=== PATIENT | female | born 1955 | race Caucasian/White ===

== ENCOUNTER 2024-08-16 08:43 | Outpatient (CLI) | payer MEDICARE, SELFPAY ==
--- NOTE | ~2024-08-16 | US_ITS ---
EXAMINATION: US abdomen limited DATE: 08/16/2024 09:20 INDICATION: Gaseous abdominal distention TECHNIQUE: Multiple grayscale and Doppler ultrasound images of the abdomen were obtained. COMPARISON: CT dated 11/18/2019 FINDINGS: The pancreatic head and body are normal in appearance. The pancreatic tail is not visualized. The vi sualized proximal abdominal aorta and inferior vena cava are normal. Liver has normal echogenicity an d contour, with a smooth surface. There are multiple well-defined anechoic hepatic cysts the largest with lobular margins in the right hepatic lobe measuring 4.0 cm in maximal diameter. No intrahepatic biliary duct dilation suspected. Portal venous flow was seen in the hepatopetal, normal direction and has normal Doppler waveform. The gallbladder is normal in appearance. There is no cholelithiasis. T he common bile duct measures 4 mm, which is normal. Sonographic You sign was reported as negative by the utility forester. Visualized portion of the right kidney demonstrates normal echogenicity and conto ur with no hydronephrosis. IMPRESSION: 1. A few anechoic hepatic cyst. Otherwise unremarkable right upper quadrant ultrasound. Reviewed, dictated and finalized at location B. IMPRESSION: 1. A few anechoic hepatic cyst. Otherwise unremarkable right upper quadrant ult rasound.
== END 2024-08-16 08:44 | disposition home or self-care (01) ==
LOC: ANHIMG 08:45
PROVIDERS: PCP Nurse Practitioner Family; Visit Provider Nurse Practitioner Family
DX: K76.89 Other specified diseases of liver (principal)
CPT/HCPCS: 76705

== ENCOUNTER 2024-09-19 08:48 | Outpatient (CLI) | payer MEDICARE, SELFPAY ==
--- NOTE | ~2024-09-19 | MM_ITS ---
EXAMINATION: MM screening yany BI w leora HISTORY: Screening TECHNIQUE: Craniocaudal and mediolateral oblique 3-D tomosynthesis images were obtained and synthetic 2-D images were generated. CAD analysis was submitted and interpreted. COMPARISON: No prior mammogram is available for comparison at this institution. BREAST PARENCHYMAL COMPOSITION: Not dense: There are scattered areas of fibroglandular density. FINDINGS: There is no evidence of suspicious mass, calcification, or architectural distortion to sugg est malignancy in either breast. There has been no suspicious interval change. IMPRESSION: 1. No mammographic evidence of malignancy. 2. Recommend routine screening mammography in one year. BI-RADS Category 1: Negative Reviewed, dictated and finalized at location B.
== END 2024-09-19 08:49 | disposition home or self-care (01) ==
LOC: ANHIMG 08:51
PROVIDERS: PCP Nurse Practitioner Family; Visit Provider Nurse Practitioner Family
DX: Z12.31 Encounter for screening mammogram for malignant neoplasm of breast (principal)
CPT/HCPCS: 77063; 77067

== ENCOUNTER 2024-11-01 02:01 | Day surgery (SDC) | payer MEDICARE, SELFPAY ==
[2024-10-15 15:06] VITALS: BMI 39.7
[2024-11-01 07:34] VITALS: BP 127/78; PULSE 93; RESP 20; TEMP 36; O2SAT 94; BMI 40.2
--- NOTE | 2024-11-01 07:49 | P.PNAN_ITS ---
Anes - Initial Pre Proc Eval Procedure: Operation Date: 11/01/24 08:30 Proposed Procedures p Screening Colonoscopy - Antonio Lo MD Date/Time: 11/01/24 07:49 Surgeon: Antonio Lo MD Pre Op Diagnosis: screening malignant neoplasm of colon Patient Data Age: 69 Gender: F Height: 1.8 m Weight: 131 kg Last Vital Signs Temp 96.8 F L 11/01/24 07:34 Pulse 93 11/01/24 07:34 Resp 20 11/01/24 07:34 BP 127/78 11/01/24 07:34 Pulse Ox 94 11/01/24 07:34 O2 Del Method Room Air 11/01/24 07:34 Allergies Allergy/AdvReac Type Severity Reaction Status Date / Time Penicillins Allergy Mild HIVES Verified 11/01/24 07:33 Home Medications Medication Instructions Recorded Confirmed Type semaglutide 0.25 mg or 0.5 mg (2 0.25 mg subcut DAILY 10/18/19 10/15/24 History mg/1.5 mL) subcutaneous pen injector ([facility]) duloxetine 60 mg capsule,delayed 60 mg PO DAILY #90 caps 05/23/24 10/15/24 Rx release losartan 50 mg tablet 50 mg PO DAILY #90 tabs 05/23/24 10/15/24 Rx meloxicam 7.5 mg tablet 7.5 mg PO DAILY 05/23/24 10/15/24 History rosuvastatin 20 mg tablet 20 mg PO .monday and monday #30 05/23/24 10/15/24 Rx tabs trazodone 100 mg tablet 100 mg PO QHS #90 tabs 05/23/24 10/15/24 Rx levothyroxine 100 mcg capsule 100 mcg PO DAILY #90 caps 08/27/24 10/15/24 Rx Patient hx anesthesia problems: none Family hx anesthesia problems: none Results Review: All pre-operative results and documents have been reviewed as part of the pre- operative evaluation. [facility] Past Medical History Medical History Anxiety Arthritis Diabetes Hearing loss Hypertension Hypothyroid Right-sided acoustic neuroma Surgical History Surgical History H/O brain surgery H/O tubal ligation History of tonsillectomy and adenoidectomy Hx of appendectomy Hx of cataract surgery Hx of colonoscopy 08/12/13 11/11/19 @ [facility] Family History Family History Father Anxiety and depression Heart disease Mother Breast cancer Heart disease Sibling Carcinoma of colon Diabetes mellitus Grandparent Carcinoma of colon Social History Social History Social History: 08/20/24 very confident with medical forms. 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 HTN, hyperlipidemia, hypothyroidism, DM, on ozempic (off 6 days). Pt had stress test 10/28/24 at [facility] which was nml per her report. Then had a Ca score which was elevated and found a AAA. Pts procurement professional aware of abnormality and has increased her statin dose and cleared her for this procedure. Informed Consent: The patient's anesthetic plan and its attendant risks and benefits were discussed with the patient/family/POA. Questions were solicited and answers provided to the satisfaction of the patient/family/POA.
[2024-11-01] MEDS: LACTATED RINGERS 1,000 ML 150 ML IV CONT (07:51)
[2024-11-01 07:56] LABS: Glucose Point of Care 153 mg/dl (65-105)
--- NOTE | 2024-11-01 08:28 | P.HP_ITS ---
H&P: HPI History of Present Illness Date/Time: 11/01/24 08:28 Chief Complaint: Family history of colorectal cancer. Narrative: This patient has family history of colorectal cancer. Her brother at age 53 From colon cancer. she has had colon polyps in the past. Review of Systems Review of Systems: All systems reviewed & are unremarkable except as noted in HPI and below PMFSH Past Medical History Medical History Anxiety Arthritis Diabetes Hearing loss Hypertension Hypothyroid Right-sided acoustic neuroma Surgical History Surgical History H/O brain surgery H/O tubal ligation History of tonsillectomy and adenoidectomy Hx of appendectomy Hx of cataract surgery Hx of colonoscopy 08/12/13 11/11/19 @ [facility] Family History Family History Father Anxiety and depression Heart disease Mother Breast cancer Heart disease Sibling Carcinoma of colon Diabetes mellitus Grandparent Carcinoma of colon Social History Social History Social History: 08/20/24 very confident with medical forms. 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 Spiritual care concerns: No Agree to blood products: Yes Meds Home Medications and Allergies Home Medications Medication Instructions Recorded Confirmed Type semaglutide 0.25 mg or 0.5 mg (2 0.25 mg subcut DAILY 10/18/19 10/15/24 History mg/1.5 mL) subcutaneous pen injector (Ozempic) duloxetine 60 mg capsule,delayed 60 mg PO DAILY #90 caps 05/23/24 10/15/24 Rx release losartan 50 mg tablet 50 mg PO DAILY #90 tabs 05/23/24 10/15/24 Rx meloxicam 7.5 mg tablet 7.5 mg PO DAILY 05/23/24 10/15/24 History rosuvastatin 20 mg tablet 20 mg PO .monday and monday #30 05/23/24 10/15/24 Rx tabs trazodone 100 mg tablet 100 mg PO QHS #90 tabs 05/23/24 10/15/24 Rx levothyroxine 100 mcg capsule 100 mcg PO DAILY #90 caps 08/27/24 10/15/24 Rx Allergies Allergy/AdvReac Type Severity Reaction Status Date / Time Penicillins Allergy Mild HIVES Verified 11/01/24 07:33 Vital Signs Vital Signs - 24 hr 11/01/24 07:34 Temperature 96.8 F L Pulse Rate 93 Respiratory Rate 20 Blood Pressure 127/78 Pulse Oximetry 94 Oxygen Delivery Room Air Exam Const: General: cooperative and healthy appearing Resp: Effort & Inspection: normal respiratory effort and able to speak in complete sentences Auscultation: clear to auscultation bilaterally Cardio: Rate: regular rate Rhythm: regular rhythm GI: Inspection: normal to inspection GI Palp: No No hepatosplenomegaly pr esent Auscultation: normal bowel sounds Rectal Exam: deferred Skin: General skin exam: normal color Psych: Appearance: grossly normal Mental Status: mental status grossly normal Assessment and Plan Assessment and plan (1) Family history of colon cancer: Code(s): Z80.0 - Family history of malignant neoplasm of digestive organs Status: Acute Assessment and Plan: The patient is deemed a good candidate for the procedure. Consent signed. Will proceed.
[2024-11-01 09:01] VITALS: BP 107/83; PULSE 77; RESP 19; O2SAT 96
[2024-11-01 09:11] VITALS: BP 110/86; PULSE 71; RESP 16; O2SAT 97
[2024-11-01 09:22] VITALS: BP 131/82; PULSE 70; RESP 17; O2SAT 100
--- NOTE | 2024-11-01 09:27 | SUR.PREOP ---
Bel Mayorga, RN, and Dr. Casey made aware of recent aneurysm finding.
== END 2024-11-01 09:35 | disposition home or self-care (01) ==
PROVIDERS: PCP Nurse Practitioner Family; Visit Provider Internal Medicine Gastroenterology
PROC: 0DJD8ZZ Inspection of Lower Intestinal Tract, Via Natural or Artificial Opening Endoscopic (ICD-10-PCS; CPT 45378; principal; 2024-11-01 08:30)
DX: Z12.11 Encounter for screening for malignant neoplasm of colon (principal); D12.0 Benign neoplasm of cecum; E11.9 Type 2 diabetes mellitus without complications; I10 Essential (primary) hypertension; E03.9 Hypothyroidism, unspecified; F41.9 Anxiety disorder, unspecified; D33.3 Benign neoplasm of cranial nerves; M19.90 Unspecified osteoarthritis, unspecified site; E66.01 Morbid (severe) obesity due to excess calories; Z68.41 Body mass index [BMI] 40.0-44.9, adult; Z79.85 Long-term (current) use of injectable non-insulin antidiabetic drugs; Z98.890 Other specified postprocedural states; Z98.51 Tubal ligation status; Z80.0 Family history of malignant neoplasm of digestive organs; Z80.3 Family history of malignant neoplasm of breast; Z82.49 Family history of ischemic heart disease and other diseases of the circulatory system
CPT/HCPCS: 45385; 82948; 88305; J2704; J7120

== ENCOUNTER 2024-11-11 08:45 | Outpatient (CLI) | payer MEDICARE, SELFPAY ==
--- NOTE | ~2024-11-11 | CT_ITS ---
EXAMINATION: CT abdomen wo/w con DATE: 11/11/2024 09:09 INDICATION: Hepatomegaly, not elsewhere classified. TECHNIQUE: Computed tomography (CT) of the abdomen was performed without and with 100 mL Omnipaque 35 0 intravenous contrast. Automated exposure control and iterative reconstruction technique were employ ed. The dose-length product was 2870.93 mGy-cm. COMPARISON: CT abdomen and pelvis 11/18/2019, abdomen ultrasound 08/16/2024 FINDINGS: The visualized portions of the lung bases demonstrate mild atelectasis. No pleural effusion . The heart size is normal. There are coronary artery calcifications. No pericardial effusion. There is a moderate-sized sliding hiatal hernia. There are cysts in the liver measuring up to 4.4 cm. The g allbladder is normal. There are 3 hypodense masses in the spleen measuring up to 16 mm without change , likely granulomatous disease. The pancreas, adrenal glands, and right kidney are normal. 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 There are no dilated loo ps of bowel. There are changes of appendectomy. There are no pathologically enlarged lymph nodes. The re is mild thoracic spondylosis and moderate lumbar spondylosis. IMPRESSION: 1. Benign cysts in the liver. 2. Moderate-sized sliding hiatal hernia. Reviewed, dictated and finalized at location A. 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
[2024-11-11 09:04] LABS: Estimated Glomerular Filt Rate > 60
--- OUTSIDE RECORDS SUMMARY | 2024-11-17 18:04 | XMS_ITS | Clinical Summary ---
Author Organization [facility] Address [address] [place] [address]. [place] [address] [place] [address] Care Team Providers Care Porter Used [employer] Name Role Phone Omar Cait Pham [facility] Primary Care Provider + Allergies Active Allergy Reactions Criticality Noted Date Comments Morphine Other (see comment) 02/19/2023 Profound hypotension and diaphoresis Penicillins Hives 03/29/2010 Medications Levothyroxine Sodium 100 MCG capsule Take 1 capsule by mouth daily. 08/30/2024 Active losartan (COZAAR) 50 MG tablet Take 1 tablet (50 mg total) by mouth daily. Active meloxicam (MOBIC) 7.5 MG tablet Take 1 tablet (7.5 mg total) by mouth daily. Active rosuvastatin (CRESTOR) 20 MG tablet Take 1 tablet (20 mg total) by mouth nightly at bedtime. Active traZODone (DESYREL) 100 MG tablet Take 1 tablet (100 mg total) by mouth nightly at bedtime. Active DULoxetine (CYMBALTA) 60 MG capsule Take 1 capsule (60 mg total) by mouth daily. Active OZEMPIC 1 mg/dose injection (PEN) Inject 1 mg into the skin once a week. Active Active Problems Problem Noted Date Diagnosed Date Essential hypertension 09/15/2021 Hyperlipidemia 04/08/2019 Encounters Date Type Department Care Team Description 11/04/2024 7:56 AM MANAGER VIDEO [employer]AMES - 11/04/2024 11:59 PM [facility] Hospital Encounter [facility] Ultrasound [address] [place], [place] [id number] Boston Du MD Discharge Disposition: Home or Self Care (Routine Discharge) 11/04/2024 Travel 11/01/2024 Telephone [facility] [address] [address] Boston Du MD Information (Patient request) 10/30/2024 Telephone [facility] [address] Colleen Pina, ANESTHESIOLOGY MEDICAL DOCTOR Results 10/29/2024 7:46 AM MANAGER [employer] - 10/29/2024 11:59 PM MANAGER [employer] Hospital Encounter [facility] [address] [place] [address] Boston Du MD Discharge Disposition: Home or Self Care (Routine Discharge) 10/28/2024 11:47 AM MANAGER [employer]IDEO [employer] - 10/28/2024 11:59 PM MANAGER [employer] Hospital Encounter [facility] Cardiopulmonary Services [address] [place] [address] Boston Du MD Discharge Disposition: Home or Self Care (Routine Discharge) 10/28/2024 Travel 10/22/2024 Abstract [facility] [address] Trevon Yeung, RMA 10/17/2024 10:30 AM MANAGER [employer]IDEO [employer] [facility] [address] [place] [address] Boston Du MD Consult (Fhx CAD); Chest Pain; Fatigue 10/17/2024 Travel 10/15/2024 Orders Only [facility] [address] [address] Devi Quinones MA from Last 3 Months Immunizations Name Administration Dates Next Due COVID-19 Vaccine (Generic) 01/30/2021,01/02/2021 Influenza (Generic) 11/27/2011 Influenza Adult (Generic) 09/09/2021,09/2019,08/06/2019, 018 MODERNA COVID-19 (12+) MRNA, LNP-S, PF, 100 MCG/ 0.5 ML DOSE 09/22/2021 Shingrix 09/25/2019 Tdap (Generic) 11/14/2018 Family History Medical History Relation Comments atrial flutter Brother Heart Attack Father Stent Cardiac Father CHF Mother Stroke Paternal Grandfather Heart Attack Sister Stent Cardiac Sister Relation Status Comments Brother Alive Father Maternal Grandfather Maternal Grandmother Mother Paternal Grandfather Paternal Grandmother Sister Alive Social History Tobacco Use Types Packs/Day Years Used Date Smoking Tobacco: Never Smokeless Tobacco: Never Tobacco Cessation:Counseling Given: Not Answered Alcohol Use Standard Drinks/Week Comments Yes 0 (1 standard drink = 0.6 oz pur e alcohol) rare Comments Unknown Sex and Gender Information Value Date Recorded Sex Assigned at Not on file Legal Sex Female 7:32 PM CDT Gender Identity Not on file Sexual Orientation Not on file Last Filed Vital Signs Vital Sign Reading Time Taken Comments Blood Pressure 138/88 10/17/2024 10:58 AM MANAGER [employer]IDEO [employer] Pulse 81 10/17/2024 10:58 AM MANAGER [employer] Temperature 36.7 ??C (98 ??F) 02/19/2023 1:46 PM CDT Respiratory Rate 20 02/19/2023 1:46 PM CDT Oxygen Saturation 95% 02/19/2023 3:40 PM CDT Inhaled Oxygen Concentration - - Weight 132 kg (291 lb) 10/17/2024 10:58 AM MANAGER [employer]IDEO [employer] Height 180.3 cm (5' 11 ) 10/17/2024 10:58 AM MANAGER [employer]IDEO [employer]AMES Body Mass Index 40.59 10/17/2024 10:58 AM MANAGER [employer]IDEO [employer]AMES Plan of Treatment Upcoming Encounters Date Type Department Care Team (Late st Contact Info) Description 11/18/2024 9:00 AM MANAGER VIDEO [employer] Telemedicine [facility] [address] [place] [id number] Colleen Pina FNP [address] [place] [address] [address] [place] [address] Health Maintenance Due Date Last Done Comments Colorectal Cancer Screening Colonoscopy (10 Years) 1955 Hepatitis C 1974 RSV Immunization or 60+ Years (1 - Risk 60-74 years 1-dose series) 2016 Zoster Vaccines (2 of 2) 11/20/2019 09/25/2019 Annual Medicare Wellness Visit 2021 Pneumococcal Vaccine: 65+ Years (1 of 1 - PCV) 2021 COVID-19 Vaccine (4 - season) 2024 09/22/2021, 01/30/2021, 01/02/2021 Influenza Adult (#1) 2024 09/09/2021, 08/07/2019, 08/06/2019, Additional history exists Mammogram Screening 10/04/2024 10/04/2022, 10/09/2019, 01/22/2015, Additional history exists DTaP, Tdap and Td Vaccines (2 - Td or Tdap) 11/14/2028 11/14/2018 Dexa Scan (General) Completed 05/02/2023, 0 Meningococcal Vaccine Aged Out No diaz jace eligible based on patient's age to complete this topic RSV Immunizations Under 20 Months Aged Out No longer eligible based on patient's age to complete this topic Procedures Procedure Name Priority Date/Time Associated Diagnosis Comments CREATININE WHOLE BLOOD Routine 9:25 AM MANAGER VIDEO GAMES Ascending aortic aneurysm (CMS/HCC) CTA CHEST Routine 11/04/2024 9:24 AM MANAGER [employer]IDEO [employer] Ascending aortic aneurysm (CMS/HCC) USE ECHOCARDIOGRAM W CON Routine 024 8:52 AM MANAGER [employer]IDEO [employer] Chest pain in adult CT HEART DIAG CALCIUM SCORE Routine 10/29/2024 8:21 AM MANAGER [employer]IDEO [employer] Chest pain in adult STRESS TEST ONLY, EXERCISE Routine 10/28/2024 12:00 PM MANAGER [employer] Chest pain in adult ELECTROCARDIOGRAM (NON MIDMARK ACQUIRED) Routine 10/17/2024 11:11 AM MANAGER [employer]IDEO [employer]AMES Chest pain in adult BONE DENSITY/DEXA Routine 05/02/2023 1:2 4 PM CDT Age-related osteoporosis without current pathological fracture MG SCREENING W DONNIE TIMA DIGI Routine 10/04/2022 1:23 PM MANAGER [employer]IDEO [employer]AMES Encounter for screening mammogram for malignant neoplasm of breast from Last 3 Months or Most Recently Relevant to Health Maintenance Results * CREATININE WHOLE BLOOD (Radiology only) (11/04/2024 9:25 AM MANAGER VIDEO GAMES) CREATININE WHOLE BLOOD 0.8 0.6 - 1.2 MG/DL 11/04/2024 6:18 PM MANAGER VIDEO GAMES [facility] 11/04/2024 9:25 AM MANAGER VIDEO GAMES us Boston Du MD LABORATORY Final Resul t [facility] [address] [place] [address], [place] [phone] * CTA CHEST (11/04/2024 9:24 AM MANAGER VIDEO [employer]AMES) Anatomical Region Laterality Modality Chest Computed Tomogra phy 11/05/2024 6:42 AM MANAGER VIDEO [employer]AMES Impressions 11/05/2024 6:59 AM MANAGER [employer]IDEO GAMES IMPRESSION: 1. ??Atherosclerotic aorta without dissection. ??Ascending aortic aneurysm as detailed above. ??No pericardial effusion.. 2. ??No pathologic pulmonary nodules or pathologic lymphadenopathy. ??No infiltrate or effusion. 3. ??Follow-up with CT of the abdomen for hemangioma protocol for low-density lesions within the liver and spleen. Referred By: BOSTON DU Interpreted By: Mannie Ospina MD, 11/05/2024 6:42 AM Narrative 11/05/2024 6:59 AM MANAGER VIDEO GAMES [facility] [address] [place] [address] EXAMINATION: CTA CHEST WITH CONTRAST EXAM DATE/TIME: 11/04/2024 8:50 AM REASON FOR EXAM: ??Ascending aortic aneurysm ?? COMPARISON: CT calcium scoring of 10/29/2024 TECHNIQUE: Computed tomography angiography was performed of the chest after administration of intravenous contrast, 80 cc of Isovue-370, according to routine protocol. Additional 3-D reconstructions and postprocessing were performed independently by the attending radiologist and a separate dedicated 3-D workstation. A dose lowering technique was used for this procedure, which may include, but is not limited to, dose reduction technique, automated exposure control, iterative reconstruction, ALARA (As Low As Reasonably Achievable), or Image Gently techniques. FINDINGS: This exam is a limited non gated study VASCULAR FINDINGS: Adequate opacification of the pulmonary arteries. No evidence of acute pulmonary embolism.. Atherosclerotic aorta without dissection. ??Ascending aortic aneurysm measuring 4.6 x 4.4 cm.. ??Sinus of Valsalva measures 4 cm but difficult to evaluate on this non gated study. ??Sinotubular junction also difficult to evaluate and measures 3.1 cm. ??Mid descending aorta measures 3.1 cm. NONVASCULAR FINDINGS: On lung windows, no suspicious pulmonary lesion, pneumothorax, or pleural effusion. ??Mild scar formation in both lower lobes adjacent to the hiatal hernia. ??Hiatal hernia measures 7.9 cm On soft tissue windows, no axillary or supraclavicular lymphadenopathy. On mediastinal windows, no evidence of hilar or mediastinal lymphadenopathy. Heart size normal. No pericardial effusion. ??Moderately severe coronary artery calcifications. Limited evaluation of the upper abdomen demonstrates no acute abnormality.. ??Slightly ill-defined low-density lesions within both lobes of the liver and within the spleen. ??Nonspecific. ??May be hemangiomas versus cysts. ??Follow-up with CT the abdomen for hemangioma protocol. On bone windows, no suspicious skeletal lesion or acute compression fracture deformity. Procedure Note Mannie Ospina MD - 11/05/2024 [facility] [address] [place] [address] EXAMINATION: CTA CHEST WITH CONTRAST EXAM DATE/TIME: 11/04/2024 8:50 AM REASON FOR EXAM: Ascending aortic aneurysm COMPARISON: CT calcium scoring of 10/29/2024 TECHNIQUE: Computed tomography angiography was performed of the chestafter administration of intravenous contrast, 80 cc of Isovue-370,according to routine protocol. Additional 3-D reconstructions andpostprocessing were performed independently by the attending radiologistand a separate dedicated 3-D workstation. A dose lowering technique was used for this procedure, which may include,but is not limited to, dose reduction technique, automated exposurecontrol, iterative reconstruction, ALARA (As Low As ReasonablyAchievable), or Image Gently techniques. FINDINGS: This exam is a limited non gated study VASCULAR FINDINGS: Adequate opacification of the pulmonary arteries. No evidence of acutepulmonary embolism.. Atherosclerotic aorta without dissection. Ascending aortic aneurysmmeasuring 4.6 x 4.4 cm.. Sinus of Valsalva measures 4 cm but difficult toevaluate on this non gated study. Sinotubular junction also difficult toevaluate and measures 3.1 cm. Mid descending aorta measures 3.1 cm. NONVASCULAR FINDINGS: On lung windows, no suspicious pulmonary lesion, pneumothorax, or pleuraleffusion. Mild scar formation in both lower lobes adjacent to the hiatalhernia. Hiatal hernia measures 7.9 cm On soft tissue windows, no axillary or supraclavicular lymphadenopathy. On mediastinal windows, no evidence of hilar or mediastinallymphadenopathy. Heart size normal. No pericardial effusion. Moderatelysevere coronary artery calcifications. Limited evaluation of the upper abdomen demonstrates no acuteabnormality.. Slightly ill-defined low-density lesions within both lobesof the liver and within the spleen. Nonspecific. May be hemangiomasversus cysts. Follow-up with CT the abdomen for hemangioma protocol. On bone windows, no suspicious skeletal lesion or acute compressionfracture deformity. IMPRESSION: 1. Atherosclerotic aorta without dissection. Ascending aortic aneurysmas detailed above. No pericardial effusion.. 2. No pathologic pulmonary nodules or pathologic lymphadenopathy. Noinfiltrate or effusion. 3. Follow-up with CT of the abdomen for hemangioma protocol forlow-density lesions within the liver and spleen. Referred By: BOSTON DU Interpreted By: Mannie Ospina MD, 11/05/2024 6:42 AM Colleen Pina ANESTHESIOLOGY MEDICAL DOCTOR CT Final Result * USE ECHOCARDIOGRAM W CON (11/04/2024 8:52 AM MANAGER VIDEO GAMES) Anatomical Region Laterality Modality NA Ultrasound 11/04/2024 8:08 AM MANAGER VIDEO GAMES Narrative 11/05/2024 5:08 PM MANAGER VIDEO GAMES ?BHARGAVI ? OUTREACH Pat.Name: ??Malcolm Hill ? Pat.ID: ?[id number] ? St.Date: ?? 11/04/2024 ? Refer.MD: ??Outreach, [facility] Radiology Exam Time: 8:08:00 AM ?Study Type:OUTREACH ? Height: ?71 in ? Weight: ?291 lb ? BSA: ? 2.47 m2 ?Age: ??1955,69Y ? Sex: ? F ? Sonogrphr: Lw ? Pat. Stat.:Outpatient ? Reason for Study:CP ? Procedures: Study performed at [place], [place] and interpreted by [facility]. 2D, M-mode, Doppler, Color Flow, Myocardial contrast was used to enhance endocardial definition. ++++++++++++++++++++++++++++++++++++ SUMMARY: ++++++++++++++++++++++++++++++++++++ Left ventricle is normal in size and systolic function Estimated EF of 55-60% Diastolic dysfunction. Right ventricle is normal in size and function No significant valve dysfunction. Unable to estimate pulmonary pressures. ++++++++++++++++++++++++++++++++++++ FINDINGS: ++++++++++++++++++++++++++++++++++++ LV: ? The left ventricular size is normal. The left ventricular ?systolic function is normal. Estimated left ventricular ?ejection fraction is 55-60%. Left ventricular diastolic ?function is abnormal (grade 1 - impaired relaxation). WM: ? Wall motion appears normal in all segments. RV: ? The right ventricle size is normal. The right ventricular ?function is normal. LA: ? Left atrial size is normal. RA: ? The right atrial size is normal. MITCHEL: ? No evidence of pericardial effusion. AO: ? Aorta is normal. SVn: ?Inferior vena cava is normal. AV: ? No evidence of aortic valve stenosis. No evidence of aortic ?valve regurgitation. The aortic valve not well visualized. MV: ? The mitral valve is structurally normal. There is trace ?mitral regurgitation. PV: ? Pulmonic valve not well visualized. TV: ? The tricuspid valve appears structurally normal. There is ?trace tricuspid regurgitation. <Electronic Signature> 11/05/2024 05:08 PM Boston Du M.D. Procedure Note Boston Du MD - 11/05/2024 BHARGAVI WISE Pat.Name: Malcolm Hill [facility].ID: [id number] .Date: 11/04/2024 Refer.MD: Beba, [facility] Radiology Exam Time: 8:08:00 AM Study Type:OUTREACH Height: 71 in Weight: 291 lb BSA: 2.47 m2 Age: 8 1955,69Y Sex: F Sonogrphr: Raymon Bolivar. Stat.:Outpatient Reason for Study:CP Procedures: Study performed at [place], [place] and interpreted by [facility]. 2D, M-mode, Doppler, Color Flow, Myocardial contrast was used to enhance endocardial definition. ++++++++++++++++++++++++++++++++++++ SUMMARY: ++++++++++++++++++++++++++++++++++++ Left ventricle is normal in size and systolic function Estimated EF of 55-60% Diastolic dysfunction. Right ventricle is normal in size and function No significant valve dysfunction. Unable to estimate pulmonary pressures. ++++++++++++++++++++++++++++++++++++ FINDINGS: ++++++++++++++++++++++++++++++++++++ LV: The left ventricular size is normal. The left ventricular systolic function is normal. Estimated left ventricular ejection fraction is 55-60%. Left ventricular diastolic function is abnormal (grade 1 - impaired relaxation). WM: Wall motion appears normal in all segments. RV: The right ventricle size is normal. The right ventricular function is normal. LA: Left atrial size is normal. RA: The right atrial size is normal. MITCHEL: No evidence of pericardial effusion. AO: Aorta is normal. SVn: Inferior vena cava is normal. AV: No evidence of aortic valve stenosis. No evidence of aortic valve regurgitation. The aortic valve not well visualized. MV: The mitral valve is structurally normal. There is trace mitral regurgitation. PV: Pulmonic valve not well visualized. TV: The tricuspid valve appears structurally normal. There is trace tricuspid regurgitation. <Electronic Signature> 11/05/2024 05:08 PM Boston Du M.D. us Boston Du MD ECHO Final Resul t * CT HEART DIAG CALCIUM SCORE (10/29/2024 8:21 AM MANAGER VIDEO GAMES) Anatomical Region Laterality Modality Computed Tomogra phy 10/29/2024 8:29 AM MANAGER [employer]IDEO GAMES Impressions 10/29/2024 8:37 AM MANAGER [employer]IDEO GAMES IMPRESSION: 1. ??Total Score: 622.37. This is considered extensive atherosclerotic plaque. High likelihood of significant coronary artery narrowing. 2. ??Ascending aortic aneurysm. This may be better quantified by CTA of the chest. 3. ??Hypodensities in the liver incompletely visualized. Additional evaluation by CT scan of the abdomen with and without contrast is recommended. 4. ??Pulmonary nodule versus atelectasis left lower lobe. This could also be evaluated on this CTA of the chest. 5. ??Hiatus hernia noted. 6. ??Dr. Du notified of these findings by me by [employer], electronic notification service. Ordered By: BOSTON DU Interpreted By: Mir Young MD, 10/29/2024 8:29 AM Narrative 10/29/2024 8:37 AM MANAGER VIDEO GAMES [facility] [address] [place] [address] EXAMINATION: Multislice Helical CT Coronary Calcium Scoring EXAM DATE/TIME: 10/29/2024 8:08 AM REASON FOR EXAM: ??early family history of CAd ? COMPARISON: None TECHNIQUE: ??Multislice helical CT images of the proximal coronary arteries with a computer generated calcification score. Automated exposure control was utilized for dose reduction. Results: Right coronary: 180.65 ?? Left main: 130.17 ? LAD: 264.22 Circumflex: 47.33 ? Total Score: 622.37 ? Comments: The aorta measures 4.7 cm in diameter in the ascending portion. Multiple hypodensities in the liver are incompletely visualized. Hiatus hernia is noted. 11 x 8 mm nodule in the left lower lobe on image 31 is noted. This could be due to atelectasis however, breathing artifact limits evaluation. Calcium score guidelines: Total Score* Calcium Plaque [place] ??*Risk ?*Probability of significant CAD 0 ?No Plaque ?Very Low ? Very unlikely 1-10 ?Minimal Plaque ? Low ?Unlikely 11-100 ?Mild Plaque ?Moderate ? Low likelihood of significant ? stenosis <50% ? 101-400 ? Moderate Plaque ?Moderately High ?Moderate likelihood of ? significant stenosis (>50%) Over 400 ?Extensive Plaque ? High ?High likelihood of ?significant stenosis (>50%) The amount of coronary artery calcification correlates with the severity of coronary atherosclerosis and the probability of future significant event. Calcification is not site specific for stenosis and does not identify non-calcified atherosclerotic plaque, but rather indicates the extent of atherosclerosis in the coronary arteries overall. The score may be used as an indicator for risk factor modification or additional cardiac testing. Significant change in calcium score over time may be indicative of subsequent disease development or useful as a benchmark to assess preventative programs. Procedure Note Mir Young MD - 10/29/2024 [facility] [place] [address] [place] [address] EXAMINATION: Multislice Helical CT Coronary Calcium Scoring EXAM DATE/TIME: 10/29/2024 8:08 AM REASON FOR EXAM: early family history of CAd COMPARISON: None TECHNIQUE: Multislice helical CT images of the proximal coronary arterieswith a computer generated calcification score. Automated exposure controlwas utilized for dose reduction. Results: Right coronary: 180.65 Left main: 130.17 LAD: 264.22 Circumflex: 47.33 Total Score: 622.37 Comments: The aorta measures 4.7 cm in diameter in the ascending portion.Multiple hypodensities in the liver are incompletely visualized. Hiatushernia is noted. 11 x 8 mm nodule in the left lower lobe on image 31 isnoted. This could be due to atelectasis however, breathing artifact limitsevaluation. Calcium score guidelines: Total Score* Calcium Plaque [place] *Risk *Probability ofsignificant CAD 0 No Plaque Very LowVery unlikely 1-10 Minimal Plaque LowUnlikely 11-100 Mild Plaque ModerateLow likelihood of significant stenosis <50% 101-400 Moderate Plaque Moderately HighModerate likelihood of significant stenosis (>50%) Over 400 Extensive Plaque HighHigh likelihood of significant stenosis (>50%) The amount of coronary artery calcification correlates with the severityof coronary atherosclerosis and the probability of future significantevent. Calcification is not site specific for stenosis and does not identify non- calcifiedatherosclerotic plaque, but rather indicates the extent of atherosclerosisin the coronary arteries overall. The score may be used as an indicator for risk factor modification oradditional cardiac testing. Significant change in calcium score over timemay be indicative of subsequent disease development or useful as a benchmark to assess preventativeprograms. IMPRESSION: 1. Total Score: 622.37. This is considered extensive atheroscleroticplaque. High likelihood of significant coronary artery narrowing. 2. Ascending aortic aneurysm. This may be better quantified by CTA of thechest. 3. Hypodensities in the liver incompletely visualized. Additionalevaluation by CT scan of the abdomen with and without contrast isrecommended. 4. Pulmonary nodule versus atelectasis left lower lobe. This could alsobe evaluated on this CTA of the chest. 5. Hiatus hernia noted. 6. Dr. Du notified of these findings by me by [employer], electronicnotification service. Ordered By: BOSTON DU Interpreted By: Mir Young MD, 10/29/2024 8:29 AM us Boston Du MD CT Final Resul t * STRESS TEST ONLY, EXERCISE (10/28/2024 12:00 PM MANAGER VIDEO GAMES) 10/28/2024 12:0 0 PM MANAGER VIDEO GAMES Narrative [facility] - 10/31/2024 3:35 PM MANAGER VIDEO GAMES [facility] ? Test Date: ?2024-10-28 Pat Name: ? MALCOLM HILL ? Department: ? Room: ? Gender: ? Female ? I O Psychologist: ?? JBarton CHIEF MERCHANDISING OFFICER : ?1955 ? Requested By: BOSTON DU Order Number: [id number] ? Little SCHAFER: ?? Boston Du ? Interpretive Statements ORDER #: [id number] PROCEDURE: EKG Luis Indication: CP The patient's baseline heart rate is 93 and blood pressure 138/84. Baseline electrocardiogram shows sinus with no acute ST changes. ??The patient exercised on the treadmill 03 Min 42 Sec per standard luis protocol and achieved a peak heart rate of 131 beats per minute which is 86 percent of predicted maximum for age. ??Maximum blood pressure was 160/98 and the workload achieved was 4.7 METS. During exercise, there was no chest pain/pressure CONCLUSIONS: 1) Negative clinically for ischemia 2) Negative electrocardiographically for ischemia 3) poor exercise tolerance GER VIDEO GAMES Procedure Note Boston Du MD - [facility]31/20[facility] Date: 2024-10-28 Pat Name: MALCOLM HILL Department: Room: Gender: Female I O Psychologist: Jeremiah STUBBS : 1955 Requested By: BOSTON DU Order Number: [id number] Little SCHAFER: Boston Du Interpretive Statements ORDER #: [id number] PROCEDURE: EKG Luis Indication: CP The patient's baseline heart rate is 93 and blood pressure 138/84.Baseline electrocardiogram shows sinus with no acute ST changes. The patient exercised on the treadmill 03 Min 42 Sec per standard luis protocol and achieved a peak heart rate of 131 beats per minute which is 86 percentof predicted maximum for age. Maximum blood pressure was 160/98 and the workload achieved was 4.7 METS. During exercise, there was no chest pain/pressure CONCLUSIONS: 1) Negative clinically for ischemia 2) Negative electrocardiographically for ischemia 3) poor exercise tolerance GER VIDEO GAMES us Boston Du MD CV CARDIAC SERVICES ORDERAB LES Final Result [facility] * ELECTROCARDIOGRAM (10/17/2024 11:11 AM MANAGER VIDEO GAMES) 10/17/2024 11:1 1 AM MANAGER VIDEO GAMES Narrative ELOISA CARDIOVASCULAR - 10/21/2024 4:02 PM MANAGER VIDEO GAMES ?[facility], [facility] ? Test Date: ?2024-10-17 Pat Name: ? MALCOLM HILL ? Department: ?? 107 ? Room: ? Gender: ? Female ? I O Psychologist: ?? kd : ?1955 ? Requested By: BOSTON DU Order Number: [id number] ?Reading : ?? Porter Gottlieb ? Measurements Intervals ?[place] ? Rate: ? 83 ? P: ?46 LA: ? 170 ?QRS: ?-9 QRSD: ? 94 ? T: ?27 QT: ? 357 ? QTc: ?421 ? Interpretive Statements SINUS RHYTHM No prior ECG for comparison GER VIDEO GAMES Procedure Note Porter Gottlieb MD - 10/21/2024 [facility] Test Date: 2024-10-17 Pat Name: MALCOLM HILL Department: 107 Room: Gender: Female I O Psychologist: shivani : 1955 Requested By: BOSTON DU Order Number: [id number] Little MD: Porter Gottlieb Measurements Intervals [place] Rate: 83 P: 46 LA: 170 QRS: -9 QRSD: 94 T: 27 QT: 357 QTc: 421 Interpretive Statements SINUS RHYTHM No prior ECG for comparison GER VIDEO GAMES us Boston Du MD PROCEDURES-ORDERABLE NO JASBIR RGE Final Result [facility] * BONE DENSITY/DEXA (05/02/2023 1:24 PM CDT) Anatomical Region Laterality Modality Bone Bone Density 05/03/2023 11:1 0 AM CDT Narrative 05/03/2023 11:12 AM CDT IMAGING STUDIES: BONE DENSITY/DEXA ??DATE: 04/04/2023 10:05 AM CLINICAL HISTORY: Postmenopausal. On calcium replacement therapy. 67-year-old female with menopause at age 55 FINDINGS: LUMBAR SPINE L2-L4: BMD: 0.902 g/sq cm T-SCORE: -1.6 WHO CLASSIFICATION: Moderate osteopenia FRACTURE RISK: Low LEFT FEMORAL NECK: BMD: 0.650 T-SCORE: -1.8 WHO CLASSIFICATION: Moderate osteopenia FRACTURE RISK: ??Very low COMPARISON STUDY: 08/12/2020. LUMBAR SPINE L2-L4: BMD: 0.937 T-SCORE: -1.3 WHO CLASSIFICATION: Mild osteopenia FRACTURE RISK: Low LEFT FEMORAL NECK: BMD: 0.664 T-SCORE: -1.7 WHO CLASSIFICATION: Moderate osteopenia FRACTURE RISK: Very low Recommendation. Continuation of calcium replacement therapy with repeat imaging in 2 years Ordered By: DICK SYKES Interpreted By: Israel Ospina, 05/03/2023 11:10 AM Procedure Note Mannie Ospina MD - 05/03/2023 IMAGING STUDIES: BONE DENSITY/DEXA DATE: 04/04/2023 10:05 AM CLINICAL HISTORY: Postmenopausal. On calcium replacement therapy.67-year-old female with menopause at age 55 FINDINGS: LUMBAR SPINE L2-L4: BMD: 0.902 g/sq cm T-SCORE: -1.6 WHO CLASSIFICATION: Moderate osteopenia FRACTURE RISK: Low LEFT FEMORAL NECK: BMD: 0.650 T-SCORE: -1.8 WHO CLASSIFICATION: Moderate osteopenia FRACTURE RISK: Very low COMPARISON STUDY: 08/12/2020. LUMBAR SPINE L2-L4: BMD: 0.937 T-SCORE: -1.3 WHO CLASSIFICATION: Mild osteopenia FRACTURE RISK: Low LEFT FEMORAL NECK: BMD: 0.664 T-SCORE: -1.7 WHO CLASSIFICATION: Moderate osteopenia FRACTURE RISK: Very low Recommendation. Continuation of calcium replacement therapy with repeatimaging in 2 years Ordered By: DICK SYKES Interpreted By: Israel Ospina, 05/03/2023 11:10 AM us Dick PADILLA Final Result * MG SCREENING W DONNIE TIMA DIGI (10/04/2022 1:23 PM MANAGER VIDEO GAMES) Anatomical Region Laterality Modality Breast Bilateral Mammography 10/04/2022 4:24 PM MANAGER VIDEO GAMES Impressions 10/04/2022 4:27 PM MANAGER VIDEO GAMES IMPRESSION: 1. No mammographic evidence of malignancy. 2. Assessment: ACR BI-RADS 2 - BENIGN FINDING(S) 3 .Routine Screening Bilateral MQSA BI-RADS Categories: Category 0 - needs additional imaging evaluation. Category 1 - negative. Category 2 - benign findings. Category 3 - probably benign findings, but short interval follow-up ?is recommended. Category 4 - suspicious abnormality and biopsy should be considered ?though the lesion may well be benign. Category 5 - highly suggestive of malignancy and appropriate action ?should be taken. ?? Category 6 - known biopsy-proven malignancy A) ??A negative report should not delay a biopsy if a dominant or ?clinically suspicious mass is present. B) ??Adenosis and dense breasts may obscure an underlying neoplasm. C) ??Study interpreted with computer aided detection. Ordered By: CAIT CABELLO Interpreted By: Israel Ospina, 10/04/2022 4:24 PM Narrative 10/04/2022 4:27 PM MANAGER VIDEO GAMES IMAGING STUDIES: Bilateral screening mammograms with computer-aided detection with 2-D and 3-D imaging. Tomosynthesis. DATE: 10/04/2022 1:10 PM HISTORY: Encounter for screening mammogram for malignant neoplasm of breast ?? . ??Mother diagnosed breast carcinoma age 65 COMPARISON: ??07/23/2016. 10/09/2019. TISSUE TYPE: The breast tissue is almost entirely fatty. FINDINGS: 1. ??Fatty replaced ??fibroglandular tissue pattern is present. Minimal scattered fibroglandular tissue. Benign calcifications 2. ??No malignant microcalfcifications, new dominant masses, or architectural distortion. 3. No skin thickening or nipple retraction. ??Axillary regions are within normal limits. Cait Cabello ANESTHESIOLOGY MEDICAL DOCTOR-BC MAMMO Final Re sult from Last 3 Months or Most Recently Relevant to [place] [address] [employer] Care Teams Porter Used Car Lot Relationship Specialty Start Date End Date Cait Cabello, ANESTHESIOLOGY MEDICAL DOCTOR-BC [address] [place] [address] PCP - General NURSE PRACTITIONER 10/09/19
--- OUTSIDE RECORDS SUMMARY | 2024-11-17 18:05 | XMS_ITS | Encounter Summary ---
Author Organization [facility] Address [address] [place] [address]. [place] [address] [place] [address] Care Team Providers Care Car Repairer Helper Name Role Phone Cait Nelson [facility] Primary Care Provider + Encounter Details Date Type Department Care Team (Latest Contact Info) Description 07/07/2020 Travel Social History Tobacco Use Types Packs/Day Years Used Date Smoking Tobacco: Never Assessed Comments Unknown Sex and Gender Information Value Date Recorded Sex Assigned at Not on file Legal Sex Female 7:32 PM CDT Gender Identity Not on file Sexual Orientation Not on file COVID-19 Exposure Response Date Recorded In the last month, have you been in contact with someone who was confirmed or suspected to have Coronavirus / COVID-19? No / Unsure 07/07/2020 12:37 PM CDT documented as of this encounter Plan of Treatment Upcoming Encounters Date Type Department Care Team (Late st Contact Info) Description 11/18/2024 9:00 AM [facility] [address] [place] [phone] Colleen Pina FNP [id number] [place] [address] documented as of this encounter Visit Diagnoses Not on filedocumented in this encounter Care Teams Car Repairer Helper Relationship Specialty Start Date End Date [facility] [address] [place] [address] PCP - General NURSE PRACTITIONER 10/09/19 documented as of this encounter
--- OUTSIDE RECORDS SUMMARY | 2024-11-17 18:05 | XMS_ITS | Encounter Summary ---
Author Organization [facility] Address [address] [place] [address]. [place], [place] [address] [place] [address] Care Team Providers Care Gate Agent Name Role Phone Cait Nelson [facility] Primary Care Provider + Reason for Referral * Imaging (Routine) - Closed Specialty Diagnoses / Procedures Referred By Contac t Referred To Contact RADIOLOGY Diagnoses Pain in right shoulder Procedures MRI SHOULDER RT WO CON Dick Sykes MD [address] [facility] [address] [place] [phone] Phone: tel: fax: Referral ID Status Reason Start Date Expiration Date Visits Re quested Visits Authorized [id number] Closed 05/02/2023 05/02/2024 1 1 Reason for Visit * Imaging (Routine) - Closed Specialty Diagnoses / Procedures Referred By Contac bandar Referred To Contact RADIOLOGY Diagnoses Pain in right shoulder Procedures MRI SHOULDER RT WO CON Dick Sykes MD [address] [facility] [address] [place] [phone] Phone: tel: fax: Referral ID Status Reason Start Date Expiration Date Visits Re quested Visits Authorized [id number] Closed 05/02/2023 05/02/2024 1 1 Encounter Details Date Type Department Care Team (Latest Contact Info) Description 05/08/2023 12:20 PM CDT - 05/08/2023 11:59 PM CDT Hospital Encounter [facility] [place] [address] [place] [address] Dick Sykes MD [address] [facility] [address] [place] [address] Discharge Disposition: Home or Self Care (Routine Discharge) Social History Tobacco Use Types Packs/Day Years Used Date Smoking Tobacco: Never Assessed Comments Unknown Sex and Gender Information Value Date Recorded Sex Assigned at Not on file Legal Sex Female 7:32 PM CDT Gender Identity Not on file Sexual Orientation Not on file COVID-19 Exposure Response Date Recorded In the last 10 days, have yo u been in contact with someone who was confirmed or suspected to have Coronavirus/COVID-19? No / Unsure 05/08/2023 12:20 PM CDT documented as of this encounter Medications at Time of Discharge azithromycin (ZITHROMAX) 250 MG tablet Take 2 tablets by mouth on day one then 1 daily for four days. 6 tablet 11/23/2019 10/15/2024 HYDROcodone-aceta minophen (NORCO) 5-325 MG tabletIndications :Acute Pain < 3 Day Supply Take 1 tablet by mouth every 6 (six) hours as needed for Pain. Indications: Acute Pain < 3 Day Supply 10 tablet 02/19/2023 10/15/2024 documented as of this encounter Plan of Treatment Upcoming Encounters Date Type Department Care Team (Late st Contact Info) Description 11/18/2024 9:00 AM SOLAR ENERGY SPECIALIST [facility] [address] [place] [address] Colleen Pina, JOSE [address] [place] [address] documented as of this encounter Procedures Procedure Name Priority Date/Time Associated Diagnosis Comments MRI SHOULDER RT WO CON Routine 05/08/2023 1:48 PM CDT Pain in right shoulder documented in this encounter Results * MRI SHOULDER RT WO CON (05/08/2023 1:48 PM CDT) Anatomical Region Laterality Modality Shoulder Magnetic Resonan ce 05/09/2023 3:55 PM CDT Impressions 05/09/2023 4:01 PM CDT IMPRESSION: 1. Noted edema of the proximal humerus with persistent linear T1 hypointensity, suggestive of ongoing but incomplete healing. A refracture is a possibility. CT could be obtained for further characterization of fracture margins and osseous healing. 2. No evidence of full-thickness rotator cuff tear. 3. Findings suggestive of significant tendinosis and favored intrasubstance incomplete tearing of the long head biceps tendon. Evaluation is suboptimal secondary to motion. 4. Increased signal and irregularity of the labrum, cysts suboptimally evaluated secondary to motion artifact. 5. Mild subacromial subdeltoid bursitis. Ordered By: DICK SYKES Interpreted By: Rohith García MD, 05/09/2023 3:55 PM Narrative 05/09/2023 4:01 PM CDT EXAMINATION: MRI of the right shoulder without contrast INDICATION: Right shoulder pain. COMPARISON: Right humerus radiograph on 02/19/2023. TECHNIQUE: Multiplanar, multisequence MR imaging was performed without intravenous contrast, according to routine protocol without complication. FINDINGS: Motion artifact decreasing the sensitivity of this examination. * ??Rotator Cuff: There is tendinosis of the rotator cuff without evidence of a full-thickness tear. The rotator cuff musculature appears normal in volume. * ??Biceps Brachii: Noted intra-articular tendinosis with probable sepsis tearing. The extra articular portion is seen in the most proximal aspect of the bicipital groove, however motion and signal loss more inferiorly limited evaluation. The probably intact tendon appears enlarged and intermediate in signal, suggestive of tendinosis or intrasubstance tearing. * ??Coracoacromial Arch: There is a curved acromion without evidence of anterolateral downsloping. There are mild osteoarthritic changes of the acromial clavicular joint. There is mild subacromial subdeltoid bursitis. * ??Glenohumeral Joint: There is a trace glenohumeral joint effusion with findings suggestive of mild synovitis. No discrete intra-articular body is seen. Evaluation of the humeral articular cartilage is somewhat limited secondary to motion, however there appears to be diffuse mild thinning without convincing evidence of full-thickness cartilage defect. * ??Labrum: The labrum is suboptimally evaluated secondary to motion. The labrum has increased signal and appears irregular. * ??Miscellaneous: Noted marrow edema within the proximal humerus at the site of the previously seen fracture. There is persistent T1 hypointensity across the fracture line suggestive of ongoing but incomplete healing. CT could be obtained for better evaluation of fracture margins. The axillary neurovascular structures are grossly unremarkable. No visualized axillary lymphadenopathy. Procedure Note Rohith García MD - 05/09/2023 EXAMINATION: MRI of the right shoulder without contrast INDICATION: Right shoulder pain. COMPARISON: Right humerus radiograph on 02/19/2023. TECHNIQUE: Multiplanar, multisequence MR imaging was performed withoutintravenous contrast, according to routine protocol withoutcomplication. FINDINGS: Motion artifact decreasing the sensitivity of this examination. * Rotator Cuff: There is tendinosis of the rotator cuff without evidenceof a full-thickness tear. The rotator cuff musculature appears normal involume. * Biceps Brachii: Noted intra-articular tendinosis with probable sepsistearing. The extra articular portion is seen in the most proximal aspectof the bicipital groove, however motion and signal loss more inferiorlylimited evaluation. The probably intact tendon appears enlarged andintermediate in signal, suggestive of tendinosis or intrasubstancetearing. * Coracoacromial Arch: There is a curved acromion without evidence ofanterolateral downsloping. There are mild osteoarthritic changes of theacromial clavicular joint. There is mild subacromial subdeltoidbursitis. * Glenohumeral Joint: There is a trace glenohumeral joint effusion withfindings suggestive of mild synovitis. No discrete intra-articular body isseen. Evaluation of the humeral articular cartilage is somewhat limitedsecondary to motion, however there appears to be diffuse mild thinningwithout convincing evidence of full-thickness cartilage defect. * Labrum: The labrum is suboptimally evaluated secondary to motion. Thelabrum has increased signal and appears irregular. * Miscellaneous: Noted marrow edema within the proximal humerus at thesite of the previously seen fracture. There is persistent T1 hypointensityacross the fracture line suggestive of ongoing but incomplete healing. CTcould be obtained for better evaluation of fracture margins. The axillaryneurovascular structures are grossly unremarkable. No visualized axillarylymphadenopathy. IMPRESSION: 1. Noted edema of the proximal humerus with persistent linear [id number], suggestive of ongoing but incomplete healing. A refractureis a possibility. CT could be obtained for further characterization offracture margins and osseous healing. 2. No evidence of full-thickness rotator cuff tear. 3. Findings suggestive of significant tendinosis and favoredintrasubstance incomplete tearing of the long head biceps tendon.Evaluation is suboptimal secondary to motion. 4. Increased signal and irregularity of the labrum, cysts suboptimallyevaluated secondary to motion artifact. 5. Mild subacromial subdeltoid bursitis. Ordered By: DICK SYKES Interpreted By: Rohith García MD, 05/09/2023 3:55 PM Dick Sykes MD MRI Final Result documented in this encounter Visit Diagnoses Diagnosis Pain in right shoulder Pain in joint, shoulder region documented in this encounter Care Teams Gate Agent Relationship Specialty Start Date End Date Cait Nelson, BEHAVIORAL HEALTH ASSISTANT- [address] [phone] PCP - General NURSE PRACTITIONER 10/09/19 documented as of this encounter
--- OUTSIDE RECORDS SUMMARY | 2024-11-17 18:05 | XMS_ITS | Encounter Summary ---
Author Organization [facility] Address [address] [place] [address]. [place] [address] [place] [address] Care Team Providers Care Bush And Vine Fruit Crop Farmer Name Role Phone Cait Nelson [facility] Primary Care Provider + Encounter Details Date Type Department Care Team (Late Contact Info) Description 05/02/2023 Orders Only [facility] [address] [place] [address] Cait Nelson, [facility] [address] [place] [address] Social History Tobacco Use Types Packs/Day Years [...] suspected to have Coronavirus/COVID-19? No / Unsure 05/02/2023 12:48 PM CDT documented as of this encounter Plan of Treatment Upcoming Encounters Date Type Department Care Team (Late st Contact Info) Description 11/18/2024 9:00 AM [facility] [address] [place] [phone] Colleen Pina, [facility] [address] [place] [address] [phone] (work) documented as of this encounter Results * MISCELLANEOUS LAB TEST (05/02/2023 1:15 PM CDT) [facility] TEST NAME: [id number] BRCA PANEL 05/02/2023 1:48 PM CDT [facility] SPECIMEN TYPE 5ML WHOLE BLOOD EDTA 05/02/2023 1:48 PM CDT [facility] TEST RESULT: Flexitest 1 05/26/2023 7:42 PM CDT Enswers MINDI HENRY Comment: Flexitest 1 TESTS RESULTS--------UNITS--REF. RANGE--- Result ? NEGATIVE ? NO CLINICALLY SIGNIFICANT VARIANTS IDENTIFIED Clinical Interpretation ?NEGATIVE ? Comprehensive sequence analysis of the coding regions and flanking sequence of the gene(s) tested (see Methods and Limitations section) was negative for clinically significant variants. Inherent to the assay methodology, not all gross gene rearrangements or variants affecting gene expression or RNA splicing will be detected. This negative result does not rule out clinically significant variants in other genes associated with hereditary susceptibility to cancer, nor does it address risk for other hereditary conditions. Residual risk after this negative test result is influenced by the indication for testing. Cancer screening and prevention efforts should be guided by personal and family history. In some circumstances, additional genetic testing may be appropriate in addition to new testing options relevant for this individual as they become available in the future. Genetic counseling is recommended for any individual undergoing genetic testing. If this individual has one or more relatives who tested positive for a pathogenic or likely pathogenic variant in any of the tested genes, it is strongly recommended that the genetic test report from at least one such relative be provided to [facility]. Reviewer ? REPORT ? Laboratory testing supervised and results monitored by Zoila Sanabria, Ph.D., DABMGG, [facility]. Resources ?REPORT ? Visit [employer]Jam for physician information, patient materials, FAQs, and testing resources. Call 4-756-MHCUCellufun ( ) for genetic counseling consultations, pre-authorization services, and help finding patient genetic counseling services. Methods and Limitations ?REPORT ? Methods: In this assay, enzymatically sheared DNA fragments representing the entire coding region and the splice junction sites of the interrogated genes are selectively enriched through exon capture using DNA baits, and then subjected to nucleotide sequence analysis on a massively parallel sequencing platform. Both genes, BRCA1 and BRCA2, are examined for single nucleotide variants (SNVs), insertions and deletions (InDels), and copy number variants (CNVs) involving deletions and/or duplications of one or more exons, including those that affect the entire genes. CNVs are assessed by bioinformatic analysis of sequencing reads and, when indicated, confirmed by an orthogonal method. The following NCBI reference transcript sequences were utilized for analysis: BRCA1 (NM 678312.3), BRCA2 (NM 499745.3). Reference genome: [id number] ([id number]). Limitations: This assay cannot detect variants affecting unexamined gene regions (e.g. deep intronic), nor variants in other unlisted genes. In addition, the effect of rare or novel variants on mRNA splicing, protein synthesis, and/or protein function may remain unclear. Variants due to mosaicism, somatic variants from pre-malignant or malignant cells, false positive, or false negative results may rarely occur. While this assay detects copy number variants (CNVs) spanning a region of interest (JUAN PABLO) 100bp or more in size with a high level of sensitivity, CNV detection in smaller ROIs, which are clinically rare, is reduced. Results should be interpreted in the context of clinical findings, relevant history, and other laboratory data. This assay does not analyze all genes associated with hereditary cancer. In some situations, additional genetic testing may be appropriate. Additional Information ? REPORT ? Benign and likely benign variants with no known clinical significance are reported only by request. If a variant is reclassified with clinical implications, [facility] will endeavor to contact the ordering provider. Providers may contact [employer] Client [employer] at [phone] ( ) for assistance with result interpretation, questions about variant classification, or to discuss additional testing. The classification and interpretation of the variant(s) identified reflect the current state of [facility]' understanding at the time of this report. Variant classification and interpretation are subject to professional judgment, and may change for a variety of reasons, including but not limited to, updates in classification guidelines and availability of additional scientific and clinical information. This test result should be used in conjunction with the health care provider's clinical evaluation. Inquiry regarding potential changes to the classification of the variant is strongly recommended prior to making any future clinical decision. For questions regarding variant classification updates, please call [facility] at [phone] to speak to a genetic counselor or blood bank laboratory technician, or visit [email or web address] [email or web address]/variantiq. For patients who are interested in sharing de-identified genetic and health information to improve understanding of genetics and health, please visit [email or web address]. GenomeTicketLeapnect is a third libertarian online registry designed by the [employer] ([employer]in[employer]) and is not affiliated with [employer] in any way. This test was developed and its analytical performance characteristics have been determined by [facility]. It has not been cleared or approved by FDA. This assay has been validated pursuant to the CLIA regulations and is used for clinical purposes. Test performed by [facility] ? [address] [facility], ? [place] [address] ? Ob Nurse: Sandy Choi MD,PHD,MILANA Test Reported by Inge Guzmán, [facility], [address] [place], [place] Jose Alberto Casillas M.D., Ph.D., Director of Laboratories , [place] [id number] 05/02/2023 1:15 PM CDT Cait Nelson [facility] Final Re sult Enswers [facility] [address], [place] , [place] [phone] [facility] [address] [place] [address], documented in this encounter Visit Diagnoses Diagnosis Family history of malignant neoplasm of breast- Primary documented in this encounter Care Teams Bush And Vine Fruit Crop Farmer Relationship Specialty Start Date End Date Cait Nelson, [facility]- [address] [place] [address] PCP - General NURSE PRACTITIONER 10/09/19 documented as of this encounter
--- OUTSIDE RECORDS SUMMARY | 2024-11-17 18:05 | XMS_ITS | Encounter Summary ---
Author Organization [facility] Address [address] [place] [address]. [place] [address] [place] [address] Care Team Providers Care Operations Developer Name Role Phone Cait Nelson [facility] Primary Care Provider + Encounter Details Date Type Department Care Team (Latest Contact Info) Description 08/12/2020 Travel Social History Tobacco Use Types Packs/Day [...] have Coronavirus / COVID-19? No / Unsure 08/12/2020 9:11 AM CDT documented as of this encounter Plan of Treatment Upcoming Encounters Date Type Department Care Team (Late st Contact Info) Description 11/18/2024 9:00 AM [facility] [address] [facility] [phone] Colleen Pina FNP [address] [place] [address] documented as of this encounter Visit Diagnoses Not on filedocumented in this encounter Care Teams Operations Developer Relationship Specialty Start Date End Date [facility] [address] [place] [address] PCP - General NURSE PRACTITIONER 10/09/19 documented as of this encounter
--- OUTSIDE RECORDS SUMMARY | 2024-11-17 18:05 | XMS_ITS | Encounter Summary ---
Author Organization [facility] Address [address] [place] [address]. [place] [address] [place] [address] Care Team Providers Care Sidewalk Repairer Name Role Phone Cait Nelson [facility] Primary Care Provider + Encounter Details Date Type Department Care Team (Latest Contact Info) Description 10/28/2024 Travel Social History Tobacco Use Types Packs/Day Years Used Date Smoking Tobacco: Never Smokeless Tobacco: Never Alcohol Use Standard Drinks/Week Comments Yes 0 (1 standard drink = 0.6 oz pur e alcohol) rare Comments Unknown Sex and Gender Information Value Date Recorded Sex Assigned at Not on file Legal Sex Female 7:32 PM CDT Gender Identity Not on file Sexual Orientation Not on file documented as of this encounter Plan of Treatment Upcoming Encounters Date Type Department Care Team (Late st Contact Info) Description 11/18/2024 9:00 AM [facility] Cardiovascular Outreach [facility] [address] [place] [phone] Colleen Pina FNP [address] [place] [address] documented as of this encounter Visit Diagnoses Not on filedocumented in this encounter Care Teams Sidewalk Repairer Relationship Specialty Start Date End Date Cait Nelson [facility]AYL[facility] [address] [place] [phone] PCP - General NURSE PRACTITIONER 10/09/19 documented as of this encounter
--- OUTSIDE RECORDS SUMMARY | 2024-11-17 18:05 | XMS_ITS | Encounter Summary ---
Author Organization [facility] Address [address] [place] [address]. [place], [place] [id number] [place] [address] Care Team Providers Care Care Advocate Name Role Phone Cait Nelson [facility] Primary Care Provider + Reason for Referral * Imaging (Routine) - Closed Specialty Diagnoses / Procedures Referred By Contac t Referred To Contact RADIOLOGY Diagnoses Postmenopausal Procedures BONE DENSITY/DEXA Dick Norton MD [address] [facility] [address] [address] Phone: tel: fax: Referral ID Status Reason Start Date Expiration Date Visits Re quested Visits Authorized [id number] Closed 08/10/2020 09/09/2021 1 1 Reason for Visit * Imaging (Routine) - Closed Specialty Diagnoses / Procedures Referred By Contac t Referred To Contact RADIOLOGY Diagnoses Postmenopausal Procedures BONE DENSITY/DEXA Dick Norton MD [address] [facility] [address] [place] [address] Phone: tel: fax: Referral ID Status Reason Start Date Expiration Date Visits Re quested Visits Authorized [id number] Closed 08/10/2020 09/09/2021 1 1 Encounter Details Date Type Department Care Team (Latest Contact Info) Description 08/12/2020 9:13 AM CDT - 08/12/2020 9:14 AM CDT Hospital Encounter [facility] Diagnostic Imaging [address] [place] [address] Dick Norton MD [address] [facility] [address] [place] [address] Discharge Disposition: Home or Self [...] AM CDT documented as of this encounter Medications at Time of Discharge azithromycin (ZITHROMAX) 250 MG tablet Take 2 tablets by mouth on day one then 1 daily for four days. 6 tablet 11/23/2019 10/15/2024 documented as of this encounter Plan of Treatment Upcoming Encounters Date Type Department Care Team (Late st Contact Info) Description 11/18/2024 9:00 AM [facility] [address] [place] [address] Colleen Pina FNP [address] [place] [address] documented as of this encounter Procedures Procedure Name Priority Date/Time Associated Diagnosis Comments BONE DENSITY/DEXA Routine 08/12/2020 9:4 8 AM CDT Postmenopausal documented in this encounter Results * BONE DENSITY/DEXA (08/12/2020 9:48 AM CDT) Anatomical Region Laterality Modality Bone Bone Density 08/12/2020 9:45 AM CDT Impressions 08/12/2020 9:46 AM CDT IMPRESSION: LUMBAR SPINE L2-L4: BMD: 0.937 ??g/sq cm. T-score: ??-1.3. Prior T score: -1.4. WHO classification: ??Mild osteopenia. Fracture risk: ??Very low fracture risk. FEMORAL NECK: BMD: ??0.664 ??g/sq cm. T-score: -1.7. Prior T score: -1.3. WHO classification: ??Moderate osteopenia. Fracture risk: Very low fracture risk. Interpreted By: Nathaniel Patel, 08/12/2020 9:45 AM Narrative 08/12/2020 9:46 AM CDT IMAGING STUDIES: BONE DENSITY/DEXA ? DATE: 08/12/2020 9:13 AM INDICATION: Osteoporosis. ??Asymptomatic menopausal state. COMPARISON: 07/23/2016 Procedure Note Nathaniel Patel MD - 08/12/2020 IMAGING STUDIES: BONE DENSITY/DEXA DATE: 08/12/2020 9:13 AM INDICATION: Osteoporosis. Asymptomatic menopausal state. COMPARISON: 07/23/2016 IMPRESSION: LUMBAR SPINE L2-L4: BMD: 0.937 g/sq cm. T-score: -1.3. Prior T score: -1.4. WHO classification: Mild osteopenia. Fracture risk: Very low fracture risk. FEMORAL NECK: BMD: 0.664 g/sq cm. T-score: -1.7. Prior T score: -1.3. WHO classification: Moderate osteopenia. Fracture risk: Very low fracture risk. Interpreted By: Nathaniel Patel, 08/12/2020 9:45 AM Result [facility] Dick Norton MD DEXA Final Result documented in this encounter Visit Diagnoses Diagnosis Postmenopausal Asymptomatic postmenopausal status (age-related) (natural) documented in this encounter Care Teams Care Advocate Relationship Specialty Start Date End Date Cait Nelson, COMPRESSOR STATIONS SUPERINTENDENT-BC [address] [place] [phone] PCP - General NURSE PRACTITIONER 10/09/19 documented as of this encounter
--- OUTSIDE RECORDS SUMMARY | 2024-11-17 18:05 | XMS_ITS | Encounter Summary ---
Author Organization [facility] Address [address] [place] [address]. [place] [address] [place] [address] Care Team Providers Care Turbogenerator Operator Name Role Phone Cait Nelson [facility] Primary Care Provider + Reason for Referral * Imaging (Routine) - Closed Specialty Diagnoses / Procedures Referred By Contac t Referred To Contact RADIOLOGY / Cardiology Diagnoses Chest pain in adult Procedures CT HEART DIAG CALCIUM SCORE CT HEART DIAG CALCIUM SCORE Boston Garcia MD [facility]. [address] [address] Phone: tel: fax: Referral ID Status Reason Start Date Expiration Date Visits Re quested Visits Authorized [id number] Closed 10/17/2024 10/18/2025 1 1 ARY CARE SALES REPRESENTATIVE Reason for Visit * Imaging (Routine) - Closed Specialty Diagnoses / Procedures Referred By Contac t Referred To Contact RADIOLOGY / Cardiology Diagnoses Chest pain in adult Procedures CT HEART DIAG CALCIUM SCORE CT HEART DIAG CALCIUM SCORE Boston Garcia MD [facility]. [address] [address] Phone: tel: fax: Referral ID Status Reason Start Date Expiration Date Visits Re quested Visits Authorized [id number] Closed 10/17/2024 10/18/2025 1 1 Encounter Details Date Type Department Care Team (Late st Contact Info) Description 10/29/2024 7:46 AM PRIMARY CARE SALES REPRESENTATIVE - 10/29/2024 11:59 PM PRIMARY CARE SALES REPRESENTATIVE Hospital Encounter [facility] [address] [place] [address] Boston Garcia MD [facility]. [address] [place], [place] [phone] Discharge Disposition: Home or Self Care (Routine [...] on file documented as of this encounter Medications at Time of Discharge DULoxetine (CYMBALTA) 60 MG capsule Take 1 capsule (60 mg total) by mouth daily. Levothyroxine Sodium 100 MCG capsule Take 1 capsule by mouth daily. 08/30/2024 losartan (COZAAR) 50 MG tablet Take 1 tablet (50 mg total) by mouth daily. meloxicam (MOBIC) 7.5 MG tablet Take 1 tablet (7.5 mg total) by mouth daily. OZEMPIC 1 mg/dose injection (PEN) Inject 1 mg into the skin once a week. rosuvastatin (CRESTOR) 20 MG tablet Take 1 tablet (20 mg total) by mouth nightly at bedtime. traZODone (DESYREL) 100 MG tablet Take 1 tablet (100 mg total) by mouth nightly at bedtime. documented as of this encounter Plan of Treatment Upcoming Encounters Date Type Department Care Team (Late st Contact Info) Description 11/18/2024 9:00 AM [facility] Telemedicine [place] [facility] [address] [place] [address] Colleen Pina FNP [address] [facility] [address] [place], [place] [phone] documented as of this encounter Procedures Procedure Name Priority Date/Time Associated Diagnosis Comments CT HEART DIAG CALCIUM SCORE Routine 10/29/2024 8:21 AM PRIMARY CARE SALES REPRESENTATIVE Chest pain in adult documented in this encounter Results * CT HEART DIAG CALCIUM SCORE (10/29/2024 8:21 AM PRIMARY CARE SALES REPRESENTATIVE) Anatomical Region Laterality Modality Computed Tomogra phy 10/29/2024 8:29 AM PRIMARY CARE SALES REPRESENTATIVE Impressions 10/29/2024 8:37 AM PRIMARY CARE SALES REPRESENTATIVE IMPRESSION: 1. ??Total Score: 622.37. This is [...] chest. 5. ??Hiatus hernia noted. 6. ??Dr. Garcia notified of these findings by me by [employer], [employer] notification service. Ordered By: BOSTON GARCIA Interpreted By: Mir Young MD, 10/29/2024 8:29 AM Narrative 10/29/2024 8:37 AM PRIMARY CARE SALES REPRESENTATIVE [facility] [address] [place] [address] EXAMINATION: Multislice Helical CT Coronary Calcium Scoring [...] Calcium score guidelines: Total Score* Calcium Plaque [place] ??*Risk ?*Probability of significant CAD 0 ?No [...] Procedure Note Mir Young MD - 10/29/2024 [facility] [address] [place] [address] EXAMINATION: Multislice Helical CT Coronary Calcium Scoring [...] Calcium score guidelines: Total Score* Calcium Plaque [place] *Risk *Probability ofsignificant CAD 0 No Plaque [...] chest. 5. Hiatus hernia noted. 6. Dr. Garcia notified of these findings by me by [employer], electronicnotification service. Ordered By: BOSTON GARCIA Interpreted By: Mir Young MD, 10/29/2024 8:29 AM Boston Garcia MD CT Final Resul t documented in this encounter Visit Diagnoses Diagnosis Chest pain in adult documented in this encounter Care Teams Turbogenerator Operator Relationship Specialty Start Date End Date Cait Nelson, COURT DEPUTY- [address] [place] [phone] PCP - General NURSE PRACTITIONER 10/09/19 documented as of this encounter
--- OUTSIDE RECORDS SUMMARY | 2024-11-17 18:05 | XMS_ITS | Encounter Summary ---
Author Organization [facility] Address [address] [place] [address]. [place] [address] [place] [address] Care Team Providers Care Machine Adjuster Leader Name Role Phone Cait Nelson [facility] Primary Care Provider + Reason for Referral * Imaging (Routine) - Closed Specialty Diagnoses / Procedures Referred By Contac t Referred To Contact RADIOLOGY / Cardiology Diagnoses Chest pain in adult Procedures CT HEART DIAG CALCIUM SCORE CT HEART DIAG CALCIUM SCORE Boston Garcia MD [address] [address] Phone: tel: fax: Referral ID Status Reason Start Date Expiration Date Visits Re quested Visits Authorized [id number] Closed 10/17/2024 10/18/2025 1 1 EM TRAINER * Procedure (Routine) - Closed Specialty Diagnoses / Procedures Referred By Contac t Referred To Contact Cardiology Diagnoses Chest pain in adult Procedures STRESS TEST ONLY, EXERCISE Boston Garcia MD [facility]. [address] [address] Phone: tel: fax: Referral ID Status Reason Start Date Expiration Date Visits Re quested Visits Authorized [id number] Closed 10/17/2024 10/17/2025 1 1 EM TRAINER Reason for Visit * Reason Comments Consult Fhx CAD Chest Pain Fatigue Encounter Details Date Type Department Care Team (Late st Contact Info) Description 10/17/2024 10:30 AM SYSTEM TRAINER Office [facility] [place] [facility] [address] [place] [address] Boston Garcia MD [facility]. [address] [place] [address] Consult (Fhx CAD); Chest Pain; Fatigue Social History Tobacco Use Types Packs/Day Years [...] on file documented as of this encounter Last Filed Vital Signs Vital Sign Reading Time Taken Comments Blood Pressure 138/88 10/17/2024 10:58 AM SYSTEM TRAINER Pulse 81 10/17/2024 10:58 AM SYSTEM TRAINER Temperature - - Respiratory Rate - - Oxygen Saturation - - Inhaled Oxygen Concentration - - Weight 132 kg (291 lb) 10/17/2024 10:58 AM SYSTEM TRAINER Height 180.3 cm (5' 11 ) 10/17/2024 10:58 AM SYSTEM TRAINER Body Mass Index 40.59 10/17/2024 10:58 AM SYSTEM TRAINER documented in this encounter Patient Instructions * Patient Instructions* ANAND Bell - 10/17/2024 10:30 AM SYSTEM TRAINER EM TRAINER EM TRAINER documented in this encounter Progress Notes * ANAND Bell - 10/17/2024 10:30 AM CSTAddended by: JESSIKA VALDES on: 10/21/2024 03:24 PM Modules accepted: Orders EM TRAINER * Boston Garcia MD - 10/17/2024 10:30 AM CST Reason for Visit: Consult (Fhx CAD), Chest Pain, and Fatigue History of Present Illness: Malcolm Aguilar is a 69-year-old female with a past medical history of diabetes and hypertension here today for initial evaluation of HOFF, CP. Patient has not felt good for the last 3 months. Cause somewhat unclear. Does note occasional CP, occurs randomly, tends to last no more than a couple minutes. Sharp. Does note some HOFF as well, but notes being less active while living in [place] compared to when she spends time in [place]. Diffuse other symptoms, including more unsettled gut. No new exertional chest pressure/discomfort, claudication, or tachypnea. Tolerating medications well. Has a strong family history of CAD, with sister having bypass in her 60s. Also has a brother with recent issues with atrial flutter. Labs: Lab Results Component Value Date/Time CR 1.07 (H) 02/19/2023 01:53 PM Data Reviewed: EKG (2023) - sinus, no acute St changes Recommendations and Plan: CP/HOFF - given risk factors, deserves ETT and echo. Would heavily encourage exercise plan if those look okay Atherosclerosis - would benefit from calcium score to guide decision making regarding ASA and to help give better risk assessment. Will likely help in discussion regarding diet/exercise HTN - well controlled Follow up after above studies. Medications: Current Outpatient Medications: DULoxetine (CYMBALTA) 60 MG capsule, Take 1 capsule (60 mg total) by mouth daily., Disp: , Rfl: Levothyroxine Sodium 100 MCG capsule, Take 1 capsule by mouth daily., Disp: , Rfl: losartan (COZAAR) 50 MG tablet, Take 1 tablet (50 mg total) by mouth daily., Disp: , Rfl: meloxicam (MOBIC) 7.5 MG tablet, Take 1 tablet (7.5 mg total) by mouth daily., Disp: , Rfl: OZEMPIC 1 mg/dose injection (PEN), Inject 1 mg into the skin once a week., Disp: , Rfl: rosuvastatin (CRESTOR) 20 MG tablet, Take 1 tablet (20 mg total) by mouth nightly at bedtime., Disp: , Rfl: traZODone (DESYREL) 100 MG tablet, Take 1 tablet (100 mg total) by mouth nightly at bedtime., Disp:, Rfl: Review of patient's allergies indicates: Allergen Reactions Morphine Other (see comment) Profound hypotension and diaphoresis Penicillins Hives Past Medical History: Diagnosis Date Brain tumor (CMS/HCC HHS/HCC) Diabetes mellitus (CMS/[facility] HHS/HCC) Hypertension Past Surgical History: Procedure Laterality Date CRANIECTOMY FOR EXCISION OF ACOUSTIC NEUROMA TONSILLECTOMY TUBAL LIGATION Social History Tobacco Use Smoking status: Never Smokeless tobacco: Never Substance Use Topics Alcohol use: Yes Comment: rare Drug use: Never Family History Problem Relation Name Age of Onset CHF Mother Heart Attack Father Stent Cardiac Father Heart Attack Sister Stent Cardiac Sister Other (atrial flutter) Brother Stroke Paternal Grandfather Family Status Relation Name Status Mother Father Sister Alive Brother Alive MGM MGF PGM PGF No partnership data on file Review of Systems Constitutional: Positive for weight gain, fatigue and weakness. Negative for recent unintentional weight loss. HENT: Positive for hearing loss. Eyes: Negative for blurred vision and double vision. Respiratory: Positive for cough and shortness of breath. Negative for snoring. Cardiovascular: See HPI. Positive for chest pain. Gastrointestinal: Positive for constipation. Negative for blood in stool and melena. Genitourinary: Negative for dysuria. Musculoskeletal: Negative for myalgias and new or worsening joint stiffness/pain. Skin: Negative for rash. Neurological: Negative for tingling/numbness and focal weakness. Endo/Heme/Allergies: Negative for new or significant bruising/bleeding and polydipsia. Psychiatric/Behavioral: Positive for nervous/anxious and memory loss. Negative for depression. Vitals: 10/17/24 1058 BP: 138/88 Pulse: 81 Weight: 132 kg (291 lb) Height: 1.803 m (5' 11 ) Body mass index is 40.59 kg/m??. Cardiac Exam Rate/Rhythm: Normal rate and regular rhythm. PMI: PMI is not displaced. Pulses: Normal pulses. Dorsalis pedis pulses are 2+ on the right side and 2+ on the left side. Heart Sounds: Normal heart sounds. Normal S1 sounds. Normal S2 sounds. No gallop present. No S3. NoS4. Murmurs: Edema left: 0. Edema Right: 0. Physical Exam Constitutional: No distress. Healthy Appearance. HENT: Oropharynx clear. Eyes: Pupils equal, round, and reactive to light. Conjunctivae normal. Neck: Neck supple. No JVD. Abdomen: Abdomen soft. Bowel sounds normal. No distension. No tenderness. Pulmonary: Effort normal. Breath sounds normal. Skin: No rash. No cyanosis. No clubbing. No xanthoma. Musculoskeletal: No kyphosis. Normal ROM. Neurological: Alert. Oriented x 3. Appropriate mood and affect. Normal motor skills. Normal gait. Comments: Diagnoses/Impression: 1. Chest pain in adult ELECTROCARDIOGRAM 2. Essential hypertension 3. Atherosclerosis Referring Provider: No ref. provider found PCP: JOSE ROMERO-BC EM TRAINER EM TRAINER documented in this encounter Plan of Treatment Upcoming Encounters Date Type Department Care Team (Late st Contact Info) Description 11/18/2024 9:00 AM SYSTEM TRAINER Telemedicine [place] [facility] [address] [place] [address] Colleen Pina FNP [address] [place] [address] documented as of this encounter Procedures Procedure Name Priority Date/Time Associated Diagnosis Comments ELECTROCARDIOGRAM (NON MIDMARK ACQUIRED) Routine 10/17/2024 11:11 AM SYSTEM TRAINER Chest pain in adult documented in this encounter Results * CT HEART DIAG CALCIUM SCORE (10/29/2024 8:21 AM SYSTEM TRAINER) Anatomical Region Laterality Modality Computed Tomogra phy 10/29/2024 8:29 AM SYSTEM TRAINER Impressions 10/29/2024 8:37 AM SYSTEM TRAINER IMPRESSION: 1. ??Total Score: 622.37. This is [...] notified of these findings by me by [employer], electronic notification service. Ordered By: BOSTON GARCIA Interpreted By: Mir Young MD, 10/29/2024 8:29 AM Narrative 10/29/2024 8:37 AM SYSTEM TRAINER [facility] [address] [place] [address] EXAMINATION: Multislice Helical CT Coronary Calcium Scoring [...] Calcium score guidelines: Total Score* Calcium Plaque [place] ??*Risk ?*Probability of significant CAD 0 ?No [...] Procedure Note Mir Young MD - 10/29/2024 [facility] [address] [place] [address] EXAMINATION: Multislice Helical CT Coronary Calcium Scoring [...] Calcium score guidelines: Total Score* Calcium Plaque Streeter *Risk *Probability ofsignificant CAD 0 No Plaque [...] notified of these findings by me by [employer], electronicnotification service. Ordered By: BOSTON GARCIA Interpreted By: Mir Young MD, 10/29/2024 8:29 AM us Boston Garcia MD CT Final Resul t * STRESS TEST ONLY, EXERCISE (10/28/2024 12:00 PM SYSTEM TRAINER) 10/28/2024 12:0 0 PM SYSTEM TRAINER Narrative [facility] RAD - 10/31/2024 3:35 PM SYSTEM TRAINER ?[facility] ? Test Date: ?2024-10-28 Pat Name: ? MALCOLM AGUILAR ? Department: ? Room: ? Gender: ? Female ? Supervisor Bonding: ?? JBarton POSTAGE MACHINE OPERATOR : ?1955 ? Requested By: BOSTON GARCIA Order Number: [id number] ? Reading : ?? Boston Garcia ? Interpretive Statements ORDER #: [id number] PROCEDURE: EKG Luis Indication: CP The patient's [...] electrocardiographically for ischemia 3) poor exercise tolerance EM TRAINER Procedure Note Boston Garcia MD - 10/31/2024 [facility] Test Date: 2024-10-28 Pat Name: MALCOLM AGUILAR Department: Room: Gender: Female Supervisor Bonding: Jeremiah POSTAGE MACHINE OPERATOR : 1955 Requested By: BOSTON GARCIA Order Number: [id number] Reading MD: Boston Garcia Interpretive Statements ORDER #: [id number] PROCEDURE: EKG Luis Indication: CP The patient's [...] electrocardiographically for ischemia 3) poor exercise tolerance EM TRAINER us Boston Garcia MD [facility] ORDERAB LES Final Result [facility] RAD * ELECTROCARDIOGRAM (10/17/2024 11:11 AM SYSTEM TRAINER) 10/17/2024 11:1 1 AM SYSTEM TRAINER Narrative [facility] - 10/21/2024 4:02 PM SYSTEM TRAINER ?[facility] ? Test Date: ?2024-10-17 Pat Name: ? MALCOLM AGUILAR ? Department: ?? 107 ? Room: ? Gender: ? Female ? Supervisor Bonding: ?? kd : ?1955 ? Requested By: BOSTON GARCIA Order Number: [id number] ?Reading MD: ?? Porter Gottlieb ? Measurements Intervals ?[place] ? Rate: ? 83 ? P: ?46 UT: ? 170 ?QRS: ?-9 QRSD: ? 94 ? T: ?27 QT: ? 357 ? QTc: ?421 ? Interpretive Statements SINUS RHYTHM No prior ECG for comparison EM TRAINER Procedure Note Porter Gottlieb MD - 10/21/2024 [facility] Test Date: 2024-10-17 Pat Name: MALCOLM AGUILAR Department: 107 Room: Gender: Female Supervisor Bonding: shivani : 1955 Requested By: BOSTON GARCIA Order Number: [id number] Reading MD: Porter Gottlieb Measurements Intervals [place] Rate: 83 P: 46 UT: 170 QRS: -9 QRSD: 94 T: 27 QT: 357 QTc: 421 Interpretive Statements SINUS RHYTHM No prior ECG for comparison EM TRAINER us Boston Garcia MD PROCEDURES-ORDERABLE NO JASBIR RGE Final Result [facility] documented in this encounter Visit Diagnoses Diagnosis Chest pain in adult- Primary Essential hypertension Unspecified essential hypertension Atherosclerosis Generalized and unspecified atherosclerosis Chest pain in adult Chest pain in adult documented in this encounter Care Teams Machine Adjuster Leader Relationship Specialty Start Date End Date Cait Nelson, BLENDING KETTLE TENDER-BC [address] [place] [address] PCP - General NURSE PRACTITIONER 10/09/19 documented as of this encounter
--- OUTSIDE RECORDS SUMMARY | 2024-11-17 18:05 | XMS_ITS | Encounter Summary ---
Author Organization [facility] Address [address] [place] [address]. [place] [address] [place] [address] Care Team Providers Care Auxiliary Plant Operator Name Role Phone Cait Nelson [facility] Primary Care Provider + Encounter Details Date Type Department Care Team (Latest Contact Info) Description 10/17/2024 Travel Social History Tobacco Use Types Packs/Day [...] st Contact Info) Description 11/18/2024 9:00 AM [facility] Cardiovascular Outreach [facility] [address] [place] [phone] Colleen Pina FNP [address] [place] [address] documented as of this encounter Visit Diagnoses Not on filedocumented in this encounter Care Teams Auxiliary Plant Operator Relationship Specialty Start Date End Date C[facility] [address] [place] [phone] PCP - General NURSE PRACTITIONER 10/09/19 documented as of this encounter
--- OUTSIDE RECORDS SUMMARY | 2024-11-17 18:05 | XMS_ITS | Encounter Summary ---
Author Organization [facility] Address [address] [place] [address]. [place], [place] [address] [place] [address] Care Team Providers Care Log Check Scaler Name Role Phone Cait Nelson [facility] Primary Care Provider + Encounter Details Date Type Department Care Team (Latest Contact Info) Description 04/04/2023 Travel Social History Tobacco Use Types Packs/Day [...] suspected to have Coronavirus/COVID-19? No / Unsure 04/04/2023 9:51 AM CDT documented as of this encounter Plan of Treatment Upcoming Encounters Date Type Department Care Team (Late st Contact Info) Description 11/18/2024 9:00 AM [facility] [address] [place] [phone] Colleen Pina FNP 3 [facility] [address] [place], [place] [phone] documented as of this encounter Visit Diagnoses Not on filedocumented in this encounter Care Teams Log Check Scaler Relationship Specialty Start Date End Date Cait Nelson [facility] [address] [place] [phone] PCP - General NURSE PRACTITIONER 10/09/19 documented as of this encounter
--- OUTSIDE RECORDS SUMMARY | 2024-11-17 18:05 | XMS_ITS | Encounter Summary ---
Author Organization [facility] Address [address] [place] [address]. [place] [address] [place] [address] Care Team Providers Care Testing Lead Name Role Phone [facility] Primary Care Provider + Reason for Referral * Imaging (Routine) - Closed Specialty Diagnoses / Procedures Referred By Trudy portillo Referred To Contact RADIOLOGY Diagnoses Ascending aortic aneurysm (CMS/HCC) Procedures CTA CHEST Colleen Pina FNP 3 [facility] [address] [place] [address] Phone: tel: fax: Referral ID Status Reason Start Date Expiration Date Visits Re quested Visits Authorized [id number] Closed 10/30/2024 04/28/2025 1 1 TIC YARN TWISTER HELPER Reason for Visit * Imaging (Routine) - Closed Specialty Diagnoses / Procedures Referred By Trudy portillo Referred To Contact RADIOLOGY Diagnoses Chest pain in adult Procedures USE ECHOCARDIOGRAM W CON USE ECHOCARDIOGRAM Boston Garcia MD Three [facility]. [facility] [address] [place] [address] Phone: tel: fax: Referral ID Status Reason Start Date Expiration Date Visits Re quested Visits Authorized [id number] Closed 10/17/2024 11/17/2025 1 1 Encounter Details Date Type Department Care Team (Late st Contact Info) Description 11/04/2024 7:56 AM ELASTIC YARN TWISTER HELPER - 11/04/2024 11:59 PM ELASTIC YARN TWISTER HELPER Hospital Encounter [facility] [address] [place] [address] Boston Garcia MD Three [facility]. [facility] [address] [place], [place] [phone] Discharge Disposition: Home or Self Care (Routine [...] st Contact Info) Description 11/18/2024 9:00 AM [facility]medicine [facility] [address] [place] [address] Colleen Pina FNP 3 [facility] [address] [place] [address] documented as of this encounter Procedures Procedure Name Priority Date/Time Associated Diagnosis Comments CREATININE WHOLE BLOOD Routine 9:25 AM ELASTIC YARN TWISTER HELPER Ascending aortic aneurysm (CMS/HCC) CTA CHEST Routine 11/04/2024 9:24 AM ELASTIC YARN TWISTER HELPER Ascending aortic aneurysm (CMS/HCC) USE ECHOCARDIOGRAM W CON Routine 11/04/2024 8:52 AM ELASTIC YARN TWISTER HELPER Chest pain in adult documented in this encounter Results * CREATININE WHOLE BLOOD (Radiology only) (11/04/2024 9:25 AM ELASTIC YARN TWISTER HELPER) CREATININE WHOLE BLOOD 0.8 0.6 - 1.2 MG/DL 11/04/2024 6:18 PM ELASTIC YARN TWISTER HELPER [facility] 11/04/2024 9:25 AM ELASTIC YARN TWISTER HELPER us Boston Garcia MD LABORATORY Final Resul t [facility] [address] [place] [address], [place] [phone] * CTA CHEST (11/04/2024 9:24 AM ELASTIC YARN TWISTER HELPER) Anatomical Region Laterality Modality Chest Computed Tomogra phy 11/05/2024 6:42 AM ELASTIC YARN TWISTER HELPER Impressions 11/05/2024 6:59 AM ELASTIC YARN TWISTER HELPER IMPRESSION: 1. ??Atherosclerotic aorta without dissection. ??Ascending aortic aneurysm as detailed above. ??No pericardial effusion.. 2. ??No pathologic pulmonary nodules or pathologic lymphadenopathy. ??No infiltrate or effusion. 3. ??Follow-up with CT of the abdomen for hemangioma protocol for low-density lesions within the liver and spleen. Referred By: BOSTON GARCIA Interpreted By: Mannie Ospina MD, 11/05/2024 6:42 AM Narrative 11/05/2024 6:59 AM ELASTIC YARN TWISTER HELPER [facility] [address] [place] [address] EXAMINATION: CTA CHEST WITH CONTRAST EXAM DATE/TIME: [...] Procedure Note Mannie Ospina MD - 11/05/2024 [facility] [address] [place] [address] EXAMINATION: CTA CHEST WITH CONTRAST EXAM DATE/TIME: [...] the liver and spleen. Referred By: BOSTON GARCIA Interpreted By: Mannie Ospina MD, 11/05/2024 6:42 AM us Colleen Pina RECORDING STUDIO INTERN CT Final Result * USE ECHOCARDIOGRAM W CON (11/04/2024 8:52 AM ELASTIC YARN TWISTER HELPER) Anatomical Region Laterality Modality NA Ultrasound 11/04/2024 8:08 AM ELASTIC YARN TWISTER HELPER Narrative 11/05/2024 5:08 PM ELASTIC YARN TWISTER HELPER ?BHARGAVI ? OUTREACH Pat.Name: ??[place] ? Pat.ID: ?[id number] ? St.Date: ?? 11/04/2024 ? Refer.MD: ??Outreach, [facility] [place] Radiology Exam Time: 8:08:00 AM ?Study Type:OUTREACH ? Height: ?71 in ? Weight: ?291 lb ? BSA: ? 2.47 m2 ?Age: ??1955,69Y ? Sex: ? F ? Sonogrphr: Lw ? Pat. Stat.:Outpatient ? Reason for Study:CP ? Procedures: Study performed at [place], [place] and interpreted by [facility]. 2D, M-mode, Doppler, Color Flow, [...] regurgitation. <Electronic Signature> 11/05/2024 05:08 PM Boston Garcia M.D. Procedure Note Boston Garcia MD - 11/05/2024 BHARGAVI WISE Pat.Name: [facility].ID: [id number] .Date: 11/04/2024 Refer.MD: Beba, [facility] Radiology Exam Time: 8:08:00 AM Study Type:[facility] Height: 71 in Weight: 291 lb BSA: 2.47 m2 Age: 8 1955,69Y Sex: F Sonogrphr: Raymon Bolivar. Stat.:Outpatient Reason for Study:CP Procedures: Study performed at [place], [place] and interpreted by [facility]. 2D, M-mode, Doppler, Color Flow, [...] regurgitation. <Electronic Signature> 11/05/2024 05:08 PM Boston Garcia M.D. us Boston Garcia MD ECHO Final Resul t documented in this encounter Visit Diagnoses Diagnosis Chest pain in adult Ascending aortic aneurysm (CMS/HCC) Thoracic aneurysm without mention of rupture documented in this encounter Administered Medications Inactive Administered Medications - up to 3 most recent administrations Medication Order MAR Action Action Date Dose Rate Site iopamidol (ISOVUE-370) 76 % injection 80 mL 80 mL, Intravenous, IMG once as needed, Contrast, 1 dose, Starting on Mon11/04/24 at 0924, Until Mon11/04/24 at 0909 Given 11/04/2024 9:09 AM ELASTIC YARN TWISTER HELPER 80 mLs Right Arm perflutren lipid microsphere (DEFINITY) injection 2 mL 2 mL, Intravenous, IMG once as needed, Contrast, 1 dose, Starting on Mon11/04/24 at 0840, Until Mon11/04/24 at 0840, Administer over 30-60 seconds. Follow with 10 mL saline flush. Given 11/04/2024 8:40 AM ELASTIC YARN TWISTER HELPER 2 mLs Righ t Arm documented in this encounter Care Teams Testing Lead Relationship Specialty Start Date End Date Cait Nelson, RECORDING STUDIO INTERN- [address] [place] [phone] PCP - General NURSE PRACTITIONER 10/09/19 documented as of this encounter
--- OUTSIDE RECORDS SUMMARY | 2024-11-17 18:05 | XMS_ITS | Encounter Summary ---
Author Organization [facility] Address [address] [place] [address]. [place] [address] [place] [address] Care Team Providers Care Painter Maintenance Name Role Phone Agra, Cait Pham [facility] Primary Care Provider + Reason for Referral * Imaging (Routine) - Closed Specialty Diagnoses / Procedures Referred By Contac t Referred To Contact RADIOLOGY Diagnoses Knee injury Procedures MRI KNEE LT WO CON Luis Mcdaniels MD [address] [place] [phone] Phone: tel: fax: Referral ID Status Reason Start Date Expiration Date Visits Re quested Visits Authorized [id number] Closed 07/07/2020 08/05/2020 1 1 Reason for Visit * Imaging (Routine) - Closed Specialty Diagnoses / Procedures Referred By Contac t Referred To Contact RADIOLOGY Diagnoses Knee injury Procedures MRI KNEE LT WO CON Luis Mcdaniels MD [address] [place] [phone] Phone: tel: fax: Referral ID Status Reason Start Date Expiration Date Visits Re quested Visits Authorized [id number] Closed 07/07/2020 08/05/2020 1 1 Encounter Details Date Type Department Care Team (Latest Contact Info) Description 07/07/2020 12:30 PM CDT - 07/07/2020 11:59 PM CDT Hospital Encounter [facility] [facility] [place] [address] Luis Mcdaniels MD [address] [phone] Discharge Disposition: Home or Self Care (Routine [...] st Contact Info) Description 11/18/2024 9:00 AM [facility] [address] [place] [phone] Colleen Pina FNP [address] [place] [address] documented as of this encounter Procedures Procedure Name Priority Date/Time Associated Diagnosis Comments MRI KNEE LT WO CON Routine 07/07/2020 1: 53 PM CDT Knee injury documented in this encounter Results * MRI KNEE LT WO CON (07/07/2020 1:53 PM CDT) Anatomical Region Laterality Modality Knee Magnetic Resonan ce 07/07/2020 2:07 PM CDT Impressions 07/07/2020 2:15 PM CDT Impression: 1. Acute appearing lateral tibial plateau fracture with approximately 3-4 mm of depression. 2. Moderate size joint effusion. 3. Tricompartmental articular cartilage disease as described. A Significant message has been communicated to LUIS MCDANIELS via the [email or web address] system on 07/07/2020 2:15 PM, Message ID [id number]. ??Results were acknowledged. Interpreted By: Medardo Schulz MD, 07/07/2020 2:07 PM Narrative 07/07/2020 2:15 PM CDT Examination: MR left knee Clinical Information: Knee pain after fall 2 days ago. Possible fracture on prior radiographs. Comparison: No comparison is available. Technique: Multiplanar, multisequence MR images of the knee were obtained. Findings: MENISCI: Medial meniscus: Intact. Lateral meniscus: Intact. LIGAMENTS: Cruciate ligaments: Intact. Medial collateral ligament: Superficial and deep components intact. No periligamentous edema. Lateral collateral ligament: Intact. Posterolateral corner structures: Intact. Posteromedial corner structures: Intact. EXTENSOR MECHANISM: The distal quadriceps and patellar tendons are intact. The patella is normally positioned within the femoral groove. There is no retinacular disruption. FLUID: Joint effusion: Moderate sized joint effusion.. Mott cyst/ganglion cyst: No Mott or ganglion cysts. OSSEOUS/ARTICULAR STRUCTURES: Bones: There is depression of the lateral tibial plateau with multifocal areas of cortical disruption and significant marrow edema consistent with tibial plateau fracture. This appears depressed approximately 3-4 mm. No other definite fractures are identified. Patellofemoral compartment: Diffuse full-thickness chondral disease is seen involving both the medial and lateral patellar facets as well as the median ridge. Partial-thickness chondral disease is seen involving the femoral trochlea. Medial compartment: Mild partial thickness chondral disease involving the weightbearing surfaces of the medial compartment. Lateral compartment: There appears to be cortical disruption involving the lateral tibial plateau secondary to the fracture. The femoral condyle demonstrates mild partial thickness chondral disease. Intra-articular fragments: None. Procedure Note Medardo Schulz MD - 07/07/2020 Examination: MR left knee Clinical Information: Knee pain after fall 2 days ago. Possible fractureon prior radiographs. Comparison: No comparison is available. Technique: Multiplanar, multisequence MR images of the knee wereobtained. Findings: MENISCI: Medial meniscus: Intact. Lateral meniscus: Intact. LIGAMENTS: Cruciate ligaments: Intact. Medial collateral ligament: Superficial and deep components intact. No periligamentous edema. Lateral collateral ligament: Intact. Posterolateral corner structures: Intact. Posteromedial corner structures: Intact. EXTENSOR MECHANISM: The distal quadriceps and patellar tendons are intact. The patella is normally positioned within the femoral groove. There is no retinacular disruption. FLUID: Joint effusion: Moderate sized joint effusion.. Mott cyst/ganglion cyst: No Mott or ganglion cysts. OSSEOUS/ARTICULAR STRUCTURES: Bones: There is depression of the lateral tibial plateau with multifocal areas of cortical disruption and significant marrow edema consistentwith tibial plateau fracture. This appears depressed approximately 3-4 mm. No other definite fractures are identified. Patellofemoral compartment: Diffuse full-thickness chondral disease isseen involving both the medial and lateral patellar facets as well as themedian ridge. Partial-thickness chondral disease is seen involving the femoral trochlea. Medial compartment: Mild partial thickness chondral disease involvingthe weightbearing surfaces of the medial compartment. Lateral compartment: There appears to be cortical disruption involvingthe lateral tibial plateau secondary to the fracture. The femoral condyle demonstrates mild partial thickness chondral disease. Intra-articular fragments: None. Impression: 1. Acute appearing lateral tibial plateau fracture with approximately3-4 mm of depression. 2. Moderate size joint effusion. 3. Tricompartmental articular cartilage disease as described. A Significant message has been communicated to LUIS MCDANIELS via the [email or web address] system on 07/07/2020 2:15 PM, Message ID [id number]. Results were acknowledged. Interpreted By: Medardo Schulz MD, 07/07/2020 2:07 PM Lius Mcdaniels MD MRI Final Result documented in this encounter Visit Diagnoses Diagnosis Knee injury Injury, other and unspecified, knee, leg, ankle, and foot documented in this encounter Care Teams Painter Maintenance Relationship Specialty Start Date End Date Cait Nelson, WIND FARM ELECTRICAL SYSTEMS DESIGNER-LAMBERTO [address] [place] [phone] PCP - General NURSE PRACTITIONER 10/09/19 documented as of this encounter
--- OUTSIDE RECORDS SUMMARY | 2024-11-17 18:05 | XMS_ITS | Encounter Summary ---
Author Organization [facility] Address [address] [place] [address]. [place], [place] [address] [place] [address] Care Team Providers Care Nailer Hand Name Role Phone Cait Nelson [facility] Primary Care Provider + Encounter Details Date Type Department Care Team (Latest Contact Info) Description 02/19/2023 Travel Social History Tobacco Use Types Packs/Day [...] suspected to have Coronavirus/COVID-19? No / Unsure 02/19/2023 1:43 PM CDT documented as of this encounter Plan of Treatment Upcoming Encounters Date Type Department Care Team (Late st Contact Info) Description 11/18/2024 9:00 AM [facility] [address] [place] [phone] Colleen Pina FNP 3 [facility] [address] [place], [place] [phone] documented as of this encounter Visit Diagnoses Not on filedocumented in this encounter Care Teams Nailer Hand Relationship Specialty Start Date End Date Cait Nelson [facility] [address] [place] [phone] PCP - General NURSE PRACTITIONER 10/09/19 documented as of this encounter
--- OUTSIDE RECORDS SUMMARY | 2024-11-17 18:05 | XMS_ITS | Encounter Summary ---
Author Organization [facility] Address [address] [place] [address]. [place] [address] [place] [address] Care Team Providers Care Car Parker Name Role Phone Cait Nelson [facility] Primary Care Provider + Reason for Visit * Imaging (Routine) - Closed Specialty Diagnoses / Procedures Referred By Contac t Referred To Contact RADIOLOGY Diagnoses Age-related osteoporosis without current pathological fracture Procedures BONE DENSITY/DEXA Dick Sykes MD [address] [facility] [address] [place] [address] Phone: tel: fax: Referral ID Status Reason Start Date Expiration Date Visits Re quested Visits Authorized [id number] Closed 02/28/2023 02/29/2024 1 1 Encounter Details Date Type Department Care Team (Latest Contact Info) Description 05/02/2023 12:51 PM CDT - 05/02/2023 12:52 PM CDT Hospital Encounter [facility] [address] [place] [address] Dick Sykes MD [address] [facility] [address] [place] [address] Discharge Disposition: Home or Self [...] 9:00 AM [facility] Cardiovascular Outreach [facility] [address] [place] [phone] Colleen Pina, JOSE [address] [place] [address] documented as of this encounter Procedures Procedure Name Priority Date/Time Associated Diagnosis Comments BONE DENSITY/DEXA Routine 05/02/2023 1:2 4 PM CDT Age-related osteoporosis without current pathological fracture documented in this encounter Results * BONE DENSITY/DEXA (05/02/2023 1:24 PM CDT) [...] Interpreted By: Israel Ospina, 05/03/2023 11:10 AM Result [facility] Dick Sykes MD DEXA Final Result documented in this encounter Visit Diagnoses Not on filedocumented in this encounter Care Teams Car Parker Relationship Specialty Start Date End Date Cait Nelson, HEALTH AND WELLNESS DIRECTOR-BC [address] [place] [phone] PCP - General NURSE PRACTITIONER 10/09/19 documented as of this encounter
--- OUTSIDE RECORDS SUMMARY | 2024-11-17 18:05 | XMS_ITS | Encounter Summary ---
Author Organization [facility] Address [address] [place] [address]. [address] [place] [address] Care Team Providers Care Pet Care Worker Name Role Phone Omar Cait Pham [facility] Primary Care Provider + Reason for Visit * Reason Onset Date Comments Appointment Request 07/17/2024 Encounter Details Date Type Department Care Team (Late st Contact Info) Description 07/17/2024 Telephone [facility] [place], [address] [address] Ike Garcia MD [facility]. [address] [address] Appointment Request Social History Tobacco Use Types Packs/Day Years Used Date Smoking Tobacco: Never Assessed Comments Unknown Sex and Gender Information Value Date Recorded Sex Assigned at Not on file Legal Sex Female 7:32 PM CDT Gender Identity Not on file Sexual Orientation Not on file documented as of this encounter Progress Notes * Roopa Chaves - 07/17/2024 10:32 AM CDT Pt called in wanting to setup apt for cardiology as a self ref due to family history of heart issues Scheduled for 10/17/[address] Garcia in [place] documented in this encounter Plan of Treatment Upcoming Encounters Date Type Department Care Team (Late st Contact Info) Description 11/18/2024 9:00 AM MUCKER OPERATOR Telemedicine [place] Cardiovascular Outreach [facility] [address] [place] [phone] Colleen Pian, JOSE 3 [facility] [address] [place] [address] documented as of this encounter Visit Diagnoses Not on filedocumented in this encounter Care Teams Pet Care Worker Relationship Specialty Start Date End Date Cait Nelson, CONSULTING TECHNICAL DIRECTOR- [address] [place] [address] PCP - General NURSE PRACTITIONER 10/09/19 documented as of this encounter
--- OUTSIDE RECORDS SUMMARY | 2024-11-17 18:05 | XMS_ITS | Encounter Summary ---
Author Organization [facility] Address [address] [place] [address]. [place] [address] [place] [address] Care Team Providers Care Staff Internist Office Based Only Name Role Phone Cait Nelson Ankit [facility] Primary Care Provider + Encounter Details Date Type Department Care Team (Late st Contact Info) Description 08/12/2020 Orders Only [facility] [address] [place] [address] Dick Norton MD [address] [facility] [address] [place] [address] Social History Tobacco Use Types Packs/Day Years [...] st Contact Info) Description 11/18/2024 9:[address] [facility] [address] [place] [phone] Colleen Pina FNP [address] [place] [address] documented as of this encounter Results * VITAMIN D, 25 [place] (08/12/2020 9:42 AM CDT) VITAMIN D 25 HYDROXY S/P/B 66 30 - 100 NG/ML 08/12/2020 5:59 PM CDT [facility] Comment: ? INTERPRETATION ? DEFICIENT ??<20 ? INSUFFICIENT 20-29 ?SUFFICIENT 30-100 08/12/2020 9:42 AM CDT Dick Norton MD LABORATORY Final Result [facility] [address] [place] [address], documented in this encounter Visit Diagnoses Diagnosis Vitamin D deficiency- Primary Unspecified vitamin D deficiency documented in this encounter Care Teams Staff Internist Office Based Only Relationship Specialty Start Date End Date Cait Nelson, COMPUTER TERMINAL OPERATOR- [address] [place] [phone] PCP - General NURSE PRACTITIONER 10/09/19 documented as of this encounter
--- OUTSIDE RECORDS SUMMARY | 2024-11-17 18:05 | XMS_ITS | Encounter Summary ---
Author Organization [facility] Address [address] [place] [address]. [place] [address] [place] [address] Care Team Providers Care Javascript Programmer Name Role Phone Cait Nelson [facility] Primary Care Provider + Reason for Referral * Procedure (Routine) - Closed Specialty Diagnoses / Procedures Referred By Contac t Referred To Contact Cardiology Diagnoses Chest pain in adult Procedures STRESS TEST ONLY, EXERCISE Boston Garcia MD [address] [address] Phone: tel: fax: Referral ID Status Reason Start Date Expiration Date Visits Re quested Visits Authorized [id number] Closed 10/17/2024 10/17/2025 1 1 ITURE POLISHER Reason for Visit * Procedure (Routine) - Closed Specialty Diagnoses / Procedures Referred By Contnirmal portillo Referred To Contact Cardiology Diagnoses Chest pain in adult Procedures STRESS TEST ONLY, EXERCISE Boston Garcia MD [address] [address] Phone: tel: fax: Referral ID Status Reason Start Date Expiration Date Visits Re quested Visits Authorized [id number] Closed 10/17/2024 10/17/2025 1 1 Encounter Details Date Type Department Care Team (Latest Contact Info) Description 10/28/2024 11:47 AM FURNITURE POLISHER - 10/28/2024 11:59 PM FURNITURE POLISHER Hospital Encounter [facility] Cardiopulmonary Services [address] [place] [address] Boston Garcia MD Three [facility] [address] [place], [place] [phone] Discharge Disposition: Home or Self Care (Routine [...] st Contact Info) Description 11/18/2024 9:00 AM [facility] [address] [facility] [address] Colleen Pina FNP 3 [facility] [address] [place], [place] [phone] documented as of this encounter Procedures Procedure Name Priority Date/Time Associated Diagnosis Comments STRESS TEST ONLY, EXERCISE Routine 10/28/2024 12:00 PM FURNITURE POLISHER Chest pain in adult documented in this encounter Results * STRESS TEST ONLY, EXERCISE (10/28/2024 12:00 PM FURNITURE POLISHER) 10/28/2024 12:0 0 PM FURNITURE POLISHER Narrative [facility] ([facility]) RAD - 10/31/2024 3:35 PM FURNITURE POLISHER ?[facility] ? Test Date: ?2024-10-28 Pat Name: ? ROOPA AGUILAR ? Department: ? Room: ? Gender: ? Female ? Fruit Thinner Machine Operator: ?? JBarton STRAP FOLDING MACHINE OPERATOR : ?1955 ? Requested By: BOSTON GARCIA Order Number: [id number] ? Reading MD: ?? Boston Garcia ? Interpretive Statements ORDER #: [id number] PROCEDURE: EKG Isac Indication: CP The patient's baseline heart rate is 93 and blood pressure 138/84. Baseline electrocardiogram shows sinus with no acute ST changes. ??The patient exercised on the treadmill 03 Min 42 Sec per standard isac protocol and achieved a peak heart rate of 131 beats per minute which is 86 percent of predicted maximum for age. ??Maximum blood pressure was 160/98 and the workload achieved was 4.7 METS. During exercise, there was no chest pain/pressure CONCLUSIONS: 1) Negative clinically for ischemia 2) Negative electrocardiographically for ischemia 3) poor exercise tolerance ITURE POLISHER Procedure Note Boston Garcia MD - 10/31/2024 [facility] Test Date: 2024-10-28 Pat Name: ROOPA AGUILAR Department: Room: Gender: Female Fruit Thinner Machine Operator: Jeremiah STUBBS : 1955 Requested By: BOSTON GARCIA Order Number: [id number] Reading MD: Boston Garcia Interpretive Statements ORDER #: [id number] PROCEDURE: EKG Isac Indication: CP The patient's baseline heart rate is 93 and blood pressure 138/84.Baseline electrocardiogram shows sinus with no acute ST changes. The patient exercised on the treadmill 03 Min 42 Sec per standard isac protocol and achieved a peak heart rate of 131 beats per minute which is 86 percentof predicted maximum for age. Maximum blood pressure was 160/98 and the workload achieved was 4.7 METS. During exercise, there was no chest pain/pressure CONCLUSIONS: 1) Negative clinically for ischemia 2) Negative electrocardiographically for ischemia 3) poor exercise tolerance ITURE POLISHER us Boston Garcia MD CV CARDIAC SERVICES ORDERAB LES Final Result [facility] ([facility]) RAD documented in this encounter Visit Diagnoses Diagnosis Chest pain in adult documented in this encounter Care Teams Javascript Programmer Relationship Specialty Start Date End Date Cait Nelson FNP- [address] [place] [phone] PCP - General NURSE PRACTITIONER 10/09/19 documented as of this encounter
--- OUTSIDE RECORDS SUMMARY | 2024-11-17 18:05 | XMS_ITS | Encounter Summary ---
Author Organization [facility] Address [address] [place] [address]. [place], [place] [address] [place] [address] Care Team Providers Care Neck Band Maker Name Role Phone Cait Nelson [facility] Primary Care Provider + Encounter Details Date Type Department Care Team (Latest Contact Info) Description 05/02/2023 Travel Social History Tobacco Use Types Packs/Day [...] st Contact Info) Description 11/18/2024 9:00 AM [facility] [address] [place] [phone] Colleen Pina FNP 3 [facility] [address] [place], [place] [phone] documented as of this encounter Visit Diagnoses Not on filedocumented in this encounter Care Teams Neck Band Maker Relationship Specialty Start Date End Date Cait Nelson [facility] [address] [place] [phone] PCP - General NURSE PRACTITIONER 10/09/19 documented as of this encounter
--- OUTSIDE RECORDS SUMMARY | 2024-11-17 18:05 | XMS_ITS | Encounter Summary ---
Author Organization [facility] Address [address] [place] [address]. [place] [address] [place] [address] Care Team Providers Care Director Economic Name Role Phone Cait Nelson [facility] Primary Care Provider + Encounter Details Date Type Department Care Team (Latest Contact Info) Description 09/10/2020 Travel Social History Tobacco Use Types Packs/Day [...] have Coronavirus / COVID-19? No / Unsure 09/10/2020 8:40 AM CDT documented as of this encounter Plan of Treatment Upcoming Encounters Date Type Department Care Team (Late st Contact Info) Description 11/18/2024 9:00 AM [facility] [address] [place] [place] [phone] Colleen Pina FNP [address] [place] [address] documented as of this encounter Visit Diagnoses Not on filedocumented in this encounter Care Teams Director Economic Relationship Specialty Start Date End Date [facility]ait Nelson [facility] [address] [place] [address] PCP - General NURSE PRACTITIONER 10/09/19 documented as of this encounter
--- OUTSIDE RECORDS SUMMARY | 2024-11-17 18:05 | XMS_ITS | Encounter Summary ---
Author Organization [facility] Address [address] [place] [address]. [place], [place] [address] [place] [address] Care Team Providers Care Fixed Route Operator Name Role Phone Cait Nelson [facility] Primary Care Provider + Encounter Details Date Type Department Care Team (Latest Contact Info) Description 05/08/2023 Travel Social History Tobacco Use Types Packs/Day [...] st Contact Info) Description 11/18/2024 9:00 AM [facility] [address] [place] [phone] Colleen Pina FNP 3 [facility] [address] [place], [place] [phone] documented as of this encounter Visit Diagnoses Not on filedocumented in this encounter Care Teams Fixed Route Operator Relationship Specialty Start Date End Date Cait Nelson [facility] [address] [place] [phone] PCP - General NURSE PRACTITIONER 10/09/19 documented as of this encounter
--- OUTSIDE RECORDS SUMMARY | 2024-11-17 18:05 | XMS_ITS | Encounter Summary ---
Author Organization [facility] Address [address] [place] [address]. [place], [place] [address] [place] [address] Care Team Providers Care Medical Payment Poster Name Role Phone Cait Nelson [facility] Primary Care Provider + Encounter Details Date Type Department Care Team (Latest Contact Info) Description 10/04/2022 Travel Social History Tobacco Use Types Packs/Day [...] suspected to have Coronavirus/COVID-19? No / Unsure 10/04/2022 12:58 PM [employer] documented as of this encounter Plan of Treatment Upcoming Encounters Date Type Department Care Team (Late st Contact Info) Description 11/18/2024 9:00 AM [employer] [facility] [address] [place] [phone] Colleen Pina FNP [address] [place], [place] [phone] documented as of this encounter Visit Diagnoses Not on filedocumented in this encounter Care Teams Medical Payment Poster Relationship Specialty Start Date End Date Cait Nelson [facility] [address] [place] [phone] PCP - General NURSE PRACTITIONER 10/09/19 documented as of this encounter
--- OUTSIDE RECORDS SUMMARY | 2024-11-17 18:05 | XMS_ITS | Encounter Summary ---
Author Organization [facility] Address [address] [place] [address]. [place] [address] [place] [address] Care Team Providers Care Uranium Processing Supervisor Name Role Phone Cait Nelson [facility] Primary Care Provider + Encounter Details Date Type Department Care Team (Late st Contact Info) Description 09/10/2020 Orders Only [facility] [address] [place] [address] Chitra Chen MD [address] [place] [address] Social History Tobacco Use Types Packs/Day Years [...] Contact Info) Description 11/18/2024 9:[address] [facility] [address] [place] [address] Colleen Pina FNP [address] [place] [address] documented as of this encounter Results * FREE T3 (09/10/2020 8:49 AM CDT) FREE T3 2.8 2.18 - 3.98 PG/ML 09/10/2020 4:30 PM CDT [facility] 09/10/2020 8:49 AM CDT us Chitra Chen MD LABORATORY Final Result [facility] [address] [place] [address], [place] [phone] * THYROXINE, FREE (FT4) (09/10/2020 8:49 AM CDT) FREE T4 1.28 0.76 - 1.46 NG/DL 09/10/2020 10:53 AM CDT [facility] 09/10/2020 8:49 AM CDT us Chitra Chen MD LABORATORY Final Result Performing Organization Address [facility] Co de Phone Number [facility] [address] [place] [address], [place] [phone] * (ABNORMAL) THYROID STIM HORMONE, TSH (09/10/2020 8:49 AM CDT) TSH 0.207(L) 0.358 - 3.74 uIU/ML 09/10/2020 10:53 AM CDT [facility] Comment: HIGH DOSES OF BIOTIN MAY INTERFERE WITH THIS TEST RESULT. CORRELATION TO CLINICAL HISTORY AND PRESENTATION RECOMMENDED. 09/10/2020 8:49 AM CDT us Chitra Chen MD LABORATORY Final Result Performing Organization Address City/[facility]/ZIP Co de Phone Number [facility] [address] [place] [address], [place] [phone] * VITAMIN B12 / FOLATE (09/10/2020 8:49 AM CDT) VITAMIN B12 S/P/B 524 193 - 986 PG/ML 09/10/2020 10:53 AM CDT [facility] FOLATE 9.0 8.6 - 58.9 NG/ML 09/10/2020 10:53 AM CDT [facility] 09/10/2020 8:49 AM CDT us Chitra Chen MD LABORATORY Final Result [facility] [address] [place] [address], [place] [phone] * MICROALBUMIN CREATININE RATIO (MICROALBUMIN/ALBUMIN) (09/10/2020 8:49 AM CDT) CREATININE (U) 96.2 28 - 217 MG/DL 09/10/2020 11:06 AM CDT [facility] MICROALBUMIN (U) 1.6 <2.0 mg/dL 09/10/20 20 11:06 AM CDT [facility] ALBUMIN/CREAT RATIO 16.6 <30.0 MG/G 09/10/2020 11:06 AM CDT [facility] URINE SPECIMEN / Unknown 09/10/2020 8:49 AM CDT us Chitra Chen MD URINE ORDERABLES Final Result [facility] [address] [place] [address], [place] [phone] * (ABNORMAL) COMPREHENSIVE METABOLIC PANEL (09/10/2020 8:49 AM CDT) GLUCOSE 104(H) 70 - 99 MG/DL 09/10/2020 10:53 AM T [facility] BUN 14 7 - 18 MG/DL 09/10/2020 10:53 AM T [facility] CREATININE S/P/B 0.70 0.55 - 1.02 MG/DL 09/10/2020 10:53 AM CDT [facility] SODIUM S/P/B 140 136 - 145 MMOL/L 09/10/2020 10:53 AM T [facility] POTASSIUM S/P/B 3.8 3.5 - 5.1 MMOL/L 09/10/2020 10:53 AM T [facility] CHLORIDE S/P/B 106 100 - 108 MMOL/L 09/10/2020 10:53 AM [facility] CO2 25.7 21 - 32 MMOL/L 09/10/2020 10:53 AM [facility] CALCIUM S/P/B 8.8 8.5 - 10.1 MG/DL 09/10/2020 10:53 AM [facility] BILIRUBIN TOTAL S/P/B 0.5 0.2 - 1.2 MG/DL 09/10/2020 10:53 AM [facility] TOTAL PROTEIN S/P/B 7.4 6.4 - 8.2 G/DL 09/10/2020 10:53 AM [facility] ALBUMIN S/P/B 3.6 3.4 - 5.0 G/DL 09/10/2020 10:53 AM [facility] AST 14(L) 15 - 37 U/L 09/10/2020 10:53 AM [facility] ALT 19 14 - 55 U/L 09/10/2020 10:53 AM [facility] ALKALINE PHOSPHATASE S/P/B 87 50 - 136 U/L 09/10/2020 10:53 AM CDT [facility] ANION GAP 8.3 5 - 15 MMOL/L 09/10/2020 10:53 AM CDT [facility] BUN CREATININE RATIO 20.0 6 - 26 09/10/2020 10:53 AM CDT [facility] A/G RATIO 0.9(L) 1.0 - 2.0 RATIO 09/10/2020 10:53 AM CDT [facility] EGFR NON-AFR. AMER. >90 >90 ML/MIN/1.7 3 M2 09/10/2020 10:53 AM CDT [facility] EGFR AFR. AMER. >90 >90 ML/MIN/1.7 3 M2 09/10/2020 10:53 AM CDT [facility] Comment: NOTE: eGFR is not calculated for patients <18 years of age. This is an estimated GFR (CKD EPI) and should not be used for calculating drug doses. 09/10/2020 8:49 AM CDT us Chitra Chen MD LABORATORY Final Result [facility] [address] [place] [address], [place] [phone] * (ABNORMAL) HEMOGLOBIN, GLYCOSYLATED (09/10/2020 8:49 AM CDT) HGB A1C 5.8(H) <5.7 % 09/10/2020 11:26 AM CDT [facility] Comment: INCREASED RISK OF DIABETES <5.7% ?NON-DIABETES 5.7-6.4% INCREASED RISK FOR FUTURE DIABETES > OR = 6.5 CONSISTENT WITH DIABETES STANDARDS OF MEDICAL CARE IN DIABETES-2010 DIABETES CARE, 33(SUPP 1): S1-S61,2010 09/10/2020 8:49 AM CDT us Chitra Chen MD LABORATORY Final Result [facility] [address] [place] [address], documented in this encounter Visit Diagnoses Diagnosis Diabetes mellitus (CMS/HCC HHS/HCC)- Primary Type II or unspecified type diabetes mellitus without mention of complication, not stated as uncontrolled Vitamin B 12 deficiency Other B-complex deficiencies Hypothyroidism Unspecified hypothyroidism documented in this encounter Care Teams Uranium Processing Supervisor Relationship Specialty Start Date End Date Cait Nelson, FRUIT LOADER MACHINE OPERATOR- [address] [phone] PCP - General NURSE PRACTITIONER 10/09/19 documented as of this encounter
--- OUTSIDE RECORDS SUMMARY | 2024-11-17 18:05 | XMS_ITS | Encounter Summary ---
Author Organization [facility] Address [address] [place] [address]. [place] [address] [place] [address] Care Team Providers Care Carpenter General Name Role Phone Cait Nelson- Primary Care Provider + Reason for Referral * Imaging (Routine) - Closed Specialty Diagnoses / Procedures Referred By Contac t Referred To Contact RADIOLOGY Diagnoses Ascending aortic aneurysm (CMS/HCC) Procedures CTA CHEST Colleen Pina FNP [address] [place] [address] Phone: tel: fax: Referral ID Status Reason Start Date Expiration Date Visits Re quested Visits Authorized [id number] Closed 10/30/2024 04/28/2025 1 1 OPERATIONS SPECIALIST Reason for Visit * Reason Onset Date Comments Results 10/30/2024 Encounter Details Date Type Department Care Team (Late st Contact Info) Description 10/30/2024 Telephone [facility] THREE [facility] [address] [place], [place] [phone] Colleen Pina FNP [address] [facility] [address] [place], [place] [phone] Results Social History Tobacco Use Types Packs/Day Years [...] as of this encounter Progress Notes * ANAND Bell - 10/30/2024 10:03 AM CSTAddended by: JESSIKA VALDES on: 10/30/2024 10:03 AM Modules accepted: Orders OPERATIONS SPECIALIST * ANAND Bell - 10/30/2024 10:02 AM CST CALL TO PT, ORDER ENTERED AND TRANSFERRED TO SCHEDULING DEPT TO SCHEDULE OPERATIONS SPECIALIST * Sofía Hollins RN - 10/30/2024 9:29 AM CST Patient voiced understanding of results and is agreeable to recs. Patient takes statin 2 days a week, she will increase to 3 days. No further questions at this time. Results routed to PCP Sofía ROSS OPERATIONS SPECIALIST * Sofía Hollins RN - 10/30/2024 9:18 AM CST ----- Message from Colleen Pina sent at 10/30/2024 9:16 AM IT OPERATIONS SPECIALIST ----- 20 to 40 mg, that's the highest dose OPERATIONS SPECIALIST * Sofía Hollins RN - 10/30/2024 9:17 AM CST ----- Message from Colleen Pina sent at 10/29/2024 6:51 PM IT OPERATIONS SPECIALIST ----- Patients total calcium score was 622.37 which is considered extensive atherosclerotic plaque. High likelihood of significant coronary artery narrowing. Echo/stress pending. Would increase her statin dose and start a low dose ASA. Noted to have an ascending aortic aneurysm. Recommend CTA of the chest. Echo pending. Hypodensities in the liver incompletely visualized. Additional evaluation by CT scan of the abdomenwith and without contrast is recommended. Would defer to PCP regarding this. Would send them this report. Pulmonary nodule versus atelectasis left lower lobe. This could also be evaluated on this CTA of the chest. Defer to PCP as well. Hiatus hernia noted. OPERATIONS SPECIALIST documented in this encounter Plan of Treatment Upcoming Encounters Date Type Department Care Team (Late st Contact Info) Description 11/18/2024 9:00 AM IT OPERATIONS SPECIALIST [facility] Cardiovascular Outreach [facility] [address] [place] [phone] Colleen Pina FNP [address] [place] [address] documented as of this encounter Results * CTA CHEST (11/04/2024 9:24 AM IT OPERATIONS SPECIALIST) Anatomical Region Laterality Modality Chest Computed Tomogra phy 11/05/2024 6:42 AM IT OPERATIONS SPECIALIST Impressions 11/05/2024 6:59 AM IT OPERATIONS SPECIALIST IMPRESSION: 1. ??Atherosclerotic aorta without dissection. ??Ascending aortic aneurysm as detailed above. ??No pericardial effusion.. 2. ??No pathologic pulmonary nodules or pathologic lymphadenopathy. ??No infiltrate or effusion. 3. ??Follow-up with CT of the abdomen for hemangioma protocol for low-density lesions within the liver and spleen. Referred By: BOSTON DU Interpreted By: Mannie Ospina MD, 11/05/2024 6:42 AM Narrative 11/05/2024 6:59 AM IT OPERATIONS SPECIALIST [facility] [address] [place] [address] EXAMINATION: CTA CHEST WITH CONTRAST EXAM DATE/TIME: [...] Procedure Note Mannie Ospina MD - 11/05/2024 [facility] [address] [place] [address] EXAMINATION: CTA CHEST WITH CONTRAST EXAM DATE/TIME: [...] Ospina MD, 11/05/2024 6:42 AM Colleen Pina [facility] CT Final Result documented in this encounter Visit Diagnoses Diagnosis Ascending aortic aneurysm (CMS/HCC)- Primary Thoracic aneurysm without mention of rupture documented in this encounter Care Teams Carpenter General Relationship Specialty Start Date End Date Cait Nelson, [facility]- [address] [phone] PCP - General NURSE PRACTITIONER 10/09/19 documented as of this encounter
--- OUTSIDE RECORDS SUMMARY | 2024-11-17 18:05 | XMS_ITS | Encounter Summary ---
Author Organization [facility] Address [address] [place] [address]. [place] [address] [place] [address] Care Team Providers Care Clinical Manager Name Role Phone Cait Nelson [facility] Primary Care Provider + Reason for Visit * Reason Onset Date Comments Information 11/01/2024 Patient request Encounter Details Date Type Department Care Team (Late st Contact Info) Description 11/01/2024 Telephone [facility] [facility], [address] [address] Ike Garcia MD [facility]. [address] [address] Information (Patient request) Social History Tobacco Use Types Packs/Day Years [...] as of this encounter Progress Notes * Olvie Jack - 11/01/2024 10:53 AM CSTSummary: Patient request 11/01/2024 Patient called requesting 10/28/24 Stress test and 10/29/24 calcium scoring test be sent to pcp on file P) [phone], F) [phone] [facility] [place] Sent VIA RT FAX SUPPORT MAKER documented in this encounter Plan of Treatment Upcoming Encounters Date Type Department Care Team (Late st Contact Info) Description 11/18/2024 9:00 AM ARCH SUPPORT MAKER Telemedicine [facility] [address] [place] [address] Colleen Pina FNP 3 [facility] [address] [place] [address] documented as of this encounter Visit Diagnoses Not on filedocumented in this encounter Care Teams Clinical Manager Relationship Specialty Start Date End Date Cait Nelson, MANAGER SPANISH-BC [address] [place] [phone] PCP - General NURSE PRACTITIONER 10/09/19 documented as of this encounter
--- OUTSIDE RECORDS SUMMARY | 2024-11-17 18:05 | XMS_ITS | Encounter Summary ---
Author Organization [facility] Address [address] [place] [address]. [place] [address] [place] [address] Care Team Providers Care Assembler Name Role Phone Omar Cait Ankit [facility] Primary Care Provider + Encounter Details Date Type Department Care Team (Late Contact Info) Description 10/22/2024 [facility] [address] [place], [place] [id number] Trevon Yeung RMA Social History Tobacco Use Types Packs/Day Years [...] Encounters Date Type Department Care Team (Late Contact Info) Description 11/18/2024 9:00 AM REVIEW ENGINEER Telemedicine [facility] [address] [place] [address] Colleen Pina FNP [address] [place] [address] [address] [place], [place] [id number] documented as of this encounter Procedures Procedure Name Priority Date/Time Associated Diagnosis Comments TSH (OUTSIDE LAB) Routine 08/16/2024 BASIC METABOLIC PANEL (OUTSIDE LAB) Routine 08/16/2024 HEMOGLOBIN, GLYCOSYLATED Routine 08/16/2024 AMYLASE Routine 08/16/2024 LIPASE Routine 08/16/2024 LIPID PANEL (OUTSIDE LAB) Routine 05/23/2024 TSH (OUTSIDE LAB) Routine 05/23/2024 HEMOGLOBIN, GLYCOSYLATED Routine 05/23/2024 VITAMIN B-12 Routine 05/23/2024 COMPREHENSIVE METABOLIC PANEL Routine 05/23/2024 VITAMIN D 1,25 DIHYDROXY Routine 05/23/2024 documented in this encounter Results * (ABNORMAL) BASIC METABOLIC PANEL (OUTSIDE LAB) (08/16/2024) SODIUM S/P/B 140 135 - 146 POTASSIUM S/P/B 4.5 3.5 - 5.3 CHLORIDE S/P/B 106 98 - 110 CO2 29 20 - 32 BUN 14 7 - 25 CREATININE S/P/B 0.78 0.5 - 1.0 EGFR NON-AFR. AMER. 83 <=90 CALCIUM S/P/B 8.7 8.6 - 10.4 GLUCOSE 106(A) 65 - 99 mg/dL 08/16/2024 us Default History Genericprovider LAB-OUTSIDE/ABST RACTED Final Result * (ABNORMAL) HEMOGLOBIN, GLYCOSYLATED (08/16/2024) HGB A1C 6.5(A) 4.8 - 5.7 08/16/2024 us Default History Genericprovider LABORATORY Final Result * TSH (OUTSIDE LAB) (08/16/2024) [facility] TSH 0.64 0.40 - 4.50 08/16/2024 Default History Genericprovider LAB-OUTSIDE/ABST RACTED Final Result * AMYLASE (08/16/2024) [facility] AMYLASE S/P/B 42 21 - 101 08/16/2024 Default History Genericprovider LABORATORY Final Result * LIPASE (08/16/2024) [facility] LIPASE 39 7 - 60 08/16/2024 [facility] History Genericprovider LABORATORY Final Result * (ABNORMAL) LIPID PANEL (OUTSIDE LAB) (05/23/2024) [facility] CHOLESTEROL 143 0 - 200 TRIGLYCERIDES 80 0 - 150 HDL 78 >=50 LDL (CALCULATED) 49 0 - 100 NON HDL CHOLESTEROL 65 CHOL/HDL RATIO 1.8 05/23/2024 [facility] History Genericprovider LAB-OUTSIDE/ABST RACTED Final Result * (ABNORMAL) COMPREHENSIVE METABOLIC PANEL (05/23/2024) [facility] SODIUM S/P/B 140 135 - 146 POTASSIUM S/P/B 4.5 3.5 - 5.3 CO2 26 20 - 32 CHLORIDE S/P/B 107 98 - 110 GLUCOSE 118(A) 65 - 99 mg/dL CALCIUM S/P/B 9.0 8.6 - 10.4 BUN 16 7 - 25 CREATININE S/P/B 0.70 0.50 - 1.05 GFR ESTIMATE 95 ALKALINE PHOSPHATASE S/P/B 89 37 - 153 ALT 13 6 - 29 AST 16 10 - 35 BILIRUBIN TOTAL S/P/B 0.5 0.2 - 1.2 ALBUMIN S/P/B 4.0 3.5 - 5.0 TOTAL PROTEIN S/P/B 6.6 6.1 - 8.1 05/23/2024 us Default History Genericprovider LABORATORY Final Result * (ABNORMAL) HEMOGLOBIN, GLYCOSYLATED (05/23/2024) HGB A1C 6.5(A) 4.8 - 5.7 % 05/23/2024 us Default History Genericprovider LABORATORY Final Result * (ABNORMAL) TSH (OUTSIDE LAB) (05/23/2024) TSH 0.33(A) 0.40 - 4.50 05/23/2024 us Default History Genericprovider LAB-OUTSIDE/ABST RACTED Final Result * (ABNORMAL) VITAMIN B-12 (05/23/2024) VITAMIN B12 S/P/B 0.33(A) 200 - 1,100 05/23/2024 us Default History Genericprovider LABORATORY Final Result * VITAMIN D 1,25 DIHYDROXY (05/23/2024) VITAMIN D 1 25 DIHYDROXY S/P/B 54 30 - 100 05/23/2024 us Default History Genericprovider LABORATORY Final Result documented in this encounter Visit Diagnoses Not on filedocumented in this encounter Care Teams Assembler Relationship Specialty Start Date End Date Cait Nelson FNP-LAMBERTO [address] [place] [address] PCP - General NURSE PRACTITIONER 10/09/19 documented as of this encounter
--- OUTSIDE RECORDS SUMMARY | 2024-11-17 18:05 | XMS_ITS | Encounter Summary ---
Author Organization [facility] Address [address] [place] [address]. [place] [address] [place] [address] Care Team Providers Care Powersaw Supervisor Name Role Phone Cait Nelson [facility] Primary Care Provider + Encounter Details Date Type Department Care Team (Latest Contact Info) Description 08/12/2020 9:15 AM CDT - 08/12/2020 11:59 PM CDT Hospital Encounter [facility] [address] [facility] [place] [address] Dick Norton MD [address] [facility] [address] [place] [address] Discharge Disposition: Home or Self [...] st Contact Info) Description 11/18/2024 9:00 AM TIRE BALANCER Telemedicine [facility] [address] [place] [address] Colleen Pina, JOSE [address] [facility] [address] [place] [address] documented as of this encounter Procedures Procedure Name Priority Date/Time Associated Diagnosis Comments VITAMIN D, 25 OH Routine 08/12/2020 9:42 AM CDT Vitamin D deficiency documented in this encounter Results * VITAMIN D, 25 OH (08/12/2020 9:42 AM CDT) VITAMIN D 25 HYDROXY S/P/B 66 30 - 100 NG/ML 08/12/2020 5:59 PM CDT [facility] Comment: ? INTERPRETATION ? DEFICIENT ??<20 ? INSUFFICIENT 20-29 ?SUFFICIENT 30-100 08/12/2020 9:42 AM CDT Dick Norton MD LABORATORY Final Result [facility] [address] [place] [address], documented in this encounter Visit Diagnoses Diagnosis Vitamin D deficiency Unspecified vitamin D deficiency documented in this encounter Care Teams Powersaw Supervisor Relationship Specialty Start Date End Date Cait Nelson, BRIQUETTER OPERATOR-BC [facility] [address] [place] [address] PCP - General NURSE PRACTITIONER 10/09/19 documented as of this encounter
--- OUTSIDE RECORDS SUMMARY | 2024-11-17 18:05 | XMS_ITS | Encounter Summary ---
Author Organization [facility] Address [address] [place] [address]. [place] [address] [place] [address] Care Team Providers Care Glass Driller Name Role Phone Cait Nelson [facility] Primary Care Provider + Encounter Details Date Type Department Care Team (Latest Contact Info) Description 05/02/2023 12:53 PM CDT - 05/02/2023 11:59 PM CDT Hospital Encounter [facility] [address] [place] [address] Cait Nelson [facility] [address] [facility] [place] [address] Discharge Disposition: Home or Self Care (Routine [...] Contact Info) Description 11/18/2024 9:00 AM [facility] Cardiovascular [facility] [address] [place] [address] Colleen Pina, SOFT BOARDER [address] [place] [address] documented as of this encounter Procedures Procedure Name Priority Date/Time Associated Diagnosis Comments MISCELLANEOUS LAB TEST Routine 1:15 PM CDT Family history of malignant neoplasm of breast documented in this encounter Results * MISCELLANEOUS LAB TEST (05/02/2023 1:15 PM CDT) TEST NAME: [id number] BRCA PANEL 05/02/2023 1:48 PM CDT [facility] SPECIMEN TYPE 5ML WHOLE BLOOD EDTA 05/02/2023 1:48 PM CDT [facility] TEST RESULT: Flexitest 1 05/26/2023 7:42 PM CDT [email or web address] MINDI HENRY Comment: Flexitest 1 TESTS RESULTS--------UNITS--REF. [...] least one such relative be provided to [employer]. Reviewer ? REPORT ? Laboratory testing supervised and results monitored by Zoila Sanabria, Ph.D., [facility]. Resources ?REPORT ? Visit [employer] for physician information, patient materials, FAQs, and testing resources. Call [phone]-[employer]itas [employer] ( ) for genetic counseling consultations, pre-authorization [...] sequences were utilized for analysis: BRCA1 (NM 899997.3), BRCA2 (NM 479589.3). Reference genome: hg19 (build37). Limitations: This assay [...] a variant is reclassified with clinical implications, [employer] will endeavor to contact the ordering provider. Providers may contact [employer] Client Services at [phone] ( ) for assistance with result interpretation, questions about variant classification, or to discuss additional testing. The classification and interpretation of the variant(s) identified reflect the current state of [employer]' understanding at the time of this report. [...] questions regarding variant classification updates, please call [employer] at [phone] ([phone]) to speak to a genetic counselor or clinical laboratory science professor, or visit [email or web address]. For patients who are interested in sharing de-identified genetic and health information to improve understanding of genetics and health, please visit [email or web address]. Dizzionnect is a third constitution party online registry designed by the [employer] ([employer]in[employer]unk[employer]) and is not affiliated with [employer] in any way. This test was developed and its analytical performance characteristics have been determined by [employer] [facility]. It has not been cleared or approved by FDA. This assay has been validated pursuant to the CLIA regulations and is used for clinical purposes. Test performed by [employer] [facility] ? [id number], ? [place] [address] ? Silk Washing Machine Operator: Sandy Choi MD,PHD,MILANA Test Reported by [facility], [employer] [facility], [address] [place], [place] Jose Alberto Casillas M.D., Ph.D., Director of Laboratories , [place] [id number] 05/02/2023 1:15 PM CDT Cait Nelson [facility] LABORATORY Final Re sult [email or web address] [facility] [address] [place], [place] , [place] [phone] [facility] [address] [place] [address], [place] [phone] documented in this encounter Visit Diagnoses Diagnosis Family history of malignant neoplasm of breast documented in this encounter Care Teams Glass Driller Relationship Specialty Start Date End Date Cait Nelson [facility] [address] [place] [address] PCP - General NURSE PRACTITIONER 10/09/19 documented as of this encounter
--- OUTSIDE RECORDS SUMMARY | 2024-11-17 18:05 | XMS_ITS | Encounter Summary ---
Author Organization [facility] Address [address] [place] [address]. [place] [address] [place] [address] Care Team Providers Care Pin Sticker Name Role Phone Cait Nelson [facility] Primary Care Provider + Encounter Details Date Type Department Care Team (Late st Contact Info) Description 10/15/2024 Orders Only [facility] [address] [place], [place] [address] Devi Quinones, NATI Social History Tobacco Use Types Packs/Day Years [...] st Contact Info) Description 11/18/2024 9:00 AM PLANT SECURITY GUARD Telemedicine [facility] [address] [place] [phone] Colleen Pina FNP [address] [place] [address] [address] [place], [place] [phone] documented as of this encounter Visit Diagnoses Not on filedocumented in this encounter Care Teams Pin Sticker Relationship Specialty Start Date End Date Cait Nelson [facility] [address] [place] [address] PCP - General NURSE PRACTITIONER 10/09/19 documented as of this encounter
--- OUTSIDE RECORDS SUMMARY | 2024-11-17 18:05 | XMS_ITS | Encounter Summary ---
Author Organization [facility] Address [address] [place] [address]. [place], [place] [address] [place] [address] Care Team Providers Care Real Estate Transaction Manager Name Role Phone Florian Cabello [facility] Primary Care Provider + Reason for Visit * Imaging (Routine) - Closed Specialty Diagnoses / Procedures Referred By Contac t Referred To Contact RADIOLOGY Diagnoses Encounter for screening mammogram for malignant neoplasm of breast Procedures MG SCREENING W DONNIE TIMA DIGFlorian Campoverde, [address] [address] Phone: tel: fax: Referral ID Status Reason Start Date Expiration Date Visits Re quested Visits Authorized [id number] Closed 09/29/2022 09/29/2023 1 1 Encounter Details Date Type Department Care Team (Latest Contact Info) Description 10/04/2022 1:00 PM HEAT TREATER - 10/04/2022 11:59 PM [facility] Hospital Encounter [facility] Mammography [address] [place] [address] Florian Cabello, [facility] [address] [place] [address] Discharge Disposition: Home or Self Care (Routine [...] Coronavirus/COVID-19? No / Unsure 10/04/2022 12:58 PM HEAT TREATER documented as of this encounter Medications at Time of Discharge azithromycin (ZITHROMAX) 250 MG tablet Take 2 tablets by mouth on day one then 1 daily for four days. 6 tablet 11/23/2019 10/15/2024 documented as of this encounter Plan of Treatment Upcoming Encounters Date Type Department Care Team (Late st Contact Info) Description 11/18/2024 9:00 AM HEAT TREATER [facility] Cardiovascular Outreach [address] [phone] Colleen Pina FNP [address] [place] [address] documented as of this encounter Procedures Procedure Name Priority Date/Time Associated Diagnosis Comments XR HEEL RT MIN 2V Routine 10/04/2022 1:3 7 PM HEAT TREATER Plantar fascial fibromatosis MG SCREENING W DONNIE TIMA DIGI Routine 10/04/2022 1:23 PM HEAT TREATER Encounter for screening mammogram for malignant neoplasm of breast documented in this encounter Results * XR HEEL RT MIN 2V (10/04/2022 1:37 PM HEAT TREATER) Anatomical Region Laterality Modality Foot Radiographic Elina ging 10/04/2022 1:37 PM HEAT TREATER Impressions 10/04/2022 1:39 PM HEAT TREATER IMPRESSION: 1. ??There is no evidence of acute fracture, dislocation, or osseous erosion. Osteopenia limits exam 2. ??No radiopaque foreign bodies or abnormal soft tissue calcifications noted. 3. ?? Small plantar calcaneal spur and small Achilles tendon insertion spur. No distinct calcifications of the plantar fascia Ordered By: FLORIAN CABELLO Interpreted By: Israel Ospina 10/04/2022 1:37 PM Narrative 10/04/2022 1:39 PM HEAT TREATER IMAGING STUDIES: ??XR HEEL RT MIN 2V ? DATE: ??10/04/2022 1:20 PM COMPARISON: ??No comparisons. CLINICAL HISTORY: ??plantar fascial fibromatosis ?? . ??Heel pain. No history of trauma. Procedure Note Mannie Ospina MD - 10/04/2022 IMAGING STUDIES: XR HEEL RT MIN 2V DATE: 10/04/2022 1:20 PM COMPARISON: No comparisons. CLINICAL HISTORY: plantar fascial fibromatosis . Heel pain. No historyof trauma. IMPRESSION: 1. There is no evidence of acute fracture, dislocation, or osseouserosion. Osteopenia limits exam 2. No radiopaque foreign bodies or abnormal soft tissue calcificationsnoted. 3. Small plantar calcaneal spur and small Achilles tendon insertionspur. No distinct calcifications of the plantar fascia Ordered By: FLORIAN CABELLO Interpreted By: Israel Ospina, 10/04/2022 1:37 PM Florian Cabello INTERMEDIATE FRAME TENDER-BC GENERAL IMAGING Final Re sult documented in this encounter Visit Diagnoses Diagnosis Plantar fascial fibromatosis documented in this encounter Care Teams Real Estate Transaction Manager Relationship Specialty Start Date End Date Florian Cabello, INTERMEDIATE FRAME TENDER-BC [address] [place] [address] PCP - General NURSE PRACTITIONER 10/09/19 documented as of this encounter
--- OUTSIDE RECORDS SUMMARY | 2024-11-17 18:05 | XMS_ITS | Encounter Summary ---
Author Organization [facility] Address [address] [place] [address]. [place], [place] [id number] [place] [address] Care Team Providers Care Job Press Operator Name Role Phone Cait Nelson [facility] Primary Care Provider + Reason for Visit * Reason Comments Shoulder Pain Encounter Details Date Type Department Care Team (Late st Contact Info) Description 02/19/2023 1:50 PM CDT - 02/19/2023 4:36 PM CDT Emergency [facility] Emergency Room [id number] [place] [address] Armando Squires MD [address] [place] [address] Shoulder Pain Discharge Disposition: Home or Self Care (Routine [...] PM CDT documented as of this encounter Last Filed Vital Signs Vital Sign Reading Time Taken Comments Blood Pressure 127/71 02/19/2023 3:40 PM CDT Pulse 55 02/19/2023 3:40 PM CDT Temperature 36.7 ??C (98 ??F) 02/19/2023 1:46 PM CDT Respiratory Rate 20 02/19/2023 1:46 PM CDT Oxygen Saturation 95% 02/19/2023 3:40 PM CDT Inhaled Oxygen Concentration - - Weight 115.7 kg (255 lb) 02/19/2023 1:46 PM CDT Height 180.3 cm (5' 11 ) 02/19/2023 1:46 PM CDT Body Mass Index 35.57 02/19/2023 1:46 PM CDT documented in this encounter Discharge Instructions * Discharge Instructions* Armando Squires MD - 02/19/2023 3:44 PM CDT Thank you for entrusting your health with me. I have obtained information about your health and reviewed your work-up. Please access [employer] to see my note and work-up. Medical care is complex and your health is important to me. I encourage you to ask questions for further understanding of today's visit and return if something changes. Sincerely, Dr. Squires * Attachments The following attachments cannot be sent through Care Everywhere. * Upper Arm Fracture ([place]) documented in this encounter Medications at Time of Discharge [...] 3 Day Supply 10 tablet 02/19/2023 10/15/2024 ibuprofen (MOTRIN) 600 MG tablet Take 1 tablet (600 mg total) by mouth every 6 (six) hours as needed for Pain. 30 tablet 02/19/2023 03/01/2023 documented as of this encounter ED Notes * Irina Evangelista RN - 02/19/2023 4:35 PM CDT Pt and spouse given dc instructions and placed in sling. Verbalized understanding. Stable and ambulatory on departure. * Armando Squires MD - 02/19/2023 4:04 PM CDT Emergency Department Note Chief Complaint Chief Complaint Patient presents with ??? Shoulder Pain History of Present Illness The patient is a 67-year-old female who presents with right shoulder pain. She reports that she waspulling weeds when she fell onto her right elbow. She reports hearing a pop in her right shoulder. She reports pain is worse with any movement. Patient was given morphine in route. On arrival patient diaphoretic and hypotensive; does not feel dizzy or lightheaded. Possibly vasovagal reaction to the pain. Blood pressure quickly improved. Hx obtained by patient Medical History MEDICATIONS: Prior to Admission medications Medication Sig Start Date End Date Taking? Authorizing Provider HYDROcodone-acetaminophen (NORCO) 5-325 MG tablet Take 1 tablet by mouth every 6 (six) hours as needed for Pain. Indications: Acute Pain < 3 Day Supply 02/19/23 Yes Armando Squires MD ibuprofen (MOTRIN) 600 MG tablet Take 1 tablet (600 mg total) by mouth every 6 (six) hours as needed for Pain. 02/19/23 03/01/23 Yes Armando Squires MD azithromycin (ZITHROMAX) 250 MG tablet Take 2 tablets by mouth on day one then 1 daily for four days. 11/23/19 JOSE Jarvis PAST MEDICAL HISTORY: Past Medical History: Diagnosis Date ??? Diabetes mellitus (CMS/HCC) ??? Hypertension PAST SURGICAL HISTORY: Past Surgical History: Procedure Laterality Date ??? CRANIECTOMY FOR EXCISION OF ACOUSTIC NEUROMA ??? TONSILLECTOMY ??? TUBAL LIGATION SOCIAL HISTORY: Review of Systems- See HPI for further details. All systems negative except as marked. Physical Exam Vital 24 Hour Range Most Recent Value Temperature Temp Min: 98 ??F (36.7 ??C) Max: 98 ??F (36.7 ??C) 98 ??F (36.7 ??C) Pulse Pulse Min: 49 Max: 62 (!) 55 Respiratory Resp Min: 20 Max: 20 20 Blood Pressure BP Min: 74/44 Max: 127/71 127/71 Pulse Oximetry SpO2 Min: 92 % Max: 95 % 95 % O2 No data recorded Vital Most Recent Value First Value Weight 115.7 kg (255 lb) Weight: 115.7 kg (255 lb) Height 5' 11 (180.3 cm) Height: 5' 11 (180.3 cm) BMI (!) 35.58 N/A Constitutional: Well developed, Well nourished, No acute distress, Non-toxic appearance. HEENT: Normocephalic, Atraumatic, Bilateral external ears normal, EOMI, Conjunctiva normal, No discharge.Oropharynx moist, Nose normal. Respiratory: Normal breath sounds, No respiratory distress. Cardiovascular: Normal heart rate, Normal rhythm GI: Soft, No tenderness, No masses, No pulsatile masses. Neck: Normal range of motion, No tenderness, Supple, No stridor. Back: No tenderness Extremities: Right upper extremity- intact distal pulses, tenderness to the proximal humerus, radial, medial, ulnar nerves intact. Axillary nerve intact. Skin: Warm, Dry, No erythema, No rash. Neurologic: Alert & oriented x 3, Normal motor function, Normal sensory function, No focal deficits noted. Psychiatric: Affect normal, Judgment normal, Mood normal. Medical Decision Making/ ED course: Problem list: Right shoulder pain Differentials: Fracture, contusion, dislocation, other Considered chronic illnesses (see PMH), comorbidities, social determinants of health, access to follow-up, and medical literacy when determining work up and disposition. Labs: Results for orders placed or performed during the hospital encounter of 02/19/23 CBC W/DIFF AUTOMATED Result Value Ref Range WBC 8.30 4.4 - 11.0 x10'3/uL RBC 4.92 4.50 - 5.10 x10'6/uL HGB 14.3 12.3 - 15.3 G/DL HCT 44.1 35.9 - 44.6 % MCV 89.6 80.0 - 96.0 FL MCH 29.1 25.3 - 30.9 PG MCHC 32.4 31.0 - 34.1 G/DL RDW 13.3 12.4 - 15.1 % PLT 256 151 - 353 x10'3/uL MPV 10.4 9.6 - 12.0 FL RBC MORPHOLOGY NORMAL PLT MORPH. NORMAL WBC MORPHOLOGY NORMAL LYMPHOCYTES 34.2 15.8 - 45.0 % NEUTROPHILS 56.1 42.1 - 71.9 % MONOCYTES 6.4 5.7 - 12.5 % EOSINOPHILS 2.2 0.0 - 5.6 % BASOPHILS 0.7 0.0 - 1.3 % ABS. NEUTROPHILS 4.66 1.40 - 6.00 x10'3/uL IMMATURE GRANS 0.4 0.0 - 0.5 % ABS. LYMPHOCYTES 2.84 0.80 - 4.70 x10'3/uL COMPREHENSIVE METABOLIC PANEL Result Value Ref Range GLUCOSE 168 (H) 70 - 99 MG/DL BUN 17 7 - 18 MG/DL CREATININE S/P/B 1.07 (H) 0.55 - 1.02 MG/DL SODIUM 142 136 - 145 MMOL/L POTASSIUM 3.8 3.5 - 5.1 MMOL/L CHLORIDE S/P/B 107 100 - 108 MMOL/L CO2 25.9 21 - 32 MMOL/L CALCIUM 8.8 8.5 - 10.1 MG/DL BILIRUBIN TOTAL S/P/B 0.4 0.2 - 1.2 MG/DL TOTAL PROTEIN S/P/B 7.7 6.4 - 8.2 G/DL ALBUMIN S/P/B 3.5 3.4 - 5.0 G/DL AST 20 15 - 37 U/L ALT 23 14 - 55 U/L ALKALINE PHOSPHATASE S/P/B 103 50 - 136 U/L ANION GAP 9.1 5 - 15 MMOL/L BUN CREATININE RATIO 15.9 6 - 26 A/G RATIO 0.8 (L) 1.0 - 2.0 RATIO GFR ESTIMATE 57 (L) >90 ML/MIN/1.73 M2 Imaging: XR HUMERUS RT MIN 2V Result Date: 02/19/2023 Impression: Impacted and angulated right humeral neck fracture. Ordered By: ARMANDO CORREA NORMANSELL Interpreted By: Armando Marinelli Jr, MD, 02/19/2023 3:31 PM My independent interpretation of labs/imaging: Labs benign. Imaging shows impacted and angulated right humeral neck fracture. My independent interpretation of pulse ox: Normal Consults: Discussed the patient presentation as well as the imaging findings with Dr. Orta. He recommended sling and outpatient follow-up. Communication: I discussed the workup as well as plan of care when possible. I discussed medications as well as other therapies as needed. Patient agrees with the plan of care. Return precautions given. Medications sodium chloride 0.9% bolus infusion 1,000 mL (0 mLs Intravenous Infusion Stop Time 02/19/23 1428) ondansetron (ZOFRAN) injection 4 mg (4 mg Intravenous Given 02/19/23 1359) fentaNYL (SUBLIMAZE) injection 50 mcg (50 mcg Intravenous Given 02/19/23 1507) fentaNYL (SUBLIMAZE) injection 50 mcg (50 mcg Intravenous Given 02/19/23 1558) Clinical Impression Proximal humerus fracture (Primary) Current Discharge Medication List START taking these medications Details HYDROcodone-acetaminophen (NORCO) 5-325 MG tablet Take 1 tablet by mouth every 6 (six) hours as needed for Pain. Indications: Acute Pain < 3 Day Supply Qty: 10 tablet, Refills: 0 Class: Eprescribe Pharmacy: [facility] [address] [place] [address] (Ph #: [phone]) Comments: 10 tablets Associated Diagnoses: Proximal humerus fracture ibuprofen (MOTRIN) 600 MG tablet Take 1 tablet (600 mg total) by mouth every 6 (six) hours as needed for Pain. Qty: 30 tablet, Refills: 0 Class: Eprescribe Pharmacy: [facility] [address] [place] [address] (Ph #: [phone]) Disposition: Discharge Follow-Up: Cash Orta DO [address] [facility] [phone] Call in 1 day for ortho follow-up ARMANDO SQUIRES MD 02/19/2023 Please excuse any grammatical or spelling errors as this chart was likely documented using a dictation software. Armando Squires MD 02/19/23 0191 * Irina Evangelista RN - 02/19/2023 1:48 PM CDT Pt diaphoretic and hypotensive on arrival. States she is unsure if she has had morphine before. Denies cp or dizziness prior to event. * Irina Evangelista RN - 02/19/2023 1:44 PM CDT Pt to ED via EMS after fall off retaining wall today while pulling weeds. Pt had pain and swelling to right shoulder. Arrives in sling, unable to move arm. Good distal PMS. IM morphine given by EMS HYDRAULIC JACK MECHANIC documented in this encounter Plan of Treatment Upcoming Encounters Date Type Department Care Team (Late st Contact Info) Description 11/18/2024 9:00 AM DATA CENTER TECHNICIAN [facility] [address] [phone] Colleen Pina, JOSE [address] [place] [phone] documented as of this encounter Procedures Procedure Name Priority Date/Time Associated Diagnosis Comments XR HUMERUS RT MIN 2V STAT 02/19/2023 3:21 PM CDT COMPREHENSIVE METABOLIC PANEL STAT 02/19/2023 1:53 PM CDT CBC W/DIFF AUTOMATED STAT 02/19/2023 1:53 PM CDT documented in this encounter Results * XR HUMERUS RT MIN 2V (02/19/2023 3:21 PM CDT) Anatomical Region Laterality Modality Humerus Radiographic Elina ging 02/19/2023 3:31 PM CDT Impressions 02/19/2023 3:32 PM CDT Impression: Impacted and angulated right humeral neck fracture. Ordered By: ARMANDO SQUIRES Interpreted By: Armando Marinelli Jr, MD, 02/19/2023 3:31 PM Narrative 02/19/2023 3:32 PM CDT Date: 02/19/2023 2:52 PM Exam: XR HUMERUS RT MIN 2V Comparison: No comparisons. Technique: Frontal and lateral views of the right humerus. History: Fall. Deformity. Pain. Findings: There is an impacted and angulated right humeral neck fracture. The mid and distal humerus appears intact. The right clavicle and AC joint appear intact. There is soft tissue swelling of the right shoulder. Procedure Note Armando Marinelli MD - 02/19/2023 Date: 02/19/2023 2:52 PM Exam: XR HUMERUS RT MIN 2V Comparison: No comparisons. Technique: Frontal and lateral views of the right humerus. History: Fall. Deformity. Pain. Findings: There is an impacted and angulated right humeral neck fracture.The mid and distal humerus appears intact. The right clavicle and AC jointappear intact. There is soft tissue swelling of the right shoulder. Impression: Impacted and angulated right humeral neck fracture. Ordered By: ARMANDO SQUIRES Interpreted By: Armando Marinelli Jr, MD, 02/19/2023 3:31 PM Armando Squires MD GENERAL IMAGING Final Result * (ABNORMAL) COMPREHENSIVE METABOLIC PANEL (02/19/2023 1:53 PM CDT) GLUCOSE 168(H) 70 - 99 MG/DL 02/19/2023 2:15 PM CDT [facility] BUN 17 7 - 18 MG/DL 02/19/2023 2:15 PM CDT [facility] CREATININE S/P/B 1.07(H) 0.55 - 1.02 MG/DL 02/19/2023 2:15 PM CDT [facility] SODIUM S/P/B 142 136 - 145 MMOL/L 02/19/2023 2:15 PM CDT [facility] POTASSIUM S/P/B 3.8 3.5 - 5.1 MMOL/L 02/19/2023 2:15 PM [facility] CHLORIDE S/P/B 107 100 - 108 MMOL/L 02/19/2023 2:15 PM [facility] CO2 25.9 21 - 32 MMOL/L 02/19/2023 2:15 PM T [facility] CALCIUM S/P/B 8.8 8.5 - 10.1 MG/DL 02/19/2023 2:15 PM [facility] BILIRUBIN TOTAL S/P/B 0.4 0.2 - 1.2 MG/DL 02/19/2023 2:15 PM [facility] TOTAL PROTEIN S/P/B 7.7 6.4 - 8.2 G/DL 02/19/2023 2:15 PM [facility] ALBUMIN S/P/B 3.5 3.4 - 5.0 G/DL 02/19/2023 2:15 PM [facility] AST 20 15 - 37 U/L 02/19/2023 2:15 PM [facility] ALT 23 14 - 55 U/L 02/19/2023 2:15 PM [facility] ALKALINE PHOSPHATASE S/P/B 103 50 - 136 U/L 02/19/2023 2:15 PM [facility] ANION GAP 9.1 5 - 15 MMOL/L 02/19/2023 2:15 PM [facility] BUN CREATININE RATIO 15.9 6 - 26 02/19/2023 2:15 PM [facility] A/G RATIO 0.8(L) 1.0 - 2.0 RATIO 02/19/2023 2:15 PM [facility] GFR ESTIMATE 57(L) >90 ML/MIN/1.7 3 M2 02/19/2023 2:15 PM CDT [facility] Comment: NOTE: eGFR is not calculated for patients <18 years of age. This is an estimated GFR calculation using the new CKD EPI creatinine equation without race and so does not require a correction factor for race. This estimated GFR should not be used for calculating drug doses. 02/19/2023 1:53 PM CDT us Armando Squires MD LABORATORY Final Result [facility] [address] [place] [address], * CBC W/DIFF AUTOMATED (02/19/2023 1:53 PM CDT) WBC 8.30 4.4 - 11.0 x10'3/uL 02/19/2023 1:59 PM CDT [facility] RBC 4.92 4.50 - 5.10 x10'6/uL 02/19/2023 1:59 PM CDT [facility] HGB 14.3 12.3 - 15.3 G/DL 02/19/2023 1:59 PM CDT [facility] HCT 44.1 35.9 - 44.6 % 02/19/2023 1:59 PM CDT [facility] MCV 89.6 80.0 - 96.0 FL 02/19/2023 1:59 PM CDT [facility] MCH 29.1 25.3 - 30.9 PG 02/19/2023 1:59 PM CDT [facility] MCHC 32.4 31.0 - 34.1 G/DL 02/19/2023 1:59 PM CDT [facility] RDW 13.3 12.4 - 15.1 % 02/19/2023 1:59 PM CDT [facility] PLT 256 151 - 353 x10'3/uL 02/19/2023 1:59 PM CDT [facility] MPV 10.4 9.6 - 12.0 FL 02/19/2023 1:59 PM CDT [facility] RBC MORPHOLOGY NORMAL 02/19/2023 1:59 PM CDT [facility] PLT MORPH. NORMAL 02/19/2023 1:59 PM CDT [facility] WBC MORPHOLOGY NORMAL 02/19/2023 1:59 PM CDT [facility] LYMPHOCYTES % 34.2 15.8 - 45.0 % 02/19/2023 1:59 PM CDT [facility] NEUTROPHILS % 56.1 42.1 - 71.9 % 02/19/2023 1:59 PM CDT [facility] MONOCYTES % 6.4 5.7 - 12.5 % 02/19/2023 1:59 PM CDT [facility] EOSINOPHILS 2.2 0.0 - 5.6 % 02/19/2023 1:59 PM CDT [facility] BASOPHILS 0.7 0.0 - 1.3 % 02/19/2023 1:59 PM CDT [facility] ABS. NEUTROPHILS 4.66 1.40 - 6.00 x10'3/uL 02/19/2023 1:59 PM CDT [facility] IMMATURE GRANS % 0.4 0.0 - 0.5 % 02/19/2023 1:59 PM CDT [facility] ABS. LYMPHOCYTES 2.84 0.80 - 4.70 x10'3/uL 02/19/2023 1:59 PM CDT [facility] 02/19/2023 1:53 PM CDT Armando Squires MD LABORATORY Final Result [facility] [address] [place] [address], [place] [phone] documented in this encounter Visit Diagnoses Diagnosis Proximal humerus fracture- Primary Closed fracture of unspecified part of upper end of humerus documented in this encounter Administered Medications Inactive Administered Medications - up to 3 most recent administrations Medication Order MAR Action Action Date Dose Rate Site fentaNYL (SUBLIMAZE) injection 50 mcg 50 mcg, Intravenous, Once, 1 dose, On 02/19/23 at 1515, If intravenous (IV) route has been ordered, give over 1-2 minutes. Given 02/19/2023 3:07 PM CDT 50 mcg fentaNYL (SUBLIMAZE) injection 50 mcg 50 mcg, Intravenous, Once, 1 dose, On 02/19/23 at 1600, If intravenous (IV) route has been ordered, give over 1-2 minutes. Given 02/19/2023 3:58 PM CDT 50 mcg ondansetron (ZOFRAN) injection 4 mg 4 mg, Intravenous, Once, 1 dose, On 02/19/23 at 1400, IV push over 2-5 minutes. Given 02/19/2023 1:59 PM CDT 4 mg sodium chloride 0.9 % infusion 1 dose, Starting on 02/19/23 at 1352, Until 02/19/23 at 1428, Created by cabinet override sodium chloride 0.9% bolus infusion 1,000 mL 1,000 mL, Intravenous, Administer over 60 Minutes, Once, 1 dose, On 02/19/23 at 1400 New Bag 02/19/2023 1:56 PM CDT 1,000 mLs documented in this encounter Active and Recently Administered Medications Times are shown in CDT. Scheduled Medication Order 02/17/2023 02/18/2023 02/19/2023 fentaNYL (SUBLIMAZE) injection 50 mcg (COMPLETED) 50 mcg, Intravenous, Once, 1 dose, On 02/19/23 at 1515, If intravenous (IV) route has been ordered, give over 1-2 minutes. 1507 (Given - Provid er: Irina Evangelista RN) fentaNYL (SUBLIMAZE) injection 50 mcg (COMPLETED) 50 mcg, Intravenous, Once, 1 dose, On 02/19/23 at 1600, If intravenous (IV) route has been ordered, give over 1-2 minutes. 1558 (Given - Provid er: Irina Evangelista RN) ondansetron (ZOFRAN) injection 4 mg (COMPLETED) 4 mg, Intravenous, Once, 1 dose, On 02/19/23 at 1400, IV push over 2-5 minutes. 1359 (Given - Provid er: Irina Evangelista RN) sodium chloride 0.9% bolus infusion 1,000 mL (COMPLETED) 1,000 mL, Intravenous, Administer over 60 Minutes, Once, 1 dose, On 02/19/23 at 1400 1356 (New Bag - Prov ider: Irina Evangelista RN)1428 (Infusion Stop Time - Provider: Irina Evangelista RN) documented in this encounter Care Teams Job Press Operator Relationship Specialty Start Date End Date Cait Nelson, CANAL LOCK TENDER CHIEF OPERATOR- [address] [phone] PCP - General NURSE PRACTITIONER 10/09/19 documented as of this encounter
--- OUTSIDE RECORDS SUMMARY | 2024-11-17 18:05 | XMS_ITS | Encounter Summary ---
Author Organization [facility] Address [address] [place] [address]. [place] [address] [place] [address] Care Team Providers Care Printing Agent Name Role Phone Cait Nelson [facility] Primary Care Provider + Encounter Details Date Type Department Care Team (Latest Contact Info) Description 09/10/2020 8:41 AM CDT - 09/10/2020 11:59 PM CDT Hospital Encounter [facility] [address] [place] [address] Chitra Chen MD [address] [place] [address] Discharge Disposition: Home or Self Care (Routine [...] AM [facility] Cardiovascular Outreach [facility] [address] [place] [address] Colleen Pina, JOSE 3 [facility] [address] [place] [address] documented as of this encounter Procedures Procedure Name Priority Date/Time Associated Diagnosis Comments VITAMIN B12 / FOLATE Routine 09/10/2020 8:49 AM CDT Diabetes mellitus ([facility] HHS/HCC) Vitamin B 12 deficiency Hypothyroidism HEMOGLOBIN, GLYCOSYLATED Routine 09/10/2020 8:49 AM CDT Diabetes mellitus ([facility] HHS/HCC) Vitamin B 12 deficiency Hypothyroidism FREE T3 Routine 09/10/2020 8:49 AM CDT Diabetes mellitus ([facility] HHS/HCC) Vitamin B 12 deficiency Hypothyroidism ALBUMIN URINE RANDOM W/CREATININE Routine 09/10/2020 8:49 AM CDT Diabetes mellitus ([facility] HHS/HCC) Vitamin B 12 deficiency Hypothyroidism COMPREHENSIVE METABOLIC PANEL Routine 09/10/2020 8:49 AM CDT Diabetes mellitus ([facility] HHS/HCC) Vitamin B 12 deficiency Hypothyroidism THYROXINE, FREE (FT4) Routine 09/10/2020 8:49 AM CDT Diabetes mellitus ([facility] HHS/HCC) Vitamin B 12 deficiency Hypothyroidism THYROID STIM HORMONE TSH Routine 09/10/2020 8:49 AM CDT Diabetes mellitus ([facility] HHS/HCC) Vitamin B 12 deficiency Hypothyroidism documented in this encounter Results * FREE T3 (09/10/2020 8:49 AM CDT) FREE T3 2.8 2.18 - 3.98 PG/ML 09/10/2020 4:30 PM CDT [facility] 09/10/2020 8:49 AM CDT us Chitra Chen MD LABORATORY Final Result [facility] [address] [id number], [place] [phone] * THYROXINE, FREE (FT4) (09/10/2020 8:49 AM CDT) FREE T4 1.28 0.76 - 1.46 NG/DL 09/10/2020 10:53 AM CDT [facility] 09/10/2020 8:49 AM CDT us Chitra Chen MD LABORATORY Final Result Performing Organization Address [facility] Co de Phone Number [facility] [address] [place] [address], [place] [phone] * (ABNORMAL) THYROID STIM HORMONE, TSH (09/10/2020 8:49 AM CDT) TSH 0.207(L) 0.358 - 3.74 uIU/ML 09/10/2020 10:53 AM CDT [facility] Comment: HIGH DOSES OF BIOTIN MAY INTERFERE WITH THIS TEST RESULT. CORRELATION TO CLINICAL HISTORY AND PRESENTATION RECOMMENDED. 09/10/2020 8:49 AM CDT us Chitra Chen MD LABORATORY Final Result Performing Organization Address City/[facility]/ZIP Co de Phone Number [facility] [address] [place] [address], [place] [phone] * VITAMIN B12 / FOLATE (09/10/2020 8:49 AM CDT) VITAMIN B12 S/P/B 524 193 - 986 PG/ML 09/10/2020 10:53 AM CDT [facility] FOLATE 9.0 8.6 - 58.9 NG/ML 09/10/2020 10:53 AM CDT [facility] 09/10/2020 8:49 AM CDT us Chitra Chen MD LABORATORY Final Result Performing Organization Address [facility]/ZIP Co de Phone Number [facility] [address] [place] [address], [place] [phone] * MICROALBUMIN CREATININE RATIO (MICROALBUMIN/ALBUMIN) (09/10/2020 8:49 AM CDT) CREATININE (U) 96.2 28 - 217 MG/DL 09/10/2020 11:06 AM CDT [facility] MICROALBUMIN (U) 1.6 <2.0 mg/dL 09/10/20 20 11:06 AM CDT [facility] ALBUMIN/CREAT RATIO 16.6 <30.0 MG/G 09/10/2020 11:06 AM CDT [facility] URINE SPECIMEN / Unknown 09/10/2020 8:49 AM CDT us Chitra Chen MD URINE ORDERABLES Final Result Performing Organization Address [facility]/ZIP Co de Phone Number [facility] [address] [place] [address], [place] [phone] * (ABNORMAL) COMPREHENSIVE METABOLIC PANEL (09/10/2020 8:49 AM CDT) GLUCOSE 104(H) 70 - 99 MG/DL 09/10/2020 10:53 AM CDT [facility] BUN 14 7 - 18 MG/DL 09/10/2020 10:53 AM CDT [facility] CREATININE S/P/B 0.70 0.55 - 1.02 MG/DL 09/10/2020 10:53 AM CDT [facility] SODIUM S/P/B 140 136 - 145 MMOL/L 09/10/2020 10:53 AM CDT [facility] POTASSIUM S/P/B 3.8 3.5 - 5.1 MMOL/L 09/10/2020 10:53 AM [facility] CHLORIDE S/P/B 106 100 - 108 MMOL/L 09/10/2020 10:53 AM T [facility] CO2 25.7 21 - 32 MMOL/L 09/10/2020 10:53 AM [facility] CALCIUM S/P/B 8.8 8.5 - 10.1 MG/DL 09/10/2020 10:53 AM [facility] BILIRUBIN TOTAL S/P/B 0.5 0.2 - 1.2 MG/DL 09/10/2020 10:53 AM [facility] TOTAL PROTEIN S/P/B 7.4 6.4 - 8.2 G/DL 09/10/2020 10:53 AM [facility] ALBUMIN S/P/B 3.6 3.4 - 5.0 G/DL 09/10/2020 10:53 AM [facility] AST 14(L) 15 - 37 U/L 09/10/2020 10:53 AM [facility] ALT 19 14 - 55 U/L 09/10/2020 10:53 AM [facility] ALKALINE PHOSPHATASE S/P/B 87 50 - 136 U/L 09/10/2020 10:53 AM [facility] ANION GAP 8.3 5 - 15 MMOL/L 09/10/2020 10:53 AM [facility] BUN CREATININE RATIO 20.0 6 - 26 09/10/2020 10:53 AM [facility] A/G RATIO 0.9(L) 1.0 - 2.0 RATIO 09/10/2020 10:53 AM CDT [facility] EGFR NON-AFR. AMER. >90 >90 ML/MIN/1.7 3 M2 09/10/2020 10:53 AM CDT [facility] EGFR AFR. AMER. >90 >90 ML/MIN/1.7 3 M2 09/10/2020 10:53 AM CDT [facility] Comment: NOTE: eGFR is not calculated for patients <18 years of age. This is an estimated GFR (CKD EPI) and should not be used for calculating drug doses. 09/10/2020 8:49 AM CDT us Chitra Chen MD LABORATORY Final Result Performing Organization Address [facility] Co de Phone Number [facility] [address] [place] [address], [place] [phone] * (ABNORMAL) HEMOGLOBIN, GLYCOSYLATED (09/10/2020 8:49 AM CDT) HGB A1C 5.8(H) <5.7 % 09/10/2020 11:26 AM CDT [facility] Comment: INCREASED RISK OF DIABETES <5.7% ?NON-DIABETES 5.7-6.4% INCREASED RISK FOR FUTURE DIABETES > OR = 6.5 CONSISTENT WITH DIABETES STANDARDS OF MEDICAL CARE IN DIABETES-2010 DIABETES CARE, 33(SUPP 1): S1-S61,2010 09/10/2020 8:49 AM CDT us Chitra Chen MD LABORATORY Final Result Performing Organization Address City/[facility]/ZIP Co de Phone Number [facility] [address] [place] [address], [place] [phone] documented in this encounter Visit Diagnoses Diagnosis Diabetes mellitus ([facility]) Type II or unspecified type diabetes mellitus without mention of complication, not stated as uncontrolled Vitamin B 12 deficiency Other B-complex deficiencies Hypothyroidism Unspecified hypothyroidism documented in this encounter Care Teams Printing Agent Relationship Specialty Start Date End Date Cait Nelson, SEWER PIPE PRESS OPERATOR- [address] [phone] PCP - General NURSE PRACTITIONER 10/09/19 documented as of this encounter
--- OUTSIDE RECORDS SUMMARY | 2024-11-17 18:05 | XMS_ITS | Encounter Summary ---
Author Organization [facility] Address [address] [place] [address]. [place] [address] [place] [address] Care Team Providers Care Terra Cotta Mason Name Role Phone Cait Nelson [facility] Primary Care Provider + Encounter Details Date Type Department Care Team (Latest Contact Info) Description 11/04/2024 Travel Social History Tobacco Use Types Packs/Day [...] st Contact Info) Description 11/18/2024 9:00 AM [facility] Cardiovascular Outreach [facility] [address] [place] [phone] Colleen Pina FNP [address] [place] [address] documented as of this encounter Visit Diagnoses Not on filedocumented in this encounter Care Teams Terra Cotta Mason Relationship Specialty Start Date End Date [facility] [address] [place] [phone] PCP - General NURSE PRACTITIONER 10/09/19 documented as of this encounter
--- OUTSIDE RECORDS SUMMARY | 2024-11-17 18:06 | XMS_ITS | Encounter Summary ---
Author Organization [facility] Address [address] [place] [address]. [place] [address] [place] [address] Care Team Providers Care Solo Musician Name Role Phone Unavailable Primary Care Provider Unavailabl e Encounter Details Date Type Department Care Team (Late st Contact Info) Description 02/22/2001 Abstract [facility] [address] [place] [address] , Generic Conversion, Social History Tobacco Use Types Packs/Day Years [...] st Contact Info) Description 11/18/2024 9:00 AM CHILDREN'S AIDE [facility] Cardiovascular Outreach [facility] [address] [place] [phone] Colleen Pina FNP [address] [place] [address] documented as of this encounter Visit Diagnoses Not on filedocumented in this encounter
--- OUTSIDE RECORDS SUMMARY | 2024-11-17 18:06 | XMS_ITS | Encounter Summary ---
Author Organization [facility] Address [address] [place] [address]. [place] [address] [place] [address] Care Team Providers Care Pattern Data Operator Name Role Phone Unavailable Primary Care Provider Unavailabl e Encounter Details Date Type Department Care Team (Late Contact Info) Description 01/28/2019 Abstract [facility] [address] [place] [address] Citlalli Lowery FNP 1 [place] [address] Social History Tobacco Use Types Packs/Day Years [...] st Contact Info) Description 11/18/2024 9:00 AM SOURCING ENGINEER Telemedicine [facility] [address] [place] [phone] Colleen Pina FNP 3 [facility] [address] [place], [place] [address] documented as of this encounter Procedures Procedure Name Priority Date/Time Associated Diagnosis Comments INFLUENZA A & B STAT 01/28/2019 3:11 PM SOURCING ENGINEER documented in this encounter Results * (ABNORMAL) INFLUENZA A & B (01/28/2019 3:11 PM SOURCING ENGINEER) SPECIMEN TYPE NASOPHARYNGEAL SWAB 01/28/2019 4:17 PM SOURCING ENGINEER [facility] INFLUENZA A POSITIVE(A) NEGATIVE 01/28/2019 4:35 PM SOURCING ENGINEER [facility] INFLUENZA B NEGATIVE NEGATIVE 01/28/2019 4:35 PM SOURCING ENGINEER [facility] 01/28/2019 3:11 PM SOURCING ENGINEER 01/28/2019 4:17 PM SOURCING ENGINEER us Generic Conversion Md [facility] MICROBIOLOGY - GENERAL ORDERABLES Final Result Performing Organization Address City/State/[facility] Co de Phone Number [facility] [address] [place] [address], [place] [phone] documented in this encounter Visit Diagnoses Diagnosis Influenza due to unidentified influenza virus with other respiratory manifestations documented in this encounter
--- OUTSIDE RECORDS SUMMARY | 2024-11-17 18:06 | XMS_ITS | Encounter Summary ---
Author Organization [facility] Address [address] [place] [address]. [place] [address] [place] [address] Care Team Providers Care Cafeteria Server Name Role Phone Unavailable Primary Care Provider Unavailabl e Encounter Details Date Type Department Care Team (Late st Contact Info) Description 05/28/1997 Abstract [facility] [address] [place] [address] , Generic Conversion, Social History Tobacco Use [...] st Contact Info) Description 11/18/2024 9:00 AM INSTRUMENT SPECIALIST [facility] Cardiovascular Outreach [facility] [address] [place] [phone] Colleen Pina FNP [address] [place] [address] documented as of this encounter Visit Diagnoses Not on filedocumented in this encounter
--- OUTSIDE RECORDS SUMMARY | 2024-11-17 18:06 | XMS_ITS | Encounter Summary ---
Author Organization [facility] Address [address] [place] [address]. [place] [address] [place] [address] Care Team Providers Care Printmaker Name Role Phone Unavailable Primary Care Provider Unavailabl e Encounter Details Date Type Department Care Team (Late Contact Info) Description 04/07/2004 Abstract [facility] [address] [place] [address] Yvonne Morris MD [address], [place] [address] Social History Tobacco Use Types Packs/Day Years [...] (Late Contact Info) Description 11/18/2024 9:00 AM [facility] [address] [place] [address] Colleen Pina, MINERALOGY PROFESSOR [address] [address] documented as of this encounter Visit Diagnoses Not on filedocumented in this encounter
--- OUTSIDE RECORDS SUMMARY | 2024-11-17 18:06 | XMS_ITS | Encounter Summary ---
Author Organization [facility] Address [address] [place] [address]. [place] [address] [place] [address] Care Team Providers Care Senior Materials Scientist Name Role Phone Unavailable Primary Care Provider Unavailabl e Encounter Details Date Type Department Care Team (Late Contact Info) Description 11/26/2008 Abstract [facility] [address] [place] [address] Yvonne Morris MD [address], [place] [address] Social History Tobacco Use Types Packs/Day Years [...] (Late Contact Info) Description 11/18/2024 9:00 AM [facility] [address] [place] [address] Colleen Pina, PERIODICALS CLERK [address] [address] documented as of this encounter Visit Diagnoses Not on filedocumented in this encounter
--- OUTSIDE RECORDS SUMMARY | 2024-11-17 18:06 | XMS_ITS | Encounter Summary ---
Author Organization [facility] Address [address] [place] [address]. [place] [address] [place] [address] Care Team Providers Care Gun Synchronizer Name Role Phone Unavailable Primary Care Provider Unavailabl e Encounter Details Date Type Department Care Team (Late Contact Info) Description 01/12/2008 Abstract [facility] [address] [place] [address] Yvonne Morris MD [address], [place] [address] Social History Tobacco Use Types Packs/Day Years [...] (Late Contact Info) Description 11/18/2024 9:00 AM [facility] [address] [place] [address] Colleen Pina, INTERLOCKING TOWER OPERATOR [address] [address] documented as of this encounter Visit Diagnoses Not on filedocumented in this encounter
--- OUTSIDE RECORDS SUMMARY | 2024-11-17 18:06 | XMS_ITS | Encounter Summary ---
Author Organization [facility] Address [address] [place] [address]. [place] [address] [place] [address] Care Team Providers Care Casting Wheel Operator Name Role Phone Unavailable Primary Care Provider Unavailabl e Encounter Details Date Type Department Care Team (Late st Contact Info) Description 10/16/2007 Abstract [facility] [address] [place] [address] Raul Parmar, DPM [facility] [address] [address] Social History Tobacco Use Types Packs/Day Years [...] st Contact Info) Description 11/18/2024 9:00 AM [facility] [address] [place] [phone] Colleen Pina FNP [address] [place] [address] documented as of this encounter Visit Diagnoses Not on filedocumented in this encounter
--- OUTSIDE RECORDS SUMMARY | 2024-11-17 18:06 | XMS_ITS | Encounter Summary ---
Author Organization [facility] Address [address] [place] [address]. [place] [address] [place] [address] Care Team Providers Care Replenishment Buyer Name Role Phone Unavailable Primary Care Provider Unavailabl e Encounter Details Date Type Department Care Team (Late st Contact Info) Description 07/15/1999 Abstract [facility] [address] [place] [address] , Generic Conversion, Social History Tobacco Use [...] st Contact Info) Description 11/18/2024 9:00 AM SUPPORT WORKER [facility] Cardiovascular Outreach [facility] [address] [place] [phone] Colleen Pina FNP [address] [place] [address] documented as of this encounter Visit Diagnoses Not on filedocumented in this encounter
--- OUTSIDE RECORDS SUMMARY | 2024-11-17 18:06 | XMS_ITS | Encounter Summary ---
Author Organization [facility] Address [address] [place] [address]. [place] [address] [place] [address] Care Team Providers Care Community Health Coordinator Name Role Phone Unavailable Primary Care Provider Unavailabl e Encounter Details Date Type Department Care Team (Late Contact Info) Description 02/14/2008 Abstract [facility] [address] [place] [address] Yvonne Morris MD [address], [place] [address] Social History Tobacco Use Types Packs/Day Years [...] (Late Contact Info) Description 11/18/2024 9:00 AM [facility] [address] [place] [address] Colleen Pina, TENNIS DIRECTOR [address] [address] documented as of this encounter Visit Diagnoses Not on filedocumented in this encounter
--- OUTSIDE RECORDS SUMMARY | 2024-11-17 18:06 | XMS_ITS | Encounter Summary ---
Author Organization [facility] Address [address] [place] [address]. [place] [address] [place] [address] Care Team Providers Care Breakfast Cook Name Role Phone Unavailable Primary Care Provider Unavailabl e Encounter Details Date Type Department Care Team (Late st Contact Info) Description 03/28/2001 Abstract [facility] [address] [place] [address] , Generic Conversion, Social History Tobacco Use [...] st Contact Info) Description 11/18/2024 9:00 AM OPERATING ROOM ASSISTANT [facility] Cardiovascular Outreach [facility] [address] [place] [phone] Colleen Pina FNP [address] [place] [address] documented as of this encounter Visit Diagnoses Not on filedocumented in this encounter
--- OUTSIDE RECORDS SUMMARY | 2024-11-17 18:06 | XMS_ITS | Encounter Summary ---
Author Organization [facility] Address [address] [place] [address]. [place] [address] [place] [address] Care Team Providers Care Media Analytics Manager Name Role Phone Unavailable Primary Care Provider Unavailabl e Encounter Details Date Type Department Care Team (Late st Contact Info) Description 11/14/2017 Abstract [facility] [address] [place] [address] Raul Parmar, [facility] [place] [address] Social History Tobacco Use Types Packs/Day Years [...] st Contact Info) Description 11/18/2024 9:00 AM BURR SANDER Telemedicine [facility] [facility] [address] [place] [address] Colleen Pina FNP [address] [address] documented as of this encounter Visit Diagnoses Diagnosis Pain of left foot Pain in limb documented in this encounter
--- OUTSIDE RECORDS SUMMARY | 2024-11-17 18:06 | XMS_ITS | Encounter Summary ---
Author Organization [facility] Address [address] [place] [address]. [place] [address] [place] [address] Care Team Providers Care Citrus Peeler Name Role Phone Unavailable Primary Care Provider Unavailabl e Encounter Details Date Type Department Care Team (Late st Contact Info) Description 09/28/2000 Abstract [facility] [address] [place] [address] , Generic Conversion, Social History Tobacco Use [...] st Contact Info) Description 11/18/2024 9:00 AM MAGNETIC TAPE COMPOSER OPERATOR [facility] Cardiovascular Outreach [facility] [address] [place] [phone] Colleen Pina FNP [address] [place] [address] documented as of this encounter Visit Diagnoses Not on filedocumented in this encounter
--- OUTSIDE RECORDS SUMMARY | 2024-11-17 18:06 | XMS_ITS | Encounter Summary ---
Author Organization [facility] Address [address] [place] [address]. [place] [address] [place] [address] Care Team Providers Care Physician Assistant Certified Name Role Phone Unavailable Primary Care Provider Unavailabl e Encounter Details Date Type Department Care Team (Late Contact Info) Description 08/29/2008 Abstract [facility] [address] [place] [address] Yvonne Morris MD [address], [place] [address] Social History Tobacco Use Types Packs/Day Years [...] (Late Contact Info) Description 11/18/2024 9:00 AM [facility] [address] [place] [address] Colleen Pina, FEEDER TENDER [address] [address] documented as of this encounter Visit Diagnoses Not on filedocumented in this encounter
--- OUTSIDE RECORDS SUMMARY | 2024-11-17 18:06 | XMS_ITS | Encounter Summary ---
Author Organization [facility] Address [address] [place] [address]. [place] [address] [place] [address] Care Team Providers Care Formation Testing Operator Name Role Phone Unavailable Primary Care Provider Unavailabl e Encounter Details Date Type Department Care Team (Late st Contact Info) Description 03/03/2004 Abstract [facility] CON[facility] [address] [place] [address] , Generic Conversion, Social History Tobacco Use [...] st Contact Info) Description 11/18/2024 9:00 AM POSTAL MAIL CARRIER [facility] Cardiovascular Outreach [facility] [address] [place] [phone] Colleen Pina FNP [address] [place] [address] documented as of this encounter Visit Diagnoses Not on filedocumented in this encounter
--- OUTSIDE RECORDS SUMMARY | 2024-11-17 18:06 | XMS_ITS | Encounter Summary ---
Author Organization [facility] Address [address] [place] [address]. [place] [address] [place] [address] Care Team Providers Care Supervisor Small Appliance Assembly Name Role Phone Unavailable Primary Care Provider Unavailabl e Encounter Details Date Type Department Care Team (Late Contact Info) Description 09/08/2007 Abstract [facility] CON[facility] [address] [place] [address] Yvonne Morris MD [address], [place] [address] Social History Tobacco Use Types Packs/Day Years [...] (Late Contact Info) Description 11/18/2024 9:00 AM [facility] [address] [place] [address] Colleen Pina, PRODUCT SAFETY SPECIALIST [address] [address] documented as of this encounter Visit Diagnoses Not on filedocumented in this encounter
--- OUTSIDE RECORDS SUMMARY | 2024-11-17 18:06 | XMS_ITS | Encounter Summary ---
Author Organization [facility] Address [address] [place] [address]. [place] [address] [place] [address] Care Team Providers Care Wind Field Manager Name Role Phone Unavailable Primary Care Provider Unavailabl e Encounter Details Date Type Department Care Team (Late st Contact Info) Description 07/25/2001 Abstract SJB CONVERSION [address] [place] [address] , Generic Conversion, Social History Tobacco Use [...] st Contact Info) Description 11/18/2024 9:00 AM MARINE CARGO SURVEYOR [facility] Cardiovascular Outreach [facility] [id number] [place] [phone] Colleen Pina FNP [address] [place] [address] documented as of this encounter Visit Diagnoses Not on filedocumented in this encounter
--- OUTSIDE RECORDS SUMMARY | 2024-11-17 18:06 | XMS_ITS | Encounter Summary ---
Author Organization [facility] Address [address] [place] [address]. [place] [address] [place] [address] Care Team Providers Care Dry Transfer Man Name Role Phone Unavailable Primary Care Provider Unavailabl e Encounter Details Date Type Department Care Team (Late st Contact Info) Description 08/26/2003 Abstract SJB CONVERSION [address]15 [place] [address] , Generic Conversion, Social History Tobacco Use [...] st Contact Info) Description 11/18/2024 9:00 AM NUTRITION PROGRAM INSTRUCTOR [facility] Cardiovascular Outreach [facility] [id number] [place] [phone] Colleen Pina FNP [address] [place] [address] documented as of this encounter Visit Diagnoses Not on filedocumented in this encounter
--- OUTSIDE RECORDS SUMMARY | 2024-11-17 18:06 | XMS_ITS | Encounter Summary ---
Author Organization [facility] Address [address] [place] [address]. [place] [address] [place] [address] Care Team Providers Care Inclusion Paraeducator Name Role Phone Unavailable Primary Care Provider Unavailabl e Encounter Details Date Type Department Care Team (Late Contact Info) Description 08/27/2007 Abstract SJB CONVERSION [address] [place] [address] Yvonne Morris MD [address], [place] [address] Social History Tobacco Use Types Packs/Day Years [...] (Late Contact Info) Description 11/18/2024 9:00 AM [facility] [address] [place] [address] Colleen Pina, TRAVEL NURSE [address] [address] documented as of this encounter Visit Diagnoses Not on filedocumented in this encounter
--- OUTSIDE RECORDS SUMMARY | 2024-11-17 18:06 | XMS_ITS | Encounter Summary ---
Author Organization [facility] Address [address] [place] [address]. [place] [address] [place] [address] Care Team Providers Care Geological Survey Field Assistant Name Role Phone Unavailable Primary Care Provider Unavailabl e Encounter Details Date Type Department Care Team (Late Contact Info) Description 02/02/2008 Abstract SJB CONVERSION [address] [place] [address] Yvonne Morris MD [address], [place] [address] Social History Tobacco Use Types Packs/Day Years [...] (Late Contact Info) Description 11/18/2024 9:00 AM [facility] [address] [place] [address] Colleen Pina, BLOCK STACKER [address] [address] documented as of this encounter Visit Diagnoses Not on filedocumented in this encounter
--- OUTSIDE RECORDS SUMMARY | 2024-11-17 18:06 | XMS_ITS | Encounter Summary ---
Author Organization [facility] Address [address] [place] [address]. [place] [address] [place] [address] Care Team Providers Care Leather Patcher Name Role Phone Unavailable Primary Care Provider Unavailabl e Encounter Details Date Type Department Care Team (Late st Contact Info) Description 08/04/2001 Abstract SJB CONVERSION [address] [place] [address] , Generic Conversion, Social History Tobacco Use [...] st Contact Info) Description 11/18/2024 9:00 AM TERRAZZO WORKER HELPER [facility] Cardiovascular Outreach [facility] [address] [place] [phone] Colleen Pina FNP [address] [place] [address] documented as of this encounter Visit Diagnoses Not on filedocumented in this encounter
--- OUTSIDE RECORDS SUMMARY | 2024-11-17 18:06 | XMS_ITS | Encounter Summary ---
Author Organization [facility] Address [address] [place] [address]. [place] [address] [place] [address] Care Team Providers Care Manager Electronic Name Role Phone Unavailable Primary Care Provider Unavailabl e Encounter Details Date Type Department Care Team (Late st Contact Info) Description 07/09/1999 Abstract SJB CONVERSION [address]15 [place] [address] , Generic Conversion, Social History Tobacco Use [...] st Contact Info) Description 11/18/2024 9:00 AM FINANCIAL SERVICE REP [facility] Cardiovascular Outreach [facility] [id number] [place] [phone] Colleen Pina FNP [address] [place] [address] documented as of this encounter Visit Diagnoses Not on filedocumented in this encounter
--- OUTSIDE RECORDS SUMMARY | 2024-11-17 18:06 | XMS_ITS | Encounter Summary ---
Author Organization [facility] Address [address] [place] [address]. [place] [address] [place] [address] Care Team Providers Care Oil And Gas Recruiter Name Role Phone Unavailable Primary Care Provider Unavailabl e Encounter Details Date Type Department Care Team (Late st Contact Info) Description 05/03/1996 Abstract SJB CONVERSION [address]15 [place] [address] , Generic Conversion, Social History Tobacco Use [...] st Contact Info) Description 11/18/2024 9:00 AM SMALL ANIMAL VETERINARIAN [facility] Cardiovascular Outreach [facility] [id number] [place] [phone] Colleen Pina FNP [address] [place] [address] documented as of this encounter Visit Diagnoses Not on filedocumented in this encounter
--- OUTSIDE RECORDS SUMMARY | 2024-11-17 18:06 | XMS_ITS | Encounter Summary ---
Author Organization [facility] Address [address] [place] [address]. [place] [address] [place] [address] Care Team Providers Care Spin Instructor Name Role Phone Unavailable Primary Care Provider Unavailabl e Encounter Details Date Type Department Care Team (Late Contact Info) Description 06/09/2008 Abstract SJB CONVERSION [address]15 [place] [address] Yvonne Morris MD [address], [place] [address] Social History Tobacco Use Types Packs/Day Years [...] (Late Contact Info) Description 11/18/2024 9:00 AM [facility] [address] [place] [address] Colleen Pina, GAS METER READER [address] [address] documented as of this encounter Visit Diagnoses Not on filedocumented in this encounter
--- OUTSIDE RECORDS SUMMARY | 2024-11-17 18:06 | XMS_ITS | Encounter Summary ---
Author Organization [facility] Address [address] [place] [address]. [place] [address] [place] [address] Care Team Providers Care Model Maker Plaster Name Role Phone Unavailable Primary Care Provider Unavailabl e Encounter Details Date Type Department Care Team (Late st Contact Info) Description 10/24/2003 Abstract SJB CONVERSION [address]15 [place] [address] , Generic Conversion, Social History Tobacco Use [...] st Contact Info) Description 11/18/2024 9:00 AM WHITE HAT HACKER [facility] Cardiovascular Outreach [facility] [id number] [place] [phone] Colleen Pina FNP [address] [place] [address] documented as of this encounter Visit Diagnoses Not on filedocumented in this encounter
--- OUTSIDE RECORDS SUMMARY | 2024-11-17 18:06 | XMS_ITS | Encounter Summary ---
Author Organization [facility] Address [address] [place] [address]. [place] [address] [place] [address] Care Team Providers Care Lock And Dam Equipment Repairer Name Role Phone Unavailable Primary Care Provider Unavailabl e Encounter Details Date Type Department Care Team (Late st Contact Info) Description 07/06/1999 Abstract SJB CONVERSION [address]15 [place] [address] , Generic Conversion, Social History Tobacco Use [...] st Contact Info) Description 11/18/2024 9:00 AM JOB TRACER [facility] Cardiovascular Outreach [facility] [address] [place] [phone] Colleen Pina FNP [address] [place] [address] documented as of this encounter Visit Diagnoses Not on filedocumented in this encounter
--- OUTSIDE RECORDS SUMMARY | 2024-11-17 18:06 | XMS_ITS | Encounter Summary ---
Author Organization [facility] Address [address] [place] [address]. [place] [address] [place] [address] Care Team Providers Care Community Development Manager Name Role Phone Unavailable Primary Care Provider Unavailabl e Encounter Details Date Type Department Care Team (Late Contact Info) Description 10/11/2017 Abstract [facility] [address] [place] [address] Mir Gonzales MD [address] [place] [phone] Social History Tobacco Use Types Packs/Day Years [...] (Late Contact Info) Description 11/18/2024 9:00 AM APPOINTMENT SPECIALIST Telemedicine [place] [facility] [address] [place] [phone] Colleen Pina FNP [address] [address] documented as of this encounter Procedures Procedure Name Priority Date/Time Associated Diagnosis Comments POCT CREATININE Routine 10/11/2017 10:33 AM APPOINTMENT SPECIALIST documented in this encounter Results * POCT CREATININE (10/11/2017 10:33 AM APPOINTMENT SPECIALIST) CREATININE WHOLE BLOOD 0.8 0.6 - 1.2 MG/DL 10/11/2017 5:07 PM APPOINTMENT SPECIALIST [facility] WHOLE BLOOD SPECIMEN / Unknown 10/11/2017 10:33 AM APPOINTMENT SPECIALIST 10/11/2017 5:04 PM APPOINTMENT SPECIALIST us Generic Conversion Md SCHAFER POINT OF CARE TEST KRISTI SPAULDING Final Result [facility] [address] [place] [id number], [place] [phone] documented in this encounter Visit Diagnoses Diagnosis Hearing loss Unspecified hearing loss documented in this encounter
--- OUTSIDE RECORDS SUMMARY | 2024-11-17 18:06 | XMS_ITS | Encounter Summary ---
Author Organization [facility] Address [address] [place] [address]. [place] [address] [place] [address] Care Team Providers Care Spring Upholsterer Name Role Phone Unavailable Primary Care Provider Unavailabl e Encounter Details Date Type Department Care Team (Late st Contact Info) Description 07/17/1997 Abstract SJB CONVERSION [address]15 [place] [address] , Generic Conversion, Social History Tobacco Use [...] st Contact Info) Description 11/18/2024 9:00 AM PASTEURIZER [facility] Cardiovascular Outreach [facility] [address] [place] [phone] Colleen Pina FNP [address] [place] [address] documented as of this encounter Visit Diagnoses Not on filedocumented in this encounter
--- OUTSIDE RECORDS SUMMARY | 2024-11-17 18:06 | XMS_ITS | Encounter Summary ---
Author Organization [facility] Address [address] [place] [address]. [place] [address] [place] [address] Care Team Providers Care Color Drum Worker Name Role Phone Unavailable Primary Care Provider Unavailabl e Encounter Details Date Type Department Care Team (Late st Contact Info) Description 07/18/2000 Abstract SJB CONVERSION [address]15 [place] [address] , Generic Conversion, Social History Tobacco Use [...] st Contact Info) Description 11/18/2024 9:00 AM L TACKER [facility] Cardiovascular Outreach [facility] [id number] [place] [phone] Colleen Pina FNP [address] [place] [address] documented as of this encounter Visit Diagnoses Not on filedocumented in this encounter
--- OUTSIDE RECORDS SUMMARY | 2024-11-17 18:06 | XMS_ITS | Encounter Summary ---
Author Organization [facility] Address [address] [place] [address]. [place] [address] [place] [address] Care Team Providers Care Leasing Specialist Name Role Phone Unavailable Primary Care Provider Unavailabl e Encounter Details Date Type Department Care Team (Late Contact Info) Description 01/18/2005 Abstract SJB CONVERSION [address] [place] [address] Yvonne Morris MD [address], [place] [address] Social History Tobacco Use Types Packs/Day Years [...] (Late Contact Info) Description 11/18/2024 9:00 AM [facility] [address] [place] [address] Colleen Pina, CITRUS FRUIT COLORER [address] [address] documented as of this encounter Visit Diagnoses Not on filedocumented in this encounter
--- OUTSIDE RECORDS SUMMARY | 2024-11-17 18:06 | XMS_ITS | Encounter Summary ---
Author Organization [facility] Address [address] [place] [address]. [place] [address] [place] [address] Care Team Providers Care Manager Of School Name Role Phone Unavailable Primary Care Provider Unavailabl e Encounter Details Date Type Department Care Team (Late st Contact Info) Description 04/28/2010 Abstract SJB CONVERSION [address]15 [place] [address] , Generic Conversion, Social History Tobacco Use [...] st Contact Info) Description 11/18/2024 9:00 AM OYSTER TONGER [facility] Cardiovascular Outreach [facility] [address] [place] [phone] Colleen Pina FNP [address] [place] [address] documented as of this encounter Visit Diagnoses Not on filedocumented in this encounter
--- OUTSIDE RECORDS SUMMARY | 2024-11-17 18:06 | XMS_ITS | Encounter Summary ---
Author Organization [facility] Address [address] [place] [address]. [place], [place] [address] [place] [address] Care Team Providers Care Division Superintendent Name Role Phone Cait Nelson [facility] Primary Care Provider + Reason for Visit * Imaging (Routine) - Closed Specialty Diagnoses / Procedures Referred By Contac t Referred To Contact RADIOLOGY Diagnoses Breast cancer screening by mammogram Procedures MG SCREENING W DONNIE TIMA Cait Vo, [address] [address] Phone: tel: fax: Referral ID Status Reason Start Date Expiration Date Visits Re quested Visits Authorized [id number] Closed 10/09/2019 11/08/2020 1 1 Encounter Details Date Type Department Care Team (Latest Contact Info) Description 10/09/2019 2:00 PM THERMAL CUTTER HAND - 10/09/2019 11:59 PM [facility] Hospital Encounter [facility] Mammography [address] [place] [address] Cait Nelson, [facility] [address] [place] [address] Discharge Disposition: Home or Self Care (Routine [...] st Contact Info) Description 11/18/2024 9:00 AM THERMAL CUTTER HAND Telemedicine [place] [facility] [address] [place] [phone] Colleen Pina, JOSE 3 [facility] [address] [place] [address] documented as of this encounter Procedures Procedure Name Priority Date/Time Associated Diagnosis Comments MG SCREENING W DONNIE TIMA DIGI Routine 10/09/2019 2:30 PM THERMAL CUTTER HAND Breast cancer screening by mammogram documented in this encounter Results * MG SCREENING W DONNIE TIMA DIGI (10/09/2019 2:30 PM THERMAL CUTTER HAND) Anatomical Region Laterality Modality Breast Bilateral Mammography 10/09/2019 5:40 PM THERMAL CUTTER HAND Impressions 10/09/2019 5:43 PM THERMAL CUTTER HAND IMPRESSION: 1. No mammographic evidence of malignancy. ? 2. BI-RADS Category 2 - benign findings. Annual screening mammography recommended MQSA BI-RADS Categories: Category 0 - needs additional imaging evaluation. Category 1 - negative. Category 2 - benign findings. Category 3 - probably benign findings, but short interval follow-up ?is recommended. Category 4 - suspicious abnormality and biopsy should be considered ?though the lesion may well be benign. Category 5 - highly suggestive of malignancy and appropriate action ?should be taken. ?? A) ??A negative report should not delay a biopsy if a dominant or ?clinically suspicious mass is present. B) ??Adenosis and dense breasts may obscure an underlying neoplasm. C) ??Study interpreted with computer aided detection. Interpreted By: Israel Ospina, 10/09/2019 5:40 PM Narrative 10/09/2019 5:43 PM THERMAL CUTTER HAND IMAGING STUDIES: Bilateral screening mammograms with computer-aided detection with 2-D and 3-D imaging. Tomosynthesis. DATE: 10/09/2019 2:13 PM HISTORY: screening ?? . ??Mother diagnosed breast carcinoma age 65. No current complaints. COMPARISON: ??01/22/2015. A 15/06/2016. TISSUE TYPE: Category A - The breasts are almost entirely fatty. FINDINGS: 1. ??Bilateral screening mammograms with computer detection with ??2-D and 3-D imaging. Tomosynthesis. ??Fatty-replaced ??fibroglandular tissue pattern is present. Benign calcifications. 2. ??No malignant microcalfcifications, new dominant masses, or architectural distortion. ? 3. No skin thickening or nipple retraction. ??Axillary regions are within normal limits. ? Cait Nelson HAIR BOILER OPERATOR-BC MAMMO Final Re sult documented in this encounter Visit Diagnoses Not on filedocumented in this encounter Care Teams Division Superintendent Relationship Specialty Start Date End Date Cait Nelson, HAIR BOILER OPERATOR-BC [address] [phone] PCP - General NURSE PRACTITIONER 10/09/19 documented as of this encounter
--- OUTSIDE RECORDS SUMMARY | 2024-11-17 18:06 | XMS_ITS | Encounter Summary ---
Author Organization [facility] Address [address] [place] [address]. [place] [address] [place] [address] Care Team Providers Care It Solutions Sales Consultant Name Role Phone Unavailable Primary Care Provider Unavailabl e Encounter Details Date Type Department Care Team (Late Contact Info) Description 04/03/2004 Abstract SJB CONVERSION [address] [place] [address] Yvonne Morris MD [address], [place] [address] Social History Tobacco Use Types Packs/Day Years [...] (Late Contact Info) Description 11/18/2024 9:00 AM [facility] [address] [place] [address] Colleen Pina, MUSTANGER [address] [address] documented as of this encounter Visit Diagnoses Not on filedocumented in this encounter
--- OUTSIDE RECORDS SUMMARY | 2024-11-17 18:06 | XMS_ITS | Encounter Summary ---
Author Organization [facility] Address [address] [place] [address]. [place] [address] [place] [address] Care Team Providers Care Surgical Territory Manager Name Role Phone Cait Nelson [facility] Primary Care Provider + Reason for Visit * Reason Comments Congestion Encounter Details Date Type Department Care Team (Late st Contact Info) Description 11/23/2019 1:32 PM FITNESS AND WELLNESS INSTRUCTOR - 11/23/2019 1:53 PM FITNESS AND WELLNESS INSTRUCTOR Emergency [facility] Emergency Room [address] [place] [address] Marta Payton, [address] [address] Congestion Discharge Disposition: Home or Self Care (Routine [...] Sign Reading Time Taken Comments Blood Pressure 132/90 11/23/2019 1:49 PM FITNESS AND WELLNESS INSTRUCTOR Pulse 74 11/23/2019 1:49 PM FITNESS AND WELLNESS INSTRUCTOR Temperature 37 ??C (98.6 ??F) 11/23/2019 1:49 PM FITNESS AND WELLNESS INSTRUCTOR Respiratory Rate 18 11/23/2019 1:49 PM FITNESS AND WELLNESS INSTRUCTOR Oxygen Saturation 97% 11/23/2019 1:49 PM FITNESS AND WELLNESS INSTRUCTOR Inhaled Oxygen Concentration - - Weight 120.2 kg (265 lb) 11/23/2019 1:49 PM FITNESS AND WELLNESS INSTRUCTOR Height 180.3 cm (5' 11 ) 11/23/2019 1:49 PM FITNESS AND WELLNESS INSTRUCTOR Body Mass Index 36.96 11/23/2019 1:49 PM FITNESS AND WELLNESS INSTRUCTOR documented in this encounter Discharge Instructions * Discharge Instructions* JOSE Jarvis - 11/23/2019 1:43 PM FITNESS AND WELLNESS INSTRUCTOR Take medications as directed and follow discharge instructions carefully. Follow up with your primary care physician as needed. You may take an over the counter decongestant as needed. Warm salt water gargles, throat lozenges, honey, ibuprofen all may help relieve throat pain. ?Our practice is committed to providing you the very best in healthcare. We want to hear from you! Please fill out the survey you get from us. Your feedback is anonymous & helps us improve the patient experience for you and others in the community we serve.? ESS AND WELLNESS INSTRUCTOR ESS AND WELLNESS INSTRUCTOR * Attachments The following attachments cannot be sent through Care Everywhere. * Sore Throat Discharge Instructions, Adult ([place]) * Cough Discharge Instructions, Adult ([place]) documented in this encounter Medications at Time of Discharge azithromycin (ZITHROMAX) 250 MG tablet Take 2 tablets by mouth on day one then 1 daily for four days. 6 tablet 11/23/2019 10/15/2024 predniSONE 20 MG tablet Take 1 tablet (20 mg total) by mouth 2 (two) times daily for 5 days. 10 tablet 11/23/2019 11/28/2019 documented as of this encounter ED Notes * Zoila Castellanos RN - 11/23/2019 1:48 PM CST Patient here with complaints of congestion, sinus pressure, and sore throat. ESS AND WELLNESS INSTRUCTOR * JOSE Jarvis - 11/23/2019 1:44 PM CST Images from the original note were not included. Chief Complaint Chief Complaint Patient presents with ??? Congestion History of Present Illness 64 y f hx of Type II DM, presents with nasal congestion, post nasal drainage, copious amount of drainage, last noc had so much drainage, and coughing so hard that she began to vomit, now throat pain is severe, feels as if something stuck in throat, however drinking, eating managing secretions with difficulty. Pt is afebrile at this time. Medical History ALLERGIES: Allergies Allergen Reactions ??? Penicillins Hives MEDICATIONS: Prior to Admission medications Medication Sig Start Date End Date Taking? Authorizing Provider azithromycin (ZITHROMAX) 250 MG tablet Take 2 tablets by mouth on day one then 1 daily for four days. 11/23/19 Yes JOSE Jarvis predniSONE 20 MG tablet Take 1 tablet (20 mg total) by mouth 2 (two) times daily for 5 days. 11/23/19 11/28/19 Yes JOSE Jarvis PAST MEDICAL HISTORY: Past Medical History: Diagnosis Date ??? Diabetes mellitus (CMS/[facility]) ??? Hypertension PAST SURGICAL HISTORY: Past Surgical History: Procedure Laterality Date ??? CRANIECTOMY FOR EXCISION OF ACOUSTIC NEUROMA ??? TONSILLECTOMY ??? TUBAL LIGATION FAMILY HISTORY: No family history on file. SOCIAL HISTORY: Social History Tobacco Use ??? Smoking status: Not on file Substance Use Topics ??? Alcohol use: Not on file ??? Drug use: Not on file Review of Systems Review of Systems Constitutional: Negative for chills, fatigue and fever. HENT: Positive for congestion, postnasal drip and sinus pressure. Negative for ear pain, rhinorrhea, sinus pain and sore throat. Eyes: Negative for pain. Respiratory: Positive for cough. Negative for chest tightness, shortness of breath and wheezing. Cardiovascular: Negative for chest pain and palpitations. Gastrointestinal: Positive for nausea and vomiting. Negative for abdominal pain and diarrhea. Genitourinary: Negative for dysuria, flank pain, frequency and urgency. Musculoskeletal: Negative for back pain and neck pain. Skin: Negative for rash. All other systems reviewed and are negative. Physical Exam Filed Vitals: 11/23/19 1349 BP: 132/90 Pulse: 74 Resp: 18 Temp: 98.6 ??F (37 ??C) TempSrc: Oral SpO2: 97% Weight: 120.2 kg (265 lb) Height: 5' 11 (1.803 m) Physical Exam Constitutional: She is oriented to person, place, and time. She appears well- developed and well-nourished. HENT: Head: Normocephalic. Right Ear: External ear normal. Left Ear: External ear normal. Nose: Nose normal. Mouth/Throat: Uvula is midline and mucous membranes are normal. Posterior oropharyngeal erythema present. Eyes: Conjunctivae and EOM are normal. Pupils are equal, round, and reactive to light. Neck: Normal range of motion. Neck supple. Cardiovascular: Normal rate, regular rhythm, normal heart sounds and intact distal pulses. Pulmonary/Chest: Effort normal and breath sounds normal. Abdominal: Soft. Bowel sounds are normal. Musculoskeletal: Normal range of motion. Neurological: She is alert and oriented to person, place, and time. Skin: Skin is warm and dry. Capillary refill takes less than 2 seconds. Psychiatric: She has a normal mood and affect. Her behavior is normal. Judgment and thought contentnormal. Nursing note and vitals reviewed. Diagnostic Studies / Procedures ELECTROCARDIOGRAMS: No results found for this visit on 11/23/19. LABORATORY STUDIES: No results found for this visit on 11/23/19. IMAGING STUDIES No orders to display ED Course / Medical Decision Making MDM Diagnosis management comments: nasal congestion, drainage, sore throat, cough, rx azithromycin, prednisone, to f/u with pcp. Pulse oximetry interpreted by me: 97% on room air. Impression normal. Rhythm strip interpreted by me: Plan: - Labs - Meds I have discussed today's findings with the patient and provided information regarding the likely diagnosis. The patient has been given information regarding their treatment, a close follow-up is recommended as well as concerning symptoms for which they should seek urgent or emergent attention. I have expressed the the importance of seeking medical advice should there be any new, or worsening symptoms or persistence of their condition. The patient is stable at discharge and has verbalized understanding of these instructions. ED Course as of Nov 24 723 Sat Nov 23, 2019 1344 [facility] pt [MS] ED Course User Index [MS] JOSE Jarvis Clinical Impression Acute bacterial pharyngitis (Primary) Cough Disposition: Discharge JOSE Jarvis 11/24/197[address] Cosigned by Albaro Garcia MD at 11/24/2019 7:18 PM FITNESS AND WELLNESS INSTRUCTOR ESS AND WELLNESS INSTRUCTOR ESS AND WELLNESS INSTRUCTOR documented in this encounter Plan of Treatment Upcoming Encounters Date Type Department Care Team (Late st Contact Info) Description 11/18/2024 9:00 AM FITNESS AND WELLNESS INSTRUCTOR Telemedicine [place] [facility] [address] [place] [address] Colleen Pina FNP [address] [facility] [address] [place] [address] documented as of this encounter Visit Diagnoses Diagnosis Acute bacterial pharyngitis- Primary Acute pharyngitis Cough documented in this encounter Care Teams Surgical Territory Manager Relationship Specialty Start Date End Date Cait Nelson FNP- [address] [place] [phone] PCP - General NURSE PRACTITIONER 10/09/19 documented as of this encounter
--- OUTSIDE RECORDS SUMMARY | 2024-11-17 18:06 | XMS_ITS | Encounter Summary ---
Author Organization [facility] Address [address] [place] [address]. [place] [address] [place] [address] Care Team Providers Care Recreation Engineer Name Role Phone Unavailable Primary Care Provider Unavailabl e Encounter Details Date Type Department Care Team (Late st Contact Info) Description 07/16/1999 Abstract [facility] [address] [place] [address] , Generic Conversion, Social History Tobacco Use [...] st Contact Info) Description 11/18/2024 9:00 AM DIRECTOR OF SECURITY [facility] Cardiovascular Outreach [facility] [id number] [place] [phone] Colleen Pina FNP [address] [place] [address] documented as of this encounter Visit Diagnoses Not on filedocumented in this encounter
--- OUTSIDE RECORDS SUMMARY | 2024-11-17 18:06 | XMS_ITS | Encounter Summary ---
Author Organization [facility] Address [address] [place] [address]. [place] [address] [place] [address] Care Team Providers Care Forestry Crew Chief Name Role Phone Unavailable Primary Care Provider Unavailabl e Encounter Details Date Type Department Care Team (Late st Contact Info) Description 10/11/1997 Abstract [facility] [address] [place] [address] , Generic Conversion, Social History Tobacco Use [...] st Contact Info) Description 11/18/2024 9:00 AM PLATE WORKER HELPER [facility] Cardiovascular Outreach [facility] [id number] [place] [phone] Colleen Pina FNP [address] [place] [address] documented as of this encounter Visit Diagnoses Not on filedocumented in this encounter
--- OUTSIDE RECORDS SUMMARY | 2024-11-17 18:06 | XMS_ITS | Encounter Summary ---
Author Organization [facility] Address [address] [place] [address]. [place] [address] [place] [address] Care Team Providers Care Exchange Clerk Name Role Phone Unavailable Primary Care Provider Unavailabl e Encounter Details Date Type Department Care Team (Late st Contact Info) Description 07/23/2016 Abstract [facility] Diagnostic Imaging [address] [place] [address] Rossy Caruso, ANA LAURA [address] [place] [address] Social History Tobacco Use Types Packs/Day Years [...] Contact Info) Description 11/18/2024 9:00 AM [facility] [address] [place] [address] Colleen iPna FNP [address] [address] documented as of this encounter Visit Diagnoses Diagnosis Encounter for screening mammogram for malignant neoplasm of breast Other screening mammogram documented in this encounter
--- OUTSIDE RECORDS SUMMARY | 2024-11-17 18:06 | XMS_ITS | Encounter Summary ---
Author Organization [facility] Address [address] [place] [address]. [place] [address] [place] [address] Care Team Providers Care Drafter Electronic Name Role Phone Unavailable Primary Care Provider Unavailabl e Encounter Details Date Type Department Care Team (Late st Contact Info) Description 06/21/1999 Abstract [facility] [address] [place] [address] , Generic Conversion, Social History Tobacco Use [...] st Contact Info) Description 11/18/2024 9:[address] [facility] Cardiovascular Outreach [facility] [address] [place] [phone] Colleen Pina FNP [address] [place] [address] documented as of this encounter Visit Diagnoses Not on filedocumented in this encounter
--- OUTSIDE RECORDS SUMMARY | 2024-11-17 18:11 | XMS_ITS | Clinical Summary ---
Author Organization 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 Gender Identity Not on file Sexual Orientation Not on file Plan of Treatment Health Maintenance Due Date Last Done Comments DEXA Bone Density 1955 Hepatitis C Virus (HCV) Screening 1955 Colonoscopy 2001 Colorectal Cancer Screening 2001 Cologuard 2006 Immunochemical Fecal Occult Blood 2006 Mammogram 2006 Pneumococcal Immunization (5 0+ years) (1 of 1 - PCV) 2021 SARS-COV-2 Immunization ( - 2022-24 season) 2023 Influenza Immunization (Seas on Ended) 2024 08/07/2019, 09/11/2018 DTaP/Tdap/Td Immunization Discontinued 11/14/2018 TdaP Immunization Completed 11/14/2018 Zoster Immunization Completed 09/22/2020, 09/25/2019 Hepatitis B Immunization Aged Out No longer eligible based on patient's age to complete this topic Meningococcal Immunization (ACWY) Aged Out No longer eligible based on patient's age to complete this topic Rotavirus Immunization Aged Out No lo nger eligible based on patient's age to complete this topic
--- OUTSIDE RECORDS SUMMARY | 2024-11-17 18:11 | XMS_ITS | Encounter Summary ---
Author Organization [facility] Address [address] [place] [address] Care Team Providers Care Machine Spreader Name Role Phone Unavailable Primary Care Provider Unavailabl e Encounter Details Date Type Department Care Team (Late st Contact Info) Description 11/11/2020 4:00 PM SENIOR SQL SERVER DEVELOPER Rapid Evaluation [facility] [address] [place] [phone] Social History Tobacco Use Types Packs/Day Years Used Date Smoking Tobacco: Never Assessed Comments Unknown Sex and Gender Information Value Date Recorded Sex Assigned at Not on file Legal Sex Female 3:14 PM SENIOR 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
--- OUTSIDE RECORDS SUMMARY | 2024-11-17 18:11 | XMS_ITS | Encounter Summary ---
Author Organization [facility] Address [address] [place] [address] Care Team Providers Care Literacy Education Professor Name Role Phone Unavailable Primary Care Provider Unavailabl e Encounter Details Date Type Department Care Team (Late st Contact Info) Description 11/11/2020 Lab Requisition [facility] Mobile Testing [address] [place] [address] [place], [place] [address] [place] [address] Social History Tobacco Use Types Packs/Day Years Used Date Smoking Tobacco: Never Assessed Comments Unknown Sex and Gender Information Value Date Recorded Sex Assigned at Not on file 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
--- OUTSIDE RECORDS SUMMARY | 2024-11-17 18:12 | XMS_ITS | Encounter Summary ---
Author Organization [facility] [place] [facility] Address [address] [place] [address] Phone Care Team Providers Care Pie Topper Name Role Phone Chitra Chen MD Primary Care Provider [phone] Chitra Chen MD Unavailable [phone] Mir Gonzales MD Unavailable [phone] Reason for Visit * Consultation (Routine) - Closed Specialty Diagnoses / Procedures Referred By Contac t Referred To Contact Audiology Diagnoses Sensorineural hearing loss, bilateral Chitra Chen MD Phone: tel: fax: [facility] (All Locations) Referral ID Status Reason Start Date Expiration Date V isits Requested Visits Authorized [id number] Closed Specialty Services Required 06/17/2021 11/26/2022 99 99 Encounter Details Date Type Department Care Team (Latest Contact Info) Description 07/11/2022 1:00 PM CDT Procedure visit [facility] Otolaryngology [address] [facility] [place] [address] Itzel Jameson Au.D. 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 - 07/11/2022 1:00 PM CDT Procedures Purpose of Visit: Programming and Speech Perception Testing (1:50 PM -2:24 PM) - 12 Month Cochlear Implant (Active) L/R/Bilateral right 07/09/21 1600 Nurse Chemical Dependency [employer] 07/09/21 1600 Internal [id number] 07/09/21 1600 External [id number] 07/09/21 1600 Provider Shaka Conte MD 07/09/21 1600 Date of CI surgery 06/16/21 07/09/21 1600 Date of IS 07/01/21 07/09/21 1600 Residual hearing: DNT, no residual hearing Patient Reports: Patient attended today's appointment alone. Patient reported she is doing better with her CI; she has been wearing her ARAMBULA less to focus on her CI and finds that her hearing has thus improved. She struggles to hear in background noise and feels the CI is too sensitive picking up more noise than speech. Patient reported her sound processor retention has improved significantly sinceher Kenalog injection and she no longer needs to shave her head beneath the coil. She further reported her battery life is now lasting all day. Data Loggin.0 hours of average daily use - patient reported the data logging was incorrect and she wears her processor all day everyday. Magnet Strength: 5(I) Visual Check of Implantation Site: WNL Equipment Status: WNL; replaced microphone filters from patient stock. Programming Notes: ??? Programming completed to verify maximal performance and verify appropriate impedances. ? ? Ran implant tests for CG, MP1, MP2 and MP 1&2: all electrodes WNL and stable ??? Electrodes 1-4 remain disabled ??? Obtained T and C levels on active channels 22-1 utilizing streamlined method for patient's preferred map 500 Hz, 8 ely, BRIGID map ??? Swept and balanced all channels at C level ??? Second processor programmed identically ??? Battery life estimated at 11 hours ??? Current maps and current impedance measurements can be found in the Custom Sound or Soundwave software. Reliability: Good Programs/Maps: P1 map 14, 500 Hz, 8 max., BRIGID with SCAN P2 map 14, Fixed with ASC + ADRO (VC @ 5, SC @ 8) P3 empty P4 empty Counseling: Dispensed AR activity sheet and encouraged patient to begin performing listening activities on a routine basis in CI only condition. Provided patient with ear plugs and recommended she download the white noise leidy to mask her left ear when performing AR. Counseled patient on program options. Evaluation of Auditory Function for Postoperative Status of a Cochlear Implant: Aided speech testing was completed to assess speech understanding and to compare to previous results. Contra ear occluded with foam plug + masking during CI only testing condition. Patient has not been tested since her 3 month evaluation on 09/24/21. [place] Bio Sentences List 1 @ 60 dB SPL: CI + ARAMBULA = 99% (DNT at 3 month) [place] Bio Sentences List 2 @ 60 dB SPL + 10 dB SNR: CI + ARAMBULA = 99% (DNT at 3 month) [place] Bio Sentences List 3 @ 60 dB SPL: CI only = 1% (5% at 3 month) CNC Word List 3 @ 60 dB SPL: CI only = 0% (14% phonemes correct) (4% words and 21% phonemes at 3 month) HINT Sentences List 1 and 2 @ 60 dB SPL: CI only = 0% (baseline) Cochlear Implant Thresholds: Aided SF thresholds were obtained to assess audibility for speech. 250 Hz 500 Hz 1000 Hz 2000 Hz 3000 Hz 4000 Hz 6000 Hz CI Thresholds 25 25 15 20 25 15 20 I have personally spent 34 minutes evaluating the auditory rehabilitation status of this patient. This time does not include time spent on cochlear implant programming or reprogramming. Plan Note: Patient prefers to return in 6 months for additional follow up to assess if speech perception scores have improved. Recommendations: Programming and Troubleshooting PRN 18 month evaluation December 2022 documented in this encounter Plan of Treatment Not on file documented as of this encounter Visit Diagnoses Diagnosis Sensorineural hearing loss, asymmetrical- Primary Encounter for adjustment and management of cochlear device documented in this encounter Care Teams Pie Topper Relationship Specialty Start Date End Date Chitra Chen MD PCP - General Internal Medicine 09/04/20 Chitra Chen MD Internal Medicine 09/04/20 Mir Gonzales MD Referring Physician Otolaryngology 04/08/19 documented as of this encounter
--- OUTSIDE RECORDS SUMMARY | 2024-11-17 18:12 | XMS_ITS | Encounter Summary ---
Author Organization [facility] Address [address] [place] [address] Phone Care Team Providers Care Hazardous Materials Waste Technician Name Role Phone Chitra Chen MD Primary Care Provider [phone] Chitra Chen MD Unavailable [phone] Mir Gonzales MD Unavailable [phone] Reason for Visit * Consultation (Routine) - Authorized Specialty Diagnoses / Procedures Referred By Contac t Referred To Contact Audiology Diagnoses Sensorineural hearing loss (SNHL) of both ears Chitra Chen MD Phone: tel: fax: [facility] (All Locations) Referral ID Status Reason Start Date Expiration Date Visits Requested Visits Authorized [id number] Authorized Specialty Services Required 10/27/2023 11/25/2024 12 12 Encounter Details Date Type Department Care Team (Latest Contact Info) Description 05/21/2024 1:00 PM CDT Procedure visit [facility] Otolaryngology [address], [address] [place] [address] Lilliam Faith Au.D. 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 - 05/21/2024 1:00 PM CDT Procedures Purpose of Visit: Programming and Speech Perception Testing (1 PM - 2:30 PM) Cochlear Implant (Active) L/R/Bilateral right 07/09/21 1600 Flat Folder [employer] 07/09/21 1600 Internal [id number] 07/09/21 1600 External [id number] 07/09/21 1600 Provider Shaka Conte MD 07/09/21 1600 Date of CI surgery 06/16/21 07/09/21 1600 Date of IS 07/01/21 07/09/21 1600 Patient Reports: Patient attended today's appointment alone. She reported she has been trying to wear the CI at least 8-10 hours per day. She feels she has adjusted to the sound of the CI and she would like to turn the volume up. She does notice improved clarity in quiet environments with the CI+ARAMBULA, however she does not feel speech is clear with the CI only. She continues to have difficulty hearing in noise and she feels music is distorted when she wears the CI. She started shaving her hair around the magnet site to help with retention. She denied concerns with battery life. She has noticed significant benefit since the ARAMBULA was cleaned and the case reviewer was replaced. Data [place] hours of average daily use Magnet Strength: 5(I), patient shaves hair around magnet site to help with retention Visual Check of Implantation Site: WNL Equipment Status: WNL; patient did not bring back-up or accessories Acoustic component: NA Programming Notes: Programming completed to verify maximal performance verify appropriate impedances. Ran implant tests for CG, MP1, MP2 and MP 1&2: all electrodes WNL and stable, reduced from previous impedence check Electrodes 1-4 remain disabled Obtained T and C levels on active channels 22-1 utilizing streamlined method for patient's preferred map 900 Hz, 8 ely, BRIGID map Swept and balanced all channels at C level - increased C levels 6-8 steps across electrodes today Current maps and current impedance measurements can be found in the Custom Sound or Soundwave software. Reliability: Good Programs/Maps: P1 map 16, 900 Hz, 8 max., BRIGID with SCAN P2 empty P3 empty P4 empty Counseling: Reviewed good communication strategies and she was counseled on realistic expectations on the CI with music and background noise. Discussed different retention options, she is not interested in a snugfit or hugfit at this time. Evaluation of Auditory Function for Postoperative Status of a Cochlear Implant: Aided speech testing was completed to assess speech understanding and to compare to previous results. Contra ear occluded with foam plug and 70 dB masking noise during CI only testing condition. Previous test interval was 07/11/2022. [place] Bio Sentences List 1 @ 60 dB SPL: CI + ARAMBULA = 96% (99% at previous testing interval) [place] Bio Sentences List 2 @ 60 dB SPL + 10 dB SNR: CI + ARAMBULA = 96% (99% at previous testing interval) [place] Bio Sentences List 3 @ 60 dB SPL: CI only = 9% (1% at previous testing interval) CNC Word List 2 @ 60 dB SPL: CI only = 12% (25% phonemes correct) (0% at previous testing interval) HINT Sentences List 3+4 @ 60 dB SPL: CI only = 12% (0% at previous testing interval) I have personally spent 32 minutes evaluating the auditory rehabilitation status of this patient. This time does not include time spent on cochlear implant programming or reprogramming. Cochlear Implant Thresholds: Aided SF thresholds were obtained to assess audibility for speech. 250 Hz 500 Hz 1000 Hz 2000 Hz 3000 Hz 4000 Hz 6000 Hz CI Thresholds 30 25 30 25 30 25 30 Plan Note: hearing aid check, review CI bird filter change, enquire about CI retention Recommendations: Programming and Troubleshooting PRN CI Check 6 months Hearing aid check PRN [place] CCC-A The note as documented above reflects by personal service. documented in this encounter Plan of Treatment Not on file documented as of this encounter Visit Diagnoses Diagnosis Asymmetrical sensorineural hearing loss- Primary Sensorineural hearing loss, asymmetrical Encounter for adjustment and management of cochlear device documented in this encounter Care Teams Hazardous Materials Waste Technician Relationship Specialty Start Date End Date Chitra Chen MD PCP - General Internal Medicine 09/04/20 Chitra Chen MD Internal Medicine 09/04/20 Mir Gonzales MD Referring Physician Otolaryngology 04/08/19 documented as of this encounter
--- OUTSIDE RECORDS SUMMARY | 2024-11-17 18:12 | XMS_ITS | Referral Summary ---
Author Organization [facility] Address [address] [place] [address] Care Team Providers Care Geographic Information Systems Analyst Name Role Phone Chitra Chen MD Primary Care Provider [phone] Chitra Chen MD Unavailable [phone] Mir Gonzales MD Unavailable [phone] Allergies Active Allergy Reactions Criticality Noted Date Comments Morphine Other (See comments) Low 02/19/2023 Profound hypotension and diaphoresis Penicillins Medications DULoxetine DR (CYMBALTA) 60 mg capsule 9 Active multivitamin tablet Active rosuvastatin (CRESTOR) 20 mg tablet 9 Active OZEMPIC 0.25 mg or 0.5 mg(2 mg/1.5 mL) pen injector 9 Active losartan (COZAAR) 50 mg tablet 0 Active aspirin 81 mg enteric coated tablet Take 81 mg by mouth 2 (two) times a day Active calcium [id number] ium brittanie 133 mg calcium -133 unit-67 mg capsule Take by mouth Activ e HYDROcodone-ac etaminophen (Leola) 5-325 mg per tabletIndicati ons:Pain Take 1 tablet by mouth every 6 (six) hours as needed for pain 15 tablet 1 Active ofloxacin (FLOXIN) 0.3 % otic solution Administer 5 drops into the right ear 2 (two) times a day 1 Bottle 1 Active traZODone (DESYREL) 50 mg tablet Take 50 mg by mouth daily 1 Active traMADoL (ULTRAM) 50 mg tablet tramadol 50 mg tablet TK 1 T PO Q 4 H PRN Active phentermine 15 mg capsule phentermine 15 mg capsule TK 1 C PO BID Active Synthroid 125 mcg tablet Take 125 mcg by mouth every morning 1 Active meloxicam (MOBIC) 7.5 mg tablet Take 7.5 mg by mouth daily 2 Active ibuprofen (ADVIL,MOTRIN) 600 mg tablet ibuprofen 600 mg tablet TAKE 1 TABLET BY MOUTH EVERY 6 HOURS FOR 5 DAYS THEN EVERY 6 HOURS NEEDED Active clindamycin (CLEOCIN) 300 mg capsule clindamycin HCl 300 mg capsule TAKE ONE CAPSULE FOUR TIMES DAILY UNTIL ALL TAKEN DIRECTED Active chlorhexidine (PERIDEX) 0.12 % solution chlorhexidine gluconate 0.12 % mouthwash SWISH AND SPIT 10 TO 15 ML BY MOUTH TWICE DAILY FOR 1 WEEK BEFORE SURGERY AND 1 WEEK AFTER SURGERY Active acetaminophen- codeine (TYLENOL with CODEINE #3) 300-30 mg per tablet acetaminophen 300 mg-codeine 30 mg tablet TAKE 1 TO 2 TABLETS BY MOUTH EVERY 6 HOURS NEEDED FOR PAIN Active Active Problems Problem Noted Date Diagnosed Date 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 Sensorineural hearing loss (SNHL) of both ears 0 03/23/2020 Hyperlipidemia 04/08/2019 Hypothyroidism 04/08/2019 Pernicious anemia 04/08/2019 Seasonal allergies 04/08/2019 Vitamin D deficiency 04/08/2019 Type 2 diabetes mellitus without complication (C MS/HCC) 06/22/2018 Hearing loss of right ear 06/01/2017 Hip pain 06/01/2017 Diabetes mellitus 05/01/2017 Bilateral tinnitus 03/31/2017 Melanocytic nevus 03/31/2017 Obesity 02/28/2017 Knee pain 05/27/2016 Social History Tobacco Use Types Packs/Day Years Used Date Smoking Tobacco: Never Alcohol Use Standard Drinks/Week Comments Not Currently 0 (1 standard drink = 0.6 oz pur e alcohol) Comments Unknown Sex and Gender Information Value Date Recorded Sex Assigned at Not on file Legal Sex 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 Gender Identity Female 03/19/2020 9:59 AM CDT Sexual Orientation Straight 03/19/2020 9: 59 AM CDT Last Filed Vital Signs Vital Sign Reading Time Taken Comments Blood Pressure 122/80 10/14/2020 3:00 PM DRAW MACHINE OPERATOR Pulse 96 10/14/2020 3:00 PM DRAW MACHINE OPERATOR Temperature - - Respiratory Rate - - Oxygen Saturation 96% 10/14/2020 3:00 PM DRAW MACHINE OPERATOR Inhaled Oxygen Concentration - - Weight 127.4 kg (280 lb 14.4 oz) 10/14/2020 3:00 PM DRAW MACHINE OPERATOR Height 180.3 cm (5' 11 ) 10/14/2020 3:00 PM DRAW MACHINE OPERATOR Body Mass Index 39.18 10/14/2020 3:00 PM DRAW MACHINE OPERATOR Plan of Treatment Not on file Procedures Procedure Name Priority Date/Time Associated Diagnosis Comments POCT LIPID PANEL Routine 10/14/2020 5:34 PM DRAW MACHINE OPERATOR Dyslipidemia from Last 3 Months or Most Recently Relevant to Health Maintenance Results * POCT lipid panel (10/14/2020 5:34 PM DRAW MACHINE OPERATOR) Cholesterol, POC 169 mg/dL Comment:GLU = 124 HDL, POC 77 mg/dL Triglycerides, POC 185 mg/dL LDL Cholesterol POC 56 mg/dL Chol/HDL Ratio, POC 2.2 Non-HDL Cholesterol, POC 93 mg/dL Cholesterol Total, POC 169 mg/dL Capillary blood 10/14/2020 5 :34 PM DRAW MACHINE OPERATOR Seamus Landaverde MD POINT OF CARE TEST ORDERABLES Fi nal Result from Last 3 Months or Most Recently Relevant to Health [place] [address] [employer] [facility] [employer] [facility] [employer] MEDICARE Care Teams Geographic Information Systems Analyst Relationship Specialty Start Date End Date Chitra Chen MD PCP - General Internal Medicine 09/04/20 Chitra Chen MD Internal Medicine 09/04/20 Mir Gonzales MD Referring Physician Otolaryngology 04/08/19
--- OUTSIDE RECORDS SUMMARY | 2024-11-17 18:12 | XMS_ITS | Encounter Summary ---
Author Organization [facility] Address [address] [place] [address] Phone Care Team Providers Care Gun Perforator Name Role Phone Chitra Chen MD Primary Care Provider [phone] Chitra Chen MD Unavailable [phone] Mir Gonzales MD Unavailable [phone] Reason for Visit * Consultation (Routine) - Closed Specialty Diagnoses / Procedures Referred By Contac t Referred To Contact Audiology Diagnoses Sensorineural hearing loss, bilateral Chitra Chen MD Phone: tel: fax: [facility] (All Locations) Referral ID Status Reason Start Date Expiration Date V isits Requested Visits Authorized [id number] Closed Specialty Services Required 06/17/2021 11/26/2022 99 99 Encounter Details Date Type Department Care Team (Latest Contact Info) Description 05/16/2022 3:30 PM CDT Procedure visit [facility] Otolaryngology [address] [place] [address] Jelena Neumann Au.D. [address] [place] [address] Bilateral sensorineural hearing loss (Primary Dx); Encounter for adjustment and management of cochlear device Social History Tobacco Use Types Packs/Day Years Used Date Smoking Tobacco: Never Alcohol Use Standard Drinks/Week Comments Not Currently 0 (1 standard drink = 0.6 oz pur e alcohol) Comments Unknown Sex and Gender Information Value Date Recorded Sex Assigned at Not on file Legal Sex Female 2:17 AM REGISTER OF WILLS Gender Identity Female 03/19/2020 9:59 AM CDT Sexual Orientation Straight 03/19/2020 9: 59 AM CDT documented as of this encounter Procedure Notes * Jelena Mccord Au.D. - 05/16/2022 3:30 PM CDT Procedures Purpose of Visit: Programming and Speech Perception Testing- 9 Month Cochlear Implant (Active) L/R/Bilateral right 07/09/21 1600 Medical Record Librarians Teacher [employer] 07/09/21 1600 Internal [id number] 07/09/21 1600 External [id number] 07/09/21 1600 Provider Shaka Conte MD 07/09/21 1600 Date of CI surgery 06/16/21 07/09/21 1600 Date of IS 07/01/21 07/09/21 1600 Residual Hearin Hz 250 Hz 500 Hz 1000 Hz 2000 Hz 3000 Hz 4000 Hz 6000 Hz 8000 Hz Residual Hearing NR NR NR NR NR NR NR NR NR Patient Reports: Patient attended today's appointment independently, she was seen by Dr. Conte prior to today's audiology visit. Patient reports her retention with her CI has been better since she received the kenalog injection last year. Patient estimates she has been able to increase her wear time since about November 2020. Patient reports she receives about 11 hours of battery life, she statedshe wears her device from about 7:00AM- 5:00PM when her battery goes out. Patient doesn't feel as though she is improving in terms of her word understanding, although she acknowledges she has not performed AR at home in CI only condition. Patient stated she is off work this summer and anticipates more time to dedicate to AR at home. Patient reports she is not able to localize sound, she additionally finds great difficulty hearing while in places with competing background noise. Patient stated she has not worn her processor in about 3 days due to her house carpenter not working, she stated she trooubleshooted with several wall plugs with no success. Data Loggin.5 hours of average daily use, 1.4 avg hours in quiet Magnet Strength: 5(I) Visual Check of Implantation Site: WNL Equipment Status: WNL; Plugged Pt's house carpenter with Pt's charging cord into clinic wall plug, house carpenter worked appropriately. Patient arrived with her house carpenter plugged into [employer] App, recommended Pt look at home for Cochlear provided power options and trial again. Pt instructed to inform clinic if she is unable to locate wall plug. Acoustic component: Not applicable Programming Notes: ??? Programming completed to verify maximal performance verify appropriate impedances. ? ? Ran implant tests for CG, MP1, MP2 and MP 1&2: all electrodes out of compliance and elevated, possibly due to Pt not wearing for the past few days ??? Electrodes 4-1 remain disabled ??? Obtained T and C levels on active channels 22-1 utilizing streamlined method for patient's preferred map 500 Hz, 8 ely, BRIGID map ??? Swept and balanced all channels at C level, Pt scaled channels 8-4 as soft despite being out of compliance ??? Changed PW for channels 8-4 from 50 to 62 ??? Scaled C levels for channels 8-4 to medium and comfortable ??? Second processor programmed identically ??? Current maps and current impedance measurements can be found in the Custom Sound or Soundwave software. Reliability: Good Programs/Maps: P1 map 13, 500 Hz, 8 max., BRIGID with SCAN (battery life estimate 11 hours) P2 empty P3 empty P4 empty Counseling: Provided Pt with AR sheet (clinic and Cochlear) and recommended Pt begin practice in CIonly condition daily. Stressed the importance of daily wear time and practice to further along Pt'sprogress with cochlear implant. Evaluation of Auditory Function for Postoperative Status of a Cochlear Implant: Not tested today due to time, Pt late from physician appointment, she will be returning in two months. Will complete all testing at that time. Cochlear Implant Thresholds: Aided SF thresholds were obtained to assess audibility for speech. 250 Hz 500 Hz 1000 Hz 2000 Hz 3000 Hz 4000 Hz 6000 Hz CI Thresholds 20 25 20 20 30 25 35 Plan Note: Inquire about AR at home in CI only condition, administer speech perception testing. Consider increasing T levels for HF channels as Pt reported she was unable to perceive /s/. Recommendations: Programming and Troubleshooting PRN 12 month evaluation 06/2022 The note as documented above reflects my personal service. documented in this encounter Plan of Treatment Not on file documented as of this encounter Procedures Procedure Name Priority Date/Time Associated Diagnosis Comments AUDBASE RESULTS 05/16/2022 2:58 PM CDT documented in this encounter Results * AUDBASE RESULTS (05/16/2022 2:58 PM CDT) Provider Scanning AUDIOLOGY SERVICES ORDERABLES Final Result documented in this encounter Visit Diagnoses Diagnosis Bilateral sensorineural hearing loss- Primary Sensorineural hearing loss, bilateral Encounter for adjustment and management of cochlear device documented in this encounter Care Teams Gun Perforator Relationship Specialty Start Date End Date Chitra Chen MD PCP - General Internal Medicine 09/04/20 Chitra Chen MD Internal Medicine 09/04/20 Mir Gonzales MD Referring Physician Otolaryngology 04/08/19 documented as of this encounter
--- OUTSIDE RECORDS SUMMARY | 2024-11-17 18:12 | XMS_ITS | Encounter Summary ---
Author Organization [facility] Address [address] [place] [address] Phone Care Team Providers Care Head Of Strategy Name Role Phone Chitra Chen MD Primary Care Provider [phone] Chitra Chen MD Unavailable Mir Gonzales MD Unavailable [phone] Reason for Visit * Reason Comments Hearing Loss Pt is here today for site check/Kenalog injection * Consultation (Routine) - Closed Specialty Diagnoses / Procedures Referred By Contac t Referred To Contact Otolaryngology Diagnoses Sensory hearing loss, bilateral Chitra Chen MD Phone: tel: fax: [facility] (All Locations) Referral ID Status Reason Start Date Expiration Date V isits Requested Visits Authorized [id number] Closed Specialty Services Required 11/08/2021 12/08/2022 12 12 Encounter Details Date Type Department Care Team (Late st Contact Info) Description 11/09/2021 10:30 AM MANAGER ACTIVITIES Office Visit [facility] Otolaryngology [address] [place] [address] Shaka Conte MD [address] DEPT OTOLARYNGOLOGY, [facility] [address] [place] [address] Sensory hearing loss, bilateral Social History Tobacco Use Types Packs/Day Years Used Date Smoking Tobacco: Never Alcohol Use Standard Drinks/Week Comments Not Currently 0 (1 standard drink = 0.6 oz pur e alcohol) Comments Unknown Sex and Gender Information Value Date Recorded Sex Assigned at Not on file Legal Sex Female 2:17 AM MANAGER ACTIVITIES Gender Identity Female 03/19/2020 9:59 AM CDT Sexual Orientation Straight 03/19/2020 9: 59 AM CDT documented as of this encounter Progress Notes * Shaka Conte MD - 11/09/2021 10:30 AM CST Patient Name: Roopa Hill Date of : 1955 Chief Complaint: Chief Complaint Patient presents with ??? Hearing Loss Pt is here today for site check/Kenalog injection HPI: This is a 66 y.o. female who presents today for evaluation of her cochlear implant. Patient isseen 5 months following placement of a right cochlear implant. There have been ongoing concerns regarding retention issues regarding the use of her speech processor around the magnet site. Past Medical/Surgical History Past Medical History: Diagnosis Date ??? Anxiety disorder Anxiety - (Added by TW Conv) ??? DM (diabetes mellitus) (HCC) ??? Obesity ??? Personal history of other endocrine, nutritional and metabolic disease History of thyroid disorder - (Added by TW Conv) ??? Thyroid disease Past Surgical History: Procedure Laterality Date ??? LASIK Corneal LASIK Bilateral - (Added by TW Conv) ? ? [place] REMOVAL OF TONSILS,<12 Y/O Tonsillectomy - (Added by TW Conv) Past Family/Social History Family History Problem Relation Age of Onset ??? Heart disease Mother Family history of cardiac disorder - (Added by TW Conv) ??? Cancer Mother Family history of malignant neoplasm - (Added by TW Conv) ??? Lung disease Mother Lung trouble - (Added by TW Conv) ??? Heart disease Father Family history of cardiac disorder - (Added by TW Conv) ??? Hypertension Father Family history of hypertension - (Added by TW Conv) ??? Cancer Brother Family history of malignant neoplasm - (Added by TW Conv) Social History Socioeconomic History ??? Marital status: Spouse name: None ??? Number of children: None ??? Years of education: None ??? Highest education level: None Occupational History ??? None Tobacco Use ??? Smoking status: Never Smoker ??? Smokeless tobacco: None Substance and Sexual Activity ??? Alcohol use: Not Currently ??? Drug use: Not Currently ??? Sexual activity: None Other Topics Concern ??? None Social History Narrative ??? None Social Determinants of Health Financial Resource Strain: Not on file Food Insecurity: Not on file Transportation Needs: Not on file Physical Activity: Not on file Stress: Not on file Social Connections: Not on file Intimate Partner Violence: Not on file Housing Stability: Not on file Medications/Allergies/Immunizations Current Outpatient Medications Medication Sig Dispense Refill ??? aspirin 81 mg enteric coated tablet Take 81 mg by mouth 2 (two) times a day ??? calcium [id number] brittanie 133 mg calcium -133 unit-67 mg capsule Take by mouth ??? DULoxetine DR (CYMBALTA) 60 mg capsule ??? HYDROcodone-acetaminophen ([place]) 5-325 mg per tablet Take 1 tablet by mouth every 6 (six) hours as needed for pain 15 tablet 0 ??? losartan (COZAAR) 50 mg tablet ??? multivitamin tablet ??? ofloxacin (FLOXIN) 0.3 % otic solution Administer 5 drops into the right ear 2 (two) times a day 1 Bottle 0 ??? OZEMPIC 0.25 mg or 0.5 mg(2 mg/1.5 mL) pen injector ??? phentermine 15 mg capsule phentermine 15 mg capsule TK 1 C PO BID ??? rosuvastatin (CRESTOR) 20 mg tablet ??? Synthroid 125 mcg tablet Take 125 mcg by mouth every morning ??? traMADoL (ULTRAM) 50 mg tablet tramadol 50 mg tablet TK 1 T PO Q 4 H PRN ??? traZODone (DESYREL) 50 mg tablet Take 50 mg by mouth daily No current facility-administered medications for this visit. Allergies: Penicillins, Immunizations: There is no immunization history on file for this patient. Review of Systems A complete review of systems was completed by the patient on the Patient History Form and reviewed with the patient during the visit. The Patient History Form can be found in the electronic medical record as a scanned document. Physical Exam Vital Signs: There were no vitals taken for this visit. General:female, sitting up in NAD, normal appearance and voice. EARS:Examination of the external ears was normal using visual inspection. Otoscopic and/or microscope reveals: Right External auditory canal: normal Tympanic Membrane: normal Middle ear: normal Left: External auditory canal: normal Tympanic Membrane: normal Middle ear: normal Nose- No external deformity. Nasal passages clear. OC/OP- No lesions noted. Eyes- No nystagmus. EOMI. Cranial Nerves- 2-12 grossly intact. Neck- No lymphadenopathy or masses palpated. Gait- normal. ASSESSMENT/PLAN Patient is having retention issues of her speech processor over the prep cook stimulator portion of the cochlear implant. This could be due to continued residual swelling over the device itself. Options were discussed including repositioning the device, as well as injection of Kenalog 40. The patient's admission in trying injection Kenalog in the region prior to proceeding with any surgical procedure. 1 cc of Kenalog was injected topically around the lateral surface overlying the prep cook stimulator portion of her cochlear implant. The patient tolerated the procedure well and will return in 6 weeks or sooner as needed. Shaka Conte M.D. Software Security Architect, Otology and Neurotology Department of Otolaryngology [facility] in [place] [phone] GER ACTIVITIES documented in this encounter Plan of Treatment Not on file documented as of this encounter Visit Diagnoses Diagnosis Sensory hearing loss, bilateral documented in this encounter Historical Medications * This list may reflect changes made after this encounter. Synthroid 125 mcg tablet Take 125 mcg by mouth every morning 09/02/2021 phentermine 15 mg capsule phentermine 15 mg capsule TK 1 C PO BID traMADoL (ULTRAM) 50 mg tablet tramadol 50 mg tablet TK 1 T PO Q 4 H PRN traZODone (DESYREL) 50 mg tablet Take 50 mg by mouth daily 08/15/2021 added in this encounter Orders Outpatient Referral Count Last Ordered Date Fir st Ordered Date AMB REFERRAL TO ENT 1 11/09/2021 documented in this encounter Care Teams Head Of Strategy Relationship Specialty Start Date End Date Chitra Chen MD PCP - General Internal Medicine 09/04/20 Chitra Chen MD Internal Medicine 09/04/20 Mir Gonzales MD Referring Physician Otolaryngology 04/08/19 documented as of this encounter
--- OUTSIDE RECORDS SUMMARY | 2024-11-17 18:12 | XMS_ITS | Encounter Summary ---
Author Organization [facility] Address [address] [place] [address] Phone Care Team Providers Care Gas Examiner Name Role Phone Chitra Chen MD Primary Care Provider [phone] Chitra Cehn MD Unavailable [phone] Mir Gonzales MD Unavailable [phone] Reason for Visit * Consultation (Routine) - Closed Specialty Diagnoses / Procedures Referred By Contac t Referred To Contact Audiology Diagnoses Sensorineural hearing loss, bilateral Chitra Chen MD Phone: tel: fax: [facility] (All Locations) Referral ID Status Reason Start Date Expiration Date V isits Requested Visits Authorized [id number] Closed Specialty Services Required 06/17/2021 11/26/2022 99 99 Encounter Details Date Type Department Care Team (Latest Contact Info) Description 11/05/2021 4:00 PM GREENHOUSE TRANSPLANTER Procedure visit [facility] Otolaryngology [address] [place] [address] Itzel Jameson Au.D. [address] DEPT OTOLARYNGOLOGY, [facility] [address] [place] [address] Sensorineural hearing loss, asymmetrical (Primary Dx) Social History Tobacco Use Types Packs/Day Years Used Date Smoking Tobacco: Never Alcohol Use Standard Drinks/Week Comments Not Currently 0 (1 standard drink = 0.6 oz pur e alcohol) Comments Unknown Sex and Gender Information Value Date Recorded Sex Assigned at Not on file Legal Sex Female 2:17 AM GREENHOUSE TRANSPLANTER Gender Identity Female 03/19/2020 9:59 AM CDT Sexual Orientation Straight 03/19/2020 9: 59 AM CDT documented as of this encounter Procedure Notes * Itzel Harris Au.D. - 11/05/2021 4:00 PM CST Procedures Purpose of Visit: Programming - Cochlear Implant Check Cochlear Implant (Active) L/R/Bilateral right 07/09/21 1600 Improvement Engineer [employer] 07/09/21 1600 Internal [id number] 07/09/21 1600 External [id number] 07/09/21 1600 Provider Shaka Conte MD 07/09/21 1600 Date of CI surgery 06/16/21 07/09/21 1600 Date of IS 07/01/21 07/09/21 1600 Patient Reports: Patient attended today's appointment with her granddaughter Judith. Kayla reported she perceives no improvement in her hearing or SP retention since her last visit. She is frustrated by the device constantly falling off and stated if she had not been seen until her 6 month appointment, she likely would have discontinued use of her CI. She has her daughter in law shave the area beneath the coil every few days to improve retention but continues to have a difficult time keeping it on her head. Today In CI only condition, patient described clinician's voice as soft and robotic. Patient was able to understand clinician well in CI only condition when speech was enunciated and spoken slowly. Patient reported a constant buzzing from her SP associated with sound. A listening assessment was performed in the office today to identify patient's preferred program. Patient reported a preference for program 2 stating sound quality was more natural. Following today's programming patient reported a significant improvement in clarity and sound quality. Data Loggin.9 hours of average daily use with 9 (1.4 hours) coil offs Magnet Strength: 5(I) Visual Check of Implantation Site: WNL Equipment Status: WNL Programming Notes: ? ? Ran implant tests for CG, MP1, MP2 and MP 1&2: all electrodes WNL and stable ??? Electrodes 4-1 remain disabled ??? Swept at 25% of T level for detection for patient's preferred map 900 Hz, 8 ely, BRIGID map ??? Globally increased C level by +10 CL during live listen mode to obtain medium volume in CI onlycondition ??? Swept and balanced all channels at C level ??? Created 500 Hz, 8 max. Map - obtained counted T and scaled C level to MCL on electrode 14. Predicted levels based off of 900 Hz map measured parameters ??? Swept at 25% of T level for detection for patient's preferred map 900 Hz, 8 ely, BRIGID map ??? Globally increased C level by +10 CL during live listen mode to obtain medium volume in CI onlycondition ??? Swept and balanced all channels at C level ??? Second processor not programmed identically as it was not brought to today's appointment Reliability: Good Programs/Maps: P1 map 11, 900 Hz, 8 max., 50 PW BRIGID with SCAN (battery estimate: 7 hours) P2 map 12, 500 Hz., 8 max., 50 PW BRIGID with SCAN (battery estimate: 11 hours) P3 empty P4 empty Counseling: Discussed program options. Patient to utilize program that provides the best percepts. Counseled patient on the importance of daily aural rehabilitation. Patient to begin performing on a routine basis in CI only condition. Dispensed AR list. Patient plans on streaming apps and books on tape from her iphone to her SP. Discussed different options to address poor retention; revision surgery, steroid shot, or to wait and see if it naturally improves on its own. Patient is interested in the steroid shot before considering surgery. She would like to discuss further with Dr. Conte before proceeding. Plan Note: Patient to follow up with Dr. Conte regarding retention issues with SP. Patient to return in 4-6 weeks to assess today's performance. Patient to increase use of SP, begin performing dailyAR and select a preferred program. Recommendations: Programming and Troubleshooting PRN 6 month evaluation December 2021 NHOUSE TRANSPLANTER documented in this encounter Plan of Treatment Not on file documented as of this encounter Visit Diagnoses Diagnosis Sensorineural hearing loss, asymmetrical- Primary documented in this encounter Care Teams Gas Examiner Relationship Specialty Start Date End Date Chitra Chen MD PCP - General Internal Medicine 09/04/20 Chitra Chen MD Internal Medicine 09/04/20 Mir Gonzales MD Referring Physician Otolaryngology 04/08/19 documented as of this encounter
--- OUTSIDE RECORDS SUMMARY | 2024-11-17 18:12 | XMS_ITS | Encounter Summary ---
Author Organization [facility] Address [address] [place] [address] Phone Care Team Providers Care Customer Experience Retail Clerk Name Role Phone Chitra Chen MD Primary Care Provider [phone] Chitra Chen MD Unavailable [phone] Mir Gonzales MD Unavailable [phone] Reason for Visit * Reason Comments Hearing Loss Pt is here for follo w up for dizziness/vertigo * Consultation (Routine) - Closed Specialty Diagnoses / Procedures Referred By Contac t Referred To Contact Otolaryngology Diagnoses Sensory hearing loss, bilateral Chitra Chen MD Phone: tel: fax: [facility] (All Locations) Referral ID Status Reason Start Date Expiration Date V isits Requested Visits Authorized [id number] Closed Specialty Services Required 11/08/2021 12/08/2022 12 12 Encounter Details Date Type Department Care Team (Late st Contact Info) Description 05/16/2022 2:45 PM CDT Office Visit [facility] Otolaryngology [address] [place] [address] Shaka Conte MD [address] DEPT OTOLARYNGOLOGY, [facility] [address] [place] [address] Sensory hearing loss, bilateral (Primary Dx); Sensorineural hearing loss (SNHL) of both ears Social History Tobacco Use Types Packs/Day Years Used Date Smoking Tobacco: Never Alcohol Use Standard Drinks/Week Comments Not Currently 0 (1 standard drink = 0.6 oz pur e alcohol) Comments Unknown Sex and Gender Information Value Date Recorded Sex Assigned at Not on file 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 Hearing Loss Pt is here for follow up for dizziness/vertigo HPI: This is a 66 y.o. female who presents today for evaluation of her right ear. Patient is seen nearly 1 year following placement of a right cochlear implant. 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 Her course to date has been unremarkable. She continues to gain benefit from her device. She denies any vertigo. Past Medical/Surgical History Past Medical History: Diagnosis [...] - (Added by TW Conv) ? ? [place] REMOVAL OF TONSILS,<12 Y/O Tonsillectomy - (Added [...] Social History Socioeconomic History ??? Marital status: Tobacco Use ??? Smoking status: Never Smoker Substance and Sexual Activity ??? Alcohol use: Not Currently ??? Drug use: Not Currently Medications/Allergies/Immunizations Current Outpatient Medications Medication Sig Dispense Refill ??? acetaminophen-codeine (TYLENOL with CODEINE #3) 300-30 mg per tablet acetaminophen 300 mg-codeine 30 mg tablet TAKE 1 TO 2 TABLETS BY MOUTH EVERY 6 HOURS NEEDED FOR PAIN ??? aspirin 81 mg enteric coated tablet Take 81 mg by mouth 2 (two) times a day ??? calcium [id number] brittanie 133 mg calcium -133 unit-67 mg capsule Take by mouth ??? chlorhexidine (PERIDEX) 0.12 % solution chlorhexidine gluconate 0.12 % mouthwash SWISH AND SPIT 10 TO 15 ML BY MOUTH TWICE DAILY FOR 1 WEEK BEFORE SURGERY AND 1 WEEK AFTER SURGERY ??? clindamycin (CLEOCIN) 300 mg capsule clindamycin HCl 300 mg capsule TAKE ONE CAPSULE FOUR TIMES DAILY UNTIL ALL TAKEN DIRECTED ??? DULoxetine DR (CYMBALTA) 60 mg capsule ??? HYDROcodone-acetaminophen ([place]) 5-325 mg per tablet Take 1 tablet by mouth every 6 (six) hours as needed for pain 15 tablet 0 ??? ibuprofen (ADVIL,MOTRIN) 600 mg tablet ibuprofen 600 mg tablet TAKE 1 TABLET BY MOUTH EVERY 6 HOURS FOR 5 DAYS THEN EVERY 6 HOURS NEEDED ??? losartan (COZAAR) 50 mg tablet ??? meloxicam (MOBIC) 7.5 mg tablet Take 7.5 mg by mouth daily ??? multivitamin tablet ??? ofloxacin (FLOXIN) 0.3 [...] external ears was normal using visual inspection. If the otoscope was inadequate, the otology microscope was used for improved visualization for diagnostic purposes. Otoscopicor microscopic visualization was used for clear magnified visualization and three-dimensional imaging of the ear for detection of any observable pathology or pathologic anatomic configuration and charaterization of same. Right External auditory canal: normal Tympanic Membrane: normal Middle ear: normal Left: External auditory canal: normal Tympanic Membrane: normal Middle ear: normal Nose- No external deformity. Nasal passages clear. OC/OP- No lesions noted. Eyes- No nystagmus. EOMI. Cranial Nerves- 2-12 grossly intact. Neck- No lymphadenopathy or masses palpated. Gait- normal. ASSESSMENT/PLAN Patient is seen 1 year following placement of right cochlear implant, 4 years following retrosigmoid removal of the right acoustic neuroma. Overall she is doing well. She return 1 year with MRI to further assess status of the minimally enhancing lesion noted on her last scan. Will otherwise continue under the care of the cochlear implant audiology team. Shaka Conte M.D. Application Support Analyst, Otology and Neurotology Department of Otolaryngology [facility] [phone] documented in this encounter Plan of Treatment Not on file documented as of this encounter Visit Diagnoses Diagnosis Sensory hearing loss, bilateral- Primary Sensorineural hearing loss (SNHL) of both ears documented in this encounter Historical Medications * This list may reflect changes made after this encounter. acetaminophen-co deine (TYLENOL with CODEINE #3) 300-30 mg per tablet acetaminophen 300 mg-codeine 30 mg tablet TAKE 1 TO 2 TABLETS BY MOUTH EVERY 6 HOURS NEEDED FOR PAIN chlorhexidine (PERIDEX) 0.12 % solution chlorhexidine gluconate 0.12 % mouthwash SWISH AND SPIT 10 TO 15 ML BY MOUTH TWICE DAILY FOR 1 WEEK BEFORE SURGERY AND 1 WEEK AFTER SURGERY clindamycin (CLEOCIN) 300 mg capsule clindamycin HCl 300 mg capsule TAKE ONE CAPSULE FOUR TIMES DAILY UNTIL ALL TAKEN DIRECTED ibuprofen (ADVIL,MOTRIN) 600 mg tablet ibuprofen 600 mg tablet TAKE 1 TABLET BY MOUTH EVERY 6 HOURS FOR 5 DAYS THEN EVERY 6 HOURS NEEDED meloxicam (MOBIC) 7.5 mg tablet Take 7.5 mg by mouth daily 05/10/2022 added in this encounter Care Teams Customer Experience Retail Clerk Relationship Specialty Start Date End Date Chitra Chen MD PCP - General Internal Medicine 09/04/20 Chitra Chen MD Internal Medicine 09/04/20 Mir Gonzales MD Referring Physician Otolaryngology 04/08/19 documented as of this encounter
--- OUTSIDE RECORDS SUMMARY | 2024-11-17 18:12 | XMS_ITS | Clinical Summary ---
Author Organization [facility] Address [address] [place] [address] Care Team Providers Care Talent Acquisition Lead Name Role Phone Chitra Chen MD Primary Care Provider [phone] Chitra Chen MD Unavailable [phone] Mir Gonzales MD Unavailable [phone] Allergies Active Allergy Reactions Criticality Noted Date [...] 2 (two) times a day Active calcium bawr-E0-alheqh ium brittanie 133 mg calcium -133 unit-67 mg capsule Take by mouth Activ e HYDROcodone-ac etaminophen ([place]) 5-325 mg per tabletIndicati ons:Pain Take 1 [...] nevus 03/31/2017 Obesity 02/28/2017 Knee pain 05/27/2016 Surgical History Surgery Date Site/Laterality Comments HI TONSILLECTOMY PRIMARY/SEC ONDARY <AGE 13 Tonsillectomy - (Added by TW Conv) LASIK Corneal LASIK Bilateral - (Added by TW Conv) Medical History Medical History Date Comments Anxiety disorder Anxiety - (Adde d by TW Conv) Personal history of other en docrine, nutritional and metabolic disease History of thyroid d isorder - (Added by TW Conv) Obesity DM (diabetes mellitus) (HCC) Thyroid disease Family History Medical History Relation Name Comments Cancer Brother Family history of malignant neoplasm - (Added by TW Conv) Heart disease Father Family history of cardiac disorder - (Added by TW Conv) Hypertension Father Family history of hypertension - (Added by TW Conv) Cancer Mother Family history of malignant neoplasm - (Added by TW Conv) Heart disease Mother Family history of cardiac disorder - (Added by TW Conv) Lung disease Mother Lung trouble - (Added by TW Conv) Relation Name Status Comments Brother Father Mother Social History Tobacco Use Types Packs/Day Years Used Date Smoking Tobacco: Never Alcohol Use Standard Drinks/Week Comments Not Currently 0 (1 standard drink = 0.6 oz pur e alcohol) Comments Unknown Sex and Gender Information Value Date Recorded Sex Assigned at Not on file 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 Gender Identity Female 03/19/2020 9:59 AM CDT Sexual Orientation Straight 03/19/2020 9: 59 AM CDT Obstetrics History Last Filed Vital Signs Vital Sign Reading Time Taken Comments Blood Pressure 122/80 10/14/2020 3:00 PM CHECK[employer] Pulse 96 10/14/2020 3:00 PM CHECK[employer] Temperature - - Respiratory Rate - - Oxygen Saturation 96% 10/14/2020 3:00 PM CHECK[employer]DS Inhaled Oxygen Concentration - - Weight 127.4 kg (280 lb 14.4 oz) 10/14/2020 3:00 PM [employer] Height 180.3 cm (5' 11 ) 10/14/2020 3:00 PM CHECK[employer] Body Mass Index 39.18 10/14/2020 3:00 PM CHECKER [employer] Plan of Treatment Health Maintenance Due Date Last Done Comments Albumin Creatinine Ratio, Urine 1955 Colon Cancer Screening-Colonoscopy 1955 Depression Screening 1956 Fall Risk Assessment 1956 Hemoglobin A1C 1956 Hepatitis C Screening 1956 eGFR 1956 Dilated Eye Exam 1956 Foot Exam 1956 Pneumococcal vaccine 65+ (1 of 2 - PCV) 1962 Hepatitis B Screening 1974 Breast Cancer Screening-Mammogram 01/22/2016 01/22/2015, 01/22/2015, 08/05/2013, Additional history exists Zoster Vaccine (2 of 2) 11/20/2019 09/25/2019 Well Visit 65+ 2021 Lipid Panel 10/14/2021 10/14/2020 Influenza Vaccine (#1) 2024 1, 08/07/2019, 08/06/2019, Additional history exists Osteoporosis Screening-Bone Density Scan 05/02/2025 05/02/2023, 08/12/2020 DTaP/Tdap/Td Vaccine (2 - Td or Tdap) 11/14/2028 11/14/2018 Procedures Procedure Name Priority Date/Time Associated Diagnosis Comments POCT LIPID PANEL Routine 10/14/2020 5:34 PM CHECKER [employer] Dyslipidemia from Last 3 Months or Most Recently Relevant to Health Maintenance Results * POCT lipid panel (10/14/2020 5:34 PM CHECKER DU[employer]) Cholesterol, POC 169 mg/dL Comment:GLU = 124 HDL, POC 77 mg/dL Triglycerides, POC 185 mg/dL LDL Cholesterol POC 56 mg/dL Chol/HDL Ratio, POC 2.2 Non-HDL Cholesterol, POC 93 mg/dL Cholesterol Total, POC 169 mg/dL Capillary blood 10/14/2020 5 :34 PM CHECKER [employer] us Seamus Landaverde MD POINT OF CARE TEST ORDERABLES Fi nal Result from Last 3 Months or Most Recently Relevant to Health Maintenance [facility] [id number] [employer] [facility] AETNA MEDICARE Care Teams Talent Acquisition Lead Relationship Specialty Start Date End Date Chitra Chen MD PCP - General Internal Medicine 09/04/20 Chitra Chen MD Internal Medicine 09/04/20 Mir Gonzales MD Referring Physician Otolaryngology 04/08/19
--- OUTSIDE RECORDS SUMMARY | 2024-11-17 18:12 | XMS_ITS | Encounter Summary ---
Author Organization [facility] Address [address] [place] [address] Phone Care Team Providers Care Business Development Recruiter Name Role Phone Chitra Chen MD Primary Care Provider [phone] Chitra Chen MD Unavailable Mir Gonzales MD Unavailable [phone] Encounter Details Date Type Department Care Team (Late st Contact Info) Description 09/05/2023 Telephone [facility] Otolaryngology 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 PT is aware of both appts and dates documented in this encounter Plan of Treatment Not on file documented as of this encounter Visit Diagnoses Not on filedocumented in this encounter Care Teams Business Development Recruiter Relationship Specialty Start Date End Date Chitra Chen MD PCP - General Internal Medicine 09/04/20 Chitra Chen MD Internal Medicine 09/04/20 Mir Gonzales MD Referring Physician Otolaryngology 04/08/19 documented as of this encounter
--- OUTSIDE RECORDS SUMMARY | 2024-11-17 18:12 | XMS_ITS | Data Portability ---
Author Organization [facility], Main Office Address [address] [place] [id number] Care Team Providers Care Spout Liner Name Role Phone CAIT CABELLO Primary Care Provider CAIT CABELLO Referring Provider [phone] Assessment Encounter Date Assessment Date Assessment LastModified by Organization Details LastModified Time 07/10/2023 07/10/2023 patient returns. She is now 4 and half months after right proximal humerus fracture on February 22. She still has some soreness over the anterior biceps and posterior shoulder with certain movements but she is not having pain all day now and she feels that over the last month her symptoms have improved greatly. She feels the physical therapy has been very helpful. On exam today she has active elevation 135 passive 140 external rotation 50 internal rotation L1. Her strength is much better today. She has normal external rotation strength only trace weakness with thumbs down abduction strength testing and normal belly press. minimal tenderness over the anterior shoulder today. Patient would like to continue with physical therapy as she feels it is helping her greatly. We will work on core strengthening exercises continue with stretching I will see her back in a month to assess her progress. 20 minutes were spent in total care this patient with more than half the time spent in [id number] care. Not available 07/31/2023 14:10:57 08/16/2023 08/16/2023 Impression: Patient has symptoms of intermittent tingling in the left C6 nerve root distribution. She has some spasm in her left trapezius associated with this and some neck pain. She has a long history of crunching in her neck in the morning when she starts to move it. The she does not have a motor deficit or constant numbness. I have given her the care the neck instruction booklet and I would like her to read that and follow the advice contained. Posture can be very important. I have prescribed a Medrol Dosepak for her. She would like to continue going with physical therapy and I have left orders for her them to work on neck range of motion as well. I will see her back in 1 month to assess her progress. She has worsening symptoms or worsening clinical findings and MRI scan of her cervical spine may be necessary. Many patients will have resolution symptoms with simple observation time. If she is still having problems with her neck at return visit we will obtain x-rays of her cervical spine at that time. 30 minutes were spent in total care this patient more than half the time spent in [id number]-vu-dtde care. Not available 08/16/2023 10:25:27 09/13/2023 09/13/2023 Impression: 1. Patient is now 6 and half months after right proximal humerus fracture with a very good result. She feels that she is making continued progress and she attributes this the physical therapy would like to continue with physical therapy for another month. Her improvement in strength has been surprisingly good. Her range of motion is very good as well. 2. Patient has improving neck pain and tingling in the left arm which is thought to be radicular. She would like to continue with physical therapy for that problem as well and I have discussed her that if she would like we can order an MRI scan and refer her to neurosurgery for further evaluation and recommendations. 3. Patient has posttraumatic arthritis in the left knee would like another cortisone shot today. Risk of side effects including risk of infection discussed. After ChloraPrep prep, 20 mg of Kenalog and 4 cc of 0.5% ropivacaine were injected into the left knee without difficulty. I will see her back on an as-needed basis. 30 minutes were spent total care this patient more than half the time spent in jujy-wq-gyot care. Not available 10/01/2023 16:37:52 Plan of Treatment Reminders Order Date Submit Date Provider Last Modified By Organization Details Last Modified Time Details Appointments None recorded. Lab CBC w/ auto diff 2022 023 [facility], [address] [place] [address], [address], 08/24/202 3 14:09:54 HbA1c (hemoglobin A1c), blood [address], [address] [place] [address], [address], 3 08:20:12 CMP, serum or plasma 2022 023 [facility], [address] [place] [address], [address], 3 14:17:08 lipid panel, serum 2022 023 [facility], [address] [place] [address], [address], 3 14:17:01 T4, free, serum 2022 023 [facility], [address] [place] [address], [address], 3 14:33:58 TSH, serum or plasma 2022 023 [facility], [address] [place] [address], [address], 3 14:49:13 BMP, serum or plasma 2022 023 [facility], [address] [place] [address], [address], 3 19:56:33 HbA1c (hemoglobin A1c), blood [address], [address] [place] [address], [address], 3 08:39:33 TSH, serum, reflex free T4 [address], [address] [place] [address], [address], 3 08:39:33 lipid panel, serum 2022 023 [facility], [address] [facility], [place], [address], 3 19:56:[address] referral - lesion left face. eval and treat 2022 023 [place] [address] Kayli Boyle MD (Dermatology) , [address], [address], [place], [address], 3 09:18:36 endocrinolo gy referral - was seeing samuel orr, but she is leaving [email or web address] - Endocrinology , [address], [address], [place], [address], 3 09:18:32 Procedures injection/a spiration joint/bursa (PROC) - in office procedure, administere d by provider 2022 023 [email or web address] In-Office Order, Internal Use Only DO Not Attach Compendium DO Not Attach Compendium, Do Not Delete/merge, [id number] 3 09:57:13 Surgeries None recorded. Imaging None recorded. Medication Orders Medrol (José) 4 mg tablets in a dose pack [facility]22 [facility]23 [id number], [address] [place] [address], [id number], 3 10:09:35 Kenalog 10 mg/mL suspension for injection 2022 023 [facility], [address] [place] [address], [id number], 3 10:09:24 ropivacaine (PF) 5 mg/mL (0.5 %) injection solution 2022 023 [place] [address] [facility] #46227, [address], [place], [id number], 3 10:09:44 Ozempic 1 mg/dose (4 mg/3 mL) subcutaneou s pen injector 2022 023 [id number], [address], [place], [id number], 3 10:51:19 duloxetine 30 mg capsule,del ayed release 2022 023 [facility] #73139, [address], [place], [id number], 10:58:43 Patient TargetsNo targets recorded. Patient Instructions Encounter Date Encounter Id Patient Instructions Last Modified By Organization Details Last Modified Time 07/20/2023 [id number] FU in 4-6 mo. [email or web address] Not available 0 07/20/2023 09:59:34 11/14/2023 [id number] FU in 4 mo 11/14/23 pt aware of Omar departure. Monitor bp. 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 eval and treat Referring Physician: Cait Cabello, Family Medicine, Encounter Date: 07/20/2023 Results Created Date Observation Date Name Description Value Unit Range Abnormal Flag Note LastModifiedBy Organization Detail LastModifiedTime 07/20/2007/20/2023 CBC/C OMPLE TE BLD COUNT W/DIF F white blood cells 6.8 x10'3 /uL 4.2-10 .8 Not Available [facility] (Lab) [address] [place], [address], 07/20/2023 14:09:54 07/20/20 23 07/20/2023 CBC/C OMPLE TE BLD COUNT W/DIF F red blood cells 4.91 x10'6 /uL 3.80-5 .20 Not Available [facility] (Lab) [address] [place], [address], 07/20/2023 14:09:54 07/20/20 23 07/20/2023 CBC/C OMPLE TE BLD COUNT W/DIF F hemoglobin 13.9 g/dL 12.0-1 5.6 Not Available [facility] (Lab) [address] [place], [address], 07/20/2023 14:09:54 07/20/2007/20/2023 CBC/C OMPLE TE BLD COUNT W/DIF F hematocrit 43.4 % 35.7-4 5.7 Not Available [facility] (Lab) [address] [place], [address], 07/20/2023 14:09:54 07/20/20 23 07/20/2023 CBC/C OMPLE TE BLD COUNT W/DIF F mean red cell volume 88.4 fL 82.0-9 9.0 Not Available [facility] (Lab) [address] [place], [address], 07/20/2023 14:09:54 07/20/2007/20/2023 CBC/C OMPLE TE BLD COUNT W/DIF F mean red cell hemoglobin 28.3 pg 27.0-3 3.0 Not Available [facility] (Lab) [address] [place], [address], 07/20/2023 14:09:54 07/20/2007/20/2023 CBC/C OMPLE TE BLD COUNT W/DIF F mean RBC HGB concentratio n 32.0 g/dL 31.0-3 6.0 Not Available [facility] (Lab) [address] [place], [address], 07/20/2023 14:09:54 07/20/20 23 07/20/2023 CBC/C OMPLE TE BLD COUNT W/DIF F red cell distribution width 13.5 % 11.8-1 5.5 Not Available [facility] (Lab) [address] [place], [address], 07/20/2023 14:09:54 07/20/20 23 07/20/2023 CBC/C OMPLE TE BLD COUNT W/DIF F platelets 237 x10'3 /uL 150-40 0 Not Available [facility] (Lab) [address] [place], [address], 07/20/2023 14:09:54 07/20/20 23 07/20/2023 CBC/C OMPLE TE BLD COUNT W/DIF F mean platelet volume 11.5 fL 9.0-12 .4 Not Available [facility] (Lab) [address] [place], [address], 07/20/2023 14:09:54 07/20/20 23 07/20/2023 CBC/C OMPLE TE BLD COUNT W/DIF F neutrophils 68.7 % 39.0-7 2.0 Not Available [facility] (Lab) [address] [place], [address], 07/20/2023 14:09:54 07/20/2007/20/2023 CBC/C OMPLE TE BLD COUNT W/DIF F lymphocytes 21.1 % 16.0-4 7.0 Not Available [facility] (Lab) [address] [place], [address], 07/20/2023 14:09:54 07/20/2007/20/2023 CBC/C OMPLE TE BLD COUNT W/DIF F monocytes 6.0 % 5.0-12 .0 Not Available [facility] (Lab) [address] [place], [address], 07/20/2023 14:09:54 07/20/20 23 07/20/2023 CBC/C OMPLE TE BLD COUNT W/DIF F eosinophils 3.2 % 1.0-7. 0 Not Available [facility] (Lab) [address] [place], [address], 07/20/2023 14:09:54 07/20/20 23 07/20/2023 CBC/C OMPLE TE BLD COUNT W/DIF F basophils 0.7 % 0.0-2. 0 Not Available [facility] (Lab) [address] [place], [address], 07/20/2023 14:09:54 07/20/20 23 07/20/2023 CBC/C OMPLE TE BLD COUNT W/DIF F immature granulocytes 0.3 % 0.00-0 .50 Not Available [facility] (Lab) [address] [place], [address], 07/20/2023 14:09:54 07/20/20 23 07/20/2023 CBC/C OMPLE TE BLD COUNT W/DIF F neutrophils, absolute count 4.67 x10'3 /uL 1.5-8. 0 Not Available [facility] (Lab) [address] [place], [address], 07/20/2023 14:09:54 07/20/2007/20/2023 CBC/C OMPLE TE BLD COUNT W/DIF F lymphocytes, absolute count 1.44 x10'3 /uL 1.07-3 .43 Not Available [facility] (Lab) [address] [place], [address], 07/20/2023 14:09:54 07/20/2007/20/2023 CBC/C OMPLE TE BLD COUNT W/DIF F monocytes, absolute count 0.41 x10'3 /uL 0.29-0 .99 Not Available [facility] (Lab) [address] [place], [address], 07/20/2023 14:09:54 07/20/20 23 07/20/2023 CBC/C OMPLE TE BLD COUNT W/DIF F eosinophils, absolute count 0.22 x10'3 /uL 0.02-0 .53 Not Available [facility] (Lab) [address] [place], [address], 07/20/2023 14:09:54 07/20/20 23 07/20/2023 CBC/C OMPLE TE BLD COUNT W/DIF F basophils, absolute count 0.05 x10'3 /uL 0.01-0 .08 Not Available [facility] (Lab) [address] [place], [address], 07/20/2023 14:09:54 07/20/20 23 07/20/2023 CBC/C OMPLE TE BLD COUNT W/DIF F immature granulocytes ,absolute 0.02 x10'3 /uL 0.00-0 .05 Not Available [facility] (Lab) [address] [place], [address], 07/20/2023 14:09:54 07/20/20 23 07/20/2023 CBC/C OMPLE TE BLD COUNT W/DIF F nucleated red blood cells 0.0 % -0 Not Available [facility] (Lab) [address] [place], [address], 07/20/2023 14:09:54 07/20/20 23 07/20/2023 CBC/C OMPLE TE BLD COUNT W/DIF F NRBC# 0.00 x10'3 /uL Not Available [facility] (Lab) [address] [place], [address], 07/20/2023 14:09:54 07/20/20 23 07/20/2023 LIPID PANEL cholesterol 171 mg/dL 140-19 9 [facility] L[facility] NSUS RECOM MENDA TION FOR JAE STERO L: ADULT CHILD LOW RISK: <200 <170 BORDE RLINE : <200- 239 ----- HIGH RISK: >240 >200 Not Available [facility] (Lab) [address] [place], [address], 07/20/2023 14:17:01 07/20/20 23 07/20/2023 LIPID PANEL triglyceride s 84 mg/dL 0-150 NIH L[facility]A NSUS REPOR T RECOM MENDA TION FOR TRIGL YCERI THERESE: ADULT CHILD LOW RISK: <150 ----- BODER LINE: 150-1 99 ----- HIGH RISK: >200 ----- Not Available [facility] (Lab) [address] [place], [address], 07/20/2023 14:17:01 07/20/20 23 07/20/2023 LIPID PANEL HDL cholesterol 70 mg/dL 40- Not Available [facility] (Lab) [address] [place], [address], 07/20/2023 14:17:01 07/20/2007/20/2023 LIPID PANEL LDL cholesterol, calculated 84 mg/dL 0-130 NIH L[facility]A NSUS REPOR T RECOM MENDA TIONS FOR LDL: ADULT CHILD LOW RISK <130 <110 (OPTI MAL LDL) <100 ----- BORDE RLINE : 130-1 59 ----- HIGH RISK: >160 >130 A TRIGL YCERI DE RESUL T >400 INVAL IDATE S THE CALCU LATIO N FOR LDL FRACT IONAT ION - THE LDL RESUL T WILL NOT BE REPOR SOUMYA. Not Available [facility] (Lab) [address] [place], [address], 07/20/2023 14:17:01 07/20/2007/20/2023 COMPR EHENS FRANSISCA METAB OLIC PANEL sodium 140 mmol/ L 137-14 5 Not Available [facility] (Lab) [address] [place], [address], 07/20/2023 14:17:07 07/20/20 23 07/20/2023 COMPR EHENS FRANSISCA METAB OLIC PANEL potassium 4.1 mmol/ L 3.5-5. 1 Not Available [facility] (Lab) [address] [place], [address], 07/20/2023 14:17:07 07/20/20 23 07/20/2023 COMPR EHENS FRANSISCA METAB OLIC PANEL chloride 107 mmol/ L 98-107 Not Available [facility] (Lab) [address] [place], [address], 07/20/2023 14:17:07 07/20/20 23 07/20/2023 COMPR EHENS FRANSISCA METAB OLIC PANEL carbon dioxide 26 mmol/ L 22-30 Not Available [facility] (Lab) [address] [place], [address], 07/20/2023 14:17:07 07/20/20 23 07/20/2023 COMPR EHENS FRANSISCA METAB OLIC PANEL anion gap 11.1 mmol/ L 14-22 low Not Available [facility] (Lab) [address] [place], [address], 07/20/2023 14:17:07 07/20/20 23 07/20/2023 COMPR EHENS FRANSISCA METAB OLIC PANEL glucose 125 mg/dL 70-99 high Not Available [facility] (Lab) [address] [place], [address], 07/20/2023 14:17:07 07/20/20 23 07/20/2023 COMPR EHENS FRANSISCA METAB OLIC PANEL BUN 14 mg/dL 8-19 Not Available [facility] (Lab) [address] [place], [address], 07/20/2023 14:17:07 07/20/20 23 07/20/2023 COMPR EHENS FRANSISCA METAB OLIC PANEL creatinine 0.57 mg/dL 0.66-1 .25 low Not Available [facility] (Lab) [address] [place], [address], 07/20/2023 14:17:07 07/20/2007/20/2023 COMPR EHENS FRANSISCA METAB OLIC PANEL GFR >60 Refer ence Range : Wyano ge GFR Healt hy Adult : >60 mL/mi n/1.7 3 m2 Chron ic Kidne y Disea se: 15-60 mL/mi n/1.7 3 m2 Kidne y Failu re: <15/m L/min /1.73 m2 www.n iddk. nih.g ov The MDRD study equat ion has not been valid ated in child elsi <18 years of age; pregn ant women ; the elder ly >85 years of age; or in some racia l or ethni c subgr oups, such as Hissaad nics. Outsi de the valid ated rohit eters , estim ated GFR is less accur ate, requi ring clini elda judgm ent on a case- by-ca se basis . Clini elda inter preta tion for other races and ages must be made by the clini nancy. The MDRD study equat ion has not been valid ated for the evalu ation of serum creat inine relat ed to nutri sacha l statu s or medic ation usage . For perso ns <18 years of age, a pedia tric GFR calcu lator is avail able on the [facility] websi te: https ://evelio magana.luiz rg/pr ofess ional s/kdo qi/gf r_cal culat or Not Available [facility] (Lab) [address] [place], [address], 07/20/2023 14:17:07 07/20/2007/20/2023 COMPR EHENS FRANSISCA METAB OLIC PANEL alkaline phosphatase 87 U/L 38-126 Not Available [facility] (Lab) [address] [place], [address], 07/20/2023 14:17:07 07/20/2007/20/2023 COMPR EHENS FRANSISCA METAB OLIC PANEL alanine aminotransfe rase 19 U/L 0-35 Not Available [facility] (Lab) [address] [place], [address], 07/20/2023 14:17:07 07/20/20 23 07/20/2023 COMPR EHENS FRANSISCA METAB OLIC PANEL aspartate aminotransfe rase 21 U/L 15-37 Not Available [facility] (Lab) [address] [place], [address], 07/20/2023 14:17:07 07/20/20 23 07/20/2023 COMPR EHENS FRANSISCA METAB OLIC PANEL bilirubin, total 0.40 mg/dL 0.20-1 .30 Not Available [facility] (Lab) [address] [place], [address], 07/20/2023 14:17:07 07/20/20 23 07/20/2023 COMPR EHENS FRANSISCA METAB OLIC PANEL calcium 8.7 mg/dL 8.4-10 .2 Not Available [facility] (Lab) [address] [place], [address], 07/20/2023 14:17:07 07/20/20 23 07/20/2023 COMPR EHENS FRANSISCA METAB OLIC PANEL total protein 6.7 g/dL 6.3-8. 2 Not Available [facility] (Lab) [address] [place], [address], 07/20/2023 14:17:07 07/20/20 23 07/20/2023 COMPR EHENS FRANSISCA METAB OLIC PANEL albumin 4.0 g/dL 3.0-4. 4 Not Available [facility] (Lab) [address] [place], [address], 07/20/2023 14:17:07 07/20/20 23 07/20/2023 COMPR EHENS FRANSISCA METAB OLIC PANEL globulin 2.7 g/dL 2.6-4. 2 Not Available [facility] (Lab) [address] [place], [address], 07/20/2023 14:17:07 07/20/20 23 07/20/2023 COMPR EHENS FRANSISCA METAB OLIC PANEL A/G ratio 1.5 ratio 1.0-2. 0 Not Available [facility] (Lab) [address] [place], [address], 07/20/2023 14:17:07 07/20/20 23 07/20/2023 T4 FREE free T4 1.25 NG/dL 0.78-2 .19 Not Available [facility] (Lab) [address] [place], [address], 07/20/2023 14:33:57 07/20/20 23 07/20/2023 TSH thyroid-stim ulating hormone 0.237 uIU/m L 0.465- 4.680 low Not Available [facility] (Lab) [address] [place], [address], 07/20/2023 14:49:13 07/20/2007/20/2023 HEMOG LOBIN A1C HA1C 6.2 % 4.0-6. 0 high Diabe lisandro Scree pedro Crite rob: <5.7% Consi stent with absen ce of diabe lisandro 5.7-6 .4% Consi stent with incre ased risk for diabe lisandro (pred iabet es) >OR=6 .5% Consi stent with diabe lisandro REFER ENCE: Diabe lisandro Care 2016, 39(Branham ppl.1 ):s13 -s22 Not Available [facility] (Lab) [address] [place], [address], 07/20/2023 20:25:02 11/14/20 23 11/14/2023 BASIC METAB OLIC PANEL sodium 140 mmol/ L 137-14 5 Not Available [facility] (Lab) [address] [place], [address], 11/14/2023 19:56:32 11/14/20 23 11/14/2023 BASIC METAB OLIC PANEL potassium 4.5 mmol/ L 3.5-5. 1 Not Available [facility] (Lab) [address] [place], [address], 11/14/2023 19:56:32 11/14/20 23 11/14/2023 BASIC METAB OLIC PANEL chloride 106 mmol/ L 98-107 Not Available [facility] (Lab) [address] [place], [address], 11/14/2023 19:56:32 11/14/20 23 11/14/2023 BASIC METAB OLIC PANEL carbon dioxide 28 mmol/ L 22-30 Not Available [facility] (Lab) [address] [place], [address], 11/14/2023 19:56:32 11/14/20 23 11/14/2023 BASIC METAB OLIC PANEL anion gap 10.5 mmol/ L 14-22 low Not Available [facility] (Lab) [address] [place], [address], 11/14/2023 19:56:32 11/14/20 23 11/14/2023 BASIC METAB OLIC PANEL glucose 139 mg/dL 70-99 high Not Available [facility] (Lab) [address] [place], [address], 11/14/2023 19:56:32 11/14/20 23 11/14/2023 BASIC METAB OLIC PANEL BUN 14 mg/dL 8-19 Not Available [facility] (Lab) [address] [place], [address], 11/14/2023 19:56:32 11/14/20 23 11/14/2023 BASIC METAB OLIC PANEL creatinine 0.67 mg/dL 0.66-1 .25 Not Available [facility] (Lab) [address] [place], [address], 11/14/2023 19:56:32 11/14/20 23 11/14/2023 BASIC METAB OLIC PANEL GFR >60 Refer ence Range : Wyano ge GFR Healt hy Adult : >60 mL/mi n/1.7 3 m2 Chron ic Kidne y Disea se: 15-60 mL/mi n/1.7 3 m2 Kidne y Failu re: <15/m L/min /1.73 m2 www.n iddk. nih.g ov The MDRD study equat ion has not been valid ated in child elsi <18 years of age; pregn ant women ; the elder ly >85 years of age; or in some racia l or ethni c subgr oups, such as Hissaad nics. Outsi de the valid ated rohit eters , estim ated GFR is less accur ate, requi ring clini elda judgm ent on a case- by-ca se basis . Clini elda inter preta tion for other races and ages must be made by the clini nancy. The MDRD study equat ion has not been valid ated for the evalu ation of serum creat inine relat ed to nutri sacha l statu s or medic ation usage . For perso ns <18 years of age, a pedia tric GFR calcu lator is avail able on the [facility] websi te: https ://evelio cabrales.sami magana.o rg/pr ofess ional s/kdo qi/gf r_cal culat or Not Available [facility] (Lab) [address] [place], [address], 11/14/2023 19:56:32 11/14/20 23 11/14/2023 BASIC METAB OLIC PANEL calcium 9.0 mg/dL 8.4-10 .2 Not Available [facility] (Lab) [address] [place], [address], 11/14/2023 19:56:32 11/14/20 23 11/14/2023 LIPID PANEL cholesterol 167 mg/dL 140-19 9 NIH L[facility] NSUS RECOM MENDA TION FOR JAE STERO L: ADULT CHILD LOW RISK: <200 <170 BORDE RLINE : <200- 239 ----- HIGH RISK: >240 >200 Not Available [facility] (Lab) [address] [place], [address], 11/14/2023 19:56:35 11/14/20 23 11/14/2023 LIPID PANEL triglyceride s 90 mg/dL 0-150 NIH L[facility]A NSUS REPOR T RECOM MENDA TION FOR TRIGL YCERI THERESE: ADULT CHILD LOW RISK: <150 ----- BODER LINE: 150-1 99 ----- HIGH RISK: >200 ----- Not Available [facility] (Lab) [address] [place], [address], 11/14/2023 19:56:35 11/14/20 23 11/14/2023 LIPID PANEL HDL cholesterol 74 mg/dL 40- Not Available [facility] (Lab) [address] [place], [address], 11/14/2023 19:56:35 11/14/20 23 11/14/2023 LIPID PANEL LDL cholesterol, calculated 75 mg/dL 0-130 NIH L[facility]A NSUS REPOR T RECOM MENDA TIONS FOR LDL: ADULT CHILD LOW RISK <130 <110 (OPTI MAL LDL) <100 ----- BORDE RLINE : 130-1 59 ----- HIGH RISK: >160 >130 A TRIGL YCERI DE RESUL T >400 INVAL IDATE S THE CALCU LATIO N FOR LDL FRACT IONAT ION - THE LDL RESUL T WILL NOT BE REPOR SOUMYA. Not Available [facility] (Lab) [address] [place], [address], 11/14/2023 19:56:35 11/14/20 23 11/14/2023 TSH W/REF OCTAVIANO FT4 TSH with reflex free T4 0.929 uIU/m L 0.465- 4.680 Not Available [facility] (Lab) [address] [place], [address], 11/14/2023 20:29:55 11/14/20 23 11/14/2023 HEMOG LOBIN A1C HA1C 6.1 % 4.0-6. 0 high Diabe lisandro Scree pedro Crite rob: <5.7% Consi stent with absen ce of diabe lisandro 5.7-6 .4% Consi stent with incre ased risk for diabe lisandro (pred iabet es) >OR=6 .5% Consi stent with diabe lisandro REFER ENCE: Diabe lisandro Care 2016, 39(Branham ppl.1 ):s13 -s22 Not Available [facility] ([facility]) [address] [place], [address], 11/14/2023 21:34:36 06/12/20 23 XR, shoul angella No observ ation record ed. [email or web address] [facility] [address], [place], [address], 06/12/2023 16:21:54 Result Notes None recorded. Problems Name Problem SNOMED Code Status Onset Date Resolution Date Notes Provider Name and Address Organization Details Recorded Time Pain in throat [id number] Completed Not Available [facility] 3 04:54:40 Edema 303506349 Completed Not Available [facility] 3 04:54:40 Anemia 221359711 Completed Not Available [facility] 3 04:54:40 Weight loss advised 747263561 Active 2017 Not Available [facility] 3 04:54:40 Pain in pelvis 76801799 Completed Not Available [facility] 3 04:54:41 Type 2 diabetes mellitus without complicat ion 100356544 Active 2017 Not Available [facility] 3 04:54:41 Vitamin D deficienc y 89135983 Active Not Available [facility] 3 04:54:41 Depressiv e disorder 72167367 Completed Not Available [facility] 3 04:54:41 Polyarthr opathy 92015398 Active 2021 Not Available [facility] 3 04:54:41 Sinusitis 68775649 Completed Not Available [facility] 3 04:54:41 Melanocyt ic nevus 053631210 Active 2016 Not Available [facility] 3 04:54:41 Hypothyro idism 22681401 Active Not Available [facility] 3 04:54:41 Obese 414926766 Active 2016 Not Available [facility] 3 04:54:41 Obesity 794886225 Active Not Available [facility] 3 04:54:41 Type 2 diabetes mellitus 80477492 Active Not Available [facility] 3 04:54:41 Seasonal allergy 614005170 Active Not Available [facility] 3 04:54:42 Pain of left knee joint 54764271331 4107 Active 2021 Not Available [facility] 3 04:54:42 Hearing loss of right ear 051807417 Active 2016 Not Available [facility] 3 04:54:42 Foot pain 60909900 Completed Not Available [facility] 3 04:54:42 Bilateral tinnitus 93004614655 02 Active 2016 Not Available [facility] 3 04:54:42 Hip pain 77506471 Active 2016 Not Available [facility] 3 04:54:42 Cough 02004374 Completed Not Available [facility] 3 04:54:42 Hyperlipi demia 16071248 Active Not Available [facility] 3 04:54:42 Essential hypertens ion 55922918 Active 2020 Not Available [facility] 3 04:54:43 Diabetes mellitus 28752049 Active 2016 Not Available [facility] 3 04:54:43 Posterior rhinorrhe a 63875814 Completed Not Available [facility] 3 04:54:43 Hyperglyc emia 47023727 Completed Not Available [facility] 3 04:54:43 Injury of head 60799475 Completed Not Available [facility] 3 04:54:43 Perniciou s anemia 91203648 Active Not Available [facility] 3 04:54:43 Fatigue 65603333 Completed Not Available [facility] 3 04:54:43 Fracture of humerus 57532314 Active 2022 Cait Cabello NP [address], [address], [place], [address] , [facility] 3 21:39:20 Pain of left shoulder joint 39381165245 208694 Active 2022 Roxanna Abraham RMA null, [facility] 3 10:43:17 Pain of right shoulder joint 39646872280 390181 Active 2022 Roxanna Abraham RMA null, [facility] 3 10:43:42 Osteoporo sis 71858953 Active 2022 Nadia Sunshine ELECTRICAL ENGINEERING TECHNOLOGIST null, [facility] 3 15:44:52 Fracture of shoulder 98051721000 234308 Active 2022 Roxanna Abraham RMA null, [facility] 3 16:48:10 Closed fracture of upper end of humerus 63714055 Active 2022 Roxanna Abraham RMA null, [facility] 3 10:04:23 Insomnia 059472299 Active 2022 Cait Cabello NP [address], [address], [place], [address] , [facility] 3 11:44:09 Anxiety 04877620 Active 2022 Cait Cabello NP [address], [address], [place], [address] , [facility] 3 13:55:32 Hyperpara thyroidis m 90220514 Active 2022 Sheryl Kingston ELECTRICAL ENGINEERING TECHNOLOGIST null, [facility] 3 11:28:47 Pain of right wrist 64003786803 9100 Active 2022 Nadia Sunshine CMA null, [facility] 3 10:46:10 Abnormal weight 91659835 Active 2022 Liz Izaguirre MA null, [facility] 3 09:04:17 Lesion of skin of face 50731947068 6 Active 2022 Cait Cabello NP [address], [address], [place], [address] , [facility] [facility] 3 09:31:45 Neck pain 72376981 Active 2022 Nadia Sunshine CMA null, [facility] 3 10:20:10 Osteoarth ritis of left knee joint 11880624833 9109 Active 2022 Nadia Sunshine CMA null, [facility] 3 09:41:38 Problem Notes None recorded. Procedures Surgical History Date Name Laterality Status Provider Name and Address Organization Details Recorded Time 3 Most Recent Bone Density completed Cait Cabello NP [address], [address], [place], [address], [facility] 05/03/2023 14:12:58 2 Most Recent Mammogram completed Cait Dodson RN [facility] 04/12/2023 11:04:32 tonsilectomy/a denoids completed Not Available [facility] 01/25/2023 04:44:18 acoustic neurotomy completed Not Available [facility] 01/25/2023 04:44:18 Tubal Ligation completed Not Available [facility] 01/25/2023 04:44:18 Imaging Results Imaging Date Name Status LastModified by Organiz ation Details LastModified Time 06/12/2023 XR, shoulder completed [email or web address] [id number] [place] [address], [place], [address], 06/12/2023 16:21:54 Procedure Notes None recorded. Medical Equipment None Reported. Allergies Allergen ID Allergen Name Allergen Category Reaction Reaction Severity Criticality Documentation Date Start Date Code Code System Note Provider Name and Address Organization Details Recorded Time 9099 Medicinal product containin g penicilli n and acting as antibacte rial agent (product) medicatio n rash Not available Not available 01/25/2023 31454 05 SNOMED Not Available [facility] 3 05:07:49 Medications Name Sig Start Date Stop Date Status Note LastModified by Organization Details LastModified Time losartan 50 mg tablet active Not Available Not Available Not Available furosemid e 40 mg tablet TAKE 1 TABLET BY MOUTH DAILY QAM active Not Available Not Available No t Available prednison e 10 mg tablet 05/25 completed Not Available Not Available Not Available clindamyc in HCl 300 mg capsule TAKE ONE CAPSULE FOUR TIMES DAILY UNTIL ALL TAKEN DIRECTED 07/19 completed Not Available Not Available Not Available trazodone 50 mg tablet TAKE 1 TABLET BY MOUTH EVERY DAY 04/12 completed Not Available Not Available Not Available azithromy silvia 250 mg tablet ZPK 03/18 completed Not Available Not Available Not Available hydrocodo ne 5 mg-acetam inophen 325 mg tablet TAKE 1 TABLET BY MOUTH EVERY 4 HOURS NEEDED 04/26 completed Not Available Not Available Not Available lisinopri l 20 mg tablet TAKE 1 TABLET BY MOUTH EVERY DAY IN THE MORNING 01/24 completed Not Available Not Available Not Available Synthroid 125 mcg tablet TAKE 1 TABLET BY MOUTH EVERY DAY IN THE MORNING 02/06 completed Not Available Not Available Not Available prednison e 20 mg tablet 03/18 completed Not Available Not Available Not Available phentermi ne 15 mg capsule TK 1 C PO BID active Not Available Not Available No t Available clindamyc in HCl 150 mg capsule TAKE ALL 4 CAPSULES 1 HOUR PRIOR TO SURGERY 11/07 completed Not Available Not Available Not Available Wellbutri n SR 150 mg tablet, 12 hr sustained -release 1 TABLET BID 12/17 completed Not Available Not Available Not Available phentermi ne 37.5 mg tablet TK 1 T PO QAM 30 MIN BEFORE BREAKFAS T 10/08 completed Not Available Not Available Not Available acetamino phen 300 mg-codein e 30 mg tablet TAKE 1 TO 2 TABLETS BY MOUTH EVERY 6 HOURS NEEDED FOR PAIN 11/07 completed Not Available Not Available Not Available sulfameth oxazole 800 mg-trimet hoprim 160 mg tablet TK 1 T PO Q 12 H FOR 7 DAYS 11/01 completed Not Available Not Available Not Available tramadol 50 mg tablet TK 1 T PO Q 4 H PRN active Not Available Not Available No t Available triamcino lone acetonide 0.1 % topical cream APPLY TO RASH TWICE DAILY FOR UP TO 4 WEEKS. TAKE A 2 WEEK BREAK ONCE RESOLVED . THEN USE TWICE A WEEK FOR 6 MONTHS. DO NOT APPLY TO FACE. active Not Available Not Available No t Available phentermi ne 30 mg capsule TK 1 C PO D active Not Available Not Available No t Available Kenalog 40 mg/mL suspensio n for injection 12/17 completed [facility]# [id number] [id number] Not Available Not Available Not Available Unithroid 112 mcg tablet TAKE 1 TABLET BY MOUTH EVERY DAY IN THE MORNING active Not Available Not Available No t Available meloxicam 7.5 mg tablet TAKE 1 TABLET BY MOUTH EVERY DAY DIRECTED active Not Available Not Available No t Available levothyro xine 100 mcg tablet TAKE 1 TABLET BY MOUTH EVERY DAY DIRECTED 11/14 completed Not Available Not Available Not Available oxycodone -acetamin ophen 5 mg-325 mg tablet 03/18 completed Not Available Not Available Not Available ofloxacin 0.3 % ear drops INSTILL 5 DROPS IN RIGHT EAR TWICE DAILY 02/06 completed Not Available Not Available Not Available alprazola m 0.25 mg tablet 12/17 completed Not Available Not Available Not Available prednisol one acetate 1 % eye drops,je pension INT 1 GTT MARYA TID 10/08 completed Not Available Not Available Not Available trazodone 100 mg tablet TAKE 1 TABLET BY MOUTH TWICE DAILY active Not Available Not Available No t Available Kenalog 10 mg/mL suspensio n for injection in office procedur e, administ ered by provider 11/14 completed ND: [id number] 4-20 Not Available Not Available Not Available dexametha sone 1 mg tablet Take 1 tablet as needed by oral route as directed for 1 day. active take at 11 pm the night before getting 8 am lab cortisol drawn Not Available Not Available Not Available benzonata te 100 mg capsule Take 1 capsule 3 times a day by oral route. active Not Available Not Available No t Available cyanocoba jt (vit B-12) 1,000 mcg/mL injection solution ADMINIST ER 1 ML UNDER THE SKIN EVERY WEEK IN THE MORNING 11/14 completed Not Available Not Available Not Available oseltamiv ir 75 mg capsule 03/20 completed Not Available Not Available Not Available insulin syringe U-100 with needle 1 mL 31 gauge x 5/16 INJECT B12 UNDER THE SKIN ONCE A WEEK 02/06 completed Not Available Not Available Not Available ibuprofen 600 mg tablet TAKE 1 TABLET BY MOUTH EVERY 6 HOURS FOR 5 DAYS THEN EVERY 6 HOURS NEEDED 04/12 completed Not Available Not Available Not Available methylpre dnisolone 4 mg tablets in a dose pack FOLLOW PACKAGE DIRECTIO NS 11/14 completed Not Available Not Available Not Available clobetaso l 0.05 % scalp solution APPLY TO SCALP TWICE DAILY NEEDED FOR ITCHING OR FLAKING. DO NOT APPLY TO FACE active Not Available Not Available No t Available fluticaso ne propionat e 50 mcg/actua tion nasal spray,je pension INHALE 2 SPRAYS IN EACH NOSTRIL EVERY MORNING active Not Available Not Available No t Available metformin ER 500 mg tablet,ex tended release 24 hr TK 1 T PO BID 08/15 completed diarrhea Not Available Not Available Not Available Lotemax 0.5 % eye drops,je pension INSTILL 1 DROP INTO THE LEFT EYE TID STARTING AFTER SURGERY UTD 10/08 completed Not Available Not Available Not Available rosuvasta tin 20 mg tablet TAKE 1 TABLET BY MOUTH EVERY NIGHT active Pt states she is taking 2 days weekly. Not Available Not Available Not Available bupropion HCl XL 150 mg 24 hr tablet, extended release TK 1 T PO D 03/31 completed Not Available Not Available Not Available duloxetin e 30 mg capsule,d elayed release TAKE 1 CAPSULE BY MOUTH EVERY DAY TAKE WITH 60MG TO MAKE 90 MG DAILY active Not Available Not Available No t Available duloxetin e 60 mg capsule,d elayed release active Not Available Not Available Not Available eszopiclo ne 3 mg tablet TK 1 T PO QHS 12/17 completed Not Available Not Available Not Available eszopiclo ne 1 mg tablet TK 1 T PO QD HS FOR 10 DAYS 02/28 completed Not Available Not Available Not Available chlorhexi dine gluconate 0.12 % mouthwash SWISH AND SPIT 10 TO 15 ML BY MOUTH TWICE DAILY FOR 1 WEEK BEFORE SURGERY AND 1 WEEK AFTER SURGERY 11/07 completed Not Available Not Available Not Available multivita min 1 cap daily 07/23 completed Not Available Not Available Not Available OneTouch Ultra2 Meter kit U TO TEST FASTING GLUCOSE QAM 07/23 completed Not Available Not Available Not Available BD Insulin Syringe Micro-Fin e 1/2 mL 28 gauge x 1/2 U UTD. INJECT SHOTS ONCE WEEKLY 08/31 completed Not Available Not Available Not Available BD Ultra-Fin e Short Pen Needle 31 gauge x 5/16 U D WITH VICTOZA UTD. 07/23 completed Not Available Not Available Not Available Besivance 0.6 % eye drops,je pension INSTILL 1 DROP INTO THE LEFT EYE TID STARTING 2 DAYS BEFORE SURGERY UTD 10/08 completed Not Available Not Available Not Available BD Ultra-Fin e Michelle Pen Needle 32 gauge x 5/32 03/31 completed Not Available Not Available Not Available Suprep Bowel Prep Kit 17.5 gram-3.13 gram-1.6 gram oral solution MIX AND DRINK UTD 05/01 completed Not Available Not Available Not Available Caltrate 600 plus D 2 cap. daily 12/10 completed Not Available Not Available Not Available ropivacai ne (PF) 5 mg/mL (0.5 %) injection solution in office procedur e, administ ered by provider 11/14 completed [facility] [id number] 4- Not Available Not Available Not Available OneTouch Verio test strips U TO TEST FASTING GLUCOSE QAM active Not Available Not Available No t Available Qsymia 11.25 mg-69 mg capsule, extended release TK ONE C PO QD IN THE MORNING FOR 30 DAYS 11/01 completed Not Available Not Available Not Available Qsymia 3.75 mg-23 mg capsule, extended release TK ONE C PO QAM 07/19 completed Not Available Not Available Not Available Qsymia 7.5 mg-46 mg capsule, extended release TK 1 C PO QAM 07/19 completed Not Available Not Available Not Available Victoza 2-José 0.6 mg/0.1 mL (18 mg/3 mL) subcutane ous pen injector INJ 0.6 MG SC QD 10/08 completed Not Available Not Available Not Available Prolensa 0.07 % eye drops 08/06 completed Not Available Not Available Not Available Virtussin AC 10 mg-100 mg/5 mL oral liquid Take 5 mL every 4-6 hours by oral route as needed for 10 days. 03/20 completed Not Available Not Available Not Available Contrave 8 mg-90 mg tablet,ex tended release TAKE TWO TS PO BID active Not Available Not Available No t Available Saxenda 3 mg/0.5 mL (18 mg/3 mL) subcutane ous pen injector 0.6 mg SQ daily. May increase 0.6 mg weekly to max of 3 mg daily. 03/31 completed was not approved through insuranc e Not Available Not Available Not Available Shingrix (PF) 50 mcg/0.5 mL intramusc ular suspensio n, kit ADM 0.5ML IM UTD 03/17 completed Not Available Not Available Not Available Ozempic 1 mg/dose (2 mg/1.5 mL) subcutane ous pen injector INJECT 1MG EVERY WEEK BY SUBCUTAN EOUS ROUTE WITH MEALS. 04/20 completed Not Available Not Available Not Available Ozempic 0.25 mg or 0.5 mg (2 mg/1.5 mL) subcutane ous pen injector INJECT 0.5MG UNDER THE SKIN EVERY WEEK WITH MEALS. 03/16 completed Not Available Not Available Not Available OneTouch Ultra Blue Test Strip U TO TEST FASTING GLUCOSE QAM 11/07 completed Not Available Not Available Not Available OneTouch Delica Plus Lancet 30 gauge TEST FASTING GLUCOSE EVERY MORNING active Not Available Not Available No t Available ID NOW COVID-19 Test Kit TEST DIRECTED TODAY 11/07 completed Not Available Not Available Not Available Ozempic 1 mg/dose (4 mg/3 mL) subcutane ous pen injector INJECT 1MG SUBCUTAN EOUSLY ONCE A WEEK active Not Available Not Available No t Available Paxlovid 300 mg (150 mg x 2)-100 mg tablets in a dose pack TAKE DIRECTED ON PACKAGE. active Not Available Not Available No t Available Ozempic 2 mg/dose (8 mg/3 mL) subcutane ous pen injector INJECT 2MG UNDER THE SKIN ONCE A WEEK 11/14 completed Not Available Not Available Not Available Vitals Date Recorded Body height Provider Name an d Address Organization Details Last Updated DateTime 07/10/2023 175.26 cm Roxanna Abraham Arnaldo [facility] [employer] [facility] 07/10/2023 16:37:00 Date Recorded Body height Body mass index (BMI) Body weight Body temperature Heart rate Oxygen saturation Oxygen saturation in Arterial blood by Pulse oximetry Systolic blood pressure Diastolic blood pressure Provider Name and Address Organization Details Last Updated DateTime 3 175.26 cm 40.2 kg/m2 984164. 22 g 97 [degF] 83 /min 95 % 95 % 145 mm[Hg] 94 mm[Hg] Liz Izaguirre MA [facility] [employer] [facility] 3 09:09:23 Date Recorded Body height Provider Name an d Address Organization Details Last Updated DateTime 08/16/2023 175.26 cm Roxanna Abraham [facility] [facility] 08/16/2023 09:10:02 Date Recorded Body height Provider Name an d Address Organization Details Last Updated DateTime 09/13/2023 175.26 cm Roxanna Abraham [facility] [facility] 09/13/2023 09:29:51 Date Recorded Body height Body mass index (BMI) Body weight Body temperature Heart rate Respiratory rate Oxygen saturation Oxygen saturation in Arterial blood by Pulse oximetry Systolic blood pressure Diastolic blood pressure Provider Name and Address Organization Details Last Updated DateTime 3 175.26 cm 42.7 kg/m2 632697. 54 g 96.5 [degF] 76 /min 20 /min 95 % 95 % 150 mm[Hg] 96 mm[Hg] Cait Dodson RN [facility] [facility] 3 10:13:49 Social History Question Answer Notes LastModified by Organization Details LastModified Time Tobacco Smoking Status Never Smoker Not Available [facility] 01/25/2023 04:41:37 Do You Have An Advance Directive? No Information not available 04/12/2023 What Is Your Level Of Alcohol Consumption? None [id number] Information not available 01/25/2023 Are You Blind Or Do You Have Difficulty Seeing? No MIGRATION.0301 [id number] Information not available 01/25/2023 Is Blood Transfusion Acceptable In An Emergency? Yes Information not available 04/12/2023 What Is Your Level Of Caffeine Consumption? Moderate [id number] [id number] Information not available 01/25/2023 How Much Tobacco Do You Chew? None [id number].[id number] [id number] Information not available 01/25/2023 What Is Your Code Status? Full Code Information not available 04/12/2023 In The 14 Days Before Symptom Onset, Have You Had Close Contact With A Laboratory-confi rmed COVID-19 While That Case Was Ill? No MIGRATION.0301 [id number] Information not available 01/25/2023 In The 14 Days Before Symptom Onset, Have You Had Close Contact With A Person Who Is Under Investigation For COVID-19 While That Person Was Ill? No [id number].[id number] [id number] Information not available 01/25/2023 Are You Currently Employed? No Information not available 04/12/2023 Are You Deaf Or Do You Have Serious Difficulty Hearing? 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 REGULAR [id number].[id number] [id number] Information not available 01/25/2023 Do You Or Have You Ever Used E-cigarettes Or Vape? Never Used Electronic Cigarettes [id number].[id number] [id number] Information not available 01/25/2023 What Is The Highest Grade Or Level Of School You Have Completed Or The Highest Degree You Have Received? 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 Yes Information not available 04/12/2023 Do You Use Insect Repellent Routinely? Yes Information not available 04/12/2023 Where Do You Live? SingleLevelHouse Information not available 04/12/2023 Do You Have A Medical Power Of Saxophone Player? No Information not available 04/12/2023 How Many Children Do You Have? 4 Information not available 04/12/2023 Do You Have Any Pets? Yes Information not available 04/12/2023 What Is Your Relationship Status? Information not available 04/12/2023 Do You Use Your Seat Belt Or Car Seat Routinely? Yes Information not available 04/12/2023 Do You Have Smoke And Carbon Monoxide Detectors In Your Home? Yes Information not available 04/12/2023 Do You Or Have You Ever Used Smokeless Tobacco? Never Used Smokeless Tobacco [id number].[id number] [id number] Information not available 01/25/2023 Are There Any Smokers In Your House? No Information not available 04/12/2023 Do You Participate In Social Media? Yes Information not available 04/12/2023 Do You Feel Stressed (tense, Restless, Nervous, Or Anxious, Or Unable To Sleep At Night)? [id number] Information not available 11/14/2023 Do You Use Sunscreen Routinely? Yes Information not available 04/12/2023 Have You Recently Traveled Abroad? No Information not available 04/12/2023 Sex: Unknown Functional Status Question Answer Note LastModified by Assembl[employer] ion Details LastModified Time Do you have difficulty walking or climbing stairs? No [id number] Information not available 01/25/2023 Do you have transportation difficulties? No [id number] Information not available 01/25/2023 Are you able to walk? YESWOREST [id number].[id number] [id number] Information not available 01/25/2023 Do you have difficulty doing errands alone? No [id number] Information not available 01/25/2023 Are you able to care for yourself? Yes [id number] Information not available 01/25/2023 Do you have difficulty dressing or bathing? No [id number].[id number] Information not available 01/25/2023 What is your exercise level? Occasional [id number] Information not available 01/25/2023 Mental Status Question Answer Note LastModified by TaoT[employer] ion Details LastModified Time Do you have difficulty concentrating, remembering or making decisions? No [id number] Information not available 01/25/2023 Family History Relationship Description Onset Age of this Age Resolved Age Notes LastModified by Organization Details LastModified Time Mother Family history of malignant neoplasm [id number] Not available 01/25/2023 04:44:24 Sister Diabetes mellitus [id number] Not available 01/25/2023 04:44:24 Notes:03/05/18 retinal eye exa m Medical History Condition Response INSOMNIA Y HIGH CHOLESTEROL / HYPERLIPIDEMIA Y HYPERTHYROIDISM Y DEPRESSION (INCLUDING POST ) Y ARTHRITIS Y DIABETES, TYPE Y HYPERTENSION Y CANCER: SPECIFY Y ANXIETY DISORDER Y Gynecological History Statement/Question Response If Post Menopausal, Age at Menopause 54 Date of Last Mammogram 10/04/2022 Date of Last Pap Smear Date of Last Colonoscopy Most Recent Mammogram 10/04/2022 Most Recent Bone Density 05/02/2023 Obstetrics History GPAL:G 0 P 0 0 0 0 Immunizations Vaccine Type Date Status Note Provider Nam e and Address Organization Details Recorded Time COVID-19, mRNA, LNP-S, PF, 100 mcg/0.5mL dose or 50 mcg/0.25mL dose 1 completed Not Available [facility] 01/25/2023 05:07:29 SARS-COV-2 (COVID-19) vaccine, UNSPECIFIED 1 completed Not Available [facility] 01/25/2023 05:07:29 SARS-COV-2 (COVID-19) vaccine, UNSPECIFIED 1 completed Not Available [facility] 01/25/2023 05:07:29 Influenza, high-dose, quadrivalent, PF 2 completed Not Available [facility] 01/25/2023 05:07:30 Influenza, split virus, quadrivalent, preservative 1 completed Not Available [facility] 01/25/2023 05:07:30 Influenza, split virus, quadrivalent, preservative 9 completed Not Available [facility] 01/25/2023 05:07:30 Influenza, split virus, quadrivalent, preservative 8 completed Not Available [facility] 01/25/2023 05:07:30 Influenza, split virus, trivalent, preservative 2 completed Not Available [facility] 01/25/2023 05:07:30 Tdap 8 completed Not Available [facility] 01/25/2023 05:07:30 Influenza, split virus, quadrivalent, PF 9 completed Not Available [facility] 01/25/2023 05:07:30 Past Encounters Encounter ID Performer Location Encounter Start Date Encounter Closed Date Diagnosis/Indication Diagnosis SNOMED-CT Code Diagnosis ICD10 Code [id number] [facility] [address] [facility] [facility] [place] [address] 03/17/2021 00:00:00 03/17/2021 10:49:34 [id number] [facility] [address] [facility] [place] [address] 09/15/2021 00:00:00 09/17/2021 17:32:19 [id number] [facility] [address] [facility] [facility] [place] [address] 03/16/2022 00:00:00 03/16/2022 10:23:33 [id number] [facility] [place] [address] [facility] [facility] [place] [address] 05/26/2022 00:00:00 05/26/2022 11:55:41 [id number] [facility] [place] [address] [facility] [facility] [place] [address] 06/27/2022 00:00:00 06/27/2022 14:29:20 [id number] [facility] [place] [address] [facility] [facility] [place] [address] 06/29/2022 00:00:00 06/29/2022 14:08:24 [id number] [facility] [place] [address] [place] [address] 07/19/2022 00:00:00 07/19/2022 10:54:40 [id number] [facility] [place] [address] [facility] [place] [address] 09/28/2022 00:00:00 09/28/2022 15:48:24 [id number] [facility] [place] [address] [place] [address] 11/07/2022 00:00:00 11/13/2022 14:18:46 [id number] Dick Norton MD [facility] [place] [address] [place] [address] 02/06/2023 14:20:48 02/06/2023 15:16:38 Pain of left knee joint [id number] 53033 M25.562 [id number] Dick Norton MD [facility] [place] [address] [place] [address] 02/24/2023 10:32:21 02/27/2023 09:57:42 Pain of right shoulder joint [id number] M25.511 [id number] SAAD Armas [facility] [place] [address] [place] [address] 03/10/2023 09:52:31 03/10/2023 10:58:55 Closed fracture of upper end of humerus [id number] S42.201D [id number] Cait Cabello NP [address] [address] 03/17/2023 14:50:52 03/17/2023 15:22:36 [id number] SAAD Armas [facility] [place] [address] [place] [address] 03/20/2023 13:53:05 03/20/2023 14:41:20 Closed fracture of upper end of humerus [id number] S42.201D [id number] SAAD Armas [facility] [place] [address] [place] [address] 04/03/2023 13:52:13 04/03/2023 14:49:32 Closed fracture of upper end of humerus 36571546 S42.201D [id number] Cait Cabello NP [address] [address] 04/12/2023 10:50:24 04/12/2023 13:51:39 Type 2 diabetes mellitus 04296290 E11.9 Hypothyroidism 04355103 E03.9 Obesity 963623955 E66.9 Hyperlipidemia 94323637 E78.5 Essential hypertension 02726255 I10 Vitamin D deficiency 347 54600 E55.9 Seasonal allergy 7141061 04 J30.2 Insomnia 768053051 G47.0 0 Family his tory of breast cancer 764397230 Z80.3 Anxiety 66138267 F41.9 [id number] Dick Norton MD [facility] [place] [address] [place] [address] 04/26/2023 09:57:56 04/26/2023 12:05:49 Pain of right shoulder joint [id number] 5543860 M25.511 Fracture of shoulder 862 9131820 0736575 S42.90XD Pain of right wrist 3169 311503 15534 M25.531 [id number] Dick Norton MD [facility] [place] [address] [place] [address] 05/15/2023 16:34:16 05/29/2023 09:33:30 Pain of right shoulder joint 0934855743 [id number] M25.511 [id number] SAAD Armas [facility] [place] [address] [place] [address] 06/12/2023 15:51:08 06/12/2023 17:04:30 Pain of right shoulder joint 3080223011 [id number] M25.511 [id number] Dick Norton MD [facility] [place] [address] [place] [address] 07/10/2023 16:27:37 08/01/2023 10:16:22 Closed fracture of upper end of humerus 62397064 S42.201D [id number] Cait Cabello NP [facility] [address] [place] [address] 07/20/2023 08:56:02 07/20/2023 09:55:12 Type 2 diabetes mellitus 47864830 E11.9 Hypothyroidism 09682802 E03.9 Obesity 977290658 E66.9 Hyperlipidemia 29834459 E78.5 Essential hypertension 51566969 I10 Vitamin D deficiency 347 92119 E55.9 Seasonal allergy 2967064 04 J30.2 Insomnia 826560067 G47.0 0 Anxiety 40845605 F41.9 Abnormal weight 18324985 R63.4 Lesion of skin of face 9231013762 06 L98.9 [id number] Dick Norton MD [facility] [place] [address] [place] [address] 08/16/2023 09:07:46 08/16/2023 10:31:10 Closed fracture of upper end of humerus 04434649 S42.201D Neck pain 89716865 M54.2 [id number] Dick Norton MD [facility] [place] [address] [place] [address] 09/13/2023 09:13:15 10/02/2023 09:58:08 Closed fracture of upper end of humerus 38649598 S42.201D Osteoarthr itis of left knee joint 7581373747 50198 M17.12 [id number] Cait Cabello NP [address] [address] 11/14/2023 09:58:56 11/14/2023 10:59:59 Type 2 diabetes mellitus 45987875 E11.9 Hypothyroidism 80209053 E03.9 Obesity 439469887 E66.9 Hyperlipidemia 44992916 E78.5 Essential hypertension 04032152 I10 Seasonal allergy 0114888 04 J30.2 Insomnia 686699855 G47.0 0 Anxiety 04260970 F41.9 Health Concerns Section Related Observation LastModified by Organization Detai ls LastModified Time None Recorded Concern Status LastModified by Organization Details LastModified Time None Recorded Advance Directives Directive N: Payers Encounter Date Sequence Insurance Name Policy Number Policy Ram Covered Member ID Ram Member ID Guarantor Name 07/10/2023 2 [employer] (MEDICARE REPLACEMENT PPO) [id number] 1 Roopa Hill [id number] Armen Hill 07/20/2023 2 [employer] (MEDICARE REPLACEMENT PPO) [id number] 1 Roopa Gonzalez Netzer [id number] Armen Netzer 07/20/2023 2 [place] Roopa Sullivanzer [id number] Armen Netzer 08/16/2023 2 [employer] (MEDICARE REPLACEMENT PPO) [id number] 1 Roopa Gonzalez Netzer [id number] Armen Netzer 09/13/2023 2 [employer] (MEDICARE REPLACEMENT PPO) [id number] 1 Roopa Gonzalez Netzer [id number] Armen Netzer 11/14/2023 2 [employer] (MEDICARE REPLACEMENT PPO) [id number] 1 Roopa Gonzalez Netzer [id number] Armen Netzer 11/14/2023 1 [place] Roopa Gonzalez Netzer [id number] Armen Netzer Notes Date Note Type Note Provider Name and Address Organization Details Recorded Time 07/20/2023 text/html Here for check u p- wanting to discuss meds. 1 mo ago had reaction to wegovy 2 mg. Injected at 11 pm and then vomited ongoing for 36 hours. Sip of water would come right back up. Was gaggy all week and nothing tasted good. Was 2 weeks before feeling like she was good.Hasn't started back on 1 mg dose yet. Has a spot on side of left cheek. Just appeared. Getting larger over past 2 mo. Would like to see derm DM- . Seeing Samuel Orr. Ozempic 1 mg. Hasn't restarted since before [place] trip 4 weeks aprox.Anxiety- stable. Son, daughter in law and grandchild got apartment in [place].Weight- plans to go back to [employer].Vit d- Supplement routinely.thyroid- Unithroid 112 mcg po daily. Seeing Samuel Orr.lipid- Eating low fat. Rosuvastatin 20 mg nightly.htn- Stable Cait Cabello NP [address] [facility] [facility] [address], [place], [address], [place] [facility] 07/20/2023 10:00:41 08/16/2023 text/html Patient returns. She is here for 2 reasons. Her right proximal humerus fracture he was the with the appointment scheduled for today. She is now approximately 5 and half months out. Her right proximal humerus fracture was on February 22. She is not progressing rapidly with strengthening but is doing very well with physical therapy on range of motion she is noticing steadily improve function right shoulder is doing well. Her chief complaint today is that 12 days ago she awoke with stiffness in her neck the spasm her left trapezius and since that time intermittently she has noticed pins and needles tingling that radiates down the anterior shoulder anterior biceps radial forearm and dorsal radial wrist. These episodes last from a few seconds to a few minutes. This came on spontaneously. She has had no trauma. Dick Norton MD [address], [place], [address], [employer] 08/16/2023 10:26:11 09/13/2023 text/html Patient returns. She had right proximal humerus fracture February 22. She is still going to physical therapy for this and she feels that her range of motion is excellent and her strength is improving. She would like to continue with physical therapy. The tingling in her left arm from the shoulder to her dorsal the forearm is gradually getting less and less. Her left-sided neck pain is improving slightly with physical therapy. She has neck aching and each morning but goes away after she does her home exercises. She would like more physical therapy for her neck as well. I have discussed with her that if she would like since she still has symptoms, we could obtain an MRI scan of her cervical spine and refer her to a neurosurgeon for further treatment recommendations of her neck pain and cervical radicular symptoms in the left upper extremity. She declines at this time but she will consider that and if she changes her mind we will call in order the MRI scan of cervical spine and refer her to neurosurgery for evaluation. She would like another cortisone shot her left knee today. Her last shot was in January and it worked great. She has lateral compartment osteoarthritis which is posttraumatic and moderate patellofemoral arthritis in her left knee Dick Norton MD [address], [place], [address], [employer] 10/01/2023 16:38:08 11/14/2023 text/html Here for check u p- wanting to discuss meds. anxiety/Depressed over situation with children, JEFFREY, Judith. Tearful daily.Hasn't been in the mood for Gallitzin. DM- Seeing Samuel Orr. Ozempic 0.5 mg.Weight- Still struggling with weight loss.Vit d- Supplement routinely.thyroid- Unithroid 112 mcg po daily. Was seeing Samuel orr.lipid- Eating low fat. Rosuvastatin 20 mg nightly.htn- 150/90Still seeing PT for balance and broken arm. 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 Cait Cabello NP [address] [facility] [facility] [address], [place], [address], [place] [facility] 11/14/2023 10:58:47 OBGyn Episode No OBEpisode recorded.
--- OUTSIDE RECORDS SUMMARY | 2024-11-17 18:12 | XMS_ITS | Encounter Summary ---
Author Organization [facility] Address [address] [place] [address] Phone Care Team Providers Care Financial Recruiter Name Role Phone Chitra Chen MD Primary Care Provider [phone] Chitra Chen MD Unavailable [phone] Mir Gonzales MD Unavailable [phone] Reason for Visit * Consultation (Routine) - Closed Specialty Diagnoses / Procedures Referred By Contac t Referred To Contact Audiology Diagnoses Sensorineural hearing loss, bilateral Chitra Chen MD Phone: tel: fax: [facility] (All Locations) Referral ID Status Reason Start Date Expiration Date V isits Requested Visits Authorized [id number] Closed Specialty Services Required 06/17/2021 11/26/2022 99 99 Encounter Details Date Type Department Care Team (Latest Contact Info) Description 05/16/2022 2:45 PM CDT Procedure visit [facility] Otolaryngology [address] [place] [address] Kayli Miller CCC-Arnaldo [address] DEPT OTOLARYNGOLOGY, [facility] [[email or web address] [address] [place] [address] Sensorineural hearing loss, bilateral (Primary Dx) Social History Tobacco Use Types Packs/Day Years Used Date Smoking Tobacco: Never Alcohol Use Standard Drinks/Week Comments Not Currently 0 (1 standard drink = 0.6 oz pur e alcohol) Comments Unknown Sex and Gender Information Value Date Recorded Sex Assigned at Not on file 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 See scanned audiogram for results. Medical history was obtained by medical affairs leader and reviewed. Results were reviewed with the patient by physician today. Kayli Miller MS, CCC-A documented in this encounter Plan of Treatment Not on file documented as of this encounter Procedures Procedure Name Priority Date/Time Associated Diagnosis Comments AUDBASE RESULTS 05/16/2022 3:00 PM CDT documented in this encounter Results * AUDBASE RESULTS (05/16/2022 3:00 PM CDT) Provider Scanning AUDIOLOGY SERVICES ORDERABLES Final Result documented in this encounter Visit Diagnoses Diagnosis Sensorineural hearing loss, bilateral- Primary documented in this encounter Care Teams Financial Recruiter Relationship Specialty Start Date End Date Chitra Chen MD PCP - General Internal Medicine 09/04/20 Chitra Chen MD Internal Medicine 09/04/20 Mir Gonzales MD Referring Physician Otolaryngology 04/08/19 documented as of this encounter
--- OUTSIDE RECORDS SUMMARY | 2024-11-17 18:12 | XMS_ITS | Encounter Summary ---
Author Organization [facility] Address [address] [place] [address] Phone Care Team Providers Care Hr Analyst Name Role Phone Chitra Chen MD Primary Care Provider [phone] Chitra Chen MD Unavailable [phone] Mir Gonzales MD Unavailable [phone] Encounter Details Date Type Department Care Team (Late st Contact Info) Description 09/05/2023 Orders Only 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
--- OUTSIDE RECORDS SUMMARY | 2024-11-17 18:12 | XMS_ITS | Encounter Summary ---
Author Organization [facility] Address [address] [place] [address] Phone Care Team Providers Care Internal Consultant Name Role Phone Chitra Chen MD Primary Care Provider [phone] Chitra Chen MD Unavailable [phone] Mir Gonzales MD Unavailable Reason for Visit * Reason Comments Acoustic Neuromas Pt is here for yearl y follow up for her right acoustic neuroma * Consultation (Routine) - Closed Specialty Diagnoses / Procedures Referred By Contac t Referred To Contact Otolaryngology Diagnoses Sensorineural hearing loss (SNHL) of both ears Chitra Chen MD Phone: tel: fax: [facility] (All Locations) Referral ID Status Reason Start Date Expiration Date V isits Requested Visits Authorized [id number] Closed Specialty Services Required 09/26/2023 10/25/2024 12 12 Encounter Details Date Type Department Care Team (Late st Contact Info) Description 10/10/2023 2:30 PM VASCULAR TECHNOLOGIST SONOGRAPHER Office Visit [facility] Otolaryngology [address], [address] [place] [address] Shaka Conte MD [address] [facility] DEPT OTOLARYNGOLOGY, [facility] [address] [place] [address] Acoustic neuroma (HCC) (Primary Dx); Sensorineural hearing loss (SNHL) of both ears Social History Tobacco Use Types Packs/Day Years Used Date Smoking Tobacco: Never Alcohol Use Standard Drinks/Week Comments Not Currently 0 (1 standard drink = 0.6 oz pur e alcohol) Comments Unknown Sex and Gender Information Value Date Recorded Sex Assigned at Not on file Legal Sex Female 2:17 AM VASCULAR TECHNOLOGIST SONOGRAPHER Gender Identity Female 03/19/2020 9:59 AM CDT Sexual Orientation Straight 03/19/2020 9: 59 AM CDT documented as of this encounter Progress Notes * Shaka Conte MD - 10/10/2023 2:30 PM CST Patient Name: Roopa Hill Date of : 1955 Chief Complaint: Chief Complaint Patient presents with Acoustic Neuromas Pt is here for yearly follow up for her right acoustic neuroma HPI: This is a 68 y.o. female who presents today for evaluation of right acoustic neuroma. The patient was seen 1 year following her last visit. 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 She then developed a sudden hearing loss in her left, better hearing ear and subsequently underwent placement of a right cochlear implant 2 years ago. Past Medical/Surgical History Past Medical History: Diagnosis Date Anxiety disorder Anxiety - (Added by TW Conv) DM (diabetes mellitus) (HCC) Obesity Personal history of other endocrine, nutritional and metabolic disease History of thyroid disorder - (Added by TW Conv) Thyroid disease Past Surgical History: Procedure Laterality Date LASIK Corneal LASIK Bilateral - (Added by TW Conv) ME TONSILLECTOMY PRIMARY/SECONDARY <AGE 12 Tonsillectomy - (Added by TW Conv) Past Family/Social History Family History Problem Relation Age of Onset Heart disease Mother Family history of cardiac disorder - (Added by TW Conv) Cancer Mother Family history of malignant neoplasm - (Added by TW Conv) Lung disease Mother Lung trouble - (Added by TW Conv) Heart disease Father Family history of cardiac disorder - (Added by TW Conv) Hypertension Father Family history of hypertension - (Added by TW Conv) Cancer Brother Family history of malignant neoplasm - (Added by TW Conv) Social History Tobacco Use Smoking status: Never Smokeless tobacco: None Substance and Sexual Activity Drug use: Not Currently Sexual activity: None Alcohol Use: Not on file Medications/Allergies/Immunizations Current Outpatient Medications Medication Sig Dispense Refill acetaminophen-codeine (TYLENOL with CODEINE #3) 300-30 mg per tablet acetaminophen 300 mg-codeine 30 mg tablet TAKE 1 TO 2 TABLETS BY MOUTH EVERY 6 HOURS NEEDED FOR PAIN aspirin 81 mg enteric coated tablet Take 81 mg by mouth 2 (two) times a day calcium wlzx-Y1-pdtelzzzv brittanie 133 mg calcium -133 unit-67 mg capsule Take by mouth chlorhexidine (PERIDEX) 0.12 % solution chlorhexidine gluconate 0.12 % mouthwash SWISH AND SPIT 10 TO 15 ML BY MOUTH TWICE DAILY FOR 1 WEEK BEFORE SURGERY AND 1 WEEK AFTER SURGERY clindamycin (CLEOCIN) 300 mg capsule clindamycin HCl 300 mg capsule TAKE ONE CAPSULE FOUR TIMES DAILY UNTIL ALL TAKEN DIRECTED DULoxetine DR (CYMBALTA) 60 mg capsule HYDROcodone-acetaminophen ([place]) 5-325 mg per tablet Take 1 tablet by mouth every 6 (six) hours asneeded for pain 15 tablet 0 ibuprofen (ADVIL,MOTRIN) 600 mg tablet ibuprofen 600 mg tablet TAKE 1 TABLET BY MOUTH EVERY 6 HOURS FOR 5 DAYS THEN EVERY 6 HOURS NEEDED losartan (COZAAR) 50 mg tablet meloxicam (MOBIC) 7.5 mg tablet Take 7.5 mg by mouth daily multivitamin tablet ofloxacin (FLOXIN) 0.3 % otic solution Administer 5 drops into the right ear 2 (two) times a day 1 Bottle 0 OZEMPIC 0.25 mg or 0.5 mg(2 mg/1.5 mL) pen injector phentermine 15 mg capsule phentermine 15 mg capsule TK 1 C PO BID rosuvastatin (CRESTOR) 20 mg tablet Synthroid 125 mcg tablet Take 125 mcg by mouth every morning traMADoL (ULTRAM) 50 mg tablet tramadol 50 mg tablet TK 1 T PO Q 4 H PRN traZODone (DESYREL) 50 mg tablet Take 50 mg by mouth daily No current facility-administered medications for this visit. Allergies: Penicillins and Morphine, Immunizations: There is no immunization history on [...] external ears was normal using visual inspection. The otology microscope was used for clear magnified visualization and three- dimensional imaging of the ear for detection of [...] palpated. Gait- normal. 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 Her current MRIreveals suggestion of recurrent tumor. She is now utilize her right cochlear implant recently will return to our cochlear implant audiology team for optimization of her implant as well as a contralateral left hearing aid. I have seen and examined the patient. I agree with the findings and plan of care as documented. MD Shaka Ramos M.D. [employer], Otology and Neurotology Department of Otolaryngology [facility] [phone] ULAR TECHNOLOGIST SONOGRAPHER documented in this encounter Plan of Treatment Not on file documented as of this encounter Visit Diagnoses Diagnosis Acoustic neuroma (HCC)- Primary Benign neoplasm of cranial nerves Sensorineural hearing loss (SNHL) of both ears documented in this encounter Orders Outpatient Referral Count Last Ordered Date st Ordered Date AMB REFERRAL TO ENT 1 10/10/2023 documented in this encounter Care Teams Internal Consultant Relationship Specialty Start Date End Date Chitra Chen MD PCP - General Internal Medicine 09/04/20 Chitra Chen MD Internal Medicine 09/04/20 Mir Gonzales MD Referring Physician Otolaryngology 04/08/19 documented as of this encounter
--- OUTSIDE RECORDS SUMMARY | 2024-11-17 18:12 | XMS_ITS | Encounter Summary ---
Author Organization [facility] Address [address] [place] [address] Phone Care Team Providers Care Game And Fish Protector Name Role Phone Chitra Chen MD Primary Care Provider [phone] Chitra Chen MD Unavailable [phone] Mir Gonzales MD Unavailable [phone] Encounter Details Date Type Department Care Team (Late st Contact Info) Description 10/10/2023 Orders Only [facility] Otolaryngology [facility] [address] [place] [address] Jami Guerin CMA Peripheral vertigo, unspecified laterality (Primary Dx) Social History Tobacco Use Types Packs/Day Years Used Date Smoking Tobacco: Never Alcohol Use Standard Drinks/Week Comments Not Currently 0 (1 standard drink = 0.6 oz pur e alcohol) Comments Unknown Sex and Gender Information Value Date Recorded Sex Assigned at Not on file 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
--- OUTSIDE RECORDS SUMMARY | 2024-11-17 18:12 | XMS_ITS | Encounter Summary ---
Author Organization [facility] Address [address] [place] [address] Phone Care Team Providers Care Crystal Mounter Name Role Phone Chitra Chen MD Primary Care Provider [phone] Chitra Chen MD Unavailable [phone] Mir Gonzales MD Unavailable [phone] Reason for Visit * Reason Comments Cochlear Implant Hookup * Consultation (Routine) - Authorized Specialty Diagnoses / Procedures Referred By Contnirmal t Referred To Contact Audiology Diagnoses Sensorineural hearing loss (SNHL) of both ears Chitra Chen MD Phone: tel: fax: [facility] (All Locations) Referral ID Status Reason Start Date Expiration Date Visits Requested Visits Authorized [id number] Authorized Specialty Services Required 10/27/2023 11/25/2024 12 12 Encounter Details Date Type Department Care Team (Late st Contact Info) Description 02/13/2024 1:00 PM CDT Procedure visit [facility] Otolaryngology [address], [address] [place] [address] Lilliam Faith Au.D. 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 - 02/13/2024 1:00 PM CDT Procedures Time: 1PM - 2:30PM Purpose of Visit: Programming - Cochlear Implant Check Cochlear Implant (Active) L/R/Bilateral right 07/09/21 1600 Underwear Cutter [employer] 07/09/21 1600 Internal [id number] 07/09/21 1600 External [id number] 07/09/21 1600 Provider Shaka Conte MD 07/09/21 1600 Date of CI surgery 06/16/21 07/09/21 1600 Date of IS 07/01/21 07/09/21 1600 Patient Reports: Patient attended today's appointment alone. She reported she has not worn her CI for 15-18 months and she would like to start wearing it again. She stopped wearing the CI due to retention concerns, poor battery life, and perceived lack of benefit. She continues to have some imbalance and goes to PT for this. She utilizes a left Resound One hearing aid (from outside off) that she reports is fluctuating in sound. She would like to have the hearing aid looked at today as her former monument installer moved away. Data Loggin.1 hours of average daily use Magnet Strength: 5(I); appeared to connect appropriately Visual Check of Implantation Site: WNL Equipment Status: WNL; patient did not bring back-pack or back-up processor Programming Notes: Ran implant tests for CG, MP1, MP2 and MP 1&2: all electrodes elevated, consistent with lack ofuse Electrodes 1-4 remain disabled Obtained T and C levels on channels 22-1 utilizing streamlined method for patient's preferred map 900 Hz, 8 ely, BRIGID map. Swept and balanced all channels at C level Balanced with left ear Battery life estimate: 10 hours Second processor programmed identically Reliability: Good Programs/Maps: P1 map 15, 900 Hz, 8 max., BRIGID with SCAN P2 empty P3 empty P4 empty Hearing Aid Check: Ms. Hill's hearing aid was cleaned and dehumidified.The microphone and irrigation equipment installer ports were suctioned and the battery contacts were cleaned. Significant debris was noted in the microphone ports. Thedome and wax guard were replaced. Listening check revealed intermittent sound quality and EAA revealed reduced gain. Changed irrigation equipment installer and hearing aid no longer had intermittent sound quality. Patientreported significant improvement in volume and sound quality following irrigation equipment installer replacement. No charge for irrigation equipment installer replacement as the hearing aid is under warranty. Patient paid $80 for hearing aid clean and check. Electroacoustic analysis performed (ANSI S3.22-2009) and matches baseline user settings. Dye Range Operator Settings AVG OSPL 90 AVG Gain @50 EIN Old Early [employer] Teacher ARAMBULA-1 User 84 [phone] New Early Head Start Teacher ARAMBULA-1 User [phone] Counseling:Patient was counseled to utilize CI at least 8 hours per day. She was provided foam plugs to use in left ear for listening practice. She will try to wear it as much as possible and will return for a CI check with speech perception testing in 3 months. Patient plans to follow-up with thisoffice for hearing aid checks in the future. She was informed of hearing aid service charges. Plan Note: Enquire about sound quality with CI, check data-logging. Recommendations: Programming and Troubleshooting PRN CI check in 3 months Berry [place] CCC-A The above note documents my personal service. documented in this encounter Plan of Treatment Not on file documented as of this encounter Visit Diagnoses Diagnosis Asymmetric SNHL (sensorineural hearing loss)- Primary Sensorineural hearing loss, asymmetrical Encounter for adjustment and management of cochlear device documented in this encounter Orders Outpatient Referral Count Last Ordered Date Ordered Date AMB REFERRAL TO AUDIOLOGY (ADULT) 1 024 documented in this encounter Care Teams Crystal Mounter Relationship Specialty Start Date End Date Chitra Chen MD PCP - General Internal Medicine 09/04/20 Chitra Chen MD Internal Medicine 09/04/20 Mir Gonzales MD Referring Physician Otolaryngology 04/08/19 documented as of this encounter
--- OUTSIDE RECORDS SUMMARY | 2024-11-17 18:13 | XMS_ITS | Encounter Summary ---
Author Organization [facility] Address [address] [place] [address] Phone Care Team Providers Care Foundry Worker General Name Role Phone Chitra Chen MD Primary Care Provider [phone] Chitra Chen MD Unavailable [phone] Mir Gonzales MD Unavailable [phone] Reason for Visit * Consultation (Routine) - Closed Specialty Diagnoses / Procedures Referred By Contac t Referred To Contact Audiology Diagnoses Sensorineural hearing loss, bilateral Chitra Chen MD Phone: tel: fax: [facility] (All Locations) Referral ID Status Reason Start Date Expiration Date V isits Requested Visits Authorized [id number] Closed Specialty Services Required 06/17/2021 11/26/2022 99 99 Encounter Details Date Type Department Care Team (Latest Contact Info) Description 07/23/2021 1:00 PM CDT Procedure visit [facility] Otolaryngology [address] [place] [address] Dalia Blake Au.D. 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 Pt reports the implant sound is improving a small amount each day and is now less tinny. She can tell she is hearing through it now and some sound is clearer. She heard the ball game on TV well earlier this week. She reports some improvement with retention but states it continues to come off multiple times per day. She shaved some hair at the magnet site and believes this helped. She states she has to find the sweet spot where it stays best. She reports needing to change batteries during the day and would like to know the best wayto do this with her rechargeable batteries. Patient inquired into contents of CI kit. Data Loggin.4 hours of average daily use; 1.8 hours in quiet Magnet Strength: 5(i) Visual Check of Implantation Site: WNL Equipment Status: WNL Acoustic Component: N/A Programming Notes: ??? Programming completed to verify maximal performance and verify appropriate impedances. ? ? Ran implant tests for CG, MP1, MP2 and MP 1&2: all electrodes WNL and stable. ??? Electrodes 1-4 are disabled and electrodes 5-10 originally out of compliance ??? Obtained T and C levels on active channels 22-1 utilizing streamlined method for patient's preferred map 900 Hz, 8 ely, BRIGID map. ??? Swept and balanced all channels at C level. ??? C levels decreased to improve compliance on P1 ??? Second program created with extended pulsewidth to achieve better compliance. ??? Enabled processor buttons. ??? Second processor programmed identically. ??? Current maps and current impedance measurements can be found in the Custom Sound or Soundwave software. ??? ARAMBULA linked Reliability: Good Programs/Maps: P1 map 9, 900 Hz, 8 max., BRIGID w/ SCAN P2 map 8, 900 Hz, 8 max., BRIGID w/ SCAN P3 empty P4 empty Counseling: Instructed patient in function and use of processor control button. Patient indicated definite preference for P1 with 50 pw. She was very pleased with the sound quality of P1 when she left the office. Paired Resound aid/CI to patient's iPhone and loaded Blacklane leidy. Patient instructed to set up Cochlear Family account and then load the [email or web address] leidy. Discussed battery life. Patient understands battery life will be reduced due to stronger magnet and programming needed. 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 Reviewed other supplies in her CI kit also. Evaluation of Auditory Function for Postoperative Status of a Cochlear Implant: Administered Overlearned Related Sentences CI only/live voice condition: Set B At the Restaurant: (100% with 1 repetition) accuracy utilizing CI only Plan Note: Pair accessories at 3mo visit. Inquire into retention. Programming adjustments as neededto achieve improved compliance and battery life. Recommendations: Continued programming and assessment of aural rehabilitation status 3 mo visit September 2021 documented in this encounter Plan of Treatment Not on file documented as of this encounter Procedures Procedure Name Priority Date/Time Associated Diagnosis Comments AUDBASE RESULTS 07/23/2021 12:56 PM CDT documented in this encounter Results * AUDBASE RESULTS (07/23/2021 12:56 PM CDT) us Provider Scanning AUDIOLOGY SERVICES ORDERABLES Final Result documented in this encounter Visit Diagnoses Diagnosis Sensory hearing loss, bilateral- Primary Encounter for management of cochlear device documented in this encounter Care Teams Foundry Worker General Relationship Specialty Start Date End Date Chitra Chen MD PCP - General Internal Medicine 09/04/20 Chitra Chen MD Internal Medicine 09/04/20 Mir Gonzales MD Referring Physician Otolaryngology 04/08/19 documented as of this encounter
--- OUTSIDE RECORDS SUMMARY | 2024-11-17 18:13 | XMS_ITS | Encounter Summary ---
Author Organization [facility] Address [address] [place] [address] Care Team Providers Care Senior C Developer Name Role Phone Chitra Chen MD Primary Care Provider [phone] Chitra Chen MD Unavailable Mir Gonzales MD Unavailable [phone] Reason for Referral * MRI/CAT/PET Scan (Routine) - Closed Specialty Diagnoses / Procedures Referred By Trudy portillo Referred To Contact Radiology Diagnoses Sensorineural hearing loss (SNHL) of both ears Procedures CT Internal Auditory Canal Cochlear Implant WO Kannan Stout MD Phone: tel: fax: [place] [address] [phone] Referral ID Status Reason Start Date Expiration Date Visits Re quested Visits Authorized [id number] Closed 07/28/2021 06/26/2022 1 1 Reason for Visit * MRI/CAT/PET Scan (Routine) - Closed Specialty Diagnoses / Procedures Referred By Trudy portillo Referred To Contact Radiology Diagnoses Sensorineural hearing loss (SNHL) of both ears Procedures CT Internal Auditory Canal Cochlear Implant WO Kannan Stout MD Phone: tel: fax: [place] [address] [phone] Referral ID Status Reason Start Date Expiration Date Visits Re quested Visits Authorized [id number] Closed 07/28/2021 06/26/2022 1 1 Encounter Details Date Type Department Care Team (Latest Contact Info) Description 07/30/2021 3:14 PM CDT - 07/30/2021 11:59 PM CDT Hospital Encounter [facility] [address] [address] Kannan Singh MD [address] [place] [address] Sensorineural hearing loss (SNHL) of both ears Discharge Disposition: Discharge to home or self care Social History Tobacco Use Types Packs/Day Years Used Date Smoking Tobacco: Never Alcohol Use Standard Drinks/Week Comments Not Currently 0 (1 standard drink = 0.6 oz pur e alcohol) Comments Unknown Sex and Gender Information Value Date Recorded Sex Assigned at Not on file 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 Gender Identity Female 03/19/2020 9:59 AM CDT Sexual Orientation Straight 03/19/2020 9: 59 AM CDT documented as of this encounter Medications at Time of Discharge aspirin 81 mg enteric coated tablet Take 81 mg by mouth 2 (two) times a day calcium [id number] m brittanie 133 mg calcium -133 unit-67 mg capsule Take by mouth DULoxetine DR (CYMBALTA) 60 mg capsule 02/24/2019 HYDROcodone-acet aminophen (Thoreau) 5-325 mg per tabletIndication s:Pain Take 1 tablet by mouth every 6 (six) hours as needed for pain 15 tablet 06/15/2021 losartan (COZAAR) 50 mg tablet 10/12/2020 multivitamin tablet ofloxacin (FLOXIN) 0.3 % otic solution Administer 5 drops into the right ear 2 (two) times a day 1 Bottle 06/21/2021 OZEMPIC 0.25 mg or 0.5 mg(2 mg/1.5 mL) pen injector 04/02/2019 rosuvastatin (CRESTOR) 20 mg tablet 04/02/2019 documented as of this encounter Discharge Disposition Disposition Code Departure Means Destination Discharge to home or self care documented in this encounter Plan of Treatment Not on file documented as of this encounter Procedures Procedure Name Priority Date/Time Associated Diagnosis Comments CT INTERNAL AUDITORY CANAL COCHLEAR IMPLANT WO CONTRAST Schedule Routine, Read Routine (OP Routine) 07/30/2021 3:29 PM CDT Sensorineural hearing loss (SNHL) of both ears documented in this encounter Results * CT Internal Auditory Canal Cochlear Implant WO Contrast (07/30/2021 3:29 PM CDT) Anatomical Region Laterality Modality Head and Neck N/A Computed Tomogra phy 07/30/2021 4:45 PM CDT Impressions 07/30/2021 4:45 PM CDT 1. ??Right cochlear implant, with the electrode terminating in mid turn of the right cochlea. 2. ??High density content within the right vestibule and cochlear apex, which could be associated with the known labyrinthine ossificans. 3. ??Osseous defect at the expected location of the left round window of unclear etiology. ??However, no evidence of perihepatic fistula or gas within the labyrinths. Electronically signed by: Ladarius Quintanilla M.D. 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 ??Right cochlear implant placed on 06/16/2021. ??Postop evaluation TECHNIQUE: CT of the temporal bones was performed according to standard protocol without intravenous contrast. COMPARISON: None available. FINDINGS: There are postsurgical changes of right retrosigmoid no craniotomy. The limited examination of the brain is normal. RIGHT: There is a right cochlear implant. ??There are postsurgical changes right wall up mastoidectomy. ??The cochlear implant electrode enters the round window, terminates in the mid turn of the right cochlea. There is gas within the basal turn of the right cochlea, round the electrodes, which may be postsurgical change. ??There is mild multilevel soft tissue around the ossicles and in the posterior aspect of the mid ear cavity, likely postsurgical changes. There appears to be high density content within the vestibule, as well as within the cochlear apex, which could be associated with the known labyrinthine ossificans. The pinna is normal. The external auditory canal, including cartilaginous and bony portions, is normal. The sinus tympani and pyramid are normal. The facial nerve, including labyrinthine, geniculate, horizontal, and descending segments, is normal. The internal auditory canal is normal. The vestibular aqueduct is normal. The cochlear aqueduct is normal. LEFT: There appears to be a osseous defect at the expected location of the round window, series 8 image 442. ??However, there is no evidence of perihepatic fistula or gas within the labyrinths. The squamosal portion of the temporal bone is normal. The pinna is normal. The external auditory canal, including cartilaginous and bony portions, is normal. There is no fluid or mass in the middle ear cavity. The middle ear ossicles are intact, and there are no erosions. The sinus tympani and pyramid are normal. The facial nerve, including labyrinthine, geniculate, horizontal, and descending segments, is normal. The bony labyrinth including the cochlea, vestibule, and semicircular canals is normal without evidence of dehiscence or congenital malformation. The bone is normal without evidence of otosclerosis. The internal auditory canal is normal. The vestibular aqueduct is normal. The cochlear aqueduct is normal. The mastoid is well developed without evidence of fluid or fracture. 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 Right cochlear implant placed on 06/16/2021. Postop evaluation TECHNIQUE: CT of the temporal bones was performed according to standard protocol without intravenous contrast. COMPARISON: None available. FINDINGS: There are postsurgical changes of right retrosigmoid no craniotomy. The limited examination of the brain is normal. RIGHT: There is a right cochlear implant. There are postsurgical changes right wall up mastoidectomy. The cochlear implant electrode enters the round window, terminates in the mid turn of the right cochlea. There is gas within the basal turn of the right cochlea, round the electrodes, which may be postsurgical change. There is mild multilevel soft tissue around the ossicles and in the posterior aspect of the mid ear cavity, likely postsurgical changes. There appears to be high density content within the vestibule, as well as within the cochlear apex, which could be associated with the known labyrinthine ossificans. The pinna is normal. The external auditory canal, including cartilaginous and bony portions, is normal. The sinus tympani and pyramid are normal. The facial nerve, including labyrinthine, geniculate, horizontal, and descending segments, is normal. The internal auditory canal is normal. The vestibular aqueduct is normal. The cochlear aqueduct is normal. LEFT: There appears to be a osseous defect at the expected location of the round window, series 8 image 442. However, there is no evidence of perihepatic fistula or gas within the labyrinths. The squamosal portion of the temporal bone is normal. The pinna is normal. The external auditory canal, including cartilaginous and bony portions, is normal. There is no fluid or mass in the middle ear cavity. The middle ear ossicles are intact, and there are no erosions. The sinus tympani and pyramid are normal. The facial nerve, including labyrinthine, geniculate, horizontal, and descending segments, is normal. The bony labyrinth including the cochlea, vestibule, and semicircular canals is normal without evidence of dehiscence or congenital malformation. The bone is normal without evidence of otosclerosis. The internal auditory canal is normal. The vestibular aqueduct is normal. The cochlear aqueduct is normal. The mastoid is well developed without evidence of fluid or fracture. IMPRESSION: 1. Right cochlear implant, with the electrode terminating in mid turn of the right cochlea. 2. High density content within the right vestibule and cochlear apex, which could be associated with the known labyrinthine ossificans. 3. Osseous defect at the expected location of the left round window of unclear etiology. However, no evidence of perihepatic fistula or gas within the labyrinths. Electronically signed by: Ladarius Quintanilla M.D. Kannan Singh MD IMG CT PROCEDURES Final Result documented in this encounter Visit Diagnoses Diagnosis Sensorineural hearing loss (SNHL) of both ears documented in this encounter Care Teams Senior C Developer Relationship Specialty Start Date End Date Chitra Chen MD PCP - General Internal Medicine 09/04/20 Chitra Chen MD Internal Medicine 09/04/20 Mir Gonzales MD Referring Physician Otolaryngology 04/08/19 documented as of this encounter
--- OUTSIDE RECORDS SUMMARY | 2024-11-17 18:13 | XMS_ITS | Encounter Summary ---
Author Organization [facility] Address [address] [place] [address] Phone Care Team Providers Care Block Bolter Mule Operator Name Role Phone Chitra Chen MD Primary Care Provider [phone] Chitra Chen MD Unavailable [phone] Mir Gonzales MD Unavailable [phone] Reason for Visit * Consultation (Routine) - Closed Specialty Diagnoses / Procedures Referred By Contac t Referred To Contact Audiology Diagnoses Sensorineural hearing loss, bilateral Chitra Chen MD Phone: tel: fax: [facility] (All Locations) Referral ID Status Reason Start Date Expiration Date V isits Requested Visits Authorized [id number] Closed Specialty Services Required 06/17/2021 11/26/2022 99 99 Encounter Details Date Type Department Care Team (Latest Contact Info) Description 09/24/2021 1:00 PM CDT Procedure visit [facility] Otolaryngology [address] [place] [address] Dalia Blake Au.D. 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 - 09/24/2021 1:00 PM CDT Procedures L/R/Bilateral right Supervisor Facepiece Line Cochlear [employer] Internal [id number] External [id number] Provider Shaka Conte MD Date of CI surgery 06/16/21 Date of IS 07/01/21 Purpose of Visit: Programming and Speech Perception Testing (1PM - 2:30PM) - 3 Month Residual hearin Hz 250 Hz 500 Hz 1000 Hz 2000 Hz 3000 Hz 4000 Hz 6000 Hz 8000 Hz Residual Hearing NR 100 85 80 120 NR NR NR NR Patient Reports: Patient attended today's appointment alone. She reports she is still having significant retention issues with the CI falling off 5-6 times per day. Her battery has been lasting [id number]. She tries to change the battery at 4pm most days but reports some days she is done with sound and needs a break from it and does not wear it the rest of the day. She reports that when she is able to wear it her friends feel she is hearing better with less repeating needed. She finds she is hearing soft sounds better. She also reports recent ear infection at the right ear. This was treated by her PCP with oral antibiotics and is now better. She notes that she forgot to bring her ARAMBULA for the left ear today. Data Loggin.2 hours of average daily use; 1.4 hours in quiet with 20 coils off Magnet Strength: 5(i) Visual Check of Implantation Site: WNL Equipment Status: WNL; patient did not bring her microphone filters. We reviewed how to change themfrom her supplies when she gets home. Acoustic component: N/A Programming Notes: ??? Programming completed to verify maximal performance and verify appropriate impedances. ? ? Ran implant tests for CG, MP1, MP2 and MP 1&2: all aactive electrodes WNL and stable ??? Electrodes 1-4 disabled ??? Obtained T and C levels on active channels 22-1 utilizing streamlined method for patient's preferred map 900 Hz, 8 ely, 50 pulse width, BRGIID map ??? Swept and balanced all channels at C level ??? Software changed pulse width and ely to achieve better compliance ??? Second processor programmed identically ??? Current maps and current impedance measurements can be found in the Custom Sound or Soundwave software. Reliability: Good Programs/Maps: P1 map 10, 900 Hz, 7 max., 62pw, BRIGID with SCAN P2 map 9, 900 Hz, 8 max., 50pw, BRIGID with SCAN P3 empty P4 empty Counseling: Concerned patient will have poorer battery life and sound quality with pulse width and ely changes that software made to achieve better compliance. Evaluation of Auditory Function for Postoperative Status of a Cochlear Implant: Aided speech testing was completed to assess speech understanding and to compare to previous results. Contra ear occluded with foam plug during CI only testing condition. Patient did not bring left ARAMBULA today. Candidacy evaluation was 04/14/21. [place] Bio Sentences List 3 @ 60 dB SPL: CI only = 5% (30% at candidacy testing) [place] Bio Sentences List 4 @ 60 dB SPL + 10 dB SNR: CI only = 0% (10% at candidacy testing) CNC Word List 1 @ 60 dB SPL: CI only = 4% (21% phonemes correct) (20% at candidacy testing) Cochlear Implant Thresholds: Aided SF thresholds were obtained to assess audibility for speech. 250 Hz 500 Hz 1000 Hz 2000 Hz 3000 Hz 4000 Hz 6000 Hz CI Thresholds 40 35 30 20 25 30 30 Plan Note: Consult with CI team regarding poor retention and speech perception. Recommendations: Programming and Troubleshooting PRN Return earlier than 6 mos evaluation Additional speech perception testing using CI + left ARAMBULA The note as documented above reflects my personal service. documented in this encounter Plan of Treatment Not on file documented as of this encounter Visit Diagnoses Diagnosis Sensory hearing loss, bilateral- Primary Encounter for management of cochlear device documented in this encounter Care Teams Block Bolter Mule Operator Relationship Specialty Start Date End Date Chitra Chen MD PCP - General Internal Medicine 09/04/20 Chitra Chen MD Internal Medicine 09/04/20 Mir Gonzales MD Referring Physician Otolaryngology 04/08/19 documented as of this encounter
--- OUTSIDE RECORDS SUMMARY | 2024-11-17 18:13 | XMS_ITS | Encounter Summary ---
Author Organization [facility] Address [address] [place] [address] Phone Care Team Providers Care Network Account Manager Name Role Phone Chitra Chen MD Primary Care Provider [phone] Chitra Chen MD Unavailable [phone] Mir Gonzales MD Unavailable Encounter Details Date Type Department Care Team (Latest Contact Info) Description 07/09/2021 1:00 PM CDT Procedure visit [facility] Otolaryngology [address] [place] [address] Itzel Jameson Au.D. 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 Reports: Pt attended today's appointment alone. She reported her first week with the CI did not go well as she has a lot going on in her personal life and the coil rarely stayed attached to her head.She has been using a hair clip to help with retention but has found minimal success with it. She reported drainage has continued from her right ear and that today was the first day she woke up without having fluid on her pillow. She spoke with Nadia Guerin MA last week who recommended patient continue with otic drops and Dr. Conte will assess her at her next visit (today). Patient reported her hearing was slightly improved with the CI and noted she was better able to hear at a family get together over the weekend. Patient scaled clinician's voice as soft in CI only condition during a listening check prior to today's programming (contra ear occluded + masking) utilizing P3 (+10 CL MAP). Data Loggin.1 hours of average daily use with 3.5 hours of coil off Magnet Strength: 5(I) - dispensed correct color magnets Visual Check of Implantation Site: WNL. Patient reported swelling has decreased considerably since her last visit. Magnet site and right ear were also assessed by Dr. Conte. He instructed Kayla to continue the otic drops for the next 4 days. He also said swelling should continue to decrease over the next 2 weeks and magnet retention will improve. Equipment Status: WNL Programming Notes: ??? Programming completed to verify maximal performance and verify appropriate impedances. ? ? Ran implant tests for CG, MP1, MP2 and MP 1&2: all electrodes WNL and stable. ??? Electrodes 4-1 remain disabled. ??? Decreased pulse width from 62 to 50 and was able to increase ely to 8 ??? Obtained T and C levels on active channels 22-1 utilizing streamlined method for patient's preferred map 900 Hz, 8 ely, BRIGID map. ??? Swept and balanced all channels at C level. ??? Enabled volume control ??? Battery life estimated at 6 hours ??? Second processor programmed identically. ??? Current maps and current impedance measurements can be found in the Custom Sound or Soundwave software. Reliability: Good Programs/Maps: P1 map 5, 900 Hz, 8 max., BRIGID w/ SCAN P2 empty P3 empty P4 empty Counseling: Instructed patient in use of volume control. Evaluation of Auditory Function for Postoperative Status of a Cochlear Implant: Adminstered A.R. Screening in CI only, live voice condition: Word Length Identification - 10/10 accuracy Sentence Length Identification - 10/10 accuracy Discrimination of 2nd Formant - 9/10 accuracy Common Sentence Recognition - 32/36 (89 %) words correct with up to 2 repetitions Plan Note: Test residual hearing. Inquire into ear drainage and coil retention. Recommendations: Continued programming and assessment of rehabilitation status documented in this encounter Plan of Treatment Not on file documented as of this encounter Visit Diagnoses Diagnosis Sensorineural hearing loss, asymmetrical- Primary Encounter for adjustment and management of cochlear device documented in this encounter Care Teams Network Account Manager Relationship Specialty Start Date End Date Chitra Chen MD PCP - General Internal Medicine 09/04/20 Chitra Chen MD Internal Medicine 09/04/20 Mir Gonzales MD Referring Physician Otolaryngology 04/08/19 documented as of this encounter
--- OUTSIDE RECORDS SUMMARY | 2024-11-17 18:13 | XMS_ITS | Encounter Summary ---
Author Organization [facility] Address [address] [place] [address] Phone Care Team Providers Care Certified Histologic Technician Name Role Phone Chitra Chen MD Primary Care Provider [phone] Chitra Chen MD Unavailable Mir Gonzales MD Unavailable [phone] Encounter Details Date Type Department Care Team (Late st Contact Info) Description 06/21/2021 Orders Only [facility] Otolaryngology [address] [place] [address] Suyapa Zimmerman CMA Social History Tobacco Use Types Packs/Day Years Used Date Smoking Tobacco: Never Alcohol Use Standard Drinks/Week Comments Not Currently 0 (1 standard drink = 0.6 oz pur e alcohol) Comments Unknown Sex and Gender Information Value Date Recorded Sex Assigned at Not on file 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 She also asked about getting a root canal on thur- told her to wait at least 2 weeks before doing that documented in this encounter Plan of Treatment Not on file documented as of this encounter Visit Diagnoses Not on filedocumented in this encounter Care Teams Certified Histologic Technician Relationship Specialty Start Date End Date Chitra Chen MD PCP - General Internal Medicine 09/04/20 Chitra Chen MD Internal Medicine 09/04/20 Mir Gonzales MD Referring Physician Otolaryngology 04/08/19 documented as of this encounter
--- OUTSIDE RECORDS SUMMARY | 2024-11-17 18:13 | XMS_ITS | Encounter Summary ---
Author Organization [facility] Address [address] [place] [address] Phone Care Team Providers Care Windchill Administrator Name Role Phone Chitra Chen MD Primary Care Provider [phone] Chitra Chen MD Unavailable [phone] Mri Gonzales MD Unavailable Reason for Referral * Consultation (Routine) - Closed Specialty Diagnoses / Procedures Referred By Contac t Referred To Contact Audiology Diagnoses Sensorineural hearing loss, bilateral Chitra Chen MD Phone: tel: fax: [facility] (All Locations) Referral ID Status Reason Start Date Expiration Date V isits Requested Visits Authorized [id number] Closed Specialty Services Required 06/17/2021 11/26/2022 99 99 Question Answer Please select the performing region: [facility] (All Locations) [[id number]] # of visits: 1 Reason for Visit * Consultation (Routine) - Closed Specialty Diagnoses / Procedures Referred By Contnirmal t Referred To Contact Audiology Diagnoses Sensorineural hearing loss, bilateral Chitra Chen MD Phone: tel: fax: [facility] (All Locations) Referral ID Status Reason Start Date Expiration Date V isits Requested Visits Authorized [id number] Closed Specialty Services Required 06/17/2021 11/26/2022 99 99 Encounter Details Date Type Department Care Team (Latest Contact Info) Description 07/01/2021 10:00 AM CDT Procedure visit [facility] Otolaryngology [address] [place] [address] Kayli Miller CCC-A [address] OT[address], [facility] [address] [place] [address] Sensorineural hearing loss, bilateral (Primary Dx) Social History Tobacco Use Types Packs/Day Years Used Date Smoking Tobacco: Never Alcohol Use Standard Drinks/Week Comments Not Currently 0 (1 standard drink = 0.6 oz pur e alcohol) Comments Unknown Sex and Gender Information Value Date Recorded Sex Assigned at Not on file 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 Surgeon: Shaka Conte MD Date of Implantation: 06/16/2021 Reports: Patient attended today's appointment alone. Patient reports she had little to no pain following surgery and did not take pain medication. Patient did not have dizziness or imbalance following surgery. Patient has had drainage from ear canal since surgery. She called less than a week after surgery and was prescribed aural drops. Patient continues to use drops, but drainage continues. Willfollow-up with physician. Following activation, patient reported mechanical sound quality, but denies noise and was able to understand speech well. She scaled volume as comfortable. Pneumococcal Vaccination: Patient did not receive pneumococcal vaccination prior to implantation. Magnet Strength: 5(i) - significant retention issues even with maximum magnet. Work in Field was emailed for battery exchange. Visual Check of Implantation Site: WNL - CI site appears to be healing well, slight scabbing continues Equipment Status: Dispensed CI kit and wireless accessories mini bird, TV streamer, and additional battery Programming Notes: ??? Initial programming required prior to use of sound processor and to verify maximal performance and verify appropriate impedances. ? ? Ran implant tests for CG, MP1, MP2 and MP 1&2: all electrodes WNL, improved following activation ??? Electrodes 4-1 disabled due to very high measured T levels (above 200 CL even after PW increase) ??? Obtained T and C levels on active channels 22-1 utilizing streamlined method for a 900 Hz, 7 ely, BRIGID map ??? PW was widened to 62 and T levels were re-measured due to very high T levels at basal channels ??? Swept and balanced all channels at C level- patient scaled all active channels to comfortable ??? Pressure was applied to coil during impedance measurements and compliance estimate due to poor connection with internal reverberatory skimmer stimulator ??? Battery estimate was only 5 hours ??? Progressive maps were created; see map configuration below. Patient to utilize the program thatprovides best comfort ??? Second processor programmed identically ??? Current maps and current impedance measurements can be found in the Custom Sound or Soundwave software. Reliability: Good Programs/Maps: P1 map 5, -2 CL P2 map 4, 900 Hz, 7 max., BRIGID w/ SCAN P3 map 1, +5 CL P4 map 2, +10 CL Counseling: Counseled patient regarding expectations and adjustment period. Instructed patient in function and use of N7 processor including: remote control, disposable and rechargeable batteries, processor on/off, program configuration, coil/cable placement and warranty. Print materials were provided. Instructed patient to bring wireless accessories to last weekly visit for instruction. Patient was counseled regarding use of hair clip or head band to help mitigate retention issues until swelling improves. Patient was counseled she will have poor battery life this week and retention of the sound processor will be difficult. Patient will continue use to improve retention. Assessment of CI Aural Rehabilitation Status: The following 4 Choice Closed-Set Identification task was completed CI only, live voice: Numbers, Days of the Week, Months and Patient Name with 100% accuracy. Plan Note: Test residual hearing. Dispense correct magnet color. Inquire about drainage from right ear canal and have Dr. Conte see patient due to drainage and retention issues. Reduced to 500 Hz 8 or 12 ely map due to poor battery life and ely Recommendations: Continued programming and assessment of aural rehabilitation status Kayli Miller MS, CCC-A documented in this encounter Plan of Treatment Scheduled Referrals Name Type Priority Associated Diagnoses Order Schedule Ambulatory referral to Audiology (ADULT) Outpatient Referral Routine Sensorineural hearing loss, bilateral Expected: 07/01/2021 (Approximate), Expires: 06/17/2022 documented as of this encounter Visit Diagnoses Diagnosis Sensorineural hearing loss, bilateral- Primary documented in this encounter Care Teams Windchill Administrator Relationship Specialty Start Date End Date Chitra Chen MD PCP - General Internal Medicine 09/04/20 Chitra Chen MD Internal Medicine 09/04/20 Mir Gonzales MD Referring Physician Otolaryngology 04/08/19 documented as of this encounter
--- OUTSIDE RECORDS SUMMARY | 2024-11-17 18:13 | XMS_ITS | Encounter Summary ---
Author Organization [facility] Address [address] [place] [address] Phone Care Team Providers Care Tyre Fitter Name Role Phone Chitra Chen MD Primary Care Provider [phone] Chitra Chen MD Unavailable [phone] Mir Gonzales MD Unavailable [phone] Encounter Details Date Type Department Care Team (Late st Contact Info) Description 06/16/2021 Treatment [facility] Otolaryngology [address] [place] [address] Shaka Conte MD [address] [facility] DEPT OTOLARYNGOLOGY, [facility] [address] [place] [address] Sensorineural hearing loss (SNHL) of both ears (Primary Dx) Social History Tobacco Use Types Packs/Day Years Used Date Smoking Tobacco: Never Alcohol Use Standard Drinks/Week Comments Not Currently 0 (1 standard drink = 0.6 oz pur e alcohol) Comments Unknown Sex and Gender Information Value Date Recorded Sex Assigned at Not on file 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 Bilateral sensorineural hearing loss. 2. Labyrinthine ossificans Postoperative Diagnosis: 1. Bilateral sensorineural hearing loss. 2. Labyrinthine ossificans Procedure(s) Performed: 1. right side cochlear implant utilizing a Nucleus 632 cochlear implant device (CPT 87310) with microsurgical technique and electrocochleography for the purpose of obtaining neural response telemetry Surgeon: Shaka Conte MD Fellow Surgeon: Cash Rene MD Resident Surgeon: RENATE Anesthesia: General Estimated Blood Loss: 25 mL Complications: None Operative Findings: 1) The right side facial nerve was identified and preserved. 2) There was full electrode insertion, required 3 insertions. First two insertions with tip foldover, possibly due to labyrinthitis ossificans 3) Normal impedance and telemetry testing. 4) Skull x-ray demonstrated appropriate placement of the electrode. Details of the Procedure: The patient was appropriately identified in the preoperative holding area. Again, the risks, benefits and alternatives were reviewed with the patient and/or family who choseto proceed with surgery. They were placed in supine position on the operating table and general anesthesia was induced without complication. Facial nerve monitoring electrodes were placed in theright side patient's orbicularis loco and orbicularis oculi muscle in the standard manner with standard placement of the ground electrode. The electrodes were connected to the facial nerve monitoring system prior to beginning the case. The systemwas tested prior to beginning the case as well as throughout the case to ensure there were no malfunctions. Lidocaine 1% with epinephrine 1:100,000 was then injected into the postauricular incision site. Thepatient was then prepped and draped in the usual sterile fashion. A postauricular incision was made through the skin and subcutaneous tissues. An extended anteriorly based mastoid periosteal flap was elevated anteriorly towards the posterior canal wall. A subpericranial pocket we developed posterosuperiorly for the proposed placement of thereceiver/stimulator. The operating microscope was introduced into the surgical field. The mastoidectomy portion of the procedure was then performed. During this dissection, the middle fossa plate andthe sigmoid sinus were identified and preserved. The posterior aspect of the external auditory canal was thinned. The horizontal semicircular canal was identified as was the incus. The descending segment of the facial nerve and chorda tympani nerve were identified and the middle ear opened. The round window niche overhang was removed revealing the round window membrane. The device was secured in its subpericranial pocket with 3-0 Monocryl. The round window membrane was fenestrated utilizing a 0.6mm diameter instructor of nursing. The electrode was then inserted in the standard manner. However, tip foldover was ideintified plain films. The exposure of the round window was extended anteriorly inferiorly. The electrocautery was then reinserted in a standard fashion. This resulted in appropriate placement. A small piece of temporalis fascia was placed around the electrode at the level of the round window. The Palva flap was then closed using 3-0 Monocryl. The postauricular incision was also closed using 3-0 Monocryl. Electrocochleography for the purpose of obtaining impedances and neural response telemetry. This revealed normal impedances and normal and active neural responses. A plain x-ray was obtained, which demonstrated the implant to be in appropriate position within the cochlea. A mastoid compression dressing was placed. At that point in time, care of the patient was returned to the Anesthesia staff who successfully reversed general anesthesia without complication. The patient awoke and was transported to the post-anesthesia care unit in stable condition. There were no immediate complications. Shaka Conte M.D. 06/16/2021 1:13 PM documented in this encounter Plan of Treatment Not on file documented as of this encounter Visit Diagnoses Diagnosis Sensorineural hearing loss (SNHL) of both ears- Primary documented in this encounter Care Teams Tyre Fitter Relationship Specialty Start Date End Date Chitra Chen MD PCP - General Internal Medicine 09/04/20 Chitra Chen MD Internal Medicine 09/04/20 Mir Gonzales MD Referring Physician Otolaryngology 04/08/19 documented as of this encounter
--- OUTSIDE RECORDS SUMMARY | 2024-11-17 18:13 | XMS_ITS | Encounter Summary ---
Author Organization [facility] Address [address] [place] [address] Phone Care Team Providers Care Tax Adjuster Name Role Phone Chitra Chen MD Primary Care Provider [phone] Chitra Chen MD Unavailable Mir Gonzales MD Unavailable [phone] Reason for Referral * MRI/CAT/PET Scan (Routine) - Closed Specialty Diagnoses / Procedures Referred By Contac t Referred To Contact Radiology Procedures CT Internal Auditory Canal Cochlear Implant WO Contrast Shaka Conte MD Phone: tel: fax: Referral ID Status Reason Start Date Expiration Date Visits Re quested Visits Authorized [id number] Closed 08/04/2021 09/03/2022 1 1 Encounter Details Date Type Department Care Team (Late st Contact Info) Description 08/04/2021 Orders Only [facility] Otolaryngology [address] [facility] Advanced Medicine 11th [place] [address] [place] [address] Shaka Conte MD [address] DEPT OTOLARYNGOLOGY, [facility] [place] [address] Social History Tobacco Use Types Packs/Day Years Used Date Smoking Tobacco: Never Alcohol Use Standard Drinks/Week Comments Not Currently 0 (1 standard drink = 0.6 oz pur e alcohol) Comments Unknown Sex and Gender Information Value Date Recorded Sex Assigned at Not on file 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 Gender Identity Female 03/19/2020 9:59 AM CDT Sexual Orientation Straight 03/19/2020 9: 59 AM CDT documented as of this encounter Plan of Treatment Not on file documented as of this encounter Procedures Procedure Name Priority Date/Time Associated Diagnosis Comments CT INTERNAL AUDITORY CANAL COCHLEAR IMPLANT WO CONTRAST Schedule Routine, Read Routine (OP Routine) 08/04/2021 documented in this encounter Results * CT Internal Auditory Canal Cochlear Implant WO Contrast (08/04/2021) Anatomical Region Laterality Modality Head and Neck N/A Computed Tomogra phy us Shaka Conte MD IMG CT PROCEDURES Final Res ult documented in this encounter Visit Diagnoses Not on filedocumented in this encounter Care Teams Tax Adjuster Relationship Specialty Start Date End Date Chitra Chen MD PCP - General Internal Medicine 09/04/20 Chitra Chen MD Internal Medicine 09/04/20 Mir Gonzales MD Referring Physician Otolaryngology 04/08/19 documented as of this encounter
--- OUTSIDE RECORDS SUMMARY | 2024-11-17 18:14 | XMS_ITS | Encounter Summary ---
Author Organization [facility] Facility Care Team Providers Care Meat Soaker Name Role Phone Unavailable Primary Care Provider Unavailabl e Encounter Details Date Type Department Care Team (Latest Contact Info) Description 05/27/2016 10:32 AM CDT - 05/27/2016 11:59 PM CDT Hospital Encounter [facility] Arturo Luong MD [address] [place] [address] Casey Joe PA [address] [place] [address] Osteoarthritis of knee; Abnormal findings on diagnostic imaging of other parts of musculoskeletal system Social History Tobacco Use Types Packs/Day Years Used Date Smoking Tobacco: Never Assessed Comments Unknown Sex and Gender Information Value Date Recorded Sex Assigned at Not on file Legal Sex Female 2:17 AM DECORATOR HAND Gender Identity Female 03/19/2020 9:59 AM CDT Sexual Orientation Straight 03/19/2020 9: 59 AM CDT documented as of this encounter Plan of Treatment Not on file documented as of this encounter Procedures Procedure Name Priority Date/Time Associated Diagnosis Comments KNEE RADIOGRAPHY, FRONTAL (AP), LATERAL, OBLIQUE Routine 05/27/2016 10:46 AM CDT documented in this encounter Results * KNEE RADIOGRAPHY, FRONTAL (AP), LATERAL, OBLIQUE (05/27/2016 10:46 AM CDT) Anatomical Region Laterality Modality N/A Radiographic Elina ging 05/27/2016 10:4 6 AM CDT Narrative 05/27/2016 11:08 AM CDT LYNNE ROUSSEAU M.D. FINAL REPORT ACC# ??Date Time ??Exam [id number] May 27, 2016 10:46:00 [id number] Knee 3 views R EXAMINATION: ?? Right knee 3 views HISTORY: ??Right knee pain, osteoarthritis. FINDINGS: ?? AP standing merchant views of both knees were obtained with a lateral view of the right knee. Images are reviewed without comparison. The alignment is normal. There is no fracture. There is tricompartmental right knee osteoarthritis, greatest and moderate in the medial compartment. There is a trace right knee joint effusion. 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 Images of the left knee demonstrate tricompartment osteoarthritis acute fracture or malalignment. IMPRESSION: ?? 1. Moderate medial compartment predominant tricompartmental right knee osteoarthritis. 2. 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 Requested By: Dictated By: ?? LYNNE ROUSSEAU M.D. ??on May ??2015 11:08A This document has been electronically signed by: LYNNE ROUSSEAU M.D. on May ??2015 11:08A [id number] Procedure Note Provider, MD Elias - 03/24/2017 LYNNE ROUSSEAU M.D. FINAL REPORT ACC# Date Time Exam [id number] May 27, 2016 10:46:00 [id number] Knee 3 views R EXAMINATION: Right knee 3 views HISTORY: Right knee pain, osteoarthritis. FINDINGS: AP standing merchant views of both knees were obtained with a lateral view of the right knee. Images are reviewed without comparison. The alignment is normal. There is no fracture. There is tricompartmental right knee osteoarthritis, greatest and moderate in the medial compartment. There is a trace right knee joint effusion. 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 Images of the left knee demonstrate tricompartment osteoarthritis acute fracture or malalignment. IMPRESSION: 1. Moderate medial compartment predominant tricompartmental right knee osteoarthritis. 2. 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 Requested By: Dictated By: LYNNE ROUSSEAU M.D. on May 27 2016 11:08A This document has been electronically signed by: LYNNE ROUSSEAU M.D. on May 27 2016 11:08A [id number] Historical Provider MD DURAN XR PROCEDURES Final R esult documented in this encounter Visit Diagnoses Diagnosis Osteoarthritis of knee Osteoarthrosis, unspecified whether generalized or localized, lower leg Abnormal findings on diagnostic imaging of other parts of musculoskeletal system documented in this encounter
--- OUTSIDE RECORDS SUMMARY | 2024-11-17 18:14 | XMS_ITS | Encounter Summary ---
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 Encounter Details Date Type Department Care Team (Late st Contact Info) Description 04/08/2019 11:45 AM CDT Office Visit [facility] Otolaryngology [address] [place] [address] Shaka Conte MD [address] [facility] DEPT OTOLARYNGOLOGY, [facility] [address] [place] [address] Acoustic neuroma (CMS/HCC) (Primary Dx); Sensorineural hearing loss (SNHL) of right ear with unrestricted hearing of left ear Social History Tobacco Use Types Packs/Day Years Used Date Smoking Tobacco: Never Comments Unknown Sex and Gender Information Value Date Recorded Sex Assigned at Not on file 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 female who presents today One year following retrosigmoid removal of right acoustic neuroma. Her course has been uneventful. She denies any vertigo. Past Medical/Surgical History Past Medical History: Diagnosis Date ??? Anxiety disorder Anxiety - (Added by TW Conv) ??? Personal history of other endocrine, nutritional and metabolic disease History of thyroid disorder - (Added by TW Conv) Past Surgical History: Procedure Laterality Date ??? LASIK Corneal LASIK Bilateral - (Added by TW Conv) ? ? AL REMOVAL OF TONSILS,<12 Y/O Tonsillectomy - (Added by TW Conv) Past Family/Social History Family History Problem Relation Age of Onset ??? Heart disease Mother Family history of cardiac disorder - (Added by TW Conv) ??? Heart disease Father Family history of cardiac disorder - (Added by TW Conv) ??? Hypertension Father Family history of hypertension - (Added by TW Conv) ??? Cancer Mother Family history of malignant neoplasm - (Added by TW Conv) ??? Cancer Brother Family history of malignant neoplasm - (Added by TW Conv) ??? Lung disease Mother Lung trouble - (Added by TW Conv) Social History Socioeconomic History ??? Marital status: Spouse name: None ??? Number of children: None ??? Years of education: None ??? Highest education level: None Occupational History ??? None Social Needs ??? Financial resource strain: None ??? Food insecurity: Worry: None Inability: None ??? Transportation needs: Medical: None Non-medical: None Tobacco Use ??? Smoking status: Never Smoker Substance and Sexual Activity ??? Alcohol use: None ??? Drug use: None ??? Sexual activity: None Lifestyle ??? Physical activity: Days per week: None Minutes per session: None ??? Stress: None Relationships ??? Social connections: Talks on phone: None Gets together: None Attends sabianism service: None Active member of club or organization: None Attends meetings of clubs or organizations: None Relationship status: None ??? Intimate partner violence: Fear of current or ex partner: None Emotionally abused: None Physically abused: None Forced sexual activity: None Other Topics Concern ??? None Social History Narrative ??? None Medications/Allergies/Immunizations Current Outpatient Medications Medication Sig Dispense Refill ??? bromfenac (PROLENSA) 0.07 % drops Prolensa 0.07 % eye drops ??? cyanocobalamin (Vitamin B-12) 500 mcg tablet ??? DULoxetine DR (CYMBALTA) 60 mg capsule ??? furosemide (LASIX) 80 mg tablet ??? lisinopril (PRINIVIL,ZESTRIL) 20 mg tablet ??? multivitamin tablet ??? oseltamivir (TAMIFLU) 75 mg capsule ??? OZEMPIC 0.25 mg or 0.5 mg(2 mg/1.5 mL) pen injector ??? phentermine 30 mg capsule phentermine 30 mg capsule TK 1 C PO D ??? QSYMIA 7.5-46 mg capsule, ER multiphase 24 hr 2 ??? rosuvastatin (CRESTOR) 20 mg tablet ??? SYNTHROID 112 mcg tablet ??? VIRTUSSIN AC 10-100 mg/5 mL liquid No current facility-administered medications for this visit. [...] palpated. Gait- normal. ASSESSMENT/PLAN Patient is seen will 1 year following retrosigmoid removal of a right acoustic neuroma. Her course has been uneventful. MRI reveals no evidence of tumor. While auditory function was preserved she continues markedly reduced word discrimination of 8% with a moderate to profound loss . Facial functionis normal and symmetric. She has a significant disequilibrium. Overall she is doing well return in 1 year with MRI. We may consider the option of cochlear implantation at that time should she have noevidence of recurrent tumor. Shaka Conte M.D. [employer]bi Investigator, Otology and Neurotology Department of Otolaryngology [facility] [phone] documented in this encounter Plan of Treatment Not on file documented as of this encounter Visit Diagnoses Diagnosis Acoustic neuroma (HCC)- Primary Benign neoplasm of cranial nerves Sensorineural hearing loss (SNHL) of right ear with unrestricted hearing of left ear documented in this encounter Historical Medications * This list may reflect changes made after this encounter. OZEMPIC 0.25 mg or 0.5 mg(2 mg/1.5 mL) pen injector 04/02/2019 rosuvastatin (CRESTOR) 20 mg tablet 04/02/[address] (CYMBALTA) 60 mg capsule 02/24/2019 QSYMIA 7.5-46 mg capsule, ER multiphase 24 hr 2 04/01/2019 10/14/20 2 0 phentermine 30 mg capsule phentermine 30 mg capsule TK 1 C PO D 0 oseltamivir (TAMIFLU) 75 mg capsule 01/28/2019 0 lisinopril (PRINIVIL,ZESTRI L) 20 mg tablet 04/02/2019 0 SYNTHROID 112 mcg tablet 03/19/2019 0 furosemide (LASIX) 80 mg tablet 0 cyanocobalamin (Vitamin B-12) 500 mcg tablet 0 VIRTUSSIN AC 10-100 mg/5 mL liquid 01/28/2019 0 bromfenac (PROLENSA) 0.07 % drops Prolensa 0.07 % eye drops 0 added in this encounter Care Teams Emt I/85 Relationship Specialty Start Date End Date Rossy Caruso NP PCP - General 10/24/17 08/30/20 Mir Gonzales MD Referring Physician Otolaryngology 04/08/19 documented as of this encounter
--- OUTSIDE RECORDS SUMMARY | 2024-11-17 18:14 | XMS_ITS | Encounter Summary ---
Author Organization [facility] Address [address] [place] [address] Phone Care Team Providers Care Negative Assembler Name Role Phone Klarissarenata Rossy DU Primary Care Provider [phone] Mir Gonzales MD Unavailable [phone] Encounter Details Date Type Department Care Team (Late st Contact Info) Description 03/19/2020 11:00 AM CDT Telemedicine [facility] Otolaryngology [address] [place] [address] [address] [place] [address] Shaka Conte MD [address] 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 During the visit, I was located in my clinic office and the patient was located at home. The session started at 11:03and ended at 11:15. The patient has been informed that the visit may not be secure and acknowledged the information. I have explained the option of participating in a telephone or video visit during the [facility] public health emergency to the patient. After being given an opportunity to ask questions about and discuss this type of visit, the patient verbally consented to proceeding with the telephone / video visit. The patient understands that this service replaces an office visit and they may be billed and/or responsible for any applicable copayments. This is a 64-year-old female who has previously undergone removal of a right acoustic neuroma 2 years ago. While auditory function was preserved it remains diminished. While this ear has remained stable, over the past 3 days she has noted decrease of hearing in her left, better hearing ear associated tinnitus and distortion. She denies any vertigo. It appears that she has developed a sudden left sensorineural hearing loss. She has type 2 diabetes. Therapeutic options were discussed including prednisone p.o., as well as Decadron perfusion. Given her diabetic condition it was recommended she undergo a Decadron perfusion and she will return in 1 day for the procedure. 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
--- OUTSIDE RECORDS SUMMARY | 2024-11-17 18:14 | XMS_ITS | Encounter Summary ---
Author Organization [facility] Address [address] [place] [address] Care Team Providers Care Solutions Sales Executive Name Role Phone Chitra Chen MD Primary Care Provider [phone] Chitra Chen MD Unavailable [phone] Mir Gonzales MD Unavailable [phone] Encounter Details Date Type Department Care Team (Late st Contact Info) Description 05/03/2021 Orders Only [facility] Testing Site - [address] [place] [address] Shaka Gallardo MD [address] [facility] [facility] [address] OTOLARYNGOLOGY, [place] [address] Pre-procedure lab exam (Primary Dx) Social History Tobacco Use Types Packs/Day Years Used Date Smoking Tobacco: Never Alcohol Use Standard Drinks/Week Comments Not Currently 0 (1 standard drink = 0.6 oz pur e alcohol) Comments Unknown Sex and Gender Information Value Date Recorded Sex Assigned at Not on file 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 Department: [address] Instruct: ?? Comment: ?? Order Specific Questions Question Answer Comment Testing types: Pre-procedure ?? Date of Px/chemo/treatment/placement/transfer 06/17/2021 ?? Testing site patient will be sent to: [facility] [place] ?? Date testing requested: 06/14/2021 ?? Testing: COVID/FLU ?? Is this the first COVID-19 test for this patient? Unknown ?? Does the patient currently work in a healthcare facility with direct patient contact? No ?? Is the patient a resident of a congregate care or living setting? No ?? Is the patient ? No ?? Please select the performing region: [facility] documented in this encounter Plan of Treatment Not on file documented as of this encounter Visit Diagnoses Diagnosis Pre-procedure lab exam- Primary Pre-procedural laboratory examination documented in this encounter Care Teams Solutions Sales Executive Relationship Specialty Start Date End Date Chitra Chen MD PCP - General Internal Medicine 09/04/20 Chitra Chen MD Internal Medicine 09/04/20 Mir Gonzales MD Referring Physician Otolaryngology 04/08/19 documented as of this encounter
--- OUTSIDE RECORDS SUMMARY | 2024-11-17 18:14 | XMS_ITS | Encounter Summary ---
Author Organization [facility] Address [address] [place] [address] Phone Care Team Providers Care Nuclear Weapons Mechanical Specialist Name Role Phone Shady Rossy DU Primary Care Provider [phone] Mir Gonzales MD Unavailable [phone] Reason for Visit * Consultation (Routine) - Canceled Specialty Diagnoses / Procedures Referred By Trudy portillo Referred To Contact Audiology Diagnoses Sensory hearing loss, bilateral Shaka Conte MD Phone: tel: fax: [facility] (All Locations) Referral ID Status Reason Start Date Expiration Date Visits Requested Visits Authorized [id number] Canceled Specialty Services Required 03/20/2020 10/02/2021 1 1 Encounter Details Date Type Department Care Team (Latest Contact Info) Description 03/20/2020 1:00 PM CDT Procedure visit [facility] Otolaryngology [address] [place] [address] Dalia Blake Au.D. 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 - 03/20/2020 1:00 PM CDT Procedures Audiogram completed per physician referral. See scanned audiogram for results. Medical history was obtained by medical biller/coder. Results were reviewed with the patient by physician. documented in this encounter Miscellaneous Notes * Addendum Note - Nadia Swartz - 03/20/2020 1:00 PM CDTAddended by: NADIA SWARTZ on: 03/23/2020 07:40 AM Modules accepted: Orders documented in this encounter Plan of Treatment Not on file documented as of this encounter Procedures Procedure Name Priority Date/Time Associated Diagnosis Comments AUDBASE RESULTS 03/20/2020 documented in this encounter Results * AUDBASE RESULTS (03/20/2020) Provider Scanning AUDIOLOGY SERVICES ORDERABLES Final Result documented in this encounter Visit Diagnoses Diagnosis Sensory hearing loss, bilateral- Primary documented in this encounter Care Teams Nuclear Weapons Mechanical Specialist Relationship Specialty Start Date End Date Rossy Caruso NP PCP - General 10/24/17 08/30/20 Mir Gonzales MD Referring Physician Otolaryngology 04/08/19 documented as of this encounter
--- OUTSIDE RECORDS SUMMARY | 2024-11-17 18:14 | XMS_ITS | Encounter Summary ---
Author Organization [facility] Address [address] [place] [address] Care Team Providers Care Hemp Fiber Taker Off Name Role Phone Chitra Chen MD Primary Care Provider [phone] Chitra Chen MD Unavailable [phone] Mir Gonzales MD Unavailable [phone] Encounter Details Date Type Department Care Team (Late st Contact Info) Description 09/04/2020 Orders Only [facility] Cardiology [address] [place] [address] Provider, MD Elias [address] [place] [address] Social History Tobacco Use Types Packs/Day Years Used Date Smoking Tobacco: Never Assessed Comments Unknown Sex and Gender Information Value Date Recorded Sex Assigned at Not on file Legal Sex Female 2:17 AM FINANCIAL ASSISTANCE ADVISOR Gender Identity Female 03/19/2020 9:59 AM CDT Sexual Orientation Straight 03/19/2020 9: 59 AM CDT documented as of this encounter Plan of Treatment Not on file documented as of this encounter Procedures Procedure Name Priority Date/Time Associated Diagnosis Comments CARDIOLOGY DOCUMENT SCAN Routine 09/04/2020 documented in this encounter Results * SCAN - CARDIOLOGY (09/04/2020) Anatomical Region Laterality Modality Other Historical Provider CV CARDIAC SERVICES CHRISTOPHER TRACEY Final Result documented in this encounter Visit Diagnoses Not on filedocumented in this encounter Care Teams Hemp Fiber Taker Off Relationship Specialty Start Date End Date Chitra Chen MD PCP - General Internal Medicine 09/04/20 Chitra Chen MD Internal Medicine 09/04/20 Mir Gonzales MD Referring Physician Otolaryngology 04/08/19 documented as of this encounter
--- OUTSIDE RECORDS SUMMARY | 2024-11-17 18:14 | XMS_ITS | Encounter Summary ---
Author Organization [facility] Address [address] [place] [address] Phone Care Team Providers Care Watch Parts Grinder Name Role Phone Chitra Chen MD Primary Care Provider [phone] Chitra Chen MD Unavailable [phone] Mir Gonzales MD Unavailable [phone] Encounter Details Date Type Department Care Team (Latest Contact Info) Description 04/14/2021 8:00 AM CDT Procedure visit [facility] Otolaryngology [address] [place] [address] Kayli Miller CCC-A [address], [facility] [address] [place] [address] Asymmetrical right sensorineural hearing loss (Primary Dx); Sensorineural hearing loss, bilateral Social History Tobacco Use Types Packs/Day Years Used Date Smoking Tobacco: Never Alcohol Use Standard Drinks/Week Comments Not Currently 0 (1 standard drink = 0.6 oz pur e alcohol) Comments Unknown Sex and Gender Information Value Date Recorded Sex Assigned at Not on file Legal Sex Female 2:17 AM FRAME STYLIST Gender Identity Female 03/19/2020 9:59 AM CDT Sexual Orientation Straight 03/19/2020 9: 59 AM CDT documented as of this encounter Procedure Notes * Kayli Miller CCC-A - 04/14/2021 8:00 AM CDT Procedures Cochlear Implant Preoperative Report Referring Physician: Shaka Conte MD Pertinent Case History Roopa Hill was referred today for cochlear implant evaluation. 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 Patient reports mild hearing loss bilaterally prior to surgery. Patient is unable to wear a hearing aid at the right ear due to distorted sound quality. Patient is unable to localize sound and has difficulty hearing in background noise and group situations. Patient reports chronic tinnitus bilaterally, with ringing at the left ear and rumbling at the right ear. Patient reports imbalance, however pt further reportsshe broke her left in June of 2020 and has been undergoing PT. Pt denies family history of hearing loss, vertigo, and noise exposure. Patient was fit with bilateral [facility] hearing aids for today's testing. Patient sees a human resources temp at [employer], but was not able to recall name. 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 Audiometric Data Audiogram reveals a severe rising to moderate sloping to profound sensorineural hearing loss (SNHL)at the right ear and a WNL sloping to moderate SNHL at the left ear. Word recognition score (WRS) is 20% at the right ear and 100% at the left ear. Right ear pure tone average (USABILITY ARCHITECT: 500-4000 Hz) is 84 dB HL and left ear USABILITY ARCHITECT (500Hz-4000Hz) is 33dB HL. Evaluation of Auditory Function for Surgically Implanted Device Candidacy: (8:30AM - 9:30AM) Testing was performed in sound-field at 0 degrees azimuth with patient wearing amplification at [facility]. Contralateral ear occluded w/ foam plug + headphones emitting 70 dBHL white noise masking during right ear only condition. Sound field thresholds reveal functional gain from amplification. Right Aided Thresholds 500 Hz 1000 Hz 2000 Hz 3000 Hz 4000 Hz 30 15 45 90 NR Left Aided Thresholds 500 Hz 1000 Hz 2000 Hz 3000 Hz 4000 Hz 10 10 20 20 20 CNC Words CNC Words List 2 @ 60 dB SPL: right ear = 20%, phonemes = 47% CNC Words List 1 dB SPL: left ear = 88%, phonemes = 96% Sentences in Quiet [place] Bio Sentences List 1 @ 60 dB SPL: binaural = 99% [place] Bio Sentences List 5 dB SPL: right ear = 30% [place] Bio Sentences List 3 dB SPL: left ear = 100% Sentences in Noise (+ 10 dB SNR) [place] Bio Sentences List 2 dB SPL (+ 10 dB SNR): binaural = 95% [place] Bio Sentences List 6 @ 60 dB SPL (+ 10 dB SNR): right ear = 10% [place] Bio Sentences List 4 @ 60 dB SPL (+ 10 dB SNR): left ear = 93% Sentences in Noise (+ 5 dB SNR) [place] Bio Sentences List 760 dB SPL (+ 5 dB SNR): binaural = 72% Counseling Roopa Hill is interested in pursuing cochlear implantation at the right ear. Patient was provided with the cochlear implant candidacy folder and was counseled regarding cochlear implant components, function, use, expectations and rehabilitation needs. Patient was further counseled on post-op schedule and auditory rehabilitation. The current CDC pneumococcal recommendations were discussed and patient was provided with the [facility] vaccination letter. Findings Due to degree of hearing impairment at the right ear and associated symptoms, including inability to localize sound, decreased understanding in background noise, chronic right tinnitus, lack of benefit from amplification, and detriment to quality of life, cochlear implantation at the right ear is suggested. Patient has requested evaluation be sent to insurance for review for authorization. Recommendations Follow up with Dr. Conte Patient will return for further counseling prior to implantation Retrocochlear studies as needed by Trimmer Loader Kayli Miller MS, CCC-A documented in this encounter Plan of Treatment Not on file documented as of this encounter Procedures Procedure Name Priority Date/Time Associated Diagnosis Comments AUDBASE RESULTS 04/14/2021 7:57 AM CDT documented in this encounter Results * AUDBASE RESULTS (04/14/2021 7:57 AM CDT) Provider Scanning AUDIOLOGY SERVICES ORDERABLES Edited Result - Final documented in this encounter Visit Diagnoses Diagnosis Asymmetrical right sensorineural hearing loss- Primary Sensorineural hearing loss, asymmetrical Sensorineural hearing loss, bilateral documented in this encounter Care Teams Watch Parts Grinder Relationship Specialty Start Date End Date Chitra Chen MD PCP - General Internal Medicine 09/04/20 Chitra Chen MD Internal Medicine 09/04/20 Mir Gonzales MD Referring Physician Otolaryngology 04/08/19 documented as of this encounter
--- OUTSIDE RECORDS SUMMARY | 2024-11-17 18:14 | XMS_ITS | Encounter Summary ---
Author Organization [facility] Address [address] [place] [address] Phone Care Team Providers Care Vp Digital Marketing Social Media And Crm Name Role Phone Chitra Chen MD Primary Care Provider [phone] Chitra Chen MD Unavailable Mir Gonzales MD Unavailable [phone] Encounter Details Date Type Department Care Team (Late st Contact Info) Description 05/03/2021 Telephone [facility] Otolaryngology [address] [place] [address] Roberta Jimenez Social History Tobacco Use Types Packs/Day Years Used Date Smoking Tobacco: Never Alcohol Use Standard Drinks/Week Comments Not Currently 0 (1 standard drink = 0.6 oz pur e alcohol) Comments Unknown Sex and Gender Information Value Date Recorded Sex Assigned at Not on file Legal Sex Female 2:17 AM 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 Discussed possible date of 05/05 for surgery. After reviewing chart patient needs additional testing with home health caregiver and an updated CT/MRI to check prev acoustic. Will scheduled pre op with Dr. Conte as well. Called and left message with patient to call me back to review appointments needed as well as to select a surgery date in May. We will be looking at June 10. documented in this encounter Plan of Treatment Not on file documented as of this encounter Visit Diagnoses Not on filedocumented in this encounter Care Teams Vp Digital Marketing Social Media And Crm Relationship Specialty Start Date End Date Chitra Chen MD PCP - General Internal Medicine 09/04/20 Chitra Chen MD Internal Medicine 09/04/20 Mir Gonzales MD Referring Physician Otolaryngology 04/08/19 documented as of this encounter
--- OUTSIDE RECORDS SUMMARY | 2024-11-17 18:14 | XMS_ITS | Encounter Summary ---
Author Organization [facility] Address [address] [place] [address] Phone Care Team Providers Care Ela Teacher Name Role Phone Chitra Chen MD Primary Care Provider [phone] Chitra Chen MD Unavailable Mir Gonzales MD Unavailable [phone] Encounter Details Date Type Department Care Team (Late st Contact Info) Description 06/14/2021 Telephone [facility] Otolaryngology [address] [place] [address] Monica Villasenor CNA Social History Tobacco Use Types Packs/Day Years Used Date Smoking Tobacco: Never Alcohol Use Standard Drinks/Week Comments Not Currently 0 (1 standard drink = 0.6 oz pur e alcohol) Comments Unknown Sex and Gender Information Value Date Recorded Sex Assigned at Not on file Legal Sex Female 2:17 AM CHICK ROOM SUPERVISOR Gender Identity Female 03/19/2020 9:59 AM CDT Sexual Orientation Straight 03/19/2020 9: 59 AM CDT documented as of this encounter Miscellaneous Notes * Telephone Encounter - Monica Villasenor CNA - 06/14/2021 8:49 AM CDT Spoke with [employer] to verify eligibility. Plan is active with no termination date. However, ID number has changed to [id number] Ref # [id number] documented in this encounter Plan of Treatment Not on file documented as of this encounter Visit Diagnoses Not on filedocumented in this encounter Care Teams Ela Teacher Relationship Specialty Start Date End Date Chitra Chen MD PCP - General Internal Medicine 09/04/20 Chitra Chen MD Internal Medicine 09/04/20 Mir Gonzales MD Referring Physician Otolaryngology 04/08/19 documented as of this encounter
--- OUTSIDE RECORDS SUMMARY | 2024-11-17 18:14 | XMS_ITS | Encounter Summary ---
Author Organization [facility] Address [address] [place] [address] Care Team Providers Care Cyanide Pot Hardener Name Role Phone Chitra Chen MD Primary Care Provider Chitra Chen MD Unavailable [phone] Mir Gonzales MD Unavailable [phone] Encounter Details Date Type Department Care Team (Late st Contact Info) Description 09/04/2020 Orders Only [facility] Cardiology [address] [place] [address] Provider, MD Elias [address] [place] [address] Social History Tobacco Use Types Packs/Day Years Used Date Smoking Tobacco: Never Comments Unknown Sex and Gender Information Value Date Recorded Sex Assigned at Not on file Legal Sex Female 2:17 AM 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
--- OUTSIDE RECORDS SUMMARY | 2024-11-17 18:14 | XMS_ITS | Encounter Summary ---
Author Organization [facility] Address [address] [place] [address] Phone Care Team Providers Care Retail Marketing Executive Name Role Phone Rossy Caruso NP Primary Care Provider Mir Gonzales MD Unavailable [phone] Reason for Visit * ENT (Routine) - Closed Specialty Diagnoses / Procedures Referred By Trudy portillo Referred To Contact Audiology Diagnoses . Procedures AUDIOGRAM/HEARING TEST Shaka Conte MD Phone: tel: fax: Itzel Jameson Au.D. [address] DEPT [address]OLOGY[address] [address] Phone: tel: fax: Referral ID Status Reason Start Date Expiration Date Visits Re quested Visits Authorized [id number] Closed 04/08/2019 10/17/2020 1 1 Encounter Details Date Type Department Care Team (Latest Contact Info) Description 04/08/2019 11:45 AM CDT Procedure visit [facility] Otolaryngology [address] [place] [address] Itzel Jameson Au.D. [address] DEPT OTOLARYNGOLOGY, [place] [address] Sensorineural hearing loss, bilateral (Primary Dx) Social History Tobacco Use Types Packs/Day Years Used Date Smoking Tobacco: Never Comments Unknown Sex and Gender Information Value Date Recorded Sex Assigned at Not on file Legal Sex Female 2:17 AM DESULFURIZER OPERATOR Gender Identity Female 03/19/2020 9:59 AM CDT Sexual Orientation Straight 03/19/2020 9: 59 AM CDT documented as of this encounter Procedure Notes * Itzel Harris Au.D. - 04/08/2019 11:45 AM CDT Procedures See audio documented in this encounter Plan of Treatment Not on file documented as of this encounter Visit Diagnoses Diagnosis Sensorineural hearing loss, bilateral- Primary documented in this encounter Care Teams Retail Marketing Executive Relationship Specialty Start Date End Date Rossy Caruso NP PCP - General 10/24/17 08/30/20 Mir Gonzales MD Referring Physician Otolaryngology 04/08/19 documented as of this encounter
--- OUTSIDE RECORDS SUMMARY | 2024-11-17 18:14 | XMS_ITS | Encounter Summary ---
Author Organization [facility] Address [address] [place] [address] Phone Care Team Providers Care Termite Treater Name Role Phone KlarissaRossy yanez ANA LAURA Primary Care Provider [phone] Mir Gonzales MD Unavailable [phone] Reason for Visit * Reason Comments Hearing Loss pt c/o lt hearing lo ss Encounter Details Date Type Department Care Team (Late st Contact Info) Description 03/20/2020 1:00 PM CDT Office Visit [facility] Otolaryngology [address] [place] [address] [address] [place] [address] Shaka Conte MD [address] [facility] DEPT OTOLARYNGOLOGY, [facility] [address] [place] [address] Acoustic neuroma (CMS/HCC) (Primary Dx); 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 Hearing Loss pt c/o lt hearing loss HPI: This is a 64 y.o. female who presents today for evaluation of Her hearing. Over the past 4 days she has noted a subjective sense of distortion and decreased hearing in her left, better hearing ear. It is to be noted that she underwent removal of a right acoustic neuroma via a retrosigmoid approach approximately 2 years ago. All hearing was preserved on that side is remains significantly diminished relative to her left side. She denies any significant tinnitus on the left. She denies any vertigo. Subjectively, the distortion and sense of decreased hearing has essentially resolved on the left side. Past Medical/Surgical History Past Medical History: Diagnosis Date ??? Anxiety disorder Anxiety - (Added by TW Conv) ??? Personal history of other endocrine, nutritional and metabolic disease History of thyroid disorder - (Added by TW Conv) Past Surgical History: Procedure Laterality Date ??? LASIK Corneal LASIK Bilateral - (Added by TW Conv) ? ? MI REMOVAL OF TONSILS,<12 Y/O Tonsillectomy - (Added [...] ??? Financial resource strain: None ??? Food insecurity Worry: None Inability: None ??? Transportation needs Medical: None Non-medical: None Tobacco Use ??? Smoking status: Never Smoker Substance and Sexual Activity ??? Alcohol use: None ??? Drug use: None ??? Sexual activity: None Lifestyle ??? Physical activity Days per week: None Minutes per session: None ??? Stress: None Relationships ??? Social connections Talks on phone: None Gets together: None Attends samaritan service: None Active member of club or organization: None Attends meetings of clubs or organizations: None Relationship status: None ??? Intimate partner violence Fear of current or ex partner: None [...] palpated. Gait- normal. ASSESSMENT/PLAN Patient is seen 4 days following subjective sudden left hearing loss in her better hearing ear. Hercurrent audiogram however, reveals stable thresholds when compared to her last study 1 year ago. Further, auditory function remains preserved on the right contralateral side, although with decreased word discrimination of 12%. The option of a cochlear implant on the right side was discussed along with accompanying risks of bleeding, infection, loss of hearing, dizziness, facial paralysis and device failure. She is interested in pursuing this modality. We will proceed with more detailed evaluation by our cochlear implant technical support associate, as well as follow-up MRI. Given the stable auditory findingson the left, will defer any medical management of the hearing loss on that side. Shaka Conte M.D. 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
--- OUTSIDE RECORDS SUMMARY | 2024-11-17 18:14 | XMS_ITS | Encounter Summary ---
Author Organization [facility] Address [address] [place] [address] Phone Care Team Providers Care Dance Studio Manager Name Role Phone Chitra Chen MD Primary Care Provider [phone] Chitra Chen MD Unavailable Mir Gonzales MD Unavailable [phone] Encounter Details Date Type Department Care Team (Latest Contact Info) Description 06/14/2021 9:00 AM CDT Procedure visit [facility] Otolaryngology [address] [place] [address] Kayli Miller CCC-A [address] DE[address] OTOLARY[address]OLOGY, [facility] [address] [place] [address] Sensorineural hearing loss, bilateral (Primary Dx) Social History Tobacco Use Types Packs/Day Years Used Date Smoking Tobacco: Never Alcohol Use Standard Drinks/Week Comments Not Currently 0 (1 standard drink = 0.6 oz pur e alcohol) Comments Unknown Sex and Gender Information Value Date Recorded Sex Assigned at Not on file Legal Sex Female 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 Patient was seen today for additionalcounseling and device selection. Testing completed 04/14/2021 CNC Words CNC Words List 2 @ 60 dB SPL: right ear =??20%, ??phonemes = 47% CNC Words List??1 dB SPL: left ear = 88%, ??phonemes = 96% ?? Sentences in Quiet [place] Bio Sentences List 1 @ 60 dB SPL: binaural =??99% [place] Bio Sentences List??5 dB SPL: right ear = 30% [place] Bio Sentences List??3 dB SPL: left ear = 100% ?? Sentences in Noise (+ 10 dB SNR) [place] Bio Sentences List??2 dB SPL (+ 10 dB SNR): binaural = 95% [place] Bio Sentences List 6 @ 60 dB SPL (+ 10 dB SNR): right ear =??10% [place] Bio Sentences List 4 @ 60 dB SPL (+ 10 dB SNR): left ear = 93% ?? Sentences in Noise (+ 5 dB SNR) [place] Bio Sentences List??760 dB SPL (+ 5??dB SNR): binaural = 72% Device Selection Roopa Hill has selected the N7 processor in [facility]. Accessories include the Mini Crowdfynd 2+, TV streamer, additional rechargeable battery, and plus one certificate. Counseling Roopa Hill is interested in pursuing cochlear implantation at the right ear. Patient was provided with the cochlear implant candidacy folder previously. She was re-counseled regarding cochlear implant components, function, use, expectations and rehabilitation needs. Patient was further counseled on post-op schedule and auditory rehabilitation. Reviewed adjustment period and expectations considering her audiometric history. The current CDC pneumococcal recommendations were discussed and patient was provided with the [facility] vaccination letter. Recommendations Follow up with Dr. Conte Retrocochlear studies as needed by Regulatory Lead Kayli Miller MS, CCC-A documented in this encounter Plan of Treatment Not on file documented as of this encounter Visit Diagnoses Diagnosis Sensorineural hearing loss, bilateral- Primary documented in this encounter Care Teams Dance Studio Manager Relationship Specialty Start Date End Date Chitra Chen MD PCP - General Internal Medicine 09/04/20 Chitra Chen MD Internal Medicine 09/04/20 Mir Gonzales MD Referring Physician Otolaryngology 04/08/19 documented as of this encounter
--- OUTSIDE RECORDS SUMMARY | 2024-11-17 18:14 | XMS_ITS | Encounter Summary ---
Author Organization [facility] Address [address] [place] [address] Care Team Providers Care Round Corner Cutter Operator Name Role Phone Chitra Chen MD Primary Care Provider [phone] Chitra Chen MD Unavailable Mir Gonzales MD Unavailable [phone] Reason for Visit * Reason Comments New Patient family history of pr emature CAD Hypertension Encounter Details Date Type Department Care Team (Late st Contact Info) Description 10/14/2020 3:00 PM STOCK REPLENISHER Office Visit [facility] Cardiology [address] [place] [address] Seamus Landaverde MD [facility] [place] [id number] Family history of ischemic heart disease (Primary Dx); Essential hypertension; Obesity (BMI 30-39.9); Dyslipidemia Social History Tobacco Use Types Packs/Day Years Used Date Smoking Tobacco: Never Alcohol Use Standard Drinks/Week Comments Not Currently 0 (1 standard drink = 0.6 oz pur e alcohol) Comments Unknown Sex and Gender Information Value Date Recorded Sex Assigned at Not on file Legal Sex Female 2:17 AM STOCK REPLENISHER Gender Identity Female 03/19/2020 9:59 AM CDT Sexual Orientation Straight 03/19/2020 9: 59 AM CDT documented as of this encounter Last Filed Vital Signs Vital Sign Reading Time Taken Comments Blood Pressure 122/80 10/14/2020 3:00 PM STOCK REPLENISHER Pulse 96 10/14/2020 3:00 PM STOCK REPLENISHER Temperature - - Respiratory Rate - - Oxygen Saturation 96% 10/14/2020 3:00 PM STOCK REPLENISHER Inhaled Oxygen Concentration - - Weight 127.4 kg (280 lb 14.4 oz) 10/14/2020 3:00 PM STOCK REPLENISHER Height 180.3 cm (5' 11 ) 10/14/2020 3:00 PM STOCK REPLENISHER Body Mass Index 39.18 10/14/2020 3:00 PM STOCK REPLENISHER documented in this encounter Progress Notes * Seamus Landaverde MD - 10/14/2020 3:00 PM CST [facility] 10/14/2020 CHIEF COMPLAINT Chief Complaint Patient presents with ??? New Patient family history of premature CAD ??? Hypertension Cardiovascular evaluation HPI Roopa Hill is a 65 y.o. female with hypertension, dyslipidemia, family history of early CAD; history of right acoustic neuroma. 10/14/2020 initial evaluation-patient is here for the cardiovascular evaluation. Patient states that in April 2020, her sister was 67-year-old had what she described as massive heart attack , and as per patient, had stents placed. Patient also gives family history of non fatal MD of her harder at age 45. Patient is getting concerned about her cardiovascular health. She does not have any ongoing symptoms of chest pain or shortness of breath for level of activity. Patient states that she had a fall few months ago and had left knee pain, and has had sedentary lifestyle and has gained weight. Shedenies any prior known clinical MD, angina, heart failure or any arrhythmias. Patient is a nonsmoker, denies alcohol or illicit drugs. 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 MEDICAL HISTORY she has a past medical history of Anxiety disorder, DM (diabetes mellitus) (CMS/HCC), Obesity, Personal history of other endocrine, nutritional and metabolic disease, and Thyroid disease. Right acoustic neuroma she has a past surgical history that includes pr removal of tonsils,<13 y/o and LASIK. she Allergies Allergen Reactions ??? Penicillins Current Outpatient Medications Medication Sig Dispense Refill ??? aspirin 81 mg enteric coated tablet Take 81 mg by mouth 2 (two) times a day ??? calcium txnt-E1-cjyhgjjzh brittanie 133 mg calcium -133 unit-67 mg capsule Take by mouth ??? DULoxetine DR (CYMBALTA) 60 mg capsule ??? losartan (COZAAR) 50 mg tablet ??? multivitamin tablet ??? OZEMPIC 0.25 mg or 0.5 mg(2 mg/1.5 mL) pen injector ??? rosuvastatin (CRESTOR) 20 mg tablet No current facility-administered medications for this visit. she family history includes Cancer in her brother and mother; Heart disease in her father and mother; Hypertension in her father; Lung disease in her mother. she reports that she has never smoked. She does not have any smokeless tobacco history on file. Shereports previous alcohol use. She reports previous drug use. REVIEW OF SYSTEMS General ROS: negative for - Fever, chills, fatigue Psychological ROS: Anxiety Ophthalmic ROS: negative for - loss of vision ENT ROS: Patient gives history of acoustic neuroma on the right side with decreased hearing Allergy and Immunology ROS: negative for - hives, postnasal drip Hematological and Lymphatic ROS: negative for - overt bleeding problems, bruising Respiratory ROS: negative for - cough, hemoptysis, wheezing Cardiovascular ROS: negative for - chest pain, dyspnea, leg swelling Gastrointestinal ROS: negative for - abdominal pain Endocrine ROS: negative for - hot flashes, polydipsia/polyuria Genito-Urinary ROS: negative for - dysuria, hematuria Musculoskeletal ROS: Left knee pain Neurological ROS: negative for - gait disturbance, weakness Dermatological ROS: negative for pruritus, rash LABS AND OTHER DIAGNOSTIC TESTS REVIEWED No results found for: WBC, HGB, HCT, MCV, PLT No lab exists for component: LABALBU No results found for: WBC, HGB, HCT, MCV, PLT No results found for: CHOL No results found for: HDL No results found for: LDL] No results found for: TRIG EKG-sinus rhythm, low voltage precordial leads. 10/14/2020 Lipids-total cholesterol 169, HDL 77, triglycerides 185, LDL 56. 10/14/2022 PHYSICAL EXAM Vitals BP 122/80 (BP Location: Right arm, Patient Position: Sitting) Pulse 96 Ht 180.3 cm (5' 11 ) Wt 127.4 kg (280 lb 14.4 oz) SpO2 96% BMI 39.18 kg/m?? General appearance - obese, alert, no distress, oriented to time, place, person Mental status - affect appropriate to mood Eyes - extraocular eye movements intact, no pallor Ears - external ears appear normal, hearing grossly normal Nose - normal and patent, no discharge Mouth - mucous membranes moist, tongue normal Neck - supple, carotids upstroke normal bilaterally, no bruits, no JVD Chest - clear to auscultation Heart - normal rate, regular rhythm, normal S1, S2, no audible murmurs Abdomen - soft, nontender, nondistended, bowel sounds present Neurological - alert, oriented, normal speech, no gross motor deficits Musculoskeletal - no major deformity, no amputations Extremities - no pedal edema, no clubbing or cyanosis Skin - no rashes (on the exposed areas), no cyanosis ASSESSMENT Diagnoses and all orders for this visit: Family history of ischemic heart disease (Primary) - CT Coronary Calcium Scoring; Future Essential hypertension Obesity (BMI 30-39.9) - CT Coronary Calcium Scoring; Future Dyslipidemia - CT Coronary Calcium Scoring; Future PLAN/RECOMMENDATIONS 65 y.o. with hypertension, dyslipidemia, family history of early CAD; history of right acoustic neuroma. Patient has family history of premature coronary artery disease. Her coronary risk factors include hypertension, dyslipidemia, family history of early CAD, and obesity. Patient is concerned about hercardiovascular status. She does not have any ongoing cardiovascular symptoms. Her LDL from today is56. Will proceed with coronary calcium scoring for risk stratification. Patient was advised to continue previously prescribed low-dose aspirin, and statin. Diet and lifestyle modification, heart healthy/low-salt diet; weight reduction. RTC 1 year or sooner if needed, based on above test. Seamus Landaverde MD 10/14/20 Voice recognition software was used to complete this document, therefore, tree worker variances may occur. K REPLENISHER documented in this encounter Miscellaneous Notes * Addendum Note - Ingrid Sims MA - 10/14/2020 3:00 PM CSTAddended by: INGRID SIMS on: 10/14/2020 05:35 PM Modules accepted: Orders K REPLENISHER * Addendum Note - Ingrid Sims MA - 10/14/2020 3:00 PM CSTAddended by: INGRID SIMS on: 10/15/2020 04:49 PM Modules accepted: Orders K REPLENISHER documented in this encounter Plan of Treatment Not on file documented as of this encounter Procedures Procedure Name Priority Date/Time Associated Diagnosis Comments POCT LIPID PANEL Routine 10/14/2020 5:34 PM STOCK REPLENISHER Dyslipidemia ECG 12-LEAD Routine 10/14/2020 Family history of ischemic heart disease documented in this encounter Results * POCT lipid panel (10/14/2020 5:34 PM STOCK REPLENISHER) Cholesterol, POC 169 mg/dL Comment:GLU = 124 HDL, POC 77 mg/dL Triglycerides, POC 185 mg/dL LDL Cholesterol POC 56 mg/dL Chol/HDL Ratio, POC 2.2 Non-HDL Cholesterol, POC 93 mg/dL Cholesterol Total, POC 169 mg/dL Capillary blood 10/14/2020 5 :34 PM STOCK REPLENISHER us Seamus Landaverde MD POINT OF CARE TEST ORDERABLES Fi nal Result * ECG 12 lead (10/14/2020) us Seamus Landaverde MD ECG ORDERABLES Final Result documented in this encounter Visit Diagnoses Diagnosis Family history of ischemic heart disease- Primary Essential hypertension Unspecified essential hypertension Obesity (BMI 30-39.9) Dyslipidemia Other and unspecified hyperlipidemia documented in this encounter Discontinued Medications Medication Sig Discontinue Reason Start Date End Da te lisinopril (PRINIVIL,ZESTRIL) 20 mg tablet Alternate therapy 04/02/2019 10/14/2020 bromfenac (PROLENSA) 0.07 % drops Prolensa 0.07 % eye drops Therapy completed 10/14/2020 cyanocobalamin (Vitamin B-12) 500 mcg tablet Therapy completed 10/14/2020 furosemide (LASIX) 80 mg tablet Therapy completed 10/14/2020 oseltamivir (TAMIFLU) 75 mg capsule Therapy completed 01/28/2019 10/14/2020 phentermine 30 mg capsule phentermine 30 mg capsule TK 1 C PO D Therapy completed 10/14/2020 QSYMIA 7.5-46 mg capsule, ER multiphase 24 hr Therapy completed 04/01/2019 10/14/2020 SYNTHROID 112 mcg tablet Therapy completed 03/19/2019 10/14/2020 VIRTUSSIN AC 10-100 mg/5 mL liquid Therapy completed 01/28/2019 10/14/2020 documented as of this encounter Historical Medications * This list may reflect changes made after this encounter. calcium wjje-Z8-jlkzqreyb brittanie 133 mg calcium -133 unit-67 mg capsule Take by mouth aspirin 81 mg enteric coated tablet Take 81 mg by mouth 2 (two) times a day losartan (COZAAR) 50 mg tablet 10/12/2020 added in this encounter Care Teams Round Corner Cutter Operator Relationship Specialty Start Date End Date Chitra Chen MD PCP - General Internal Medicine 09/04/20 Chitra Chen MD Internal Medicine 09/04/20 Mir Gonzales MD Referring Physician Otolaryngology 04/08/19 documented as of this encounter
--- OUTSIDE RECORDS SUMMARY | 2024-11-17 18:14 | XMS_ITS | Encounter Summary ---
Author Organization [facility] Address [address] [place] [address] Phone Care Team Providers Care Restoration Officer Name Role Phone Chitra Chen MD Primary Care Provider [phone] Chitra Chen MD Unavailable [phone] Mir Gonzales MD Unavailable [phone] Reason for Referral * MRI/CAT/PET Scan (Routine) - Closed Specialty Diagnoses / Procedures Referred By Contac t Referred To Contact Radiology Diagnoses Sensorineural hearing loss (SNHL) of both ears Procedures CT Internal Auditory Canal Cochlear Implant WO Contrast Kannan Singh MD Phone: tel: fax: [address] [address] Referral ID Status Reason Start Date Expiration Date Visits Re quested Visits Authorized [id number] Closed 07/28/2021 06/26/2022 1 1 Encounter Details Date Type Department Care Team (Late st Contact Info) Description 05/27/2021 Orders Only [facility] Otolaryngology [address] [place] [address] Suyapa Zimmerman CMA Sensorineural hearing loss (SNHL) of both ears (Primary Dx) Social History Tobacco Use Types Packs/Day Years Used Date Smoking Tobacco: Never Alcohol Use Standard Drinks/Week Comments Not Currently 0 (1 standard drink = 0.6 oz pur e alcohol) Comments Unknown Sex and Gender Information Value Date Recorded Sex Assigned at Not on file Legal Sex Female 2:17 AM [id number] Gender Identity Female 03/19/2020 9:59 AM CDT Sexual Orientation Straight 03/19/2020 9: 59 AM CDT documented as of this encounter Plan of Treatment Not on file documented as of this encounter Results * CT Internal Auditory [...] evidence of fluid or fracture. Procedure Note Ladarius Quintanilla MD PhD - 07/30/2021 EXAMINATION: CT [...] hearing loss (SNHL) of both ears- Primary Sensorineural hearing loss (SNHL) of both ears documented in this encounter Care Teams Restoration Officer Relationship Specialty Start Date End Date Chitra Chen MD PCP - General Internal Medicine 09/04/20 Chitra Chen MD Internal Medicine 09/04/20 Mir Gonzales MD Referring Physician Otolaryngology 04/08/19 documented as of this encounter
--- OUTSIDE RECORDS SUMMARY | 2024-11-17 18:14 | XMS_ITS | Encounter Summary ---
Author Organization [facility] Address [address] [place] [address] Phone Care Team Providers Care Certified Adapted Physical Educator Name Role Phone Chitra Chen MD Primary Care Provider [phone] Chitra Chen MD Unavailable [phone] Mir Gonzales MD Unavailable [phone] Encounter Details Date Type Department Care Team (Late st Contact Info) Description 05/03/2021 Orders Only [facility] Otolaryngology [address] [place] [address] Jami Guerin CMA Social History Tobacco Use Types Packs/Day Years Used Date Smoking Tobacco: Never Alcohol Use Standard Drinks/Week Comments Not Currently 0 (1 standard drink = 0.6 oz pur e alcohol) Comments Unknown Sex and Gender Information Value Date Recorded Sex Assigned at Not on file Legal Sex Female 2:17 AM SAGGER MAKER Gender Identity Female 03/19/2020 9:59 AM CDT Sexual Orientation Straight 03/19/2020 9: 59 AM CDT documented as of this encounter Plan of Treatment Not on file documented as of this encounter Visit Diagnoses Not on filedocumented in this encounter Care Teams Certified Adapted Physical Educator Relationship Specialty Start Date End Date Chitra Chen MD PCP - General Internal Medicine 09/04/20 Chitra Chen MD Internal Medicine 09/04/20 Mir Gonzales MD Referring Physician Otolaryngology 04/08/19 documented as of this encounter
--- OUTSIDE RECORDS SUMMARY | 2024-11-17 18:16 | XMS_ITS | Encounter Summary ---
Author Organization [facility] Address [address] [place] [address] Care Team Providers Care Adult Neuropsychologist Name Role Phone Yvonne Morris MD Primary Care Provider Unava ilable Reason for Referral * Outpatient Services (Routine) - Closed Specialty Diagnoses / Procedures Referred By Trudy portillo Referred To Contact Diagnoses Family history of malignant neoplasm of breast Diffuse cystic mastopathy Procedures MAMMO DIGITAL DIAG Mariah Rod MD NO ADDRESS ON FILE Referral ID Status Reason Start Date Expiration Date Visits Re quested Visits Authorized [id number] Closed 07/07/2010 01/03/2011 1 1 Reason for Visit * Outpatient Services (Routine) - Closed Specialty Diagnoses / Procedures Referred By Trudy portillo Referred To Contact Diagnoses Family history of malignant neoplasm of breast Diffuse cystic mastopathy Procedures MAMMO DIGITAL DIAG Mariah Rod MD NO ADDRESS ON FILE Referral ID Status Reason Start Date Expiration Date Visits Re quested Visits Authorized [id number] Closed 07/07/2010 01/03/2011 1 1 Encounter Details Date Type Department Care Team (Latest Contact Info) Description 03/21/2011 1:30 PM CDT - 03/21/2011 11:59 PM CDT Hospital Encounter [facility] [address] [place] [address] Mariah Gómez MD NO ADDRESS ON FILE Discharge Disposition: Home or Self Care Social History Tobacco Use Types Packs/Day Years Used Date Smoking Tobacco: Never Smokeless Tobacco: Never Alcohol Use Standard Drinks/Week Comments No 0 (1 standard drink = 0.6 oz pur e alcohol) Sex and Gender Information Value Date Recorded Sex Assigned at Not on file Gender Identity Not on file Sexual Orientation Not on file documented as of this encounter Medications at Time of Discharge Medication Sig Dispensed Refills Start Date End Date MULTIVITAMINS WITH FLUORIDE (MULTI-VITAMIN ORAL) Take by mouth. duloxetine (CYMBALTA) 60 mg Oral CpDR Take 60 mg by mouth daily. levothyroxine 125 mcg Oral tablet Take 125 mcg by mouth daily hospice spiritual care coordinator. furosemide (LASIX) 40 mg Oral tablet Take 40 mg by mouth daily. documented as of this encounter Plan of Treatment Not on file documented as of this encounter Procedures Procedure Name Priority Date/Time Associated Diagnosis Comments MAMMO DIAGNOSTIC BILATERAL W OR WO CAD Routine 03/21/2011 2:14 PM CDT Family history of malignant neoplasm of breast Diffuse cystic mastopathy documented in this encounter Results * MAMMO DIGITAL DIAG BILAT (03/21/2011 2:14 PM CDT) Anatomical Region Laterality Modality Breast Bilateral Mammography Narrative 03/22/2011 11:22 AM CDT BILATERAL DIAGNOSTIC FULL FIELD DIGITAL MAMMOGRAPHY WITH CAD. Date of exam: 03/21/11 History: Family history of breast cancer including mother with breast cancer. The patient had a benign biopsy of the right breast. Technique: Diagnostic mammograms of both breasts were performed using full field digital mammography. ??Comparison is made with prior studies dated 03/06. Breast Composition: Scattered fibroglandular densities. Findings: No dominant masses, suspicious calcifications, parenchymal asymmetry or areas of architectural distortion are identified in either breast. Since the prior study, there has been no significant change. The computer aided detection system was utilized. Assessment: BI-RADS category: 1, negative. Recommendation: Routine mammographic follow-up in one year. Procedure Note Sarah Stark - 03/22/2011 BILATERAL DIAGNOSTIC FULL FIELD DIGITAL MAMMOGRAPHY WITH CAD. Date of exam: 03/21/11 History: Family history of breast cancer including mother with breastcancer. The patient had a benign biopsy of the right breast. Technique: Diagnostic mammograms of both breasts were performed using fullfield digital mammography. Comparison is made with prior studies date. Breast Composition: Scattered fibroglandular densities. Findings: No dominant masses, suspicious calcifications, parenchymalasymmetry or areas of architectural distortion are identified in eitherbreast. Since the prior study, there has been no significant change. Thecomputer aided detection system was utilized. Assessment: BI-RADS category: 1, negative. Recommendation: Routine mammographic follow-up in one year. Mariah Gómez MD MAMMO ORDERABLES documented in this encounter Visit Diagnoses Diagnosis Family history of malignant neoplasm of breast Diffuse cystic mastopathy documented in this encounter Care Teams Adult Neuropsychologist Relationship Specialty Start Date End Date Yvonne Morris MD PCP - General Family Practice 03/29/10 11/12/15 documented as of this encounter
--- OUTSIDE RECORDS SUMMARY | 2024-11-17 18:16 | XMS_ITS | Encounter Summary ---
Author Organization [facility] Address [address] [place] [address] Care Team Providers Care Vice President Of Procurement Name Role Phone Yvonne Morris MD Primary Care Provider [phone] Encounter Details Date Type Department Care Team (Late st Contact Info) Description 12/30/2015 Orders Only [facility] [place] [facility] [address] [place] [address] [place] [address] [place] [address] Diffuse cystic mastopathy, unspecified laterality (Primary Dx) Social History Tobacco [...] as of this encounter Visit Diagnoses Diagnosis Diffuse cystic mastopathy, unspecified laterality- Primary documented in this encounter Care Teams Vice President Of Procurement Relationship Specialty Start Date End Date Yvonne Morris MD [address] [place] [address] PCP - General 11/13/15 documented as of this encounter
--- OUTSIDE RECORDS SUMMARY | 2024-11-17 18:16 | XMS_ITS | Encounter Summary ---
Author Organization [facility] Address [address] [place] [address] Care Team Providers Care Resource Room Special Education Teacher Name Role Phone Yvonne Morris MD Primary Care Provider Renu nolan Encounter Details Date Type Department Care Team (Late st Contact Info) Description 06/25/2010 Abstract [facility] [place] [facility] [address] [place] [address] Yvonne Morris MD Social History Tobacco Use Types Packs/Day Years Used Date Smoking Tobacco: Never Assessed Sex and Gender Information Value Date Recorded Sex Assigned at Not on file Gender Identity Not on file Sexual Orientation Not on file documented as of this encounter Plan of Treatment Not on file documented as of this encounter Procedures Procedure Name Priority Date/Time Associated Diagnosis Comments MAMMO BREAST US LT COMPLETE Routine 03/16/2010 MAMMO DIAGNOSTIC BILATERAL W OR WO CAD Routine 03/16/2010 MAMMO DIAGNOSTIC BILATERAL W OR WO CAD Routine 01/18/2005 documented in this encounter Results * MAMMO BREAST US LT (03/16/2010) Anatomical Region Laterality Modality Breast Left Other Yvonne Morris MD MAMMO ORDERABLES * MAMMO DIGITAL DIAG BILAT (03/16/2010) Anatomical Region Laterality Modality Breast Bilateral Other Yvonne Morris MD MAMMO ORDERABLES * MAMMO DIGITAL DIAG BILAT (01/18/2005) Anatomical Region Laterality Modality Breast Bilateral Other Yvonne Morris MD MAMMO ORDERABLES documented in this encounter Visit Diagnoses Not on filedocumented in this encounter Care Teams Resource Room Special Education Teacher Relationship Specialty Start Date End Date Yvonne Morris MD PCP - General Family Practice 03/29/10 11/12/15 documented as of this encounter
--- OUTSIDE RECORDS SUMMARY | 2024-11-17 18:16 | XMS_ITS | Encounter Summary ---
Author Organization [facility] Address [address] [place] [address] Care Team Providers Care Mri Assistant Name Role Phone Yvonne Morris MD Primary Care Provider Unava ilable Reason for Visit * Reason Comments Breast Exam, Routine, No Symptoms Diffus e cystic mastopathy - annual ck Encounter Details Date Type Department Care Team (Late st Contact Info) Description 01/22/2015 10:30 AM COMMISSARY MANAGER Office Visit [facility] [address] [place] [phone] Mariah Gómez MD NO ADDRESS ON FILE Diffuse cystic mastopathy, unspecified laterality (Primary Dx); Other screening mammogram; Obesity (BMI 35.0-39.9 without comorbidity) Social History Tobacco Use Types Packs/Day Years Used Date Smoking Tobacco: Never Smokeless Tobacco: Never Tobacco Cessation:Counseling Given: No Alcohol Use Standard Drinks/Week Comments No 0 (1 standard drink = 0.6 oz pur e alcohol) Sex and Gender Information Value Date Recorded Sex Assigned at Not on file Gender Identity Not on file Sexual Orientation Not on file documented as of this encounter Last Filed Vital Signs Vital Sign Reading Time Taken Comments Blood Pressure 135/84 01/22/2015 10:18 AM COMMISSARY MANAGER Pulse 77 01/22/2015 10:18 AM COMMISSARY MANAGER Temperature - - Respiratory Rate - - Oxygen Saturation - - Inhaled Oxygen Concentration - - Weight 127.5 kg (281 lb) 01/22/2015 10:18 AM COMMISSARY MANAGER Height 180.3 cm (5' 11 ) 01/22/2015 10:18 AM COMMISSARY MANAGER Body Mass Index 39.19 01/22/2015 10:18 AM COMMISSARY MANAGER documented in this encounter Progress Notes * Mariah Gómez MD - 01/22/2015 10:40 AM CST Subjective: Roopa Hill is a 59 y.o. female who presents today for regular scheduled checkup. She has no new problems to report. ROS: Blood pressure 135/84, pulse 77, height 5' 11 (1.803 m), weight 281 lb (127.461 kg), not currentlybreastfeeding. Patient Active Problem List Diagnosis Code ??? Depression 300.4 ??? Broken Arm 818.0 ??? Thyroid Disease 246.9 ??? Diffuse cystic mastopathy 610.1 ??? Obesity (BMI 35.0-39.9 without comorbidity) 278.00 Allergies Allergen Reactions ??? Penicillins Hives Current Outpatient Prescriptions Medication Sig Dispense Refill ? ? BETA-CAROTENE,A, W-C & E/MIN (OCUVITE ORAL) Take by mouth. ??? CALCIUM CARBONATE/VITAMIN D3 (CALTRATE 600 + D ORAL) Take by mouth. ??? 0mega-3 fatty acids-vitamin E (FISH OIL) 1,000 mg Oral Cap Take 1,000 mg by mouth. ??? buPROPion SR 12 hour (WELLBUTRIN-SR) 150 mg Oral tablet Take 150 mg by mouth 2 times daily. ??? MULTIVITAMINS WITH FLUORIDE (MULTI-VITAMIN ORAL) Take by mouth. ??? duloxetine (CYMBALTA) 60 mg Oral CpDR Take 60 mg by mouth daily. ??? 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 ??? furosemide (LASIX) 40 mg Oral tablet Take 40 mg by mouth daily. No current facility-administered medications for this visit. Current medications being taking for problem(s) listed above 10 systems reviewed and negative Objective: Well-developed, well-nourished, pleasant woman. Neck - no thyromegaly no cervical adenopathy SCF- no adenopathy Axilla -no adenopathy Breasts - normal in appearance, no masses, skin changes or nipple discharge Abdomen - liver and spleen not palpably enlarged Extremities - Good range of motion of shoulders, no lymphedema present I reviewed her mammogram from today. I told her it was not the final report and that should be notified by radiology. There could be a call back. If everything is benign she wished to be seen back yearly. Premarked on her weight loss. 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 I encouraged those endeavors ISSARY MANAGER documented in this encounter Plan of Treatment Not on file documented as of this encounter Visit Diagnoses Diagnosis Diffuse cystic mastopathy, unspecified laterality- Primary Other screening mammogram Obesity (BMI 35.0-39.9 without comorbidity) Obesity, unspecified documented in this encounter Care Teams Mri Assistant Relationship Specialty Start Date End Date Yvonne Morris MD PCP - General Family Practice 03/29/10 11/12/15 documented as of this encounter
--- OUTSIDE RECORDS SUMMARY | 2024-11-17 18:16 | XMS_ITS | Encounter Summary ---
Author Organization [facility] Address [address] [place] [address] Care Team Providers Care Dye Range Operator Name Role Phone Yvonne Morris MD Primary Care Provider Unava ilable Reason for Visit * Reason Comments Breast Mass lt brst Encounter Details Date Type Department Care Team (Late st Contact Info) Description 03/29/2010 10:45 AM CDT Office Visit [facility] [address] [place] [address] Mariah Gómez MD NO ADDRESS ON FILE Diffuse Cystic Mastopathy; Family History of Malignant Neoplasm of Breast Social History Tobacco Use Types Packs/Day Years Used Date Smoking Tobacco: Never Assessed Sex and Gender Information Value Date Recorded Sex Assigned at Not on file Gender Identity Not on file Sexual Orientation Not on file documented as of this encounter Last Filed Vital Signs Vital Sign Reading Time Taken Comments Blood Pressure 156/98 03/29/2010 11:23 AM CDT Pulse - - Temperature - - Respiratory Rate - - Oxygen Saturation - - Inhaled Oxygen Concentration - - Weight 132.5 kg (292 lb) 03/29/2010 11:23 AM CDT Height 180.3 cm (5' 11 ) 03/29/2010 11:23 AM CDT Body Mass Index 40.73 03/29/2010 11:23 AM CDT documented in this encounter Progress Notes * Mariah Gómez MD - 03/29/2010 11:35 AM CDT Kayla Hill is a 54 y.o. female referred by Yvonne Morris [address] [place] [address] [address] [place] [address] She had not noted any breast problems. Said that when she saw her physician in approximately 3 weeks ago for exam question about the lower left breast. She's had a benign biopsy in 1976 in the right breast. She has no associated signs or symptoms at this time. She is not on any estrogens. Her mother was diagnosed with breast cancer at age 64. There's also colon cancer in her brother at age 53 andmaternal grandmother. Review of systems otherwise noncontributory BP 156/98 Ht 5' 11 (1.803 m) Wt 292 lb (132.45 kg) Allergies Allergen Reactions ??? Penicillins Hives OB History Grav Para Term Abortions TAB SAB Ect Mult Living 4 4 Obstetric Comments Age @ onset of menses:13 Age @ first live : 27 Menopause: 49 Patient Active Problem List Diagnoses Code ??? Depression 300.4M Current outpatient prescriptions Medication Sig Dispense Refill ??? CALCIUM ORAL Take by mouth. ??? MULTIVITAMINS WITH FLUORIDE (MULTI-VITAMIN ORAL) Take by mouth. ??? duloxetine (CYMBALTA) 60 mg Oral CpDR Take 60 mg by mouth daily. ??? ERGOCALCIFEROL (VITAMIN D ORAL) Take by mouth. ??? LEVOTHYROXINE SODIUM (LEVOTHYROXINE ORAL) Take by mouth. ??? FUROSEMIDE ORAL Take by mouth. Past Medical History Diagnosis Date ??? Thyroid Disease ??? Depression h/o mild Past Surgical History Procedure Date ??? Hx tonsil and adenoidectomy 1965 ??? Hx breast biopsy benign rt brst ??? Hx tubal ligation 1997 History Social History ??? Marital Status: Spouse Name: N/A Number of Children: 44 ??? Years of Education: N/A Occupational History ??? Social History Main Topics ??? Tobacco Use: Not on file ??? Alcohol Use: Not on file ??? Drug Use: Not on file ??? Sexually Active: Not on file Other Topics Concern ??? Not on file Social History Narrative ??? No narrative on file Family History Problem Relation ??? Heart Disease Father ??? Breast Cancer Mother dx age 64 ??? Cancer Brother ??? Cancer Sister ??? Cancer Maternal Grandmother ??? Cancer Paternal Grandfather Well-developed, well-nourished, pleasant woman. Neck - no thyromegaly no cervical adenopathy SCF- no adenopathy Chest - clear to auscultation Cardiovascular - regular rate and rhythm Axilla -no adenopathy Breasts - normal in appearance, no masses, skin changes or nipple discharge; on examination today Ray not note a specific mass. She is smooth soft rubbery breast tissue slightly more prominent in the inframammary region of the right breast as compared to the left Abdomen - liver and spleen not palpably enlarged Extremities - Good range of motion of shoulders, no lymphedema present Assessment Review of her mammogram from 02/2010 compared to prior shows no changes ultrasound is likewise benign. In discussing this with her she is comfortable with followup. We plan to see her back in short interval to reexamine. If she notes any changes she'll call us sooner. I also gave her referral for genetic counseling because of her family history. documented in this encounter Plan of Treatment Not on file documented as of this encounter Visit Diagnoses Diagnosis Diffuse cystic mastopathy Family history of malignant neoplasm of breast documented in this encounter Care Teams Dye Range Operator Relationship Specialty Start Date End Date Yvonne Morris MD PCP - General Family Practice 03/29/10 11/12/15 documented as of this encounter
--- OUTSIDE RECORDS SUMMARY | 2024-11-17 18:16 | XMS_ITS | Encounter Summary ---
Author Organization [facility] Address [address] [place] [address] Care Team Providers Care Cisco Consultant Name Role Phone Yvonne Morris MD Primary Care Provider Unava ilable Reason for Visit * Reason Comments Breast Exam, Routine, No Symptoms annual ck Encounter Details Date Type Department Care Team (Late st Contact Info) Description 03/21/2011 2:30 PM CDT Office [facility] [address] [address] [place] [address] Mariah Gómez MD NO ADDRESS ON FILE Diffuse cystic mastopathy; Family history of malignant neoplasm of breast Social History Tobacco Use Types Packs/Day Years [...] Sign Reading Time Taken Comments Blood Pressure 124/88 03/21/2011 2:35 PM CDT Pulse - - Temperature - - Respiratory Rate - - Oxygen Saturation - - Inhaled Oxygen Concentration - - Weight 122.9 kg (271 lb) 03/21/2011 2:35 PM CDT Height 180.3 cm (5' 11 ) 03/21/2011 2:35 PM CDT Body Mass Index 37.8 03/21/2011 2:35 PM CDT documented in this encounter Progress Notes * Mraiah Gómez MD - 03/21/2011 3:09 PM CDT Subjective: ROOPA AGUILAR is a 55 y.o. female who presents today for regular scheduled checkup. She has no new breast problems to report. She is having some difficulties with prolapse and plans to see a category development manager for that ROS: Blood pressure 124/88, height 5' 11 (1.803 m), weight 271 lb (122.925 kg). Patient Active Problem List Diagnoses Code ??? Depression 300.4M ??? Broken Arm 818.0F ??? Thyroid Disease 246.9L Allergies Allergen Reactions ??? Penicillins Hives Current outpatient prescriptions Medication Sig Dispense Refill ??? CALCIUM ORAL Take by mouth. ??? MULTIVITAMINS WITH FLUORIDE (MULTI-VITAMIN ORAL) Take by mouth. ??? duloxetine (CYMBALTA) 60 mg Oral CpDR Take 60 mg by mouth daily. ??? ergocalciferol (VITAMIN D) 50,000 unit Oral capsule Take 50,000 Units by mouth. ??? LEVOTHYROXINE SODIUM (LEVOTHYROXINE ORAL) Take by mouth. ??? FUROSEMIDE ORAL Take by mouth. Current medications being taking for problem(s) listed above 10 systems reviewed and negative Objective: Well-developed, well-nourished, pleasant woman. Neck - no thyromegaly no cervical adenopathy SCF- no adenopathy Axilla -no adenopathy Breasts - normal in appearance, no masses, skin changes or nipple discharge Abdomen - liver and spleen not palpably enlarged Extremities - Good range of motion of shoulders, no lymphedema present Mammogram from today is benign. We will see her back yearly. documented in this encounter Plan of Treatment Not on file documented as of this encounter Visit Diagnoses Diagnosis Diffuse cystic mastopathy Family history of malignant neoplasm of breast documented in this encounter Care Teams Cisco Consultant Relationship Specialty Start Date End Date Yvonne Morris MD PCP - General Family Practice 03/29/10 11/12/15 documented as of this encounter
--- OUTSIDE RECORDS SUMMARY | 2024-11-17 18:16 | XMS_ITS | Encounter Summary ---
Author Organization [facility] Address [address] [place] [address] Care Team Providers Care Machine Boss Name Role Phone Yvonne Morris MD Primary Care Provider Unava ilable Reason for Referral * Outpatient Services (Routine) - Closed Specialty Diagnoses / Procedures Referred By Trudy portillo Referred To Contact Radiology Diagnoses Diffuse cystic mastopathy Other screening mammogram Family history of malignant neoplasm of breast Procedures MAMMO DIGITAL SCREEN BILAT Mariah Gómez MD NO ADDRESS ON FILE Referral ID Status Reason Start Date Expiration Date V isits Requested Visits Authorized [id number] Closed [facility] 08/05/2013 09/05/2014 1 1 Reason for Visit * Reason Comments Breast Exam, Routine, No Symptoms Diffus e cystic mastopathy - annual ck Encounter Details Date Type Department Care Team (Late st Contact Info) Description 08/05/2013 12:15 PM CDT Office Visit [facility] [address] [place] [id number] Mariah Gómez MD NO ADDRESS ON FILE Diffuse cystic mastopathy (Primary Dx); Other screening mammogram; Family history of malignant neoplasm of breast [...] Sign Reading Time Taken Comments Blood Pressure 117/87 08/05/2013 12:07 PM CDT Pulse 75 08/05/2013 12:07 PM CDT Temperature - - Respiratory Rate - - Oxygen Saturation - - Inhaled Oxygen Concentration - - Weight 130.2 kg (287 lb) 08/05/2013 12:07 PM CDT Height 180.3 cm (5' 11 ) 08/05/2013 12:07 PM CDT Body Mass Index 40.03 08/05/2013 12:07 PM CDT documented in this encounter Progress Notes * Mariah Gómez MD - 08/05/2013 12:32 PM CDT Subjective: Roopa Hill is a 58 y.o. female who presents today for regular scheduled checkup. She has no new problems to report. ROS: Blood pressure 117/87, pulse 75, height 5' 11 (1.803 m), weight 287 lb (130.182 kg), not currentlybreastfeeding. Patient Active Problem List Diagnosis Code ??? Depression 300.4 ??? Broken Arm 818.0 ??? Thyroid Disease 246.9 ??? Diffuse cystic mastopathy 610.1 Allergies Allergen Reactions ??? 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 ??? furosemide (LASIX) 40 mg Oral tablet [...] shoulders, no lymphedema present I reviewed her bilateral screening mammogram from today. Instructed her that is not a final report.I told her she should receive a letter within the week with a final report per radiology. If she does not I asked her to call. She realizes that she may get a call back for additional images. She wished to be seen back yearly. documented in this encounter Plan of Treatment Not on file documented as of this encounter Results * MAMMO DIGITAL SCREEN BILAT (01/22/2015 10:13 AM BETTING AGENCY COUNTER CLERK) Anatomical Region Laterality Modality Breast Bilateral Mammography 01/22/2015 10:1 2 AM BETTING AGENCY COUNTER CLERK Narrative 01/23/2015 8:48 AM BETTING AGENCY COUNTER CLERK BILATERAL FULL FIELD DIGITAL SCREENING MAMMOGRAM WITH CAD. 01/22/15 HISTORY: Routine Screening. TECHNIQUE: Full field digital screening mammography of both breasts were obtained. COMPARISON: ??July 2013, May 2012, February 2010 BREAST PARENCHYMAL COMPOSITION: Scattered fibroglandular densities. FINDINGS: No new dominant masses, suspicious calcifications, parenchymal asymmetry or areas of architectural distortion are identified in either breast. Since the prior study, there has been no significant interval change. The computer aided detection system was utilized. OVERALL ASSESSMENT: ??BI-RADS category 1: Negative. RECOMMENDATION: Annual mammography is recommended. Dictated from [facility] Procedure Note Sarah Lock MD - 01/23/2015 BILATERAL FULL FIELD DIGITAL SCREENING MAMMOGRAM WITH CAD. 01/22/15 HISTORY: Routine Screening. TECHNIQUE: Full field digital screening mammography of both breasts were obtained. COMPARISON: July 2013, May 2012, February 2010 BREAST PARENCHYMAL COMPOSITION: Scattered fibroglandular densities. FINDINGS: No new dominant masses, suspicious calcifications, parenchymal asymmetry or areas of architectural distortion are identified in either breast. Since the prior study, there has been no significant interval change. The computer aided detection system was utilized. OVERALL ASSESSMENT: BI-RADS category 1: Negative. RECOMMENDATION: Annual mammography is recommended. Dictated from [facility] Mariah Gómez MD MAMMO ORDERABLES documented in this encounter Visit Diagnoses Diagnosis Diffuse cystic mastopathy- Primary Other screening mammogram Family history of malignant neoplasm of breast Diffuse cystic mastopathy Other screening mammogram Family history of malignant neoplasm of breast documented in this encounter Care Teams Machine Boss Relationship Specialty Start Date End Date Yvonne Morris MD PCP - General Family Practice 03/29/10 11/12/15 documented as of this encounter
--- OUTSIDE RECORDS SUMMARY | 2024-11-17 18:16 | XMS_ITS | Encounter Summary ---
Author Organization [facility] Address [address] [place] [address] Care Team Providers Care Candle Pourer Name Role Phone Yvonne Morris MD Primary Care Provider Unava ilable Encounter Details Date Type Department Care Team (Late st Contact Info) Description 03/21/2011 Orders Only [facility] BREAST SURGERY - [facility] [facility] [address] [place] [address] Mariah Gómez MD NO ADDRESS ON FILE Diffuse cystic mastopathy (Primary Dx) Social History Tobacco Use Types [...] Visit Diagnoses Diagnosis Diffuse cystic mastopathy- Primary documented in this encounter Care Teams Candle Pourer Relationship Specialty Start Date End Date Yvonne Morris MD PCP - General Family Practice 03/29/10 11/12/15 documented as of this encounter
--- OUTSIDE RECORDS SUMMARY | 2024-11-17 18:16 | XMS_ITS | Encounter Summary ---
Author Organization [facility] Address 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 furosemide (LASIX) 40 mg Oral tablet Take 40 mg by mouth daily. documented as of this encounter Plan of Treatment Not on file documented as of this encounter Procedures Procedure Name Priority Date/Time Associated Diagnosis Comments MAMMO SCREEN BILAT W OR WO CAD Routine 06/15/2012 12:33 PM CDT Screening breast examination documented in this encounter Results * MAMMO DIGITAL SCREEN BILAT (06/15/2012 12:33 PM CDT) Anatomical Region Laterality Modality Breast Bilateral Mammography 06/15/2012 12:3 3 PM CDT Narrative 06/20/2012 8:41 AM CDT BILATERAL FULL FIELD DIGITAL SCREENING MAMMOGRAM WITH CAD. 06/15/12 HISTORY: Routine Screening. TECHNIQUE: Full field digital screening mammography of both breasts were obtained. COMPARISON: February 2011 and February 2010 BREAST PARENCHYMAL COMPOSITION: Almost entirely fat FINDINGS: A focal asymmetry is identified just lateral to the level of the midline mid depth. It is recommended patient return for additional views and possible ultrasound of this finding. No other new dominant masses, areas of asymmetry or suspicious clustered calcifications are identified within either breast. CAD was utilized. OVERALL ASSESSMENT: ??BI-RADS category 0 - Incomplete: Needs additional imaging evaluation. RECOMMENDATION: ??It is recommended patient return for additional images and possible ultrasound of the focal asymmetry just lateral to midline mid depth portion of the left breast. Procedure Note Sarah Lock L - 06/20/2012 BILATERAL FULL FIELD DIGITAL SCREENING MAMMOGRAM WITH CAD. 06/15/12 HISTORY: Routine Screening. TECHNIQUE: Full field digital screening mammography of both breasts were obtained. COMPARISON: February 2011 and February 2010 BREAST PARENCHYMAL COMPOSITION: Almost entirely fat FINDINGS: A focal asymmetry is identified just lateral to the level of the midline mid depth. It is recommended patient return for additional views and possible ultrasound of this finding. No other new dominant masses, areas of asymmetry or suspicious clustered calcifications are identified within either breast. CAD was utilized. OVERALL ASSESSMENT: BI-RADS category 0 - Incomplete: Needs additional imaging evaluation. RECOMMENDATION: It is recommended patient return for additional images and possible ultrasound of the focal asymmetry just lateral to midline mid depth portion of the left breast. Yvonne Morris MD MAMMO ORDERABLES documented in this encounter Visit Diagnoses Diagnosis Screening breast examination Other screening breast examination documented in this encounter Care Teams Raised Printer Relationship Specialty Start Date End Date Yvonne Morris MD PCP - General Family Practice 03/29/10 11/12/15 documented as of this encounter
--- OUTSIDE RECORDS SUMMARY | 2024-11-17 18:16 | XMS_ITS | Encounter Summary ---
Author Organization [facility] Address [address] [place] [address] Care Team Providers Care Ssds Mk 2 Advanced Operator Name Role Phone Yvonne Morris MD Primary Care Provider Unava ilable Reason for Visit * Reason Onset Date Comments Breast Exam, Routine, No Symptoms 01/20/2015 SCREENING MAMM Encounter Details Date Type Department Care Team (Late st Contact Info) Description 01/20/2015 Patient Outreach [facility] BREAST SURGERY - [facility] [address] [place] [address] Mariah Gómez MD NO ADDRESS ON FILE Breast Exam, Routine, No Symptoms (SCREENING MAMM) Social History Tobacco Use Types Packs/Day Years Used Date Smoking Tobacco: Never Smokeless Tobacco: Never Alcohol Use Standard Drinks/Week Comments No 0 (1 standard drink = 0.6 oz pur e alcohol) Sex and Gender Information Value Date Recorded Sex Assigned at Not on file Gender Identity Not on file Sexual Orientation Not on file documented as of this encounter Miscellaneous Notes * Telephone Encounter - Breann Dodd - 01/20/2015 11:59 AM CST PT REMINDED OF SCREENING MAMM PRIOR TO DR SANCHEZ AL MEDIA CAMPAIGN MANAGER documented in this encounter Plan of Treatment Not on file documented as of this encounter Visit Diagnoses Not on filedocumented in this encounter Care Teams Ssds Mk 2 Advanced Operator Relationship Specialty Start Date End Date Yvonne Morris MD PCP - General Family Practice 03/29/10 11/12/15 documented as of this encounter
--- OUTSIDE RECORDS SUMMARY | 2024-11-17 18:16 | XMS_ITS | Encounter Summary ---
Author Organization [facility] Address [address] [place] [address] Care Team Providers Care Compensation Adjuster Name Role Phone Yvonne Morris MD Primary Care Provider Unava ilable Reason for Referral * Outpatient Services (Routine) - Closed Specialty Diagnoses / Procedures Referred By Trudy portillo Referred To Contact Radiology Diagnoses Other screening mammogram Procedures MAMMO DIGITAL SCREEN BILAT Mariah Gómez MD NO ADDRESS ON FILE Referral ID Status Reason Start Date Expiration Date Visits Re quested Visits Authorized [id number] Closed 05/27/2013 06/27/2014 1 1 Reason for Visit * Reason Onset Date Comments Other 05/27/2013 sign orders Encounter Details Date Type Department Care Team (Late st Contact Info) Description 05/27/2013 Telephone [facility] BREAST SURGERY - [place] [facility] [address] [place] [phone] Mariah Gómez MD NO ADDRESS ON FILE Other (sign orders) Social History Tobacco Use Types Packs/Day Years [...] encounter Results * MAMMO DIGITAL SCREEN BILAT (08/05/2013 11:51 AM CDT) Anatomical Region Laterality Modality Breast Bilateral Mammography 08/05/2013 11:5 0 AM CDT Narrative 08/05/2013 3:01 PM CDT BILATERAL DIGITAL SCREENING MAMMOGRAM WITH CAD, ??Aug 05, 2013 11:50:52 AM INDICATION: Routine screening. TECHNIQUE: Standard images were obtained of both breasts on a digital system. CAD was utilized. ?? COMPARISON: Comparison to multiple prior studies dating back to February 2010 BREAST COMPOSITION: Scattered fibroglandular densities. FINDINGS: No dominant masses, suspicious calcifications, parenchymal asymmetry or areas of architectural distortion are identified in either breast. OVERALL ASSESSMENT: ??BI-RADS Category 1: Negative. RECOMMENDATIONS: Recommend continued annual mammography. Dictated from [facility] Procedure Note Ron Ventura MD - 08/05/2013 BILATERAL DIGITAL SCREENING MAMMOGRAM WITH CAD, Aug 05, 2013 11:50:52 AM INDICATION: Routine screening. TECHNIQUE: Standard images were obtained of both breasts on a digital system. CAD was utilized. COMPARISON: Comparison to multiple prior studies dating back to February 2010 BREAST COMPOSITION: Scattered fibroglandular densities. FINDINGS: No dominant masses, suspicious calcifications, parenchymal asymmetry or areas of architectural distortion are identified in either breast. OVERALL ASSESSMENT: BI-RADS Category 1: Negative. RECOMMENDATIONS: Recommend continued annual mammography. Dictated from [facility] Mariah Gómez MD MAMMO ORDERABLES documented in this encounter Visit Diagnoses Diagnosis Other screening mammogram- Primary Other screening mammogram documented in this encounter Care Teams Compensation Adjuster Relationship Specialty Start Date End Date Yvonne Morris MD PCP - General Family Practice 03/29/10 11/12/15 documented as of this encounter
--- OUTSIDE RECORDS SUMMARY | 2024-11-17 18:16 | XMS_ITS | Encounter Summary ---
Author Organization [facility] Address [address] [place] [address] Care Team Providers Care Direct Marketing Executive Name Role Phone Yvonne Morris MD Primary Care Provider Unava ilable Reason for Referral * Outpatient Services (Routine) - Closed Specialty Diagnoses / Procedures Referred By Trudy portillo Referred To Contact Diagnoses Family history of malignant neoplasm of breast Diffuse cystic mastopathy Procedures MAMMO DIGITAL DIAG BILAT Mariah Gómez MD NO ADDRESS ON FILE Referral ID Status Reason Start Date Expiration Date Visits Re quested Visits Authorized [id number] Closed 07/07/2010 01/03/2011 1 1 Reason for Visit * Reason Comments Follow Up 3 month f/u Encounter Details Date Type Department Care Team (Late st Contact Info) Description 07/07/2010 1:15 PM CDT Office Visit [facility] BREAST SURGERY - [place] [facility] [address] [address] [place] [phone] Mariah Gómez MD NO ADDRESS ON FILE Family History of Malignant Neoplasm of Breast; Diffuse Cystic Mastopathy Social History Tobacco Use Types Packs/Day Years [...] Sign Reading Time Taken Comments Blood Pressure 132/79 07/07/2010 1:25 PM CDT Pulse - - Temperature - - Respiratory Rate - - Oxygen Saturation - - Inhaled Oxygen Concentration - - Weight 131.5 kg (290 lb) 07/07/2010 1:25 PM CDT Height 180.3 cm (5' 11 ) 07/07/2010 1:25 PM CDT Body Mass Index 40.45 07/07/2010 1:25 PM CDT documented in this encounter Progress Notes * Mariah Gómez MD - 07/07/2010 1:39 PM CDT Subjective: ROOPA AGUILAR is a 55 y.o. female who presents today for regular scheduled checkup. She has no new problems to report. Specifically she notes no left breast masses or thickening. Objective: Well-developed, well-nourished, pleasant woman. Neck - no thyromegaly no cervical adenopathy SCF- no adenopathy Axilla -no adenopathy Breasts - normal in appearance, no masses, skin changes or nipple discharge Abdomen - liver and spleen not palpably enlarged Extremities - Good range of motion of shoulders, no lymphedema present Examination no worrisome areas are needed. In discussing all this with her she is comfortable with followup. We will see her back Mammogram time. If she notes any abnormality she will call us. documented in this encounter Plan of Treatment Not on file documented as of this encounter Results * MAMMO DIGITAL DIAG [...] study, there has been no significant change. The[employer] Medical[employer] aided detection system was utilized. Assessment: BI-RADS category: 1, negative. Recommendation: Routine mammographic follow-up in one year. Mariah Gómez MD MAMMO ORDERABLES documented in this encounter Visit Diagnoses Diagnosis Family history of malignant neoplasm of breast Diffuse cystic mastopathy Family history of malignant neoplasm of breast Diffuse cystic mastopathy documented in this encounter Care Teams Direct Marketing Executive Relationship Specialty Start Date End Date Yvonne Morris MD PCP - General Family Practice 03/29/10 11/12/15 documented as of this encounter
--- OUTSIDE RECORDS SUMMARY | 2024-11-17 18:16 | XMS_ITS | Clinical Summary ---
Author Organization [facility] Address [address] [address] Phone Care Team Providers Care Call Center Support Consultant Name Role Phone Yvonne Morris MD Primary Care Provider [phone] Allergies Active Allergy Reactions Criticality Noted Date Comments Penicillins Hives High 03/29/2010 Medications Medication Sig Dispensed Refills Start Date End Date Status MULTIVITAMINS WITH FLUORIDE (MULTI-VITAMIN ORAL) Take by mouth. Active duloxetine (CYMBALTA) 60 mg Oral CpDR Take 60 mg by mouth daily. Active levothyroxine 125 mcg Oral tablet Take 125 mcg by mouth daily direct support professional caregiver. Active furosemide (LASIX) 40 mg Oral tablet Take 40 mg by mouth daily. Active BETA-CAROTENE,A, W-C & E/MIN (OCUVITE ORAL) Take by mouth. Active CALCIUM CARBONATE/VITAMIN D3 (CALTRATE 600 + D ORAL) Take by mouth. Active 0mega-3 fatty acids-vitamin E (FISH OIL) 1,000 mg Oral Cap Take 1,000 mg by mouth. Active buPROPion SR 12 hour (WELLBUTRIN-SR) 150 mg Oral tablet Take 150 mg by mouth 2 times daily. Active Active Problems Patient Care Coordination No te Formatting of this note migh t be different from the original. Primary Care: Yvonne Morris MD Referring Provider: Yvonne Morris MD [address] [facility] [address] [place] [address] Other: Dr Mariah Gómez Problem Noted Date Diagnosed Date Obesity (BMI 35.0-39.9 without comorbidity) 12/29 Diffuse cystic mastopathy 08/05/2013 Depression Broken arm Thyroid disease Family History Medical History Relation Name Comments Cancer Brother colorectal Heart Disease Father Cancer Maternal Grandmother colorec edmundo Breast Cancer Mother dx age 64 Lung Cancer Paternal Grandfather Ovarian Cancer Neg Hx Uterine Cancer Neg Hx Relation Name Status Comments Brother Father Maternal Grandmother Mother Paternal Grandfather Social History Tobacco Use Types Packs/Day Years [...] Comments Blood Pressure 135/84 01/22/2015 10:18 AM CONTINUING EDUCATION INSTRUCTOR Pulse 77 01/22/2015 10:18 AM CONTINUING EDUCATION INSTRUCTOR Temperature - - Respiratory Rate - - Oxygen Saturation - - Inhaled Oxygen Concentration - - Weight 127.5 kg (281 lb) 01/22/2015 10:18 AM CONTINUING EDUCATION INSTRUCTOR Height 180.3 cm (5' 11 ) 01/22/2015 10:18 AM CONTINUING EDUCATION INSTRUCTOR Body Mass Index 39.19 01/22/2015 10:18 AM CONTINUING EDUCATION INSTRUCTOR Plan of Treatment Health Maintenance Due Date Last Done Comments DTAP/TDAP/TD VACCINES (1 - Tdap) 1975 COLORECTAL SCREENING 2001 Colorectal Cancer Screening 2001 FIT-DNA Q 3 years 2001 FIT/FOBT Q 1 year 2001 Flex Sig/CT Colonography Q 5 years 2001 ZOSTER VACCINE (1 of 2) 2006 BREAST CANCER SCREENING 01/22/2016 01/22/20 15, 08/05/2013, 06/25/2012, Additional history exists OSTEOPOROSIS SCREENING 2021 PNEUMOCOCCAL VACCINE 65+ YEA RS (1 of 1 - PCV) 2021 INFLUENZA VACCINE (#1) 2024 RSV VACCINE (60+ or ) (1 - 1-dose 75+ series) 2031 Procedures Procedure Name Priority Date/Time Associated Diagnosis Comments MAMMO SCREEN BILAT W OR WO CAD Routine 01/22/2015 10:13 AM CONTINUING EDUCATION INSTRUCTOR Diffuse cystic mastopathy Other screening mammogram Family history of malignant neoplasm of breast from Last 3 Months or Most Recently Relevant to Health Maintenance Results * MAMMO DIGITAL SCREEN BILAT (01/22/2015 10:13 AM CONTINUING EDUCATION INSTRUCTOR) Anatomical Region Laterality Modality Breast Bilateral Mammography 01/22/2015 10:1 2 AM CONTINUING EDUCATION INSTRUCTOR Narrative 01/23/2015 8:48 AM CONTINUING EDUCATION INSTRUCTOR BILATERAL FULL FIELD DIGITAL SCREENING MAMMOGRAM WITH [...] mammography is recommended. Dictated from [facility] Procedure Note Sarah Lock MD - 01/23/2015 [...] is recommended. Dictated from [facility] Mariah Gmóez MD MAMMO ORDERABLES from Last 3 Months or Most Recently Relevant to Health Maintenance Care Teams Call Center Support Consultant Relationship Specialty Start Date End Date Yvonne Morris MD [address] [id number] PCP - General 11/13/15
--- OUTSIDE RECORDS SUMMARY | 2024-11-17 18:16 | XMS_ITS | Encounter Summary ---
Author Organization [facility] Address [address] [place] [address] Care Team Providers Care Research Phlebotomist Name Role Phone Yvonne Morris MD Primary Care Provider Unava ilable Reason for Referral * Outpatient Services (Routine) - Closed Specialty Diagnoses / Procedures Referred By Trudy portillo Referred To Contact Radiology Diagnoses Diffuse cystic mastopathy Other screening mammogram Family history of malignant neoplasm of breast Procedures MAMMO DIGITAL SCREEN Mariah Rod MD NO ADDRESS ON FILE Referral ID Status Reason Start Date Expiration Date V isits Requested Visits Authorized [id number] Closed [facility] 08/05/2013 09/05/2014 1 1 ING MACHINE OPERATOR Reason for Visit * Outpatient Services (Routine) - Closed Specialty Diagnoses / Procedures Referred By Trudy portillo Referred To Contact Radiology Diagnoses Diffuse cystic mastopathy Other screening mammogram Family history of malignant neoplasm of breast Procedures MAMMO DIGITAL SCREEN Mariah Rod MD NO ADDRESS ON FILE Referral ID Status Reason Start Date Expiration Date V isits Requested Visits Authorized [id number] Closed [facility] 08/05/2013 09/05/2014 1 1 Encounter Details Date Type Department Care Team (Latest Contact Info) Description 01/22/2015 9:30 AM POSTING MACHINE OPERATOR - 01/22/2015 11:59 PM POSTING MACHINE OPERATOR Hospital Encounter [facility] [address] [place] [phone] Mariah Gómez MD NO ADDRESS ON FILE [...] Sig Dispensed Refills Start Date End Date BETA-CAROTENE,A, W-C & E/MIN (OCUVITE ORAL) Take by mouth. CALCIUM CARBONATE/VITAMIN D3 (CALTRATE 600 + D ORAL) Take by mouth. 0mega-3 fatty acids-vitamin E (FISH OIL) 1,000 mg Oral Cap Take 1,000 mg by mouth. buPROPion SR 12 hour (WELLBUTRIN-SR) 150 mg Oral tablet Take 150 mg by mouth 2 times daily. MULTIVITAMINS WITH FLUORIDE (MULTI-VITAMIN ORAL) Take by mouth. duloxetine (CYMBALTA) 60 mg Oral CpDR Take 60 mg by mouth daily. levothyroxine 125 mcg Oral tablet Take 125 mcg by mouth daily neuro psych sales specialist. furosemide (LASIX) 40 mg Oral tablet Take 40 mg by mouth daily. documented as of this encounter Plan of Treatment Not on file documented as of this encounter Procedures Procedure Name Priority Date/Time Associated Diagnosis Comments MAMMO SCREEN BILAT W OR WO CAD Routine 01/22/2015 10:13 AM POSTING MACHINE OPERATOR Diffuse cystic mastopathy Other screening mammogram Family history of malignant neoplasm of breast documented in this encounter Results * MAMMO DIGITAL SCREEN BILAT (01/22/2015 10:13 AM POSTING MACHINE OPERATOR) Anatomical Region Laterality Modality Breast Bilateral Mammography 01/22/2015 10:1 2 AM POSTING MACHINE OPERATOR Narrative 01/23/2015 8:48 AM POSTING MACHINE OPERATOR BILATERAL FULL FIELD DIGITAL SCREENING MAMMOGRAM WITH [...] RECOMMENDATION: Annual [facility] is recommended. [facility] Sarah Lock MD - 01/23/2015 [...] encounter Visit Diagnoses Diagnosis Diffuse cystic mastopathy Other screening mammogram Family history of malignant neoplasm of breast documented in this encounter Care Teams Research Phlebotomist Relationship Specialty Start Date End Date Yvonne Morris MD PCP - General Family Practice 03/29/10 11/12/15 documented as of this encounter
--- OUTSIDE RECORDS SUMMARY | 2024-11-17 18:16 | XMS_ITS | Encounter Summary ---
Author Organization [facility] Address [address] [place] [address] Care Team Providers Care Medical Screener Name Role Phone Yvonne Morris MD Primary Care Provider Unava ilable Reason for Referral * Outpatient Services (Routine) - Closed Specialty Diagnoses / Procedures Referred By Trudy portillo Referred To Contact Procedures MAMMO DIGITAL DIAG [facility] Yvonne Morris MD Referral ID Status Reason Start Date Expiration Date Visits Re quested Visits Authorized [id number] Closed 06/21/2012 06/21/2013 1 1 Reason for Visit * Outpatient Services (Routine) - Closed Specialty Diagnoses / Procedures Referred By Trudy portillo Referred To Contact Radiology Diagnoses unknown Procedures MAMMO DIGITAL DIAG Yvonne Llamas MD [address] [place] [address] [facility] [place] [place] [address] Referral ID Status Reason Start Date Expiration Date Visits Re quested Visits Authorized [id number] Closed 06/25/2012 06/25/2013 1 1 Encounter Details Date Type Department Care Team (Latest Contact Info) Description 06/25/2012 11:00 AM CDT - 06/25/2012 11:59 PM CDT Hospital Encounter [facility] [address] [place] [address] Yvonne Morris MD Discharge Disposition: Home or [...] tablet Take 125 mcg by mouth daily travel pt. furosemide (LASIX) 40 mg Oral tablet Take 40 mg by mouth daily. documented as of this encounter Plan of Treatment Not on file documented as of this encounter Procedures Procedure Name Priority Date/Time Associated Diagnosis Comments MAMMO DIAGNOSTIC UNI LEFT W OR WO CAD Routine 06/25/2012 11:25 AM CDT Abnormal mammogram documented in this encounter Results * MAMMO DIGITAL DIAG UNI LEFT (06/25/2012 11:25 AM CDT) Anatomical Region Laterality Modality Breast Left Mammography 06/25/2012 11:2 5 AM CDT Narrative 06/25/2012 4:05 PM CDT EXAM: LEFT BREAST FULL FIELD DIGITAL DIAGNOSTIC MAMMOGRAM WITH CAD 06/25/12 HISTORY: Call back from screening for an asymmetry in the outer left breast TECHNIQUE: Comparison is made with mammograms dated 06/15/12 and older. Diagnostic full field digital mammography was performed on the left breast. Computer aided diagnosis was performed. FINDINGS: ??The previously questioned asymmetry in the outer breast dissipates on diagnostic views. No suspicious mass, suspicious calcifications or architectural distortion is identified. Findings are compatible with summation of benign breast parenchyma. CAD was utilized. OVERALL ASSESSMENT: ??BI-RADS category 1 - Negative. Annual mammography is recommended. Procedure Note Talia Knox MD - 06/25/2012 EXAM: LEFT BREAST FULL FIELD DIGITAL DIAGNOSTIC MAMMOGRAM WITH CAD 06/25/12 HISTORY: Call back from screening for an asymmetry in the outer left breast TECHNIQUE: Comparison is made with mammograms dated 06/15/12 and older. Diagnostic full field digital mammography was performed on the left breast. Computer aided diagnosis was performed. FINDINGS: The previously questioned asymmetry in the outer breast dissipates on diagnostic views. No suspicious mass, suspicious calcifications or architectural distortion is identified. Findings are compatible with summation of benign breast parenchyma. CAD was utilized. OVERALL ASSESSMENT: BI-RADS category 1 - Negative. Annual mammography is recommended. Yvonne Morris MD MAMMO ORDERABLES documented in this encounter Visit Diagnoses Diagnosis Abnormal mammogram Abnormal mammogram, unspecified documented in this encounter Care Teams Medical Screener Relationship Specialty Start Date End Date Yvonne Morris MD PCP - General Family Practice 03/29/10 11/12/15 documented as of this encounter
--- OUTSIDE RECORDS SUMMARY | 2024-11-17 18:16 | XMS_ITS | Encounter Summary ---
Author Organization [facility] Address [address] [place] [address] Care Team Providers Care Tentmaker Name Role Phone Yvonne Morris MD Primary Care Provider Unava ilable Reason for Referral * Outpatient Services (Routine) - Closed Specialty Diagnoses / Procedures Referred By Trudy portillo Referred To Contact Radiology Diagnoses Other screening mammogram Procedures MAMMO DIGITAL SCREEN Mariah Rod MD NO ADDRESS ON FILE Referral ID Status Reason Start Date Expiration Date Visits Re quested Visits Authorized [id number] Closed 05/27/2013 06/27/2014 1 1 Reason for Visit * Outpatient Services (Routine) - Closed Specialty Diagnoses / Procedures Referred By Trudy portillo Referred To Contact Radiology Diagnoses Other screening mammogram Procedures MAMMO DIGITAL SCREEN Mariah Rod MD NO ADDRESS ON FILE Referral ID Status Reason Start Date Expiration Date Visits Re quested Visits Authorized [id number] Closed 05/27/2013 06/27/2014 1 1 Encounter Details Date Type Department Care Team (Latest Contact Info) Description 08/05/2013 11:16 AM CDT - 08/05/2013 11:59 PM CDT Hospital Encounter [facility] [address] [place] [address] Mariah Gómez MD NO ADDRESS [...] tablet Take 125 mcg by mouth daily methods specialist. furosemide (LASIX) 40 mg Oral tablet Take 40 mg by mouth daily. documented as of this encounter Plan of Treatment Not on file documented as of this encounter Procedures Procedure Name Priority Date/Time Associated Diagnosis Comments MAMMO SCREEN BILAT W OR WO CAD Routine 08/05/2013 11:51 AM CDT Other screening mammogram documented in this encounter Results * [...] RECOMMENDATIONS: Recommend continued annual mammography. [facility] Note Ron Ventura MD - 08/05/2013 [...] this encounter Visit Diagnoses Diagnosis Other screening mammogram documented in this encounter Care Teams Tentmaker Relationship Specialty Start Date End Date Yvonne Morris MD PCP - General Family Practice 03/29/10 11/12/15 documented as of this encounter
--- OUTSIDE RECORDS SUMMARY | 2024-11-17 18:16 | XMS_ITS | Encounter Summary ---
Author Organization [facility] Address [address] [place] [address] Care Team Providers Care Examination Scorer Name Role Phone Yvonne Morris MD Primary Care Provider Renu nolan Encounter Details Date Type Department Care Team (Late st Contact Info) Description 07/05/2010 Abstract [facility]3] BREAST SURGERY - [place] [facility] [address] [place] [address] Mariah Gómez MD NO ADDRESS ON FILE Social History Tobacco Use Types Packs/Day Years Used Date Smoking Tobacco: Never Assessed Sex and Gender Information Value Date Recorded Sex Assigned at Not on file Gender Identity Not on file Sexual Orientation Not on file documented as of this encounter Plan of Treatment Not on file documented as of this encounter Procedures Procedure Name Priority Date/Time Associated Diagnosis Comments US BREAST UNI LEFT COMPLETE Routine 03/16/2010 MAMMO DIAGNOSTIC BILATERAL W OR WO CAD Routine 03/16/2010 MAMMO SCREEN BILAT W OR WO CAD Routine 08/29/2008 MAMMO SCREEN BILAT W OR WO CAD Routine 08/27/2007 documented in this encounter Results * US BREAST UNILATERAL LEFT (03/16/2010) Anatomical Region Laterality Modality Breast Left Other Abstract Provider US ORDERABLES * MAMMO DIGITAL DIAG BILAT (03/16/2010) Anatomical Region Laterality Modality Breast Bilateral Other Abstract Provider MAMMO ORDERABLES * MAMMO DIGITAL SCREEN BILAT (08/29/2008) Anatomical Region Laterality Modality Breast Bilateral Other Abstract Provider MAMMO ORDERABLES * MAMMO DIGITAL SCREEN BILAT (08/27/2007) Anatomical Region Laterality Modality Breast Bilateral Other Abstract Provider MAMMO ORDERABLES documented in this encounter Visit Diagnoses Not on filedocumented in this encounter Care Teams Examination Scorer Relationship Specialty Start Date End Date Yvonne Morris MD PCP - General Family Practice 03/29/10 11/12/15 documented as of this encounter
== END 2024-11-11 08:46 | disposition home or self-care (01) ==
LOC: ANHIMG 08:48
PROVIDERS: PCP Nurse Practitioner Family; Visit Provider Nurse Practitioner Family
DX: R16.0 Hepatomegaly, not elsewhere classified (principal); K44.9 Diaphragmatic hernia without obstruction or gangrene; K76.89 Other specified diseases of liver
CPT/HCPCS: 74170; Q9967

== ENCOUNTER 2025-03-10 00:50 | Day surgery (SDC) | payer MEDICARE, SELFPAY ==
[2025-03-06 10:54] VITALS: BMI 39.1
--- OUTSIDE RECORDS SUMMARY | 2025-03-10 00:52 | XMS_ITS | Clinical Summary ---
Author Organization [facility] Address [address] [place] [address] Phone Care Team Providers Care Budget Assistant Name Role Phone Unavailable Primary Care Provider Unavailabl e Social History Tobacco Use Types Packs/Day Years Used Date Smoking Tobacco: Never Assessed Comments Unknown Sex and Gender Information Value Date Recorded Sex Assigned at Not on file Legal Sex Female 3:14 PM STEWARD RACETRACK Gender Identity Not on file Sexual Orientation Not on file Plan of Treatment Health Maintenance Due Date Last Done Comments DEXA Bone Density 1955 Hepatitis C Virus (HCV) Screening 1955 Colonoscopy 2001 Colorectal Cancer Screening 2001 Cologuard 2006 Immunochemical Fecal Occult Blood 2006 Mammogram 2006 Pneumococcal Immunization (5 0+ years) (1 of 1 - PCV) 2006 Influenza Immunization (#1) 07/28/202407/28, 09/11/2018, 11/27/2011 SARS-COV-2 Immunization ( - 2023-25 season) 2024 Respiratory Syncytial Virus (RSV) Immunization (Adult) (1 - 1-dose 75+ series) 2031 DTaP/Tdap/Td Immunization Discontinued 11/14/2018 TdaP Immunization Completed [...]
--- OUTSIDE RECORDS SUMMARY | 2025-03-10 00:52 | XMS_ITS | Clinical Summary ---
Author Organization [facility] Address [address] [place] [address] Phone Care Team Providers Care White Shoe Ragger Name Role Phone Yvonne Morris MD Primary Care Provider [phone] Allergies Active Allergy Reactions Criticality Noted Date Comments Penicillins Hives High 03/29/2010 Medications MULTIVITAMINS WITH FLUORIDE (MULTI-VITAMIN ORAL) Take by mouth. Active duloxetine (CYMBALTA) 60 mg Oral CpDR Take 60 mg by mouth daily. Active levothyroxine 125 mcg Oral tablet Take 125 mcg by mouth daily catcher helper. Active furosemide (LASIX) 40 mg Oral tablet Take 40 mg by mouth daily. Active BETA-CAROTENE,A, W-C & E/MIN (OCUVITE ORAL) Take by mouth. Active CALCIUM CARBONATE/VITAMI N D3 (CALTRATE 600 + D ORAL) Take [...] Morris MD Referring Provider: Yvonne Morris MD [address] [place] [address] [address] [place] [address] Other: Dr Mariah Gómez Problem Noted Date [...] = 0.6 oz pur e alcohol) Comments No Sex and Gender Information Value Date Recorded Sex Assigned at Not on file Legal Sex Female 5:52 AM EXCELSIOR MACHINE FEEDER Gender Identity Not on file Sexual Orientation Not on file Occupation Industry Job Start Date Job End Date Not on file Not on file Not on file Not on file Not on file Not on file Not on file Not on file Last Filed Vital Signs Vital Sign Reading Time Taken Comments Blood Pressure 135/84 01/22/2015 10:18 AM EXCELSIOR MACHINE FEEDER Pulse 77 01/22/2015 10:18 AM EXCELSIOR MACHINE FEEDER Temperature - - Respiratory Rate - - Oxygen Saturation - - Inhaled Oxygen Concentration - - Weight 127.5 kg (281 lb) 01/22/2015 10:18 AM EXCELSIOR MACHINE FEEDER Height 180.3 cm (5' 11 ) 01/22/2015 10:18 AM EXCELSIOR MACHINE FEEDER Body Mass Index 39.19 01/22/2015 10:18 AM EXCELSIOR MACHINE FEEDER Plan of Treatment Health Maintenance Due Date Last Done Comments DTAP/TDAP/TD VACCINES (1 - Tdap) 1975 COLORECTAL SCREENING 2001 Colorectal Cancer Screening 2001 FIT-DNA Q 3 years 2001 FIT/FOBT Q 1 year 2001 Flex Sig/CT Colonography Q 5 years 2001 PNEUMOCOCCAL VACCINE 50+ YEA RS (1 of 1 - PCV) 2006 ZOSTER VACCINE (1 of 2) 2006 BREAST CANCER SCREENING 01/22/2016 01/22/20 15, 08/05/2013, 06/25/2012, Additional history exists OSTEOPOROSIS SCREENING 2021 INFLUENZA VACCINE (#1) 2024 RSV VACCINE (60+ or ) (1 - 1-dose 75+ series) 2031 Procedures Procedure Name Priority Date/Time Associated Diagnosis Comments MAMMO SCREEN BILAT W OR WO CAD Routine 01/22/2015 10:13 AM EXCELSIOR MACHINE FEEDER Diffuse cystic mastopathy Other screening mammogram Family history of malignant neoplasm of breast from Last 3 Months or Most Recently Relevant to Health Maintenance Results * MAMMO DIGITAL SCREEN BILAT (01/22/2015 10:13 AM EXCELSIOR MACHINE FEEDER) Anatomical Region Laterality Modality Breast Bilateral Mammography 01/22/2015 10:1 2 AM EXCELSIOR MACHINE FEEDER Narrative 01/23/2015 8:48 AM EXCELSIOR MACHINE FEEDER BILATERAL FULL FIELD DIGITAL SCREENING MAMMOGRAM WITH [...] Young Jarrett Mariah Gómez MD MAMMO ORDERABLES Final Result from Last 3 Months or Most Recently Relevant to Health Maintenance Insurance BCBS BLUE ACCESS/TRUE BLUE PPO Care Teams White Shoe Ragger Relationship Specialty Start Date End Date Yvonne Morris MD [address] [address] PCP - General 11/13/15
--- OUTSIDE RECORDS SUMMARY | 2025-03-10 00:52 | XMS_ITS | Clinical Summary ---
Author Organization [facility] Address [address] [place] [address] Care Team Providers Care School Health Aide Name Role Phone Chitra Chen MD Primary Care Provider [phone] Chitra Chen MD Unavailable [phone] Mir Gonzales MD Unavailable [phone] Allergies Active Allergy Reactions Criticality Noted Date [...] 2 (two) times a day Active calcium [id number] ium brittanie 133 mg calcium -133 unit-67 mg capsule Take by mouth Activ e HYDROcodone-ac etaminophen (Ignacio) 5-325 mg per tabletIndicati ons:Pain Take 1 [...] 04/08/2019 Type 2 diabetes mellitus without complication Hearing loss of right ear 06/01/2017 Hip pain 06/01/2017 Diabetes mellitus 05/01/2017 Bilateral tinnitus 03/31/2017 Melanocytic nevus 03/31/2017 Obesity 02/28/2017 Knee pain 05/27/2016 Encounters Date Type Department Care Team Description 02/18/2025 3:30 PM CDT Procedure visit [facility] Otolaryngology [address], [address] [place] [address] Lilliam Faith Au.D. Asymmetrical sensorineural hearing loss (Primary Dx); Encounter for adjustment and management of cochlear device from Last 3 Months Surgical History Surgery Date Site/Laterality Comments [place] TONSILLECTOMY PRIMARY/SEC ONDARY <AGE 13 Tonsillectomy - [...] on file Legal Sex Female 2:17 AM HEBREW TEACHER Gender Identity Female 03/19/2020 9:59 AM CDT Sexual Orientation Straight 03/19/2020 9: 59 AM CDT Obstetrics History Last Filed Vital Signs Vital Sign Reading Time Taken Comments Blood Pressure 122/80 10/14/2020 3:00 PM HEBREW TEACHER Pulse 96 10/14/2020 3:00 PM HEBREW TEACHER Temperature - - Respiratory Rate - - Oxygen Saturation 96% 10/14/2020 3:00 PM HEBREW TEACHER Inhaled Oxygen Concentration - - Weight 127.4 kg (280 lb 14.4 oz) 10/14/2020 3:00 PM HEBREW TEACHER Height 180.3 cm (5' 11 ) 10/14/2020 3:00 PM HEBREW TEACHER Body Mass Index 39.18 10/14/2020 3:00 PM HEBREW TEACHER Plan of Treatment Health Maintenance Due Date Last Done Comments Albumin Creatinine Ratio, Urine 1955 Colon Cancer Screening-Colonoscopy 1956 Depression Screening 1956 Fall Risk Assessment 1956 Hemoglobin A1C 1956 Hepatitis C Screening 1956 eGFR 1956 Dilated Eye Exam 1956 Foot Exam 1956 Hepatitis B Screening 1974 Pneumococcal vaccine 65+ (1 of 2 - PCV) 1975 Zoster Vaccine (2 of 2) 11/20/2019 09/25/2019 Well Visit 65+ 2021 Lipid Panel 10/14/2021 10/14/2020 Breast Cancer Screening-Mammogram 10/04/2023 10/04/2022, 10/04/2022, 10/09/2019, Additional history exists Osteoporosis Screening-Bone Density Scan 05/02/2025 05/02/2023, 08/12/2020 Influenza Vaccine (Season Ended) 2025 09/09/2021, 08/07/2019, 08/06/2019, Additional history exists DTaP/Tdap/Td Vaccine (2 - Td or Tdap) 11/14/2028 11/14/2018 Procedures Procedure Name Priority Date/Time Associated Diagnosis Comments POCT LIPID PANEL Routine 10/14/2020 5:34 PM HEBREW TEACHER Dyslipidemia from Last 3 Months or Most Recently Relevant to Health Maintenance Results * POCT lipid panel (10/14/2020 5:34 PM HEBREW TEACHER) Cholesterol, POC 169 mg/dL Comment:GLU = 124 HDL, POC 77 mg/dL Triglycerides, POC 185 mg/dL LDL Cholesterol POC 56 mg/dL Chol/HDL Ratio, POC 2.2 Non-HDL Cholesterol, POC 93 mg/dL Cholesterol Total, POC 169 mg/dL Capillary blood 10/14/2020 5 :34 PM HEBREW TEACHER Seamus Landaverde MD POINT OF CARE TEST ORDERABLES Fi nal Result from Last 3 Months or Most Recently Relevant to Health Maintenance [place] [address] [facility] AETNA MEDICARE Care Teams School Health Aide Relationship Specialty Start Date End Date Chitra Chen MD PCP - General Internal Medicine 09/04/20 Chitra Chen MD Internal Medicine 09/04/20 Mir Gonzales MD Referring Physician Otolaryngology 04/08/19
--- OUTSIDE RECORDS SUMMARY | 2025-03-10 00:52 | XMS_ITS | Encounter Summary ---
Author Organization [facility] Address [address] [place] [address] Care Team Providers Care Warehouse Shift Supervisor Name Role Phone Omar Cait Ankit [facility] Primary Care Provider + Encounter Details Date Type Department Care Team (Late st Contact Info) Description 03/03/2025 Abstract [facility], [address] [address] Radha Manning MA Social History Tobacco Use Types Packs/Day Years [...] Department Care Team (Late Contact Info) Description 05/20/2025 8:30 AM CDT Appointment [facility] [address] Ike Garcia MD Three [facility]. [address] [address] 05/26/2025 1:15 PM CDT Office Visit [facility] [address] [place] [phone] Colleen Pina FNP [address] [place] [address] documented as of this encounter Procedures Procedure Name Priority Date/Time Associated Diagnosis Comments HEMOGLOBIN, GLYCOSYLATED Routine 02/13/2025 COMPREHENSIVE METABOLIC PANEL Routine 02/13/2025 LIPID PANEL Routine 02/13/2025 CBC, MANUAL DIFF Routine 02/13/2025 THYROID STIM HORMONE TSH Routine 02/13/2025 documented in this encounter Results * COMPREHENSIVE METABOLIC PANEL (02/13/2025) Pathologist [facility] SODIUM S/P/B 141 GLUCOSE 105 mg/dL AST 14 BUN 15 CREATININE S/P/B 0.84 0.5 - 1.0 CALCIUM S/P/B 9.1 POTASSIUM S/P/B 4.5 CHLORIDE S/P/B 105 ALT 10 GFR ESTIMATE 76 us Default History Genericprovider LABORATORY Edited Result - Final * LIPID PANEL (02/13/2025) Pathologist [facility] CHOLESTEROL 148 TRIGLYCERIDES 67 HDL 76 LDL (CALCULATED) 58 NON HDL CHOLESTEROL 72 us Default History Genericprovider LABORATORY Edited Result - Final * CBC, MANUAL DIFF (02/13/2025) Pathologist [facility] WBC 5.7 HGB 11.3 HCT 38.6 PLT 301 us Default History Genericprovider LABORATORY Edited Result - Final * HEMOGLOBIN, GLYCOSYLATED (02/13/2025) Pathologist [facility] HGB A1C 5.8 % us Default History Genericprovider LABORATORY Edited Result - Final * THYROID STIM HORMONE TSH (02/13/2025) Pathologist [facility] TSH 1.23 us Default History Genericprovider LABORATORY Edited Result - Final documented in this encounter Visit Diagnoses Not on filedocumented in this encounter Care Teams Warehouse Shift Supervisor Relationship Specialty Start Date End Date Cait Nelson, RESTAURANT M[employer]- [address] [phone] PCP - General NURSE PRACTITIONER 10/09/19 documented as of this encounter
--- OUTSIDE RECORDS SUMMARY | 2025-03-10 00:52 | XMS_ITS | Referral Summary ---
Author Organization [facility] Medical Office Building Address [address] [place] [address] Care Team Providers Care Pile Driving Supervisor Name Role Phone Chitra Chen MD Primary Care Provider [phone] Chitra Chen MD Unavailable Mir Gonzales MD Unavailable [phone] Encounters Date Type Department Care Team Description 02/18/2025 3:30 PM CDT Procedure visit [facility] Otolaryngology [address], [address] [place] [address] Lilliam Faith Au.D. Asymmetrical sensorineural hearing loss (Primary Dx); Encounter for adjustment and management of cochlear device from Last 3 Months Allergies Active Allergy Reactions Criticality Noted Date [...] 2 (two) times a day Active calcium rtnh-H0-tssuuy ium brittanie 133 mg calcium -133 unit-67 mg capsule Take by mouth Activ e HYDROcodone-ac etaminophen ([place]) 5-325 mg per tabletIndicati ons:Pain Take 1 [...] on file Legal Sex Female 2:17 AM EXECUTIVE MARKETING ASSISTANT Gender Identity Female 03/19/2020 9:59 AM CDT Sexual Orientation Straight 03/19/2020 9: 59 AM CDT Last Filed Vital Signs Vital Sign Reading Time Taken Comments Blood Pressure 122/80 10/14/2020 3:00 PM EXECUTIVE MARKETING ASSISTANT Pulse 96 10/14/2020 3:00 PM EXECUTIVE MARKETING ASSISTANT Temperature - - Respiratory Rate - - Oxygen Saturation 96% 10/14/2020 3:00 PM EXECUTIVE MARKETING ASSISTANT Inhaled Oxygen Concentration - - Weight 127.4 kg (280 lb 14.4 oz) 10/14/2020 3:00 PM EXECUTIVE MARKETING ASSISTANT Height 180.3 cm (5' 11 ) 10/14/2020 3:00 PM EXECUTIVE MARKETING ASSISTANT Body Mass Index 39.18 10/14/2020 3:00 PM EXECUTIVE MARKETING ASSISTANT Plan of Treatment Not on file Procedures Procedure Name Priority Date/Time Associated Diagnosis Comments POCT LIPID PANEL Routine 10/14/2020 5:34 PM EXECUTIVE MARKETING ASSISTANT Dyslipidemia from Last 3 Months or Most Recently Relevant to Health Maintenance Results * POCT lipid panel (10/14/2020 5:34 PM EXECUTIVE MARKETING ASSISTANT) Cholesterol, POC 169 mg/dL Comment:GLU = 124 HDL, POC 77 mg/dL Triglycerides, POC 185 mg/dL LDL Cholesterol POC 56 mg/dL Chol/HDL Ratio, POC 2.2 Non-HDL Cholesterol, POC 93 mg/dL Cholesterol Total, POC 169 mg/dL Capillary blood 10/14/2020 5 :34 PM EXECUTIVE MARKETING ASSISTANT Seamus Landaverde MD POINT OF CARE TEST ORDERABLES Fi nal Result from Last 3 Months or Most Recently Relevant to Health Maintenance Insurance [facility] [employer] MEDIC[employer] Care Teams Pile Driving Supervisor Relationship Specialty Start Date End Date Chitra Chen MD PCP - General Internal Medicine 09/04/20 Chitra Chen MD Internal Medicine 09/04/20 Mir Gonzales MD Referring Physician Otolaryngology 04/08/19
--- OUTSIDE RECORDS SUMMARY | 2025-03-10 00:52 | XMS_ITS | Clinical Summary ---
Author Organization [facility] Address [address] [place] [id number] Care Team Providers Care Lens Mounter Name Role Phone Cait Cabello [facility] Primary Care Provider + Allergies Active Allergy Reactions Criticality Noted Date Comments Morphine Other (see comment) 02/19/2023 Profound hypotension and diaphoresis Penicillins Hives 03/29/2010 Medications Levothyroxine Sodium 100 MCG capsule Take 1 capsule by mouth daily. 08/30/20 24 Active meloxicam (MOBIC) 7.5 MG tablet Take [...] (60 mg total) by mouth daily. Active metoprolol succinate ER (TOPROL-XL) 50 MG 24 hr tablet Take 1 tablet (50 mg total) by mouth daily. 90 tablet 3 01/17/20 25 Active losartan (COZAAR) 100 MG tablet Take 1 tablet (100 mg total) by mouth daily. 90 tablet 3 01/17/20 25 Active ferrous sulfate EC 325 (65 Fe) MG tablet Take 1 tablet by mouth daily. 02/14/20 25 Active RYBELSUS 3 MG tablet Take 1 tablet (3 mg total) by mouth daily. 02/14/20 25 Active Ascorbic Acid (VITAMIN C) 100 MG tablet Take 1 tablet (100 mg total) by mouth daily. Active hydrALAZINE (APRESOLINE) 25 MG tablet Take 1 tablet (25 mg total) by mouth as needed (For SBP >160). Maximum daily dose 100 mg 60 tablet 1 03/07/20 25 Active OZEMPIC 1 mg/dose injection (PEN) Inject 1 mg into the skin once a week. 025 Discontinued(Si de effects) hydrALAZINE (APRESOLINE) 25 MG tablet Take 1 tablet (25 mg total) by mouth as needed (For SBP >160). 60 tablet 1 01/17/20 25 025 Discontinued(Re order) hydrALAZINE (APRESOLINE) 25 MG tablet Take 1 tablet (25 mg total) by mouth as needed (For SBP >160). 60 tablet 1 03/07/20 025 Discontinued Active Problems Problem Noted Date Diagnosed Date Essential hypertension 09/15/2021 Hyperlipidemia 04/08/2019 Encounters Date Type Department Care Team Description 03/07/2025 Telephone [facility], [address] [address] Ike Garcia MD Refill Request (HYDRALAZINE) 03/03/2025 [facility] [address] [address] Radha Manning MA 02/27/2025 Telephone [facility], [address] [address] Ike Garcia MD Information ([facility]) 02/24/2025 2:00 PM CDT Office Visit [facility] [address] [place] [phone] Ike Garcia MD Follow Up (Atherosclerosis); Chest Pain; Shortness Of Breath 02/24/2025 Travel 12/19/2024 Telephone [facility], [facility] [address] [place] [address] Colleen Pina FNP Concerns from Last 3 Months Immunizations Immunization Administration Dates Next Due COVID-19 Vaccine (Generic) 01/30/2021,01/02/2021 Influenza (Generic) 11/27/2011 Influenza Adult (Generic) 09/09/2021,09/2019,08/06/2019,2017 MODERNA COVID-19 (12+) MRNA, LNP-S, PF, 100 [...] Sign Reading Time Taken Comments Blood Pressure 150/90 02/24/2025 1:56 PM CDT Pulse 71 02/24/2025 1:56 PM CDT Temperature 36.7 C (98 F) 02/19/2023 1:46 PM CDT Respiratory Rate 20 02/19/2023 1:46 PM CDT Oxygen Saturation 95% 02/19/2023 3:40 PM CDT Inhaled Oxygen Concentration - - Weight 131.1 kg (289 lb) 02/24/2025 1:56 PM CDT Height 180.3 cm (5' 11 ) 02/24/2025 1:56 PM CDT Body Mass Index 40.31 02/24/2025 1:56 PM CDT Plan of Treatment Upcoming Encounters Date Type Department Care Team (Late st Contact Info) Description 05/20/2025 8:[address] [facility] [place] [address] Ike Garcia MD Three [facility]. [facility] [address] [place], [place] [id number] 05/26/2025 1:15 PM CDT Office Visit [facility] [address] [place] [address] Colleen Pina, JOSE [address] [facility] [address] [place], [place] [id number] Health Maintenance Due Date Last Done Comments Colorectal Cancer Screening Colonoscopy (10 Years) 1955 Pneumococcal Vaccine: 50+ Years (1 of 2 - PCV) 1962 Hepatitis C 1974 RSV Immunization or 60+ Years (1 - Risk 60-74 years 1-dose series) 2016 Zoster Vaccines (2 of 2) 11/20/2019 09/25/2019 Annual Medicare Wellness Visit 2021 COVID-19 Vaccine ( - season) 2024 09/22/2021, 01/30/2021, 01/02/2021 Mammogram Screening 10/04/2024 10/04/2022, 10/09/2019, 01/22/2015, Additional history exists DTaP, Tdap and Td Vaccines (2 - Td or Tdap) 11/14/2028 11/14/2018 Dexa Scan (General) Completed 05/02/2023, 0 Meningococcal B Vaccine Aged Out No l onger eligible based on patient's age to complete this topic Meningococcal Vaccine Aged Out No diaz jace eligible based on patient's age to complete this topic RSV Immunizations Under 20 Months Aged Out No longer eligible based on patient's age to complete this topic Procedures Procedure Name Priority Date/Time Associated Diagnosis Comments COMPREHENSIVE METABOLIC PANEL Routine 02/13/2025 LIPID PANEL Routine 02/13/2025 CBC, MANUAL DIFF Routine 02/13/2025 HEMOGLOBIN, GLYCOSYLATED Routine 02/13/2025 THYROID STIM HORMONE TSH Routine 02/13/2025 BONE DENSITY/DEXA Routine 05/02/2023 1:2 4 PM CDT Age-related osteoporosis without current pathological fracture MG SCREENING W DONNIE TIMA DIGI Routine 10/04/2022 1:23 PM CLINICAL SAFETY MANAGER Encounter for screening mammogram for malignant neoplasm of breast from Last 3 Months or Most Recently Relevant to Health Maintenance Results * HEMOGLOBIN, GLYCOSYLATED (02/13/2025) Pathologist [facility] HGB A1C 5.8 % Default History Genericprovider LABORATORY Edited Result - Final * COMPREHENSIVE METABOLIC PANEL (02/13/2025) Pathologist [facility] SODIUM S/P/B 141 GLUCOSE 105 mg/dL AST 14 BUN 15 CREATININE S/P/B 0.84 0.5 - 1.0 CALCIUM S/P/B 9.1 POTASSIUM S/P/B 4.5 CHLORIDE S/P/B 105 ALT 10 GFR ESTIMATE 76 Default History Genericprovider LABORATORY Edited Result - Final * LIPID PANEL (02/13/2025) Pathologist [facility] CHOLESTEROL 148 TRIGLYCERIDES 67 HDL 76 LDL (CALCULATED) 58 NON HDL CHOLESTEROL 72 Default History Genericprovider LABORATORY Edited Result - Final * CBC, MANUAL DIFF (02/13/2025) Pathologist [facility] WBC 5.7 HGB 11.3 HCT 38.6 PLT 301 Default History Genericprovider LABORATORY Edited Result - Final * THYROID STIM HORMONE TSH (02/13/2025) Pathologist [facility] TSH 1.23 Default History Genericprovider LABORATORY Edited Result - Final * BONE DENSITY/DEXA (05/02/2023 1:24 PM CDT) Anatomical Region Laterality Modality Bone Bone Density 05/03/2023 11:1 0 AM CDT Narrative 05/03/2023 11:12 AM CDT IMAGING STUDIES: BONE DENSITY/DEXA DATE: 04/04/2023 10:05 [...] imaging in 2 years Ordered By: DICK NORTON Interpreted By: Israel Ospina, 05/03/2023 11:10 AM [...] repeatimaging in 2 years Ordered By: DICK NORTON Interpreted By: Israel Ospina, 05/03/2023 11:10 AM Dick Norton MD DEXA Final Result * MG SCREENING W DONNIE TIMA GARCIAI (10/04/2022 1:23 PM CLINICAL SAFETY MANAGER) Anatomical Region Laterality Modality Breast Bilateral Mammography 10/04/2022 4:24 PM CLINICAL SAFETY MANAGER Impressions 10/04/2022 4:27 PM CLINICAL SAFETY MANAGER IMPRESSION: 1. No mammographic evidence of malignancy. 2. Assessment: ACR BI-RADS 2 - BENIGN FINDING(S) 3 .Routine Screening Bilateral MQSA BI-RADS Categories: Category 0 - needs additional imaging evaluation. Category 1 - negative. Category 2 - benign findings. Category 3 - probably benign findings, but short interval follow-up is recommended. Category 4 - suspicious abnormality and biopsy should be considered though the lesion may well be benign. Category 5 - highly suggestive of malignancy and appropriate action should be taken. Category 6 - known biopsy-proven malignancy A) A negative report should not delay a biopsy if a dominant or clinically suspicious mass is present. B) Adenosis and dense breasts may obscure an underlying neoplasm. C) Study interpreted with computer aided detection. Ordered By: ACIT CABELLO Interpreted By: Israel Ospina, 10/04/2022 4:24 PM Narrative 10/04/2022 4:27 PM CLINICAL SAFETY MANAGER IMAGING STUDIES: Bilateral screening mammograms with computer-aided detection with 2-D and 3-D imaging. Tomosynthesis. DATE: 10/04/2022 1:10 PM HISTORY: Encounter for screening mammogram for malignant neoplasm of breast . Mother diagnosed breast carcinoma age 65 COMPARISON: 07/23/2016. 10/09/2019. TISSUE TYPE: The breast tissue is almost entirely fatty. FINDINGS: 1. Fatty replaced fibroglandular tissue pattern is present. Minimal scattered fibroglandular tissue. Benign calcifications 2. No malignant microcalfcifications, new dominant masses, or architectural distortion. 3. No skin thickening or nipple retraction. Axillary regions are within normal limits. us Cait Cabello [facility] MAMMO Final Re sult from Last 3 Months or Most Recently Relevant to Health Maintenance Insurance [employer] Care Teams Lens Mounter Relationship Specialty Start Date End Date Cait Cabello, [facility] [address] [place] [address] PCP - General NURSE PRACTITIONER 10/09/19
--- OUTSIDE RECORDS SUMMARY | 2025-03-10 00:52 | XMS_ITS | Data Portability ---
Author Organization [facility], Main Office Address [address] [place] [id number] Care Team Providers Care It Desktop Support Technician Name Role Phone CAIT CABELLO Primary Care Provider CAIT CABELLO Referring Provider [phone] Assessment Encounter Date Assessment Date Assessment LastModified [...] more than half the time spent in cyeq-sc-vhfa care. Not available 07/31/2023 14:10:57 08/16/2023 08/16/2023 [...] more than half the time spent in phos-wu-eiva care. Not available 08/16/2023 10:25:27 09/13/2023 09/13/2023 [...] more than half the time spent in kqxr-lc-hrgg care. Not available 10/01/2023 16:37:52 Plan of Treatment Reminders Order Date Submit Date Provider Last Modified By Organization Details Last Modified Time Details Appointments None recorded. Lab BMP, serum or plasma 2022 023 [facility], [address] [place], [address], 12/19/202 3 19:56:33 HbA1c (hemoglobin A1c), blood [address], [address] [place], [place] [address], [address], 3 08:39:33 TSH, serum, reflex free T4 [address], [address] [place] [address], [address], 3 08:39:33 lipid panel, serum 2022 023 [facility], [address] [place] [address], [address], 3 19:56:35 CBC w/ auto diff 2022 023 [facility], [address] [place] [address], [address], 3 14:09:54 HbA1c (hemoglobin A1c), blood [address], [address] [place] [address], [address], 3 08:20:12 CMP, serum or plasma 2022 023 [facility], [address] [place] [address], [address], 3 14:17:08 lipid panel, serum 2022 023 [facility], [address] [place] [address], [address], 3 14:17:01 T4, free, serum 2022 023 [facility], [address] [place] [address], [address], 3 14:33:58 TSH, serum or plasma 2022 023 [facility], [address], [place], [address], 3 14:49:[address] referral - lesion left face. eval and treat 2022 023 [email or web address] [id number] Kayli Boyle MD (Dermatology) , [address], [address], [place], [address], 3 09:18:36 endocrinolo gy referral - was seeing samuel orr, but she is leaving [address] - Endocrinology , [address], [address], [place], [address], 3 09:18:32 Procedures injection/a spiration joint/bursa (PROC) - in office procedure, administere d by provider 2022 023 [email or web address] In-Office Order, Internal Use Only DO Not Attach Compendium DO Not Attach Compendium, Do Not Delete/merge, [id number] 3 09:57:13 Surgeries None recorded. Imaging None recorded. Medication Orders Ozempic 1 mg/dose (4 mg/3 mL) subcutaneou s pen injector 2022 023 [facility], [address], [place], [id number], 3 10:51:19 duloxetine 30 mg capsule,del ayed release 2022 023 [facility]94090, [address], [place], [id number], 3 10:58:43 Kenalog 10 mg/mL suspension for injection 2022 023 [facility] #42265, [address], [place], [id number], 3 10:09:24 ropivacaine (PF) 5 mg/mL (0.5 %) injection solution 2022 023 [email or web address] #89706, [address], [place], [id number], 3 10:09:44 Medrol (José) 4 mg tablets in a dose pack 2022 023 [email or web address] #23901, [address], [place], [id number], 3 10:09:35 Patient TargetsNo targets recorded. Patient Instructions Encounter Date Encounter Id Patient Instructions Last Modified By Organization Details Last Modified Time 07/20/2023 [id number] FU in 4-6 mo. [email or web address] Not available 0 07/20/2023 09:59:34 11/14/2023 [id number] FU in 4 mo 11/14/23 pt aware of Omar departure. Monitor bp. 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 eval and treat Referring Physician: Cait Cabello, [facility] Medicine, Encounter Date: 07/20/2023 Results Created Date Observation Date Name Description Value Unit Range Abnormal Flag Note LastModifiedBy Organization Detail LastModifiedTime 07/20/2007/20/2023 CBC/C OMPLE TE BLD COUNT W/DIF F white blood cells 6.8 x10'3 /uL 4.2-10 .8 Not Available [facility] (Lab) [address] [place], [address], 07/20/2023 14:09:54 07/20/20 23 07/20/2023 CBC/C OMPLE TE BLD COUNT W/DIF F red blood cells 4.91 x10'6 /uL 3.80-5 .20 Not Available [facility] (Lab) [address] [place], [address], 07/20/2023 14:09:54 07/20/20 23 07/20/2023 CBC/C OMPLE TE BLD COUNT W/DIF F hemoglobin 13.9 g/dL 12.0-1 5.6 Not Available [facility] (Lab) [address] [place], [address], 07/20/2023 14:09:54 07/20/20 23 07/20/2023 CBC/C OMPLE TE BLD COUNT W/DIF F hematocrit 43.4 % 35.7-4 5.7 Not Available [facility] (Lab) [address] [place], [address], 07/20/2023 14:09:54 07/20/20 23 07/20/2023 CBC/C OMPLE TE BLD COUNT W/DIF F mean red cell volume 88.4 fL 82.0-9 9.0 Not Available [facility] (Lab) [address] [place], [address], 07/20/2023 14:09:54 07/20/20 23 07/20/2023 CBC/C OMPLE TE BLD COUNT W/DIF F mean red cell hemoglobin 28.3 pg 27.0-3 3.0 Not Available [facility] (Lab) [address] [place], [address], 07/20/2023 14:09:54 07/20/20 23 07/20/2023 CBC/C OMPLE TE BLD COUNT W/DIF F mean RBC HGB concentratio n 32.0 g/dL 31.0-3 6.0 Not Available [facility] (Lab) [address] [place], [address], 07/20/2023 14:09:54 07/20/20 23 07/20/2023 CBC/C OMPLE TE BLD COUNT W/DIF F red cell distribution width 13.5 % 11.8-1 5.5 Not Available [facility] (Lab) [address] [place], [address], 07/20/2023 14:09:54 07/20/20 23 07/20/2023 CBC/C OMPLE TE BLD COUNT W/DIF F platelets 237 x10'3 /uL 150-40 0 Not Available [facility] (Lab) [address] [place], [address], 07/20/2023 14:09:54 07/20/20 23 07/20/2023 CBC/C OMPLE TE BLD COUNT W/DIF F mean platelet volume 11.5 fL 9.0-12 .4 Not Available [facility] (Lab) [address] [place], [address], 07/20/2023 14:09:54 07/20/20 23 07/20/2023 CBC/C OMPLE TE BLD COUNT W/DIF F neutrophils 68.7 % 39.0-7 2.0 Not Available [facility] (Lab) [address] [place], [address], 07/20/2023 14:09:54 07/20/20 23 07/20/2023 CBC/C OMPLE TE BLD COUNT W/DIF F lymphocytes 21.1 % 16.0-4 7.0 Not Available [facility] (Lab) [address] [place], [address], 07/20/2023 14:09:54 07/20/20 23 07/20/2023 CBC/C OMPLE TE BLD COUNT W/DIF F monocytes 6.0 % 5.0-12 .0 Not Available [facility] (Lab) [address] [place], [address], 07/20/2023 14:09:54 07/20/20 23 07/20/2023 CBC/C OMPLE TE BLD COUNT W/DIF F eosinophils 3.2 % 1.0-7. 0 Not Available [facility] (Lab) [address] [place], [address], 07/20/2023 14:09:54 07/20/20 23 07/20/2023 CBC/C OMPLE TE BLD COUNT W/DIF F basophils 0.7 % 0.0-2. 0 Not Available [facility] (Lab) [address] [place], [address], 07/20/2023 14:09:54 07/20/20 23 07/20/2023 CBC/C OMPLE TE BLD COUNT W/DIF F immature granulocytes 0.3 % 0.00-0 .50 Not Available [facility] (Lab) [address] [place], [address], 07/20/2023 14:09:54 07/20/20 23 07/20/2023 CBC/C OMPLE TE BLD COUNT W/DIF F neutrophils, absolute count 4.67 x10'3 /uL 1.5-8. 0 Not Available [facility] (Lab) [address] [place], [address], 07/20/2023 14:09:54 07/20/20 23 07/20/2023 CBC/C OMPLE TE BLD COUNT W/DIF F lymphocytes, absolute count 1.44 x10'3 /uL 1.07-3 .43 Not Available [facility] (Lab) [address] [place], [address], 07/20/2023 14:09:54 07/20/20 23 07/20/2023 CBC/C OMPLE TE BLD COUNT W/DIF F monocytes, absolute count 0.41 x10'3 /uL 0.29-0 .99 Not Available [facility] (Lab) [address] [place], [address], 07/20/2023 14:09:54 07/20/20 23 07/20/2023 CBC/C OMPLE TE BLD COUNT W/DIF F eosinophils, absolute count 0.22 x10'3 /uL 0.02-0 .53 Not Available [facility] (Lab) [address] [place], [address], 07/20/2023 14:09:54 07/20/20 23 07/20/2023 CBC/C OMPLE TE BLD COUNT W/DIF F basophils, absolute count 0.05 x10'3 /uL 0.01-0 .08 Not Available [facility] (Lab) [address] [place], [address], 07/20/2023 14:09:54 07/20/20 23 07/20/2023 CBC/C OMPLE TE BLD COUNT W/DIF F immature granulocytes ,absolute 0.02 x10'3 /uL 0.00-0 .05 Not Available [facility] (Lab) [address] [place], [address], 07/20/2023 14:09:54 07/20/20 23 07/20/2023 CBC/C OMPLE TE BLD COUNT W/DIF F nucleated red blood cells 0.0 % -0 Not Available [facility] (Lab) [address] [place], [address], 07/20/2023 14:09:54 07/20/20 23 07/20/2023 CBC/C OMPLE TE BLD COUNT W/DIF F NRBC# 0.00 x10'3 /uL Not Available [facility] (Lab) [address] [place], [address], 07/20/2023 14:09:54 07/20/20 23 07/20/2023 LIPID PANEL cholesterol 171 mg/dL 140-19 9 [facility] NSUS RECOM MENDA TION FOR JAE STERO L: ADULT CHILD LOW RISK: <200 <170 BORDE RLINE : <200- 239 ----- HIGH RISK: >240 >200 Not Available [facility] (Lab) [address] [place], [address], 07/20/2023 14:17:01 07/20/20 23 07/20/2023 LIPID PANEL triglyceride s 84 mg/dL 0-150 [facility] NSUS REPOR T RECOM MENDA TION FOR TRIGL YCERI THERESE: ADULT CHILD LOW RISK: <150 ----- BODER LINE: 150-1 99 ----- HIGH RISK: >200 ----- Not Available [facility] (Lab) [address] [place], [address], 07/20/2023 14:17:01 07/20/20 23 07/20/2023 LIPID PANEL HDL cholesterol 70 mg/dL 40- Not Available [facility] (Lab) [address] [place], [address], 07/20/2023 14:17:01 07/20/20 23 07/20/2023 LIPID PANEL LDL cholesterol, calculated 84 mg/dL [...] WILL NOT BE REPOR SOUMYA. Not Available [facility] (Lab) [address] [place], [address], 07/20/2023 14:17:01 07/20/2007/20/2023 COMPR EHENS FRANSISCA METAB OLIC PANEL sodium 140 mmol/ L 137-14 5 Not Available [facility] (Lab) [address] [place], [address], 07/20/2023 14:17:07 07/20/20 23 07/20/2023 COMPR EHENS FRANSISCA METAB OLIC PANEL potassium 4.1 mmol/ L 3.5-5. 1 Not Available [facility] (Lab) [address] [place], [address], 07/20/2023 14:17:07 07/20/20 23 07/20/2023 COMPR EHENS FRANSISCA METAB OLIC PANEL chloride 107 mmol/ L 98-107 Not Available [facility] (Lab) [address] [place], [address], 07/20/2023 14:17:07 07/20/20 23 07/20/2023 COMPR EHENS FRANSISCA METAB OLIC PANEL carbon dioxide 26 mmol/ L 22-30 Not Available [facility] (Lab) [address] [place], [address], 07/20/2023 14:17:07 07/20/20 23 07/20/2023 COMPR EHENS FRANSISCA METAB OLIC PANEL anion gap 11.1 mmol/ L 14-22 low Not Available [facility] (Lab) [address] [place], [address], 07/20/2023 14:17:07 07/20/20 23 07/20/2023 COMPR EHENS FRANSISCA METAB OLIC PANEL glucose 125 mg/dL 70-99 high Not Available [facility] (Lab) [address] [place], [address], 07/20/2023 14:17:07 07/20/20 23 07/20/2023 COMPR EHENS FRANSISCA METAB OLIC PANEL BUN 14 mg/dL 8-19 Not Available [facility] (Lab) [address] [place], [address], 07/20/2023 14:17:07 07/20/20 23 07/20/2023 COMPR EHENS FRANSISCA METAB OLIC PANEL creatinine 0.57 mg/dL 0.66-1 .25 low Not Available [facility] (Lab) [address] [place], [address], 07/20/2023 14:17:07 07/20/2007/20/2023 COMPR EHENS FRANSISCA METAB OLIC PANEL GFR >60 Refer ence Range : [place] ge GFR Healt hy Adult : >60 [...] or ethni c subgr oups, such as Hispa nics. Outsi de the valid ated rohit [...] calcu lator is avail able on the [facility] websi te: https :[email or web address] cabrales.sami magana.o rg/pr ofess ional s/kdo qi/gf r_cal culat or Not Available [facility] (Lab) [address] [place], [address], 07/20/2023 14:17:07 07/20/2007/20/2023 COMPR EHENS FRANSISCA METAB OLIC PANEL alkaline phosphatase 87 U/L 38-126 Not Available [facility] (Lab) [address] [place], [address], 07/20/2023 14:17:07 07/20/2007/2007/20/2023 COMPR EHENS FRANSISCA METAB OLIC PANEL alanine aminotransfe rase 19 U/L 0-35 Not Available [facility] (Lab) [address] [place], [address], 07/20/2023 14:17:07 07/20/20 23 07/20/2023 COMPR EHENS FRANSISCA METAB OLIC PANEL aspartate aminotransfe rase 21 U/L 15-37 Not Available [facility] (Lab) [address] [place], [address], 07/20/2023 14:17:07 07/20/20 23 07/20/2023 COMPR EHENS FRANSISCA METAB OLIC PANEL bilirubin, total 0.40 mg/dL 0.20-1 .30 Not Available [facility] (Lab) [address] [place], [address], 07/20/2023 14:17:07 07/20/20 23 07/20/2023 COMPR EHENS FRANSISCA METAB OLIC PANEL calcium 8.7 mg/dL 8.4-10 .2 Not Available [facility] (Lab) [address] [place], [address], 07/20/2023 14:17:07 07/20/20 23 07/20/2023 COMPR EHENS FRANSISCA METAB OLIC PANEL total protein 6.7 g/dL 6.3-8. 2 Not Available [facility] (Lab) [address] [place], [address], 07/20/2023 14:17:07 07/20/20 23 07/20/2023 COMPR EHENS FRANSISCA METAB OLIC PANEL albumin 4.0 g/dL 3.0-4. 4 Not Available [facility] (Lab) [address] [place], [address], 07/20/2023 14:17:07 07/20/20 23 07/20/2023 COMPR EHENS FRANSISCA METAB OLIC PANEL globulin 2.7 g/dL 2.6-4. 2 Not Available [facility] (Lab) [address] [place], [address], 07/20/2023 14:17:07 07/20/20 23 07/20/2023 COMPR EHENS FRANSISCA METAB OLIC PANEL A/G ratio 1.5 ratio 1.0-2. 0 Not Available [facility] (Lab) [address] [place], [address], 07/20/2023 14:17:07 07/20/20 23 07/20/2023 T4 FREE free T4 1.25 NG/dL 0.78-2 .19 Not Available [facility] (Lab) [address] [place], [address], 07/20/2023 14:33:57 07/20/20 23 07/20/2023 TSH thyroid-stim ulating hormone 0.237 uIU/m L 0.465- 4.680 low Not Available [facility] (Lab) [address] [place], [address], 07/20/2023 14:49:13 07/20/20 23 07/20/2023 HEMOG LOBIN A1C HA1C 6.2 % 4.0-6. 0 high Diabe lisandro Scree pedro Crite rob: <5.7% Consi stent with absen ce of diabe lisandro 5.7-6 .4% Consi stent with incre ased risk for diabe lisandro (pred iabet es) >OR=6 .5% Consi stent with diabe lisandro REFER ENCE: Diabe lisandro Care 2016, 39(Branham ppl.1 ):s13 -s22 Not Available [facility] (Lab) [address] [place], [address], 07/20/2023 20:25:02 11/14/20 23 11/14/2023 BASIC METAB OLIC PANEL sodium 140 mmol/ L 137-14 5 Not Available [facility] (Lab) [address] [place], [address], 11/14/2023 19:56:32 11/14/20 23 11/14/2023 BASIC METAB OLIC PANEL potassium 4.5 mmol/ L 3.5-5. 1 Not Available [facility] (Lab) [address] [place], [address], 11/14/2023 19:56:32 11/14/20 23 11/14/2023 BASIC METAB OLIC PANEL chloride 106 mmol/ L 98-107 Not Available [facility] (Lab) [address] [place], [address], 11/14/2023 19:56:32 11/14/20 23 11/14/2023 BASIC METAB OLIC PANEL carbon dioxide 28 mmol/ L 22-30 Not Available [facility] (Lab) [address] [place], [address], 11/14/2023 19:56:32 11/14/20 23 11/14/2023 BASIC METAB OLIC PANEL anion gap 10.5 mmol/ L 14-22 low Not Available [facility] (Lab) [address] [place], [address], 11/14/2023 19:56:32 11/14/20 23 11/14/2023 BASIC METAB OLIC PANEL glucose 139 mg/dL 70-99 high Not Available [facility] (Lab) [address] [place], [address], 11/14/2023 19:56:32 11/14/20 23 11/14/2023 BASIC METAB OLIC PANEL BUN 14 mg/dL 8-19 Not Available [facility] (Lab) [address] [place], [address], 11/14/2023 19:56:32 11/14/20 23 11/14/2023 BASIC METAB OLIC PANEL creatinine 0.67 mg/dL 0.66-1 .25 Not Available [facility] (Lab) [address] [place], [address], 11/14/2023 19:56:32 11/14/20 23 11/14/2023 BASIC METAB OLIC PANEL GFR >60 Refer ence Range : [place] ge GFR Healt hy Adult : >60 [...] or ethni c subgr oups, such as Karl nics. Outsi de the valid ated rohit [...] calcu lator is avail able on the [facility] websi te: https ://evelio magana.luiz rg/pr ofess ional s/kdo qi/gf r_cal culat or Not Available [facility] (Lab) [address] [place], [address], 11/14/2023 19:56:32 11/14/20 23 11/14/2023 BASIC METAB OLIC PANEL calcium 9.0 mg/dL 8.4-10 .2 Not Available [facility] (Lab) [address] [place], [address], 11/14/2023 19:56:32 11/14/20 23 11/14/2023 LIPID PANEL cholesterol 167 mg/dL 140-19 9 [facility] NSUS RECOM MENDA TION FOR JAE STERO L: ADULT CHILD LOW RISK: <200 <170 BORDE RLINE : <200- 239 ----- HIGH RISK: >240 >200 Not Available [facility] (Lab) [address] [place], [address], 11/14/2023 19:56:35 11/14/20 23 11/14/2023 LIPID PANEL triglyceride s 90 mg/dL 0-150 [facility] NSUS REPOR T RECOM MENDA TION FOR TRIGL YCERI THERESE: ADULT CHILD LOW RISK: <150 ----- BODER LINE: 150-1 99 ----- HIGH RISK: >200 ----- Not Available [facility] (Lab) [address] [place], [address], 11/14/2023 19:56:35 11/14/20 23 11/14/2023 LIPID PANEL HDL cholesterol 74 mg/dL 40- Not Available [facility] (Lab) [address] [place], [address], 11/14/2023 19:56:35 11/14/20 23 11/14/2023 LIPID PANEL [...] WILL NOT BE REPOR SOUMYA. Not Available [facility] (Lab) [address] [place], [address], 11/14/2023 19:56:35 11/14/20 23 11/14/2023 TSH W/REF OCTAVIANO FT4 TSH with reflex free T4 0.929 uIU/m L 0.465- 4.680 Not Available [facility] (Lab) [address] [place], [address], 11/14/2023 20:29:55 11/14/20 23 11/14/2023 HEMOG LOBIN A1C HA1C 6.1 % 4.0-6. 0 high Diabe lisandro Suzan vasquez Crite rob: <5.7% Consi stent with absen ce of diabe lisandro 5.7-6 .4% Consi stent with incre ased risk for diabe lisandro (pred iabet es) >OR=6 .5% Consi stent with diabe lisandro REFER ENCE: Diabe lisandro Care 2016, 39(Brahnam ppl.1 ):s13 -s22 Not Available [facility] ([facility]) [address] [place], [address], 11/14/2023 21:34:36 06/12/20 23 XR, shoul angella No observ ation record ed. [email or web address] [facility] [address], [place], [address], 06/12/2023 16:21:54 Result Notes None recorded. Problems Name Problem SNOMED Code Status Onset Date Resolution Date Notes Provider Name and Address Organization Details Recorded Time Pain in throat 107873449 Completed Not Available [facility] 3 04:54:40 Edema 147496066 Completed Not Available [facility] 3 04:54:40 Anemia 268508900 Completed Not Available [facility] 3 04:54:40 Weight loss advised 332730906 Active 2017 Not Available [facility] 3 04:54:40 Pain in pelvis 24169992 Completed Not Available [facility] 3 04:54:41 Type 2 diabetes mellitus without complicat ion 458908262 Active 2017 Not Available [facility] 3 04:54:41 Vitamin D deficienc y 87184598 Active Not Available [facility] 3 04:54:41 Depressiv e disorder 19636662 Completed Not Available [facility] 3 04:54:41 Polyarthr opathy 94013546 Active 2021 Not Available [facility] 3 04:54:41 Sinusitis 73766478 Completed Not Available [facility] 3 04:54:41 Melanocyt ic nevus 607947526 Active 2016 Not Available [facility] 3 04:54:41 Hypothyro idism 95372033 Active Not Available [facility] 3 04:54:41 Obese 768757275 Active 2016 Not Available [facility] 3 04:54:41 Obesity 671466135 Active Not Available [facility] 3 04:54:41 Type 2 diabetes mellitus 57200876 Active Not Available [facility] 3 04:54:41 Seasonal allergy 731482111 Active Not Available [facility] 3 04:54:42 Pain of left knee joint 78461340663 4107 Active 2021 Not Available [facility] 3 04:54:42 Hearing loss of right ear 825815680 Active 2016 Not Available [facility] 3 04:54:42 Foot pain 08685042 Completed Not Available [facility] 3 04:54:42 Bilateral tinnitus 37319244802 02 Active 2016 Not Available [facility] 3 04:54:42 Hip pain 39041533 Active 2016 Not Available [facility] 3 04:54:42 Cough 39467653 Completed Not Available [facility] 3 04:54:42 Hyperlipi demia 94826294 Active Not Available [facility] 3 04:54:42 Essential hypertens ion 32934292 Active 2020 Not Available [facility] 3 04:54:43 Diabetes mellitus 89502756 Active 2016 Not Available [facility] 3 04:54:43 Posterior rhinorrhe a 23100400 Completed Not Available [facility] 3 04:54:43 Hyperglyc emia 76765309 Completed Not Available [facility] 3 04:54:43 Injury of head 12805198 Completed Not Available [facility] 3 04:54:43 Perniciou s anemia 46361068 Active Not Available [facility] 3 04:54:43 Fatigue 43055608 Completed Not Available [facility] 3 04:54:43 Fracture of humerus 58079952 Active 2022 Cait Cabello NP [address], [place], [address] , [facility] 3 21:39:20 Pain of left shoulder joint 91942448140 398739 Active 2022 Roxanna Abraham RMA null, [place] - [facility] 3 10:43:17 Pain of right shoulder joint 46312545390 900062 Active 2022 Roxanna Abraham RMA null, [place] [facility] 3 10:43:42 Osteoporo sis 50971776 Active 2022 Nadia Sunshine INTERFACE ENGINEER null, [place] - [facility] 3 15:44:52 Fracture of shoulder 86280082619 547196 Active 2022 Roxanna Abraham RMA null, [place] - [facility] 3 16:48:10 Closed fracture of upper end of humerus 78810931 Active 2022 Roxanna Abraham RMA null, [place] - [facility] 3 10:04:23 Insomnia 615244977 Active 2022 Cait Cabello NP [address], [place], [address] , [facility] 3 11:44:09 Anxiety 62058627 Active 2022 Cait Cabello NP [address], [address], [place], [address] , [facility] 3 13:55:32 Hyperpara thyroidis m 16008342 Active 2022 Sheryl Kingston INTERFACE ENGINEER null, [place] - [facility] 3 11:28:47 Pain of right wrist 27923777988 9100 Active 2022 Nadia Sunshine CMA null, [facility] 3 10:46:10 Abnormal weight 41062942 Active 2022 Liz Izaguirre MA null, [facility] 3 09:04:17 Lesion of skin of face 56958564666 6 Active 2022 Cait Cabello NP [address] [facility], [facility] [address], [place], [address] , [facility] 3 09:31:45 Neck pain 35024949 Active 2022 Nadia Sunshine CMA null, [facility] 3 10:20:10 Osteoarth ritis of left knee joint 90158356713 9109 Active 2022 Nadia Sunshine CMA null, [facility] 3 09:41:38 Problem Notes None recorded. Procedures Surgical History Date Name Laterality Status Provider Name and Address Organization Details Recorded Time 3 Most Recent Bone Density completed Cait Cabello NP [address] [facility], [facility] [address], [place], [address], [facility] 05/03/2023 14:12:58 2 Most Recent Mammogram completed Cait Dodson RN [facility] 04/12/2023 11:04:32 tonsilectomy/a denoids completed Not Available [facility] 01/25/2023 04:44:18 acoustic neurotomy completed Not Available [facility] 01/25/2023 04:44:18 Tubal Ligation completed Not Available [facility] 01/25/2023 04:44:18 Imaging Results Imaging Date Name Status LastModified by Organiz ation Details LastModified Time 06/12/2023 XR, shoulder completed [email or web address] [facility] [place] [address], [place], [address], 06/12/2023 16:21:54 Procedure Notes None recorded. Medical Equipment None Reported. Allergies Allergen ID Allergen Name Allergen Category Reaction Reaction Severity Criticality Documentation Date Start Date Code Code System Note Provider Name and Address Organization Details Recorded Time 90 Product containin g penicilli n (product) medicatio n rash Not available Not available 01/25/2023 [id number] SNOMED Not Available [facility] 3 05:07:49 Medications Name Sig Start Date [...] mg/mL suspensio n for injection 12/17 completed [facility]# [id number] 93-28 Not Available Not Available Not Available [...] e, administ ered by provider 11/14 completed [facility] [id number] - Not Available Not Available Not Available [facility] [...] Updated DateTime 07/10/2023 175.26 cm Roxanna Abraham [facility] [employer] [facility] 07/10/2023 16:37:00 Date Recorded Body height Body mass index (BMI) Body weight Body temperature Heart rate Oxygen saturation Oxygen saturation in Arterial blood by Pulse oximetry Systolic blood pressure Diastolic blood pressure Provider Name and Address Organization Details Last Updated DateTime 3 175.26 cm 40.2 kg/m2 705661. 22 g 97 [degF] 83 /min 95 % 95 % 145 mm[Hg] 94 mm[Hg] Liz Izaguirre MA [facility] [employer] [facility] 3 09:09:23 Date Recorded Body height Provider Name an d Address Organization Details Last Updated DateTime 08/16/2023 175.26 cm Roxanna Abraham [facility] [employer] [facility] 08/16/2023 09:10:02 Date Recorded Body height Provider Name an d Address Organization Details Last Updated DateTime 09/13/2023 175.26 cm Roxanna Abraham [facility] [employer] [facility] 09/13/2023 09:29:51 Date Recorded Body height Body mass index (BMI) Body weight Body temperature Heart rate Respiratory rate Oxygen saturation Oxygen saturation in Arterial blood by Pulse oximetry Pain severity - 0-10 verbal numeric rating [Score] - Reported Systolic blood pressure Diastolic blood pressure Provider Name and Address Organization Details Last Updated DateTime 3 175.26 cm 42.7 kg/m2 949246. 54 g 96.5 [degF] 76 /min 20 /min 95 % 95 % 0 150 mm[Hg] 96 mm[Hg] Cait Dodson RN [facility] [employer] [facility] 3 10:13:49 Social History Question Answer Notes LastModified by Organization Details LastModified Time Tobacco Smoking Status Never Smoker Not Available [facility] 01/25/2023 04:41:37 Do You Have An Advance Directive? No Information not available 04/12/2023 What Is Your Level Of Alcohol Consumption? None MIGRATION.0301 [id number] Information not available 01/25/2023 Are You Blind Or Do You Have Difficulty Seeing? No MIGRATION.0301 [id number] Information not available 01/25/2023 Is Blood Transfusion Acceptable In An Emergency? Yes Information not available 04/12/2023 What Is Your Level Of Caffeine Consumption? Moderate MIGRATION.0301 [id number] Information not available 01/25/2023 How Much Tobacco Do You Chew? None MIGRATION.0301 [id number] Information not available 01/25/2023 What Is Your Code Status? Full Code Information not available 04/12/2023 In The 14 Days Before Symptom Onset, Have You Had Close Contact With A Laboratory-confi rmed COVID-19 While That Case Was Ill? No MIGRATION.030 [id number] Information not available 01/25/2023 In The 14 Days Before Symptom Onset, Have You Had Close Contact With A Person Who Is Under Investigation For COVID-19 While That Person Was Ill? No MIGRATION.0301 [id number] Information not available 01/25/2023 Are You Currently Employed? No Information not available 04/12/2023 Are You Deaf Or Do You Have Serious Difficulty Hearing? Yes Deaf In Right Ear And 40% Hearing In Left MIGRATION.0301 [id number] Information not available 01/25/2023 What Type Of Diet Are You Following? REGULAR MIGRATION.030 [id number] Information not available 01/25/2023 Do You Or Have You Ever Used E-cigarettes Or Vape? Never Used Electronic Cigarettes MIGRATION.030 195584 Information not available 01/25/2023 What Is The Highest Grade Or Level Of School You Have Completed Or The Highest Degree You Have Received? 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 Yes Information not available 04/12/2023 Do You Use Insect Repellent Routinely? Yes Information not available 04/12/2023 Where Do You Live? SingleLevelHouse Information not available 04/12/2023 Do You Have A Medical Power Of Planner Chief? No Information not available 04/12/2023 How Many [...] Smokeless Tobacco? Never Used Smokeless Tobacco MIGRATION.0301 [id number] Information not available 01/25/2023 Are There Any Smokers In Your House? No Information not available 04/12/2023 Do You Participate In Social Dragonfly? Yes Information not available 04/12/2023 Do You Feel Stressed (tense, Restless, Nervous, Or Anxious, Or Unable To Sleep At Night)? [id number] Information not available 11/14/2023 Do You Use Sunscreen Routinely? Yes Information not available 04/12/2023 Have You Recently Traveled Abroad? No Information not available 04/12/2023 Sex: Unknown Functional Status Question Answer Note LastModified by [employer] Details LastModified Time Do you have difficulty walking or climbing stairs? No MIGRATION.[id number] Information not available 01/25/2023 Do you have transportation difficulties? No MIGRATION.[id number] 026 Information not available 01/25/2023 Are you able to walk? YESWOREST MIGRATION.[id number] 026 Information not available 01/25/2023 Do you have difficulty doing errands alone? No MIGRATION.2657743 026 Information not available 01/25/2023 Are you able to care for yourself? Yes MIGRATION.[id number] 026 Information not available 01/25/2023 Do you have difficulty dressing or bathing? No MIGRATION.6954511 026 Information not available 01/25/2023 What is your exercise level? Occasional MIGRATION.3375642 026 Information not available 01/25/2023 Mental Status Question Answer Note LastModified by Organizat ion Details LastModified Time Do you have difficulty concentrating, remembering or making decisions? No MIGRATION.[id number] 6 Information not available 01/25/2023 Family History Relationship Description Onset Age of this Age Resolved Age Notes LastModified by Organization Details LastModified Time Mother Family history of malignant neoplasm MIGRATION.006 [id number] Not available 01/25/2023 04:44:24 Sister Diabetes mellitus MIGRATION.064 [id number] Not available 01/25/2023 04:44:24 Notes:03/05/18 retinal eye exa m Medical History Condition Response DIABETES, TYPE Y ARTHRITIS Y HYPERTHYROIDISM Y CANCER: SPECIFY Y ANXIETY DISORDER Y DEPRESSION (INCLUDING POST ) Y INSOMNIA Y HYPERTENSION Y HIGH CHOLESTEROL / HYPERLIPIDEMIA Y Gynecological History Statement/Question Response If Post [...] 50 mcg/0.25mL dose 1 completed Not Available [facility] 01/25/2023 05:07:29 SARS-COV-2 (COVID-19) vaccine, UNSPECIFIED 1 completed Not Available [facility] 01/25/2023 05:07:29 SARS-COV-2 (COVID-19) vaccine, UNSPECIFIED 1 completed Not Available [facility] 01/25/2023 05:07:29 Influenza, high-dose, quadrivalent, PF 2 completed Not Available [facility] 01/25/2023 05:07:30 Influenza, split virus, quadrivalent, preservative 1 completed Not Available [facility] 01/25/2023 05:07:30 Influenza, split virus, quadrivalent, preservative 9 completed Not Available [facility] 01/25/2023 05:07:30 Influenza, split virus, quadrivalent, preservative 8 completed Not Available [facility] 01/25/2023 05:07:30 Influenza, split virus, trivalent, preservative 2 completed Not Available [facility] 01/25/2023 05:07:30 Tdap 8 completed Not Available [facility] 01/25/2023 05:07:30 Influenza, split virus, quadrivalent, PF 9 completed Not Available [facility] 01/25/2023 05:07:30 Past Encounters Encounter ID Performer Location Encounter Start Date Encounter Closed Date Diagnosis/Indication Diagnosis SNOMED-CT Code Diagnosis ICD10 Code Diagnosis Note [id number] [facility] [place] [address] [place] [address] 03/17/2021 00:00:00 03/17/2021 10:49:34 [id number] [facility] [place] [address] [place] [address] 09/15/2021 00:00:00 09/17/2021 17:32:19 [id number] [facility] [place] [address] [place] [address] 03/16/2022 00:00:00 03/16/2022 10:23:33 [id number] [facility] [place] [address] [place] [address] 05/26/2022 00:00:00 05/26/2022 11:55:41 [id number] [facility] [place] [address] [place] [address] 06/27/2022 00:00:00 06/27/2022 14:29:20 [id number] [facility] [place] [address] [place] [address] 06/29/2022 00:00:00 06/29/2022 14:08:24 [id number] [facility] [address] [place] [address] 07/19/2022 00:00:00 07/19/2022 10:54:40 [id number] [facility] [place] [address] [place] [address] 09/28/2022 00:00:00 09/28/2022 15:48:24 [id number] [facility] [address] [place] [address] 11/07/2022 00:00:00 11/13/2022 14:18:46 [id number] Dick Norton MD [facility] [address] [place] [address] 02/06/2023 14:20:48 02/06/2023 15:16:38 Pain of left knee joint 1928021176 39615 M25.562 [id number] Dick Norton MD [facility] [address] [place] [address] 02/24/2023 10:32:21 02/27/2023 09:57:42 Pain of right shoulder joint 8831494426 [id number] M25.511 [id number] MARIAM Armas [facility] [address] [place] [address] 03/10/2023 09:52:31 03/10/2023 10:58:55 Closed fracture of upper end of humerus 43198940 S42.201D [id number] Cait Cabello NP [address] [address] 03/17/2023 14:50:52 03/17/2023 15:22:36 [id number] MARIAM Armas [facility] [address] [place] [address] 03/20/2023 13:53:05 03/20/2023 14:41:20 Closed fracture of upper end of humerus 53336725 S42.201D [id number] MARIAM Armas [facility] [address] [place] [address] 04/03/2023 13:52:13 04/03/2023 14:49:32 Closed fracture of upper end of humerus 76401254 S42.201D [id number] Cait Cabello NP [address] [place] [address] 04/12/2023 10:50:24 04/12/2023 13:51:39 Type 2 diabetes mellitus 29678311 E11.9 ozempic 2 mg inj sq weekly. Hypothyroidism 04185809 E03.9 Unithroid 112 mcg po daily. Obesity 762019831 E66.9 Hyperlipidemia 18678778 E78.5 Rosuvastat in 20 mg po nightly. Essential hypertension 54088115 I10 Losartan 50 mg po daily. Vitamin D deficiency 347 56555 E55.9 Seasonal allergy 1879222 04 J30.2 Insomnia 793111187 G47.0 0 Trazodone 100 mg po Family his tory of breast cancer 064603564 Z80.3 Anxiety 76210560 F41.9 Duloxetine 60 mg po daily. [id number] Dick Norton MD [facility] [address] [place] [address] 04/26/2023 09:57:56 04/26/2023 12:05:49 Pain of right shoulder joint 1955388004 8090806 M25.511 Fracture of shoulder 719 7242885 3240784 S42.90XD Pain of right wrist 3169 240503 67751 M25.531 [id number] Dick Norton MD [facility] [address] [place] [address] 05/15/2023 16:34:16 05/29/2023 09:33:30 Pain of right shoulder joint 0998092417 [id number] M25.511 [id number] MARIAM Armas [facility] [address] [place] [address] 06/12/2023 15:51:08 06/12/2023 17:04:30 Pain of right shoulder joint 5142382440 [id number] M25.511 [id number] Dick Norton MD [facility] [address] [place] [address] 07/10/2023 16:27:37 08/01/2023 10:16:22 Closed fracture of upper end of humerus 52251821 S42.201D [id number] Cait Cabello NP [facility] [place] [address] [place] [address] 07/20/2023 08:56:02 07/20/2023 09:55:12 Type 2 diabetes mellitus 62514822 E11.9 Ozempic 1 mg inj sq weekly. and then get back to 2 mg once no longer nauseated. Sample of 0.25 for 4 weeks, then 0.5 mg for 4 weeks given at appt. Hypothyroidism 70958008 E03.9 Unithroid 112 mcg po daily. per endo. New endo referral made. Obesity 711410913 E66.9 diet and exercise advised. Hyperlipidemia 94551018 E78.5 Rosuvastat in 20 mg po nightly. Essential hypertension 08693597 I10 Losartan 50 mg po daily. Vitamin D deficiency 347 33170 E55.9 Seasonal allergy 5128560 04 J30.2 Insomnia 043981268 G47.0 0 Trazodone 100 mg po Anxiety 65921936 F41.9 Duloxetine 60 mg po daily. Abnormal weight 43064454 R63.4 CBC Lesion of skin of face 4202004969 06 L98.9 [id number] Dick Norton MD [facility] [address] [place] [address] 08/16/2023 09:07:46 08/16/2023 10:31:10 Closed fracture of upper end of humerus 69011790 S42.201D Neck pain 38364581 M54.2 [id number] Dick Norton MD [facility] [address] [place] [address] 09/13/2023 09:13:15 10/02/2023 09:58:08 Closed fracture of upper end of humerus 69259847 S42.201D Osteoarthr itis of left knee joint 5588017734 45052 M17.12 [id number] Cait Cabello NP [facility] [place] [address] [place] [address] 11/14/2023 09:58:56 11/14/2023 10:59:59 Type 2 diabetes mellitus 02256226 E11.9 Ozempic 1 mg inj sq weekly. Hypothyroidism 83519075 E03.9 Unithroid 112 mcg po daily. per endo. Obesity 486290775 E66.9 diet and exercise advised. Hyperlipidemia 67625723 E78.5 Rosuvastat in 20 mg po nightly. Essential hypertension 43825062 I10 Losartan 50 mg po daily.pt to call with home bp levels in 2-3 weeks. Goal 130/80. Seasonal allergy 5471691 04 J30.2 Insomnia 473926071 G47.0 0 Trazodone 100 mg po Anxiety 21609592 F41.9 Duloxetine 60 mg po daily. add on 30 mg for total of 90 mg. Health Concerns Section Related Observation LastModified by Organization Detai ls LastModified Time None Recorded Concern Status LastModified by Organization Details LastModified Time None Recorded Advance Directives Directive N: Payers Encounter Date Sequence Insurance Name Policy Number Policy Ram Covered Member ID Ram Member ID Guarantor Name 07/10/2023 2 [employer] (MEDICARE REPLACEMENT PPO) [id number] 1 Roopa S Netzer [id number] Armen Netzer 07/20/2023 2 [employer] (MEDICARE REPLACEMENT PPO) [id number] 1 Roopa S Netzer [id number] Armen Netzer 07/20/2023 2 [place] Roopa S Netzer [id number] Armen Netzer 08/16/2023 2 [employer] (MEDICARE REPLACEMENT PPO) [id number] 1 Roopa S Netzer [id number] Armen Netzer 09/13/2023 2 [employer] (MEDICARE REPLACEMENT PPO) [id number] Roopa S Netzer [id number] Armen Netzer 11/14/2023 2 [employer] (MEDICARE REPLACEMENT PPO) [id number] 1 Roopa S Netzer [id number] Armen Netzer 11/14/2023 1 [place] Roopa S Netzer [id number] Armen Netzer Notes Date Note Type Note [...] in law and grandchild got apartment in [place].Weight- plans to go back to [place].Vit d- Supplement routinely.thyroid- Unithroid 112 mcg po daily. Seeing Samuel Orr.lipid- Eating low fat. Rosuvastatin 20 mg nightly.htn- Stable Cait Cabello NP [address], [place], [address], [employer] 07/20/2023 10:00:41 08/16/2023 text/html Patient returns. She [...] no trauma. Dick Norton MD [address], [address], [place], [address], [facility] 08/16/2023 10:26:11 09/13/2023 text/html Patient returns. She [...] her left knee Dick Norton MD [address] [facility], [address], [place], [address], [facility] 10/01/2023 16:38:08 11/14/2023 text/html Here for check u p- wanting to discuss meds. anxiety/Depressed over situation with children, DIL, Judith. Tearful daily.Hasn't been in the mood for [place]. DM- Seeing Samuel Orr. Ozempic 0.5 mg.Weight- Still struggling with weight loss.Vit d- Supplement routinely.thyroid- Unithroid 112 mcg po daily. Was seeing Samuel orr.lipid- Eating low fat. Rosuvastatin 20 mg nightly.htn- 150/90Still seeing PT for balance and broken arm. 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 Cait Cabello NP [address] [facility], [address], [place], [address], [facility] 11/14/2023 10:58:47 OBGyn Episode No OBEpisode recorded.
[2025-03-10 11:41] VITALS: BP 152/98; PULSE 68; RESP 20; TEMP 36.4; O2SAT 98
[2025-03-10] MEDS: LACTATED RINGERS 1,000 ML 150 ML IV CONT (12:03)
--- NOTE | 2025-03-10 12:20 | P.PNAN_ITS ---
Anes - Initial Pre Proc Eval Procedure: Operation Date: 03/10/25 12:30 Proposed Procedures p Esophagogastroduodenoscopy - Antonio Lo MD Date/Time: 03/10/25 12:20 Surgeon: Antonio Lo MD Pre Op Diagnosis: Diaphragmatic hernia without obstruction or gangre Patient Data Age: 69 Gender: F Height: 1.8 m Weight: 127.7 kg Last Vital Signs Temp 97.5 F L 03/10/25 11:41 Pulse 68 03/10/25 11:41 Resp 20 03/10/25 11:41 BP 152/98 H 03/10/25 11:41 Pulse Ox 98 03/10/25 11:41 O2 Del Method Room Air 03/10/25 11:41 Allergies Allergy/AdvReac Type Severity Reaction Status Date / Time morphine Allergy Intermediate Hives Verified 03/10/25 11:38 Penicillins Allergy Mild HIVES Verified 03/10/25 11:38 Home Medications ?Medication ?Instructions ?Recorded ?Confirmed ?Type meloxicam 7.5 mg tablet 7.5 mg PO DAILY #90 tabs 11/01/24 03/10/25 Rx trazodone 100 mg tablet 100 mg PO QHS #90 tabs 01/02/25 03/10/25 Rx losartan 100 mg tablet 100 mg PO DAILY 02/13/25 03/10/25 History semaglutide 3 mg tablet (Rybelsus) 3 mg PO DAILY 30 days #30 tabs 02/13/25 03/10/25 Rx levothyroxine 100 mcg tablet 100 mcg PO DAILY #90 tabs 02/28/25 03/10/25 Rx duloxetine 60 mg capsule,delayed 60 mg PO DAILY #90 caps 03/04/25 03/10/25 Rx release hydralazine 25 mg tablet 25 mg PO DAILY PRN SBP >160 03/06/25 03/06/25 History metoprolol succinate 50 mg 50 mg PO DAILY 03/06/25 03/10/25 History tablet,extended release 24 hr rosuvastatin 20 mg tablet 20 mg PO .COMPLEX 03/06/25 03/10/25 History Patient hx anesthesia problems: none Family hx anesthesia problems: none Results Review: All pre-operative results and documents have been reviewed as part of the pre- operative evaluation. [facility] Past Medical History Medical History (Updated 02/25/25 @ 09:58 by LINDA Romano) Obese Nausea and vomiting Burping Hearing loss Arthritis Anxiety Hypothyroid Diabetes Hypertension Right-sided acoustic neuroma Surgical History Surgical History Hx of colonoscopy 08/12/13 11/11/19 @ [facility] Hx of cataract surgery H/O tubal ligation H/O brain surgery Hx of appendectomy History of tonsillectomy and adenoidectomy Family History Family History Father Anxiety and depression Heart disease Mother Breast cancer Heart disease Sibling Carcinoma of colon Diabetes mellitus Grandparent Carcinoma of colon Social History Social History Social History: 08/20/24 very confident with medical forms. 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 Informed Consent: The patient's anesthetic plan and its attendant risks and benefits were discussed with the patient/family/POA. Questions were solicited and answers provided to the satisfaction of the patient/family/POA.
--- NOTE | 2025-03-10 12:35 | PM.IMHP ---
H&P: HPI History of Present Illness Date/Time: 03/10/25 12:35 Chief Complaint: GERD-dysphagia Narrative: over the past 3 months, the patient has noticed frequent heartburn episodes, at least 3 times a week, associated with dysphagia to solid food. She was also noticed to have anemia and she is referred for EGD. She had a recent colonoscopy which showed no evidence of bleeding lesions. Review of Systems Review of Systems: All systems reviewed & are unremarkable except as noted in HPI and below PMFSH Past Medical History Medical History (Updated 03/10/25 @ 12:36 by Antonio Lo MD) Obese Nausea and vomiting Burping Hearing loss Arthritis Anxiety Hypothyroid Diabetes Hypertension Right-sided acoustic neuroma Surgical History Surgical History Hx of colonoscopy 08/12/13 11/11/19 @ [facility] Hx of cataract surgery H/O tubal ligation H/O brain surgery Hx of appendectomy History of tonsillectomy and adenoidectomy Family History Family History Father Anxiety and depression Heart disease Mother Breast cancer Heart disease Sibling Carcinoma of colon Diabetes mellitus Grandparent Carcinoma of colon Social History Social History Social History: 08/20/24 very confident with medical forms. 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 Spiritual care concerns: No Agree to blood products: Yes Meds Home Medications and Allergies Home Medications ?Medication ?Instructions ?Recorded ?Confirmed ?Type meloxicam 7.5 mg tablet 7.5 mg PO DAILY #90 tabs 11/01/24 03/10/25 Rx trazodone 100 mg tablet 100 mg PO QHS #90 tabs 01/02/25 03/10/25 Rx losartan 100 mg tablet 100 mg PO DAILY 02/13/25 03/10/25 History semaglutide 3 mg tablet (Rybelsus) 3 mg PO DAILY 30 days #30 tabs 02/13/25 03/10/25 Rx levothyroxine 100 mcg tablet 100 mcg PO DAILY #90 tabs 02/28/25 03/10/25 Rx duloxetine 60 mg capsule,delayed 60 mg PO DAILY #90 caps 03/04/25 03/10/25 Rx release hydralazine 25 mg tablet 25 mg PO DAILY PRN SBP >160 03/06/25 03/06/25 History metoprolol succinate 50 mg 50 mg PO DAILY 03/06/25 03/10/25 History tablet,extended release 24 hr rosuvastatin 20 mg tablet 20 mg PO .COMPLEX 03/06/25 03/10/25 History Allergies Allergy/AdvReac Type Severity Reaction Status Date / Time morphine Allergy Intermediate Hives Verified 03/10/25 11:38 Penicillins Allergy Mild HIVES Verified 03/10/25 11:38 Vital Signs Vital Signs - 24 hr 03/10/25 11:41 Temperature 97.5 F L Pulse Rate 68 Respiratory Rate 20 Blood Pressure 152/98 H Pulse Oximetry 98 Oxygen Delivery Room Air Exam Const: General: cooperative and healthy appearing Resp: Effort & Inspection: normal respiratory effort and able to speak in complete sentences Auscultation: clear to auscultation bilaterally Cardio: Rate: regular rate Rhythm: regular rhythm GI: Inspection: normal to inspection GI Palp: No No hepatosplenomegaly present Auscultation: normal bowel sounds Rectal Exam: deferred Skin: General skin exam: normal color Psych: Appearance: grossly normal Mental Status: mental status grossly normal Assessment and Plan Assessment and plan (1) GERD (gastroesophageal reflux disease): Code(s): K21.9 - Gastro-esophageal reflux disease without esophagitis Status: Acute Assessment and Plan: The patient is deemed a good candidate for the procedure. Consent signed. Will proceed.
[2025-03-10] MEDS: BENZOCAINE (*SP) 60 ML SPRAY CAN (HURRICAINE) 1 SPRAY MUCOUS MEM (12:59)
[2025-03-10 13:06] VITALS: BP 113/51; PULSE 61; RESP 29; O2SAT 95
[2025-03-10 13:16] VITALS: BP 114/80; PULSE 73; RESP 16; O2SAT 95
[2025-03-10 13:26] VITALS: BP 135/85; PULSE 60; RESP 12; O2SAT 96
[2025-03-10 13:55] LABS: Glucose Point of Care 107 mg/dl (65-105)
== END 2025-03-10 13:40 | disposition home or self-care (01) ==
PROVIDERS: PCP Nurse Practitioner Family; Referring Provider Nurse Practitioner Family; Visit Provider Internal Medicine Gastroenterology
PROC: 0DJ08ZZ Inspection of Upper Intestinal Tract, Via Natural or Artificial Opening Endoscopic (ICD-10-PCS; CPT 43239; principal; 2025-03-10 12:30)
DX: R13.10 Dysphagia, unspecified (principal); K21.00 Gastro-esophageal reflux disease with esophagitis, without bleeding; K22.10 Ulcer of esophagus without bleeding; K44.9 Diaphragmatic hernia without obstruction or gangrene; E66.01 Morbid (severe) obesity due to excess calories; Z68.39 Body mass index [BMI] 39.0-39.9, adult; Z79.84 Long term (current) use of oral hypoglycemic drugs; Z79.899 Other long term (current) drug therapy
CPT/HCPCS: 43239; 82948; 88305; J2704; J7120

== ENCOUNTER 2025-03-18 10:29 | Outpatient (CLI) | payer MEDICARE, SELFPAY ==
--- NOTE | ~2025-03-18 | XR_ITS ---
EXAMINATION: XR UGI w barium swallow DATE: 03/18/2025 11:23 INDICATION: Diaphragmatic hernia without obstruction or gangrene TECHNIQUE: The patient drank thick barium, gas-producing crystals, and thin barium. Fluoroscopic spot radiographs of the hypopharynx, esophagus, stomach and proximal small bowel were obtained. Fluorosco py exposure time was 2.6 minutes. A total of 475 fluoroscopic images were recorded. Total DAP was 22. 788 Gycm^2 COMPARISON: None. FINDINGS: The pharynx is symmetric and without evidence of mass lesion or mucosal irregularity. The esophagus i s normal without mass or stricture. Esophageal motility is normal. There is a moderate-sized sliding- type hiatal hernia. The gastroesophageal junction is approximately 4.5 cm above level of the diaphrag m. The herniated portion of the proximal gastric body extends up to 10 cm above level of the thoracic outlet. There was no gastroesophageal reflux with provocative maneuvers. Duodenal diverticulum measu ring approximately 2.5 cm diameter which arises from the second portion of the duodenum. The stomach and proximal small bowel are otherwise normal. IMPRESSION: 1. Moderate-sized sliding-type hiatal hernia without definite gastroesophageal reflux. Reviewed, dictated and finalized at location A.
--- OUTSIDE RECORDS SUMMARY | 2025-03-18 12:05 | XMS_ITS | Clinical Summary ---
Author Organization [facility] Medical Office Building Address [address] [place] [address] Care Team Providers Care Patient Access Coordinator Name Role Phone Chitra Chen MD Primary Care Provider [phone] Chitra Chen MD Unavailable [phone] Mir Gonzales MD Unavailable [phone] Allergies Active Allergy Reactions Criticality Noted Date [...] 2 (two) times a day Active calcium pfwx-H1-diwurm ium brittanie 133 mg calcium -133 unit-67 mg capsule Take by mouth Activ e HYDROcodone-ac etaminophen ([place]) 5-325 mg per tabletIndicati ons:Pain Take 1 [...] Description 02/18/2025 3:30 PM CDT Procedure visit [facility] Otolaryngology [address], [address] [place] [address] Lilliam Faith Au.D. Asymmetrical sensorineural hearing loss (Primary Dx); Encounter for adjustment and management of cochlear device from Last 3 Months Surgical History Surgery Date Site/Laterality Comments SC TONSILLECTOMY PRIMARY/SEC ONDARY <AGE 13 Tonsillectomy - [...] on file Legal Sex Female 2:17 AM TELEPHONE ENGINEER Gender Identity Female 03/19/2020 9:59 AM CDT Sexual Orientation Straight 03/19/2020 9: 59 AM CDT Obstetrics History Last Filed Vital Signs Vital Sign Reading Time Taken Comments Blood Pressure 122/80 10/14/2020 3:00 PM TELEPHONE ENGINEER Pulse 96 10/14/2020 3:00 PM TELEPHONE ENGINEER Temperature - - Respiratory Rate - - Oxygen Saturation 96% 10/14/2020 3:00 PM TELEPHONE ENGINEER Inhaled Oxygen Concentration - - Weight 127.4 kg (280 lb 14.4 oz) 10/14/2020 3:00 PM TELEPHONE ENGINEER Height 180.3 cm (5' 11 ) 10/14/2020 3:00 PM TELEPHONE ENGINEER Body Mass Index 39.18 10/14/2020 3:00 PM TELEPHONE ENGINEER Plan of Treatment Health Maintenance Due Date [...] POCT LIPID PANEL Routine 10/14/2020 5:34 PM TELEPHONE ENGINEER Dyslipidemia from Last 3 Months or Most Recently Relevant to Health Maintenance Results * POCT lipid panel (10/14/2020 5:34 PM TELEPHONE ENGINEER) Cholesterol, POC 169 mg/dL Comment:GLU = 124 HDL, POC 77 mg/dL Triglycerides, POC 185 mg/dL LDL Cholesterol POC 56 mg/dL Chol/HDL Ratio, POC 2.2 Non-HDL Cholesterol, POC 93 mg/dL Cholesterol Total, POC 169 mg/dL Capillary blood 10/14/2020 5 :34 PM TELEPHONE ENGINEER Seamus Landaverde MD POINT OF CARE TEST ORDERABLES Fi nal Result from Last 3 Months or Most Recently Relevant to Health Maintenance [place] [address] [facility] AETNA MEDICARE Care Teams Patient Access Coordinator Relationship Specialty Start Date End Date Chitra Chen MD PCP - General Internal Medicine 09/04/20 Chitra Chen MD Internal Medicine 09/04/20 Mir Gonzales MD Referring Physician Otolaryngology 04/08/19
--- OUTSIDE RECORDS SUMMARY | 2025-03-18 12:05 | XMS_ITS | Clinical Summary ---
Author Organization [facility] Address [address] [place] [address] Phone Care Team Providers Care Storekeeper Helper Name Role Phone Unavailable Primary Care Provider Unavailabl e Social History Tobacco Use Types Packs/Day Years Used Date Smoking Tobacco: Never Assessed Comments Unknown Sex and Gender Information Value Date Recorded Sex Assigned at Not on file Legal Sex Female 3:14 PM CRANK HAND Gender Identity Not on file Sexual Orientation [...]
--- OUTSIDE RECORDS SUMMARY | 2025-03-18 12:05 | XMS_ITS | Clinical Summary ---
Author Organization [facility] Address [address] [place] [address] Care Team Providers Care Radiator Specialist Name Role Phone Cait Cabello [facility] Primary Care Provider + Allergies Active [...] Encounters Date Type Department Care Team Description 03/18/2025 [facility] [address] [address] Colleen Pina FNP Follow Up 03/07/2025 [facility] [address] [address] Ike Garcia MD Refill Request (HYDRALAZINE) 03/03/2025 [facility] [address] [address] Radha Manning MA 02/27/2025 [facility] [address] [address] Ike Garcia MD Information ([facility]) 02/24/2025 2:00 PM CDT [facility] [address] [facility] [place] [place] [address] Ike Garcia MD Follow Up (Atherosclerosis); Chest Pain; Shortness Of Breath 02/24/2025 Travel 12/19/2024 Telephone [facility] THREE [facility], [address] [address] Colleen Pina FNP Concerns from Last 3 [...] Info) Description 05/20/2025 8:30 AM CDT Appointment [facility] [place] [address] Ike Garcia MD Three [facility]. [address] [place] [address] 05/26/2025 1:15 PM CDT [facility] [address] [place] [phone] Colleen Pina FNP 3 [facility] [address] [place], [place] [id number] Health Maintenance Due Date Last Done Comments Colorectal Cancer Screening Colonoscopy (10 Years) 1955 Hepatitis C 1974 Pneumococcal Vaccine: 50+ Years (1 of 2 - PCV) 1975 RSV Immunization or 60+ Years (1 - [...] DONNIE TIMA DIGI Routine 10/04/2022 1:23 PM FILM FLAT INSPECTOR Encounter for screening mammogram for malignant neoplasm of breast from Last 3 Months or Most Recently Relevant to Health Maintenance Results * HEMOGLOBIN, GLYCOSYLATED (02/13/2025) HGB A1C 5.8 % Default History Genericprovider LABORATORY Edited Result - Final * COMPREHENSIVE METABOLIC PANEL (02/13/2025) SODIUM S/P/B 141 GLUCOSE 105 mg/dL AST 14 BUN 15 CREATININE S/P/B 0.84 0.5 - 1.0 CALCIUM S/P/B 9.1 POTASSIUM S/P/B 4.5 CHLORIDE S/P/B 105 ALT 10 GFR ESTIMATE 76 Default History Genericprovider LABORATORY Edited Result - Final * LIPID PANEL (02/13/2025) CHOLESTEROL 148 TRIGLYCERIDES 67 HDL 76 LDL (CALCULATED) 58 NON HDL CHOLESTEROL 72 Default History Genericprovider LABORATORY Edited Result - Final * CBC, MANUAL DIFF (02/13/2025) WBC 5.7 HGB 11.3 HCT 38.6 PLT 301 Default History Genericprovider LABORATORY Edited Result - Final * THYROID STIM HORMONE TSH (02/13/2025) TSH 1.23 Default History Genericprovider LABORATORY Edited [...] Israel Ospina, 05/03/2023 11:10 AM us Dick Norton MD DEXA Final Result * MG SCREENING W DONNIE TIMA DIGI (10/04/2022 1:23 PM FILM FLAT INSPECTOR) Anatomical Region Laterality Modality Breast Bilateral Mammography 10/04/2022 4:24 PM FILM FLAT INSPECTOR Impressions 10/04/2022 4:27 PM FILM FLAT INSPECTOR IMPRESSION: 1. No mammographic evidence of malignancy. [...] 10/04/2022 4:24 PM Narrative 10/04/2022 4:27 PM FILM FLAT INSPECTOR IMAGING STUDIES: Bilateral screening mammograms with computer-aided [...] retraction. Axillary regions are within normal limits. Cait Cabello BARREL BANDER-BC MAMMO Final Re sult from Last 3 Months or Most Recently Relevant to Health Maintenance Insurance [employer] Care Teams Radiator Specialist Relationship Specialty Start Date End Date Cait Cabello, BARREL BANDER-BC [address] [place] [address] PCP - General NURSE PRACTITIONER 10/09/19
--- OUTSIDE RECORDS SUMMARY | 2025-03-18 12:05 | XMS_ITS | Clinical Summary ---
Author Organization [facility] [place] Address [address] [place] [address] Phone Care Team Providers Care Private Security Guard Name Role Phone Yvonne Morris MD Primary Care Provider [phone] Allergies Active Allergy Reactions Criticality Noted Date Comments Penicillins Hives High 03/29/2010 Medications MULTIVITAMINS WITH FLUORIDE (MULTI-VITAMIN ORAL) Take by mouth. Active duloxetine (CYMBALTA) 60 mg Oral CpDR Take 60 mg by mouth daily. 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 Active furosemide (LASIX) 40 mg Oral tablet [...] Morris MD Referring Provider: Yvonne Morris MD [address] [place] [address] [address] [place] [address] Other: Dr Mariah Gómez Problem Noted Date [...] on file Legal Sex Female 5:52 AM EDITOR INDEX Gender Identity Not on file Sexual Orientation Not on file Occupation Industry Job Start Date Job End Date Not on file Not on file Not on file Not on file Not on file Not on file Not on file Not on file Last Filed Vital Signs Vital Sign Reading Time Taken Comments Blood Pressure 135/84 01/22/2015 10:18 AM EDITOR INDEX Pulse 77 01/22/2015 10:18 AM EDITOR INDEX Temperature - - Respiratory Rate - - Oxygen Saturation - - Inhaled Oxygen Concentration - - Weight 127.5 kg (281 lb) 01/22/2015 10:18 AM EDITOR INDEX Height 180.3 cm (5' 11 ) 01/22/2015 10:18 AM EDITOR INDEX Body Mass Index 39.19 01/22/2015 10:18 AM EDITOR INDEX Plan of Treatment Health Maintenance Due Date [...] OR WO CAD Routine 01/22/2015 10:13 AM EDITOR INDEX Diffuse cystic mastopathy Other screening mammogram Family history of malignant neoplasm of breast from Last 3 Months or Most Recently Relevant to Health Maintenance Results * MAMMO DIGITAL SCREEN BILAT (01/22/2015 10:13 AM EDITOR INDEX) Anatomical Region Laterality Modality Breast Bilateral Mammography 01/22/2015 10:1 2 AM EDITOR INDEX Narrative 01/23/2015 8:48 AM EDITOR INDEX BILATERAL FULL FIELD DIGITAL SCREENING MAMMOGRAM WITH [...] BCBS BLUE ACCESS/TRUE BLUE PPO Care Teams Private Security Guard Relationship Specialty Start Date End Date Yvonne Morris MD [address] [address] PCP - General 11/13/15
--- OUTSIDE RECORDS SUMMARY | 2025-03-18 12:05 | XMS_ITS | Encounter Summary ---
Author Organization [facility] Address [address] [place] [address] Care Team Providers Care Director Of Residential Services Name Role Phone Cait Nelson [facility] Primary Care Provider + Reason for Visit * Reason Onset Date Comments Follow Up 03/18/2025 Encounter Details Date Type Department Care Team (Late st Contact Info) Description 03/18/2025 Telephone [facility] [place] [facility], [address] [place], [place] [address] Colleen Pina FNP 3 [facility] [address] [place] [address] Follow Up Social History Tobacco Use Types Packs/Day Years [...] as of this encounter Progress Notes * Sofía Hollins RN - 03/18/2025 11:35 AM CDT Patient had the GI studies done and she has a 34 inch hiatal hernia. [facility] to discuss plan. Sofía RN documented in this encounter Plan of Treatment Upcoming Encounters Date Type Department Care Team (Late st Contact Info) Description 05/20/2025 8:30 AM CDT Appointment [facility] [address] Ike Garcia MD Three [facility]. [address] [place] [address] 05/26/2025 1:15 PM CDT Office Visit [facility] [address] [place] [phone] Colleen Pina FNP 3 [facility] [address] [place] [address] documented as of this encounter Visit Diagnoses Not on filedocumented in this encounter Care Teams Director Of Residential Services Relationship Specialty Start Date End Date Cait Nelson, MENAGERIE SUPERINTENDENT- [address] [place] [phone] PCP - General NURSE PRACTITIONER 10/09/19 documented as of this encounter
--- OUTSIDE RECORDS SUMMARY | 2025-03-18 12:05 | XMS_ITS | Encounter Summary ---
Author Organization [facility] Address [address] [place] [address] Care Team Providers Care Closing Machine Operator Name Role Phone Omar Cait Ankit [facility] Primary Care Provider + Encounter Details Date Type Department Care Team (Late st Contact Info) Description 03/03/2025 Abstract [facility] THREE [facility], [address] [address] Radha Manning MA Social History Tobacco Use [...] Info) Description 05/20/2025 8:30 AM CDT Appointment [facility] [place] [address] Ike Garcia MD Three [facility]. [address] [address] 05/26/2025 1:15 PM CDT Office Visit [facility] [address] [place] [address] Colleen Pina FNP [address] [place] [address] documented as of this encounter Procedures Procedure Name Priority Date/Time Associated Diagnosis Comments HEMOGLOBIN, GLYCOSYLATED Routine 02/13/2025 COMPREHENSIVE METABOLIC PANEL Routine 02/13/2025 LIPID PANEL Routine 02/13/2025 CBC, MANUAL DIFF Routine 02/13/2025 THYROID STIM HORMONE TSH Routine 02/13/2025 documented in this encounter Results * COMPREHENSIVE METABOLIC PANEL (02/13/2025) Pathologist [facility] SODIUM S/P/B 141 GLUCOSE 105 mg/dL AST 14 BUN 15 CREATININE S/P/B 0.84 0.5 - 1.0 CALCIUM S/P/B 9.1 POTASSIUM S/P/B 4.5 CHLORIDE S/P/B 105 ALT 10 GFR ESTIMATE 76 us Default History Genericprovider LABORATORY Edited Result - Final * LIPID PANEL (02/13/2025) Pathologist [facility] CHOLESTEROL 148 TRIGLYCERIDES 67 HDL 76 LDL (CALCULATED) 58 NON HDL CHOLESTEROL 72 us Default History Genericprovider LABORATORY Edited Result - Final * CBC, MANUAL DIFF (02/13/2025) Pathologist [facility] WBC 5.7 HGB 11.3 HCT 38.6 PLT 301 us Default History Genericprovider LABORATORY Edited Result - Final * HEMOGLOBIN, GLYCOSYLATED (02/13/2025) Pathologist [facility] HGB A1C 5.8 % us Default History Genericprovider LABORATORY Edited Result - Final * THYROID STIM HORMONE TSH (02/13/2025) Pathologist [facility] TSH 1.23 us Default History Genericprovider LABORATORY Edited Result - Final documented in this encounter Visit Diagnoses Not on filedocumented in this encounter Care Teams Closing Machine Operator Relationship Specialty Start Date End Date Cait Nelson, DRUM FILLER- [address] [phone] PCP - General NURSE PRACTITIONER 10/09/19 documented as of this encounter
--- OUTSIDE RECORDS SUMMARY | 2025-03-18 12:05 | XMS_ITS | Referral Summary ---
Author Organization [facility] Medical Office Building Address [address] [place] [address] Care Team Providers Care Laboratory Coordinator Name Role Phone Chitra Chen MD Primary Care Provider [phone] [phone] Chitra Chen MD Unavailable Mir Gonzales MD Unavailable Encounters Date Type Department Care Team Description 02/18/2025 3:30 PM CDT Procedure visit [facility] Otol[facility]ology [address], [address] [place] [address] Lilliam Faith Au.D. Asymmetrical sensorineural [...] 2 (two) times a day Active calcium bshv-Y5-epzimz ium brittanie 133 mg calcium -133 unit-67 mg capsule Take by mouth Activ e HYDROcodone-ac etaminophen ([place]) 5-325 mg per tabletIndicati ons:Pain Take 1 [...] on file Legal Sex Female 2:17 AM HAIR ROOTING MACHINE OPERATOR Gender Identity Female 03/19/2020 9:59 AM CDT Sexual Orientation Straight 03/19/2020 9: 59 AM CDT Last Filed Vital Signs Vital Sign Reading Time Taken Comments Blood Pressure 122/80 10/14/2020 3:00 PM HAIR ROOTING MACHINE OPERATOR Pulse 96 10/14/2020 3:00 PM HAIR ROOTING MACHINE OPERATOR Temperature - - Respiratory Rate - - Oxygen Saturation 96% 10/14/2020 3:00 PM HAIR ROOTING MACHINE OPERATOR Inhaled Oxygen Concentration - - Weight 127.4 kg (280 lb 14.4 oz) 10/14/2020 3:00 PM HAIR ROOTING MACHINE OPERATOR Height 180.3 cm (5' 11 ) 10/14/2020 3:00 PM HAIR ROOTING MACHINE OPERATOR Body Mass Index 39.18 10/14/2020 3:00 PM HAIR ROOTING MACHINE OPERATOR Plan of Treatment Not on file Procedures Procedure Name Priority Date/Time Associated Diagnosis Comments POCT LIPID PANEL Routine 10/14/2020 5:34 PM HAIR ROOTING MACHINE OPERATOR Dyslipidemia from Last 3 Months or Most Recently Relevant to Health Maintenance Results * POCT lipid panel (10/14/2020 5:34 PM HAIR ROOTING MACHINE OPERATOR) Cholesterol, POC 169 mg/dL Comment:GLU = 124 HDL, POC 77 mg/dL Triglycerides, POC 185 mg/dL LDL Cholesterol POC 56 mg/dL Chol/HDL Ratio, POC 2.2 Non-HDL Cholesterol, POC 93 mg/dL Cholesterol Total, POC 169 mg/dL Capillary blood 10/14/2020 5 :34 PM HAIR ROOTING MACHINE OPERATOR Seamus Landaverde MD POINT OF CARE TEST ORDERABLES Fi nal Result from Last 3 Months or Most Recently Relevant to Health Maintenance [facility] AETNA MEDICARE Care Teams Laboratory Coordinator Relationship Specialty Start Date End Date Chitra Chen MD PCP - General Internal Medicine 09/04/20 Chitra Chen MD Internal Medicine 09/04/20 Mir Gonzales MD Referring Physician Otolaryngology 04/08/19
== END 2025-03-18 10:30 | disposition home or self-care (01) ==
PROVIDERS: PCP Nurse Practitioner Family; Visit Provider Internal Medicine Gastroenterology
DX: K44.9 Diaphragmatic hernia without obstruction or gangrene (principal); K21.9 Gastro-esophageal reflux disease without esophagitis
CPT/HCPCS: 74240

== ENCOUNTER 2025-05-07 08:30 | Outpatient (CLI) | payer MEDICARE, SELFPAY ==
--- NOTE | ~2025-05-07 | XR_ITS ---
XR chest 2V 05/07/2025 09:14 Indication: Diaphragmatic hernia Procedure: 2 view chest Comparison: No prior studies for comparison. Findings: Heart size normal. No focal air space disease, pulmonary edema, pleural effusion or suspect ed pneumothorax. Large hiatal hernia with air-fluid level. Impression: 1: No acute cardiopulmonary disease. 2: Large hiatal hernia with air-fluid level. Reviewed, dictated and finalized at location [] Impression: 1: No acute cardiopulmonary disease. 2: Large hiatal hernia with air-fluid level.
--- NOTE | 2025-05-07 08:30 | ECG_ITS ---
Test Date: 2025-05-07 08:58:32 Measurements Intervals [place] Rate: 73 P: 47 MI: 173 QRS: -26 QRSD: 101 T: 34 QT: 403 QTc: 445 Interpretive Statements SINUS RHYTHM LOW QRS VOLTAGE IN PRECORDIAL LEADS LEFT VENTRICULAR HYPERTROPHY AND ST-T CHANGE POSSIBLE ANTERIOR MYOCARDIAL INFARCTION BASELINE ARTIFACT- I, II, III, AVR, AVL, AVF, V1-V6 ABNORMAL ECG No previous ECG available for comparison Electronically Signed On 05-07-2025 10:07:34 CDT by Dusty Caldera D.O.
--- OUTSIDE RECORDS SUMMARY | 2025-05-07 08:49 | XMS_ITS | Referral Summary ---
Author Organization Pending sale to [facility] Address [address] [place] [address] Care Team Providers Care Bioinformatics Technician Name Role Phone Chitra Chen MD Primary Care Provider [phone] Chitra Chen MD Unavailable Mir Gonzales MD Unavailable [phone] Encounters Date Type Department Care Team Description 02/18/2025 3:30 PM CDT Procedure visit [facility] Otolaryngology [address], [address] [place] [address] Lilliam Faith Au.D. Asymmetrical sensorineural [...] 2 (two) times a day Active calcium [id number] ium brittanie 133 mg calcium -133 unit-67 mg capsule Take by mouth Activ e HYDROcodone-ac etaminophen ([place]) 5-325 mg per tabletIndicati ons:Pain Take 1 [...] on file Legal Sex Female 2:17 AM B2B SALES REPRESENTATIVE Gender Identity Female 03/19/2020 9:59 AM CDT Sexual Orientation Straight 03/19/2020 9: 59 AM CDT Last Filed Vital Signs Vital Sign Reading Time Taken Comments Blood Pressure 122/80 10/14/2020 3:00 PM B2B SALES REPRESENTATIVE Pulse 96 10/14/2020 3:00 PM B2B SALES REPRESENTATIVE Temperature - - Respiratory Rate - - Oxygen Saturation 96% 10/14/2020 3:00 PM B2B SALES REPRESENTATIVE Inhaled Oxygen Concentration - - Weight 127.4 kg (280 lb 14.4 oz) 10/14/2020 3:00 PM B2B SALES REPRESENTATIVE Height 180.3 cm (5' 11) 10/14/2020 3:00 PM B2B SALES REPRESENTATIVE Body Mass Index 39.18 10/14/2020 3:00 PM B2B SALES REPRESENTATIVE Plan of Treatment Not on file Procedures Procedure Name Priority Date/Time Associated Diagnosis Comments POCT LIPID PANEL Routine 10/14/2020 5:34 PM B2B SALES REPRESENTATIVE Dyslipidemia from Last 3 Months or Most Recently Relevant to Health Maintenance Results * POCT lipid panel (10/14/2020 5:34 PM B2B SALES REPRESENTATIVE) Cholesterol, POC 169 mg/dL Comment:GLU = 124 HDL, POC 77 mg/dL Triglycerides, POC 185 mg/dL LDL Cholesterol POC 56 mg/dL Chol/HDL Ratio, POC 2.2 Non-HDL Cholesterol, POC 93 mg/dL Cholesterol Total, POC 169 mg/dL Capillary blood 10/14/2020 5 :34 PM B2B SALES REPRESENTATIVE Seamus Landaverde MD POINT OF CARE TEST ORDERABLES Fi nal Result from Last 3 Months or Most Recently Relevant to Health Maintenance Insurance [facility] AETNA MEDICARE Care Teams Bioinformatics Technician Relationship Specialty Start Date End Date Chitra Chen MD PCP - General Internal Medicine 09/04/20 Chitra Chen MD Internal Medicine 09/04/20 Mir Gonzales MD Referring Physician Otolaryngology 04/08/19
--- OUTSIDE RECORDS SUMMARY | 2025-05-07 08:49 | XMS_ITS | Clinical Summary ---
Author Organization [facility] Address [address] [place] [address] Care Team Providers Care Customer Experience Analyst Name Role Phone Chitra Chen MD Primary Care Provider [phone] Chitra Chen MD Unavailable [phone] Mir Gonzales MD Unavailable [phone] Allergies Active Allergy Reactions Criticality Noted Date [...] 2 (two) times a day Active calcium [id number] ium brittanie 133 mg calcium -133 unit-67 mg capsule Take by mouth Activ e HYDROcodone-ac etaminophen ([place]) 5-325 mg per tabletIndicati ons:Pain Take 1 [...] 02/18/2025 3:30 PM CDT Procedure visit [facility] Otolaryngology [address], [address] [place] [address] Lilliam Faith Au.D. Asymmetrical sensorineural hearing loss (Primary Dx); Encounter for adjustment and management of cochlear device from Last 3 Months Surgical History Surgery Date Site/Laterality Comments MT TONSILLECTOMY PRIMARY/SEC ONDARY <AGE 13 Tonsillectomy - [...] on file Legal Sex Female 2:17 AM HALL PORTER Gender Identity Female 03/19/2020 9:59 AM CDT Sexual Orientation Straight 03/19/2020 9: 59 AM CDT Obstetrics History Last Filed Vital Signs Vital Sign Reading Time Taken Comments Blood Pressure 122/80 10/14/2020 3:00 PM HALL PORTER Pulse 96 10/14/2020 3:00 PM HALL PORTER Temperature - - Respiratory Rate - - Oxygen Saturation 96% 10/14/2020 3:00 PM HALL PORTER Inhaled Oxygen Concentration - - Weight 127.4 kg (280 lb 14.4 oz) 10/14/2020 3:00 PM HALL PORTER Height 180.3 cm (5' 11) 10/14/2020 3:00 PM HALL PORTER Body Mass Index 39.18 10/14/2020 3:00 PM HALL PORTER Plan of Treatment Health Maintenance Due Date [...] POCT LIPID PANEL Routine 10/14/2020 5:34 PM HALL PORTER Dyslipidemia from Last 3 Months or Most Recently Relevant to Health Maintenance Results * POCT lipid panel (10/14/2020 5:34 PM HALL PORTER) Cholesterol, POC 169 mg/dL Comment:GLU = 124 HDL, POC 77 mg/dL Triglycerides, POC 185 mg/dL LDL Cholesterol POC 56 mg/dL Chol/HDL Ratio, POC 2.2 Non-HDL Cholesterol, POC 93 mg/dL Cholesterol Total, POC 169 mg/dL Capillary blood 10/14/2020 5 :34 PM HALL PORTER Seamus Landaverde MD POINT OF CARE TEST ORDERABLES Fi nal Result from Last 3 Months or Most Recently Relevant to Health [place] [address] [facility] [employer] Care Teams Customer Experience Analyst Relationship Specialty Start Date End Date Chitra Chen MD PCP - General Internal Medicine 09/04/20 Chitra Chen MD Internal Medicine 09/04/20 Mir Goznales MD Referring Physician Otolaryngology 04/08/19
--- OUTSIDE RECORDS SUMMARY | 2025-05-07 08:49 | XMS_ITS | Clinical Summary ---
Author Organization [facility] / ?[facility] Address [address] [place] [address] Phone Care Team Providers Care Condominium Manager Name Role Phone Yvonne Morris MD Primary Care Provider [phone] Allergies Active Allergy Reactions Criticality Noted Date Comments Penicillins Hives High 03/29/2010 Medications MULTIVITAMINS WITH FLUORIDE (MULTI-VITAMIN ORAL) Take by mouth. Active duloxetine (CYMBALTA) 60 mg Oral CpDR Take 60 mg by mouth daily. 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 Active furosemide (LASIX) 40 mg Oral tablet [...] Morris MD Referring Provider: Yvonne Morris MD [address] [place] [address] [address] [place] [address] Other: Dr Mariah Gómez Problem Noted Date [...] on file Legal Sex Female 5:52 AM YARD JOCKEY Gender Identity Not on file Sexual Orientation Not on file Occupation Industry Job Start Date Job End Date Not on file Not on file Not on file Not on file Not on file Not on file Not on file Not on file Last Filed Vital Signs Vital Sign Reading Time Taken Comments Blood Pressure 135/84 01/22/2015 10:18 AM YARD JOCKEY Pulse 77 01/22/2015 10:18 AM YARD JOCKEY Temperature - - Respiratory Rate - - Oxygen Saturation - - Inhaled Oxygen Concentration - - Weight 127.5 kg (281 lb) 01/22/2015 10:18 AM YARD JOCKEY Height 180.3 cm (5' 11) 01/22/2015 10:18 AM YARD JOCKEY Body Mass Index 39.19 01/22/2015 10:18 AM YARD JOCKEY Plan of Treatment Health Maintenance Due Date [...] OR WO CAD Routine 01/22/2015 10:13 AM YARD JOCKEY Diffuse cystic mastopathy Other screening mammogram Family history of malignant neoplasm of breast from Last 3 Months or Most Recently Relevant to Health Maintenance Results * MAMMO DIGITAL SCREEN BILAT (01/22/2015 10:13 AM YARD JOCKEY) Anatomical Region Laterality Modality Breast Bilateral Mammography 01/22/2015 10:1 2 AM YARD JOCKEY Narrative 01/23/2015 8:48 AM YARD JOCKEY BILATERAL FULL FIELD DIGITAL SCREENING MAMMOGRAM WITH [...] BCBS BLUE ACCESS/TRUE BLUE PPO Care Teams Condominium Manager Relationship Specialty Start Date End Date Yvonne Morris MD [address] [address] PCP - General 11/13/15
--- OUTSIDE RECORDS SUMMARY | 2025-05-07 08:50 | XMS_ITS | Data Portability ---
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 Not available 07/31/2023 14:10:57 08/16/2023 08/16/2023 [...] more than half the time spent in zyni-cm-ujij care. Not available 08/16/2023 10:25:27 09/13/2023 09/13/2023 [...] more than half the time spent in pzak-fc-glqt care. Not available 10/01/2023 16:37:52 Plan of Treatment Reminders Order Date Submit Date Provider Last Modified By Organization Details Last Modified Time Details Appointments None recorded. Lab BMP, serum or plasma 2022 023 [facility], [address] [place], [address], 12/19/202 3 19:56:33 HbA1c (hemoglobin A1c), blood [address], [address] [place], [place] [address], [address], 3 08:39:33 TSH, serum, reflex free T4 [address], [address] [place] [address], [address], 3 08:39:33 lipid panel, serum 2022 023 [facility], [address] [place] [address], [address], 3 19:56:35 CBC w/ auto diff 2022 023 [facility], [address] [place] [address], [address], 3 14:09:54 HbA1c (hemoglobin A1c), blood [address], [address] [place] [address], [address], 3 08:20:12 CMP, serum or plasma 2022 023 [facility], [address] [place] [address], [address], 3 14:17:08 lipid panel, serum 2022 023 [facility], [address] [place] [address], [address], 3 14:17:01 T4, free, serum 2022 023 [facility], [address] [place] [address], [address], 3 14:33:58 TSH, serum or plasma 2022 023 [facility], [address], [place], [address], 3 14:49:[address] referral - lesion left face. eval and treat 2022 023 [place] [address] Kayli Boyle MD (Dermatology) , [address], [address], [place], [address], 3 09:18:36 endocrinolo gy referral - was seeing samuel orr, but she is leaving [address] - Endocrinology , [address], [address], [place], [address], 3 09:18:32 Procedures injection/a spiration joint/bursa (PROC) - in office procedure, administere d by provider 2022 023 [email or web address] In-Office Order, Internal Use Only DO Not Attach Compendium DO Not Attach Compendium, Do Not Delete/merge, [id number] 3 09:57:13 Surgeries None recorded. Imaging None recorded. Medication Orders Ozempic 1 mg/dose (4 mg/3 mL) subcutaneou s pen injector 2022 023 [id number], [address], [place], [id number], 3 10:51:19 duloxetine 30 mg capsule,del ayed release 2022 023 [facility], [address], [place], [id number], 3 10:58:43 Kenalog 10 mg/mL suspension for injection 2022 023 [facility] #15874, [address], [place], [id number], 3 10:09:24 ropivacaine (PF) 5 mg/mL (0.5 %) injection solution 2022 023 [facility], [address], [place], [id number], 3 10:09:44 Medrol (José) 4 mg tablets in a dose pack 2022 023 [email or web address]26, [address], [place], [id number], 3 10:09:35 Patient TargetsNo targets recorded. Patient Instructions Encounter Date Encounter Id Patient Instructions Last Modified By Organization Details Last Modified Time 07/20/2023 [id number] FU in 4-6 mo. [email or web address] Not available 0 07/20/2023 09:59:34 11/14/2023 [id number] FU in 4 mo 11/14/23 pt aware of Omar departure. Monitor bp. [email or web address] Not available 11/14/2023 10:52:11 Reason for Referral Endocrinology Referral for T yplenin 2 diabetes mellitus was seeing samuel orr, but she is leaving Referring Physician: Cait Cabello, Family Medicine, Encounter Date: 07/20/2023 Yard Person Referral for L esion of skin of face lesion left face. eval and treat Referring Physician: Cait Cabello, [facility] Medicine, Encounter Date: 07/20/2023 Results Created Date Observation Date Name Description Value Unit Range Abnormal Flag Note LastModifiedBy Organization Detail LastModifiedTime 07/20/2007/20/2023 CBC/C OMPLE TE BLD COUNT W/DIF F white blood cells 6.8 x10'3 /uL 4.2-10 .8 Not Available [facility] (Lab) [address] [place], [address], 07/20/2023 14:09:54 07/20/20 23 07/20/2023 CBC/C OMPLE TE BLD COUNT W/DIF F red blood cells 4.91 x10'6 /uL 3.80-5 .20 Not Available [facility] (Lab) [address] [place], [address], 07/20/2023 14:09:54 07/20/20 23 07/20/2023 CBC/C OMPLE TE BLD COUNT W/DIF F hemoglobin 13.9 g/dL 12.0-1 5.6 Not Available [facility] (Lab) [address] [place], [address], 07/20/2023 14:09:54 07/20/20 23 07/20/2023 CBC/C OMPLE TE BLD COUNT W/DIF F hematocrit 43.4 % 35.7-4 5.7 Not Available [facility] (Lab) [address] [place], [address], 07/20/2023 14:09:54 07/20/20 23 07/20/2023 CBC/C OMPLE TE BLD COUNT W/DIF F mean red cell volume 88.4 fL 82.0-9 9.0 Not Available [facility] (Lab) [address] [place], [address], 07/20/2023 14:09:54 07/20/20 23 07/20/2023 CBC/C OMPLE TE BLD COUNT W/DIF F mean red cell hemoglobin 28.3 pg 27.0-3 3.0 Not Available [facility] (Lab) [address] [place], [address], 07/20/2023 14:09:54 07/20/20 23 07/20/2023 CBC/C OMPLE TE BLD COUNT W/DIF F mean RBC HGB concentratio n 32.0 g/dL 31.0-3 6.0 Not Available [facility] (Lab) [address] [place], [address], 07/20/2023 14:09:54 07/20/20 23 07/20/2023 CBC/C OMPLE TE BLD COUNT W/DIF F red cell distribution width 13.5 % 11.8-1 5.5 Not Available [facility] (Lab) [address] [place], [address], 07/20/2023 14:09:54 07/20/20 23 07/20/2023 CBC/C OMPLE TE BLD COUNT W/DIF F platelets 237 x10'3 /uL 150-40 0 Not Available [facility] (Lab) [address] [place], [address], 07/20/2023 14:09:54 07/20/20 23 07/20/2023 CBC/C OMPLE TE BLD COUNT W/DIF F mean platelet volume 11.5 fL 9.0-12 .4 Not Available [facility] (Lab) [address] [place], [address], 07/20/2023 14:09:54 07/20/20 23 07/20/2023 CBC/C OMPLE TE BLD COUNT W/DIF F neutrophils 68.7 % 39.0-7 2.0 Not Available [facility] (Lab) [address] [place], [address], 07/20/2023 14:09:54 07/20/20 23 07/20/2023 CBC/C OMPLE TE BLD COUNT W/DIF F lymphocytes 21.1 % 16.0-4 7.0 Not Available [facility] (Lab) [address] [place], [address], 07/20/2023 14:09:54 07/20/20 23 07/20/2023 CBC/C OMPLE TE BLD COUNT W/DIF F monocytes 6.0 % 5.0-12 .0 Not Available [facility] (Lab) [address] [place], [address], 07/20/2023 14:09:54 07/20/20 23 07/20/2023 CBC/C OMPLE TE BLD COUNT W/DIF F eosinophils 3.2 % 1.0-7. 0 Not Available [facility] (Lab) [address] [place], [address], 07/20/2023 14:09:54 07/20/20 23 07/20/2023 CBC/C OMPLE TE BLD COUNT W/DIF F basophils 0.7 % 0.0-2. 0 Not Available [facility] (Lab) [address] [place], [address], 07/20/2023 14:09:54 07/20/20 23 07/20/2023 CBC/C OMPLE TE BLD COUNT W/DIF F immature granulocytes 0.3 % 0.00-0 .50 Not Available [facility] (Lab) [address] [place], [address], 07/20/2023 14:09:54 07/20/20 23 07/20/2023 CBC/C OMPLE TE BLD COUNT W/DIF F neutrophils, absolute count 4.67 x10'3 /uL 1.5-8. 0 Not Available [facility] (Lab) [address] [place], [address], 07/20/2023 14:09:54 07/20/20 23 07/20/2023 CBC/C OMPLE TE BLD COUNT W/DIF F lymphocytes, absolute count 1.44 x10'3 /uL 1.07-3 .43 Not Available [facility] (Lab) [address] [place], [address], 07/20/2023 14:09:54 07/20/20 23 07/20/2023 CBC/C OMPLE TE BLD COUNT W/DIF F monocytes, absolute count 0.41 x10'3 /uL 0.29-0 .99 Not Available [facility] (Lab) [address] [place], [address], 07/20/2023 14:09:54 07/20/20 23 07/20/2023 CBC/C OMPLE TE BLD COUNT W/DIF F eosinophils, absolute count 0.22 x10'3 /uL 0.02-0 .53 Not Available [facility] (Lab) [address] [place], [address], 07/20/2023 14:09:54 07/20/20 23 07/20/2023 CBC/C OMPLE TE BLD COUNT W/DIF F basophils, absolute count 0.05 x10'3 /uL 0.01-0 .08 Not Available [facility] (Lab) [address] [place], [address], 07/20/2023 14:09:54 07/20/20 23 07/20/2023 CBC/C OMPLE TE BLD COUNT W/DIF F immature granulocytes ,absolute 0.02 x10'3 /uL 0.00-0 .05 Not Available [facility] (Lab) [address] [place], [address], 07/20/2023 14:09:54 07/20/20 23 07/20/2023 CBC/C OMPLE TE BLD COUNT W/DIF F nucleated red blood cells 0.0 % -0 Not Available [facility] [place] [facility] (Lab) [address] [place], [address], 07/20/2023 14:09:54 07/20/20 23 07/20/2023 CBC/C OMPLE TE BLD COUNT W/DIF F NRBC# 0.00 x10'3 /uL Not Available [facility] (Lab) [address] [place], [address], 07/20/2023 14:09:54 07/20/20 23 07/20/2023 LIPID PANEL cholesterol 171 mg/dL 140-19 9 NIH LENORA NSUS RECOM MENDA TION FOR JAE STERO L: ADULT CHILD LOW RISK: <200 <170 BORDE RLINE : <200- 239 ----- HIGH RISK: >240 >200 Not Available [facility] (Lab) [address] [place], [address], 07/20/2023 14:17:01 07/20/20 23 07/20/2023 LIPID PANEL triglyceride s 84 mg/dL 0-150 NIH L[facility]ORA NSUS REPOR T RECOM MENDA TION FOR TRIGL YCERI THERESE: ADULT CHILD LOW RISK: <150 ----- BODER LINE: 150-1 99 ----- HIGH RISK: >200 ----- Not Available [facility] (Lab) [address] [place], [address], 07/20/2023 14:17:01 07/20/20 23 07/20/2023 LIPID PANEL HDL cholesterol 70 mg/dL 40- Not Available [facility] (Lab) [address] [place], [address], 07/20/2023 14:17:01 07/20/20 23 07/20/2023 LIPID PANEL [...] WILL NOT BE REPOR SOUMYA. Not Available [facility] (Lab) [address] [place], [address], 07/20/2023 14:17:01 07/20/2007/20/2023 COMPR EHENS FRANSISCA METAB OLIC PANEL sodium 140 mmol/ L 137-14 5 Not Available [facility] (Lab) [address] [place], [address], 07/20/2023 14:17:07 07/20/20 23 07/20/2023 COMPR EHENS FRANSISCA METAB OLIC PANEL potassium 4.1 mmol/ L 3.5-5. 1 Not Available [facility] (Lab) [address] [place], [address], 07/20/2023 14:17:07 07/20/20 23 07/20/2023 COMPR EHENS FRANSISCA METAB OLIC PANEL chloride 107 mmol/ L 98-107 Not Available [facility] (Lab) [address] [place], [address], 07/20/2023 14:17:07 07/20/20 23 07/20/2023 COMPR EHENS FRANSISCA METAB OLIC PANEL carbon dioxide 26 mmol/ L 22-30 Not Available [facility] (Lab) [address] [place], [address], 07/20/2023 14:17:07 07/20/20 23 07/20/2023 COMPR EHENS FRANSISCA METAB OLIC PANEL anion gap 11.1 mmol/ L 14-22 low Not Available [facility] (Lab) [address] [place], [address], 07/20/2023 14:17:07 07/20/20 23 07/20/2023 COMPR EHENS FRANSISCA METAB OLIC PANEL glucose 125 mg/dL 70-99 high Not Available [facility] (Lab) [address] [place], [address], 07/20/2023 14:17:07 07/20/20 23 07/20/2023 COMPR EHENS FRANSISCA METAB OLIC PANEL BUN 14 mg/dL 8-19 Not Available [facility] (Lab) [address] [place], [address], 07/20/2023 14:17:07 07/20/20 23 07/20/2023 COMPR EHENS FRANSISCA METAB OLIC PANEL creatinine 0.57 mg/dL 0.66-1 .25 low Not Available [facility] (Lab) [address] [place], [address], 07/20/2023 14:17:07 07/20/2007/20/2023 COMPR EHENS FRANSISCA METAB OLIC PANEL GFR >60 Refer ence Range : [place] ge GFR Healt hy Adult : >60 [...] calcu lator is avail able on the [facility] websi te: https :[email or web address] cabrales.sami magana.o rg/pr ofess ional s/kdo qi/gf r_cal culat or Not Available [facility] (Lab) [address] [place], [address], 07/20/2023 14:17:07 07/20/2007/20/2023 COMPR EHENS FRANSISCA METAB OLIC PANEL alkaline phosphatase 87 U/L 38-126 Not Available [facility] (Lab) [address] [place], [address], 07/20/2023 14:17:07 07/20/2007/2007/20/2023 COMPR EHENS FRANSISCA METAB OLIC PANEL alanine aminotransfe rase 19 U/L 0-35 Not Available [facility] [place] [facility] (Lab) [address] [place], [address], 07/20/2023 14:17:07 07/20/20 23 07/20/2023 COMPR EHENS FRANSISCA METAB OLIC PANEL aspartate aminotransfe rase 21 U/L 15-37 Not Available [facility] [place] [facility] (Lab) [address] [place], [address], 07/20/2023 14:17:07 07/20/20 23 07/20/2023 COMPR EHENS FRANSISCA METAB OLIC PANEL bilirubin, total 0.40 mg/dL 0.20-1 .30 Not Available [facility] (Lab) [address] [place], [address], 07/20/2023 14:17:07 07/20/20 23 07/20/2023 COMPR EHENS FRANSISCA METAB OLIC PANEL calcium 8.7 mg/dL 8.4-10 .2 Not Available [facility] (Lab) [address] [place], [address], 07/20/2023 14:17:07 07/20/20 23 07/20/2023 COMPR EHENS FRANSISCA METAB OLIC PANEL total protein 6.7 g/dL 6.3-8. 2 Not Available [facility] (Lab) [address] [place], [address], 07/20/2023 14:17:07 07/20/20 23 07/20/2023 COMPR EHENS FRANSISCA METAB OLIC PANEL albumin 4.0 g/dL 3.0-4. 4 Not Available [facility] (Lab) [address] [place], [address], 07/20/2023 14:17:07 07/20/20 23 07/20/2023 COMPR EHENS FRANSISCA METAB OLIC PANEL globulin 2.7 g/dL 2.6-4. 2 Not Available [facility] (Lab) [address] [place], [address], 07/20/2023 14:17:07 07/20/20 23 07/20/2023 COMPR EHENS FRANSISCA METAB OLIC PANEL A/G ratio 1.5 ratio 1.0-2. 0 Not Available [facility] (Lab) [address] [place], [address], 07/20/2023 14:17:07 07/20/20 23 07/20/2023 T4 FREE free T4 1.25 NG/dL 0.78-2 .19 Not Available [facility] (Lab) [address] [place], [address], 07/20/2023 14:33:57 07/20/20 23 07/20/2023 TSH thyroid-stim ulating hormone 0.237 uIU/m L 0.465- 4.680 low Not Available [facility] (Lab) [address] [place], [address], 07/20/2023 14:49:13 07/20/20 23 07/20/2023 HEMOG LOBIN A1C HA1C 6.2 % 4.0-6. 0 high Diabe lisandro Scree pedro Crite rob: <5.7% Consi stent with absen ce of diabe lisandro 5.7-6 .4% Consi stent with incre ased risk for diabe lisandro (pred iabet es) >OR=6 .5% Consi stent with diabe lisandro REFER ENCE: Diabe lisandro Care 2016, 39(Branham ppl.1 ):s13 -s22 Not Available [facility] (Lab) [address] [place], [address], 07/20/2023 20:25:02 11/14/20 23 11/14/2023 BASIC METAB OLIC PANEL sodium 140 mmol/ L 137-14 5 Not Available [facility] (Lab) [address] [place], [address], 11/14/2023 19:56:32 11/14/20 23 11/14/2023 BASIC METAB OLIC PANEL potassium 4.5 mmol/ L 3.5-5. 1 Not Available [facility] (Lab) [address] [place], [address], 11/14/2023 19:56:32 11/14/20 23 11/14/2023 BASIC METAB OLIC PANEL chloride 106 mmol/ L 98-107 Not Available [facility] (Lab) [address] [place], [address], 11/14/2023 19:56:32 11/14/20 23 11/14/2023 BASIC METAB OLIC PANEL carbon dioxide 28 mmol/ L 22-30 Not Available [facility] (Lab) [address] [place], [address], 11/14/2023 19:56:32 11/14/20 23 11/14/2023 BASIC METAB OLIC PANEL anion gap 10.5 mmol/ L 14-22 low Not Available [facility] (Lab) [address] [place], [address], 11/14/2023 19:56:32 11/14/20 23 11/14/2023 BASIC METAB OLIC PANEL glucose 139 mg/dL 70-99 high Not Available [facility] (Lab) [address] [place], [address], 11/14/2023 19:56:32 11/14/20 23 11/14/2023 BASIC METAB OLIC PANEL BUN 14 mg/dL 8-19 Not Available [facility] (Lab) [address] [place], [address], 11/14/2023 19:56:32 11/14/20 23 11/14/2023 BASIC METAB OLIC PANEL creatinine 0.67 mg/dL 0.66-1 .25 Not Available [facility] (Lab) [address] [place], [address], 11/14/2023 19:56:32 11/14/20 23 11/14/2023 BASIC METAB OLIC PANEL GFR >60 Refer ence Range : [place] ge GFR Healt hy Adult : >60 [...] calcu lator is avail able on the [facility] websi te: https ://evelio magana.luiz rg/pr ofess ional s/kdo qi/gf r_cal culat or Not Available [facility] (Lab) [address] [place], [address], 11/14/2023 19:56:32 11/14/20 23 11/14/2023 BASIC METAB OLIC PANEL calcium 9.0 mg/dL 8.4-10 .2 Not Available [facility] (Lab) [address] [place], [address], 11/14/2023 19:56:32 11/14/20 23 11/14/2023 LIPID PANEL cholesterol 167 mg/dL 140-19 9 NIH L[facility]A NSUS RECOM MENDA TION FOR JAE STERO L: ADULT CHILD LOW RISK: <200 <170 BORDE RLINE : <200- 239 ----- HIGH RISK: >240 >200 Not Available [facility] (Lab) [address] [place], [address], 11/14/2023 19:56:35 11/14/20 23 11/14/2023 LIPID PANEL triglyceride s 90 mg/dL 0-150 NIH L[facility]A NSUS REPOR T RECOM MENDA TION FOR TRIGL YCERI THERESE: ADULT CHILD LOW RISK: <150 ----- BODER LINE: 150-1 99 ----- HIGH RISK: >200 ----- Not Available [facility] (Lab) [address] [place], [address], 11/14/2023 19:56:35 11/14/20 23 11/14/2023 LIPID PANEL HDL cholesterol 74 mg/dL 40- Not Available [facility] (Lab) [address] [place], [address], 11/14/2023 19:56:35 11/14/20 23 11/14/2023 LIPID PANEL [...] WILL NOT BE REPOR SOUMYA. Not Available [facility] (Lab) [address] [place], [address], 11/14/2023 19:56:35 11/14/20 23 11/14/2023 TSH W/REF OCTAVIANO FT4 TSH with reflex free T4 0.929 uIU/m L 0.465- 4.680 Not Available [facility] (Lab) [address] [place], [address], 11/14/2023 20:29:55 11/14/20 23 11/14/2023 HEMOG LOBIN A1C HA1C 6.1 % 4.0-6. 0 high Diabe lisandro Suzan vasquez Crite rob: <5.7% Consi stent with absen ce of diabe lisandro 5.7-6 .4% Consi stent with incre ased risk for diabe lisandro (pred iabet es) >OR=6 .5% Consi stent with diabe lisandro REFER ENCE: Diabe lisandro Care 2016, 39(Branham ppl.1 ):s13 -s22 Not Available [facility] ([facility]) [address] [place], [address], 11/14/2023 21:34:36 06/12/20 23 XR, shoul angella No observ ation record ed. [email or web address] [facility] [address], [place], [address], 06/12/2023 16:21:54 Result Notes None recorded. Problems Name Problem SNOMED Code Status Onset Date Resolution Date Notes Provider Name and Address Organization Details Recorded Time Pain in throat 700294712 Completed Not Available [facility] 3 04:54:40 Edema 552235275 Completed Not Available [facility] 3 04:54:40 Anemia 367529501 Completed Not Available [facility] 3 04:54:40 Weight loss advised 544068562 Active 2017 Not Available [facility] 3 04:54:40 Pain in pelvis 61608480 Completed Not Available [facility] 3 04:54:41 Type 2 diabetes mellitus without complicat ion 138841815 Active 2017 Not Available [facility] 3 04:54:41 Vitamin D deficienc y 19273841 Active Not Available [facility] 3 04:54:41 Depressiv e disorder 79741749 Completed Not Available [facility] 3 04:54:41 Polyarthr opathy 72859333 Active 2021 Not Available [facility] 3 04:54:41 Sinusitis 26467999 Completed Not Available [facility] 3 04:54:41 Melanocyt ic nevus 529676439 Active 2016 Not Available [facility] 3 04:54:41 Hypothyro idism 16025919 Active Not Available [facility] 3 04:54:41 Obese 384242694 Active 2016 Not Available [facility] 3 04:54:41 Obesity 056494566 Active Not Available [facility] 3 04:54:41 Type 2 diabetes mellitus 09593381 Active Not Available [facility] 3 04:54:41 Seasonal allergy 798146196 Active Not Available [facility] 3 04:54:42 Pain of left knee joint 91696201296 4107 Active 2021 Not Available [facility] 3 04:54:42 Hearing loss of right ear 131830776 Active 2016 Not Available [facility] 3 04:54:42 Foot pain 10289189 Completed Not Available [facility] 3 04:54:42 Bilateral tinnitus 04825196623 02 Active 2016 Not Available [facility] 3 04:54:42 Pain of hip region 57417271 Active 2016 Not Available [facility] 3 04:54:42 Cough 04186422 Completed Not Available [facility] 3 04:54:42 Hyperlipi demia 05300337 Active Not Available [facility] 3 04:54:42 Essential hypertens ion 17484336 Active 2020 Not Available [facility] 3 04:54:43 Diabetes mellitus 78934809 Active 2016 Not Available [facility] 3 04:54:43 Posterior rhinorrhe a 33584051 Completed Not Available [facility] 3 04:54:43 Hyperglyc emia 80604521 Completed Not Available [facility] 3 04:54:43 Injury of head 45342046 Completed Not Available [facility] 3 04:54:43 Perniciou s anemia 45669762 Active Not Available [facility] 3 04:54:43 Fatigue 01262491 Completed Not Available [facility] 3 04:54:43 Fracture of humerus 42178270 Active 2022 Cait Cabello NP [address], [place], [address] , [facility] 3 21:39:20 Pain of left shoulder joint 53134625442 594198 Active 2022 Roxanna Abraham RMA null, [place] [facility] 3 10:43:17 Pain of right shoulder joint 12109930814 064476 Active 2022 Roxanna Abraham RMA null, [place] [facility] 3 10:43:42 Osteoporo sis 38046722 Active 2022 Nadia Sunshine SNUBBER null, [place] [facility] 3 15:44:52 Fracture of shoulder 08734349723 145107 Active 2022 Roxanna Abraham RMA null, [place] [facility] 3 16:48:10 Closed fracture of upper end of humerus 90423895 Active 2022 Roxanna Abraham RMA null, [place] [facility] 3 10:04:23 Insomnia 794562405 Active 2022 Cait Cabello NP [address], [place], [address] , [facility] 3 11:44:09 Anxiety 35141277 Active 2022 Cait Cabello NP [address], [place], [address] , [facility] 3 13:55:32 Hyperpara thyroidis m 76192329 Active 2022 Sheryl Kingston SNUBBER null, [place] [facility] 3 11:28:47 Pain of right wrist 74315458733 9100 Active 2022 Nadia Sunshine CMA null, [facility] 3 10:46:10 Abnormal weight 81604626 Active 2022 Liz Izaguirre MA null, [facility] 3 09:04:17 Lesion of skin of face 94100968024 6 Active 2022 Cait Cabello NP [address] [facility] [facility] [address], [place], [address] , [facility] 3 09:31:45 Neck pain 01363055 Active 2022 Nadia Sunshine CMA null, [facility] 3 10:20:10 Osteoarth ritis of left knee joint 39267262716 9109 Active 2022 Nadia Sunshine CMA null, [facility] 3 09:41:38 Problem Notes None recorded. Procedures Surgical History Date Name Laterality Status Provider Name and Address Organization Details Recorded Time 3 Most Recent Bone Density completed Cait Cabello NP [address] [facility], [facility] [address], [place], [address], [facility] 05/03/2023 14:12:58 2 Most Recent Mammogram completed Cait Dodson RN [facility] 04/12/2023 11:04:32 tonsilectomy/a denoids completed Not Available [facility] 01/25/2023 04:44:18 acoustic neurotomy completed Not Available [facility] 01/25/2023 04:44:18 Tubal Ligation completed Not Available [facility] 01/25/2023 04:44:18 Imaging Results None recorded. Procedure Notes None recorded. Medical Equipment None Reported. Allergies Allergen ID Allergen Name Allergen Category Reaction Reaction Severity Criticality Documentation Date Start Date Code Code System Note Provider Name and Address Organization Details Recorded Time 9099 Product containin g penicilli n (product) medicatio n rash Not available Not available 01/25/2023 [id number] SNOMED Not Available [facility] 3 05:07:49 Medications Name Sig Start Date [...] mg/mL suspensio n for injection 12/17 completed [facility]# [id number] 93-28 Not Available Not Available Not Available [...] e, administ ered by provider 11/14 completed [facility]: [id number] 4-20 Not Available Not Available Not [...] e, administ ered by provider 11/14 completed [facility] [id number] 02-25 Not Available Not Available Not Available OneTouch [...] Test Strip U TO TEST FASTING GLUCOSE QA 11/07 completed Not Available Not Available Not [...] Last Updated DateTime 07/10/2023 175.26 cm Roxanna Green, [facility] 07/10/2023 16:37:00 Date Recorded Body height Body mass index (BMI) Body weight Body temperature Heart rate Oxygen saturation Oxygen saturation in Arterial blood by Pulse oximetry Systolic blood pressure Diastolic blood pressure Provider Name and Address Organization Details Last Updated DateTime 3 175.26 cm 40.2 kg/m2 036822. 22 g 97 [degF] 83 /min 95 % 95 % 145 mm[Hg] 94 mm[Hg] Liz Izaguirre MA [facility] [employer] [facility] 3 09:09:23 Date Recorded Body height Provider Name an d Address Organization Details Last Updated DateTime 08/16/2023 175.26 cm Roxanna Abraham [facility] 08/16/2023 09:10:02 Date Recorded Body height Provider Name an d Address Organization Details Last Updated DateTime 09/13/2023 175.26 cm Roxanna Abraham [facility] 09/13/2023 09:29:51 Date Recorded Body height Body mass index (BMI) Body weight Body temperature Heart rate Respiratory rate Oxygen saturation Oxygen saturation in Arterial blood by Pulse oximetry Systolic blood pressure Diastolic blood pressure Provider Name and Address Organization Details Last Updated DateTime 3 175.26 cm 42.7 kg/m2 389449. 54 g 96.5 [degF] 76 /min 20 /min 95 % 95 % 150 mm[Hg] 96 mm[Hg] Cait Dodson RN [facility] 3 10:13:49 Social History Question Answer Notes LastModified by Organization Details LastModified Time Tobacco Smoking Status Never Smoker Not Available [facility] 01/25/2023 04:41:37 Do You Have An Advance Directive? No Information not available 04/12/2023 Are You Blind Or Do You Have Difficulty Seeing? No MIGRATION.0301 [id number] Information not available 01/25/2023 Is Blood Transfusion Acceptable In An Emergency? Yes Information not available 04/12/2023 What Is Your Level Of Caffeine Consumption? Moderate [id number] Information not available 01/25/2023 How Much Tobacco Do You Chew? None MIGRATION.0301 [id number] Information not available 01/25/2023 What Is Your Code Status? Full Code Information not available 04/12/2023 In The 14 Days Before Symptom Onset, Have You Had Close Contact With A Laboratory-confi rmed COVID-19 While That Case Was Ill? No MIGRATION.0301 [id number] Information not available 01/25/2023 In The 14 Days Before Symptom Onset, Have You Had Close Contact With A Person Who Is Under Investigation For COVID-19 While That Person Was Ill? No MIGRATION.0301 [id number] Information not available 01/25/2023 Are You Deaf Or Do You Have Serious Difficulty Hearing? 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 REGULAR MIGRATION.030 994611 Information not available 01/25/2023 What Is The Highest Grade Or Level Of School You Have Completed Or The Highest Degree You Have Received? [id number] Information not available 04/12/2023 Have There Been Any Changes To Your Family Or Social Situation? Yes Information not available 04/12/2023 Do You Use Insect Repellent Routinely? Yes Information not available 04/12/2023 Where Do You Live? SingleLevelHouse Information not available 04/12/2023 Do You Have A Medical Power Of Chief Clerk? No Information not available 04/12/2023 How Many [...] Your Home? Yes Information not available 04/12/2023 Are There Any Smokers In Your House? No Information not available 04/12/2023 Do You Participate In Social Media? Yes Information not available 04/12/2023 Do You Use Sunscreen Routinely? Yes Information not available 04/12/2023 Have You Recently Traveled Abroad? No Information not available 04/12/2023 Do You Have Difficulty Walking Or Climbing Stairs? No MIGRATION.0301 [id number] Information not available 01/25/2023 Sex: Unknown Functional Status Question Answer Note LastModified by Organizat ion Details LastModified Time What is your level of alcohol consumption? None MIGRATION.26579 96746 Information not available 01/25/2023 Do you or have you ever used smokeless tobacco? Never used smokeless tobacco MIGRATION.45342 35586 Information not available 01/25/2023 Are you currently employed? No Information not available 04/12/2023 Do you have transportation difficulties? No MIGRATION.55836 43213 Information not available 01/25/2023 Are you able to walk? YESWOREST MIGRATION.73524 31237 Information not available 01/25/2023 Do you have difficulty doing errands alone? No MIGRATION.64919 94430 Information not available 01/25/2023 Are you able to care for yourself? 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 No MIGRATION.85677 71964 Information not available 01/25/2023 Do you or have you ever used e-cigarettes or vape? Never used electronic cigarettes MIGRATION.43130 18327 Information not available 01/25/2023 What is your exercise level? Occasional MIGRATION.43090 96865 Information not available 01/25/2023 Mental Status Question Answer Note LastModified by Organizat ion Details LastModified Time Do you feel stressed (tense, restless, nervous, or anxious, or unable to sleep at night)? [id number] Information not available 11/14/2023 Do you have difficulty concentrating, remembering or making decisions? No MIGRATION.[id number] 26 Information not available 01/25/2023 Family History Relationship Description Onset Age of this Age Resolved Age Notes LastModified by Organization Details LastModified Time Mother Family history of malignant neoplasm MIGRATION.227 [id number] Not available 01/25/2023 04:44:24 Sister Diabetes mellitus MIGRATION.331 [id number] Not available 01/25/2023 04:44:24 Notes:4/9/18 retinal eye exa m Medical History Condition [...] 50 mcg/0.25mL dose 1 completed Not Available [facility] 01/25/2023 05:07:29 SARS-COV-2 (COVID-19) vaccine, UNSPECIFIED 1 completed Not Available [facility] hospital 01/25/2023 05:07:29 SARS-COV-2 (COVID-19) vaccine, UNSPECIFIED 1 completed Not Available [facility] hospital 01/25/2023 05:07:29 Influenza, high-dose, quadrivalent, PF 2 completed Not Available Critical access hospital 01/25/2023 05:07:30 Influenza, split virus, quadrivalent, preservative 1 completed Not Available Critical access hospital 01/25/2023 05:07:30 Influenza, split virus, quadrivalent, preservative 9 completed Not Available Critical access hospital 01/25/2023 05:07:30 Influenza, split virus, quadrivalent, preservative 8 completed Not Available Critical access hospital 01/25/2023 05:07:30 Influenza, split virus, trivalent, preservative 2 completed Not Available Critical access hospital 01/25/2023 05:07:30 Tdap 8 completed Not Available Critical access hospital 01/25/2023 05:07:30 Influenza, split virus, quadrivalent, PF 9 completed Not Available Critical access hospital 01/25/2023 05:07:30 Past Encounters Encounter ID Performer Location Encounter Start Date Encounter Closed Date Diagnosis/Indication Diagnosis SNOMED-CT Code Diagnosis ICD10 Code Diagnosis Note [id number] Maxwell Mcleod MD [facility] [place] [address] [place] [place] [address] 03/17/2021 00:00:00 03/17/2021 10:49:34 [id number] Maxwell Mcleod MD [facility] [place] [address] [place] [address] 09/15/2021 00:00:00 09/17/2021 17:32:19 [id number] Maxwell Mcleod MD [facility] [place] [address] [facility] [place] [address] 03/16/2022 00:00:00 03/16/2022 10:23:33 [id number] Maxwell Mcleod MD [facility] [address] [place] [place] [address] 05/26/2022 00:00:00 05/26/2022 11:55:41 [id number] Maxwell Mcleod MD [facility] [place] [address] [facility] [place] [address] 06/27/2022 00:00:00 06/27/2022 14:29:20 [id number] Cait Cabello NP [facility] [place] [address] [place] [place] [address] 06/29/2022 00:00:00 06/29/2022 14:08:24 [id number] Samuel Orr MD [facility] [place] [address] [place] [address] 07/19/2022 00:00:00 07/19/2022 10:54:40 [id number] Maxwell Mcleod MD [facility] [place] [address] [place] [address] 09/28/2022 00:00:00 09/28/2022 15:48:24 [id number] Dick Norton MD [facility] [place] [address] [place] [address] 11/07/2022 00:00:00 11/13/2022 14:18:46 [id number] Dick Norton MD [facility] [place] [address] [place] [address] 02/06/2023 14:20:48 02/06/2023 15:16:38 Pain of left knee joint 7582254836 74817 M25.562 [id number] Dick Norton MD [facility] [place] [address] [place] [address] 02/24/2023 10:32:21 02/27/2023 09:57:42 Pain of right shoulder joint 9944072219 [id number] M25.511 [id number] Dick Norton MD [facility] [place] [address] [place] [address] 03/10/2023 09:52:31 03/10/2023 10:58:55 Closed fracture of upper end of humerus 11991559 S42.201D [id number] Cait Cabello NP [address] [address] 03/17/2023 14:50:52 03/17/2023 15:22:36 [id number] MD KENNY [facility] [place] [address] [place] [address] 03/20/2023 13:53:05 03/20/2023 14:41:20 Closed fracture of upper end of humerus 85312201 S42.201D [id number] Dick Norton MD [facility] [place] [address] [place] [address] 04/03/2023 13:52:13 04/03/2023 14:49:32 Closed fracture of upper end of humerus 09339605 S42.201D [id number] Cait Cabello NP [address] [address] 04/12/2023 10:50:24 04/12/2023 13:51:39 Type 2 diabetes mellitus 31710659 E11.9 ozempic 2 mg inj sq weekly. Hypothyroidism 34221106 E03.9 Unithroid 112 mcg po daily. Obesity 199130501 E66.9 Hyperlipidemia 71073648 E78.5 Rosuvastat in 20 mg po nightly. Essential hypertension 13399321 I10 Losartan 50 mg po daily. Vitamin D deficiency 347 29003 E55.9 Seasonal allergy 6899855 04 J30.2 Insomnia 165116699 G47.0 0 Trazodone 100 mg po Family his tory of breast cancer 211490096 Z80.3 Anxiety 03307302 F41.9 Duloxetine 60 mg po daily. [id number] Dick Norton MD [facility] [place] [address] [place] [address] 04/26/2023 09:57:56 04/26/2023 12:05:49 Pain of right shoulder joint 6605819893 8821495 M25.511 Fracture of shoulder 114 6953374 6637780 S42.90XD Pain of right wrist 3169 605801 16204 M25.531 [id number] Dick Norton MD [facility] [place] [address] [place] [address] 05/15/2023 16:34:16 05/29/2023 09:33:30 Pain of right shoulder joint 6780069982 [id number] M25.511 [id number] Dick Norton MD [facility] [place] [address] [place] [address] 06/12/2023 15:51:08 06/12/2023 17:04:30 Pain of right shoulder joint 9071816106 3995056 M25.511 [id number] Dick Norton MD [facility] [place] [address] [place] [address] 07/10/2023 16:27:37 08/01/2023 10:16:22 Closed fracture of upper end of humerus 38326155 S42.201D [id number] Cait Cabello NP [facility] [address] [address] 07/20/2023 08:56:02 07/20/2023 09:55:12 Type 2 diabetes mellitus 71337272 E11.9 Ozempic 1 mg inj sq weekly. and then get back to 2 mg once no longer nauseated. Sample of 0.25 for 4 weeks, then 0.5 mg for 4 weeks given at appt. Hypothyroidism 75421292 E03.9 Unithroid 112 mcg po daily. per endo. New endo referral made. Obesity 197160214 E66.9 diet and exercise advised. Hyperlipidemia 61631575 E78.5 Rosuvastat in 20 mg po nightly. Essential hypertension 23526506 I10 Losartan 50 mg po daily. Vitamin D deficiency 347 49960 E55.9 Seasonal allergy 2545703 04 J30.2 Insomnia 188738518 G47.0 0 Trazodone 100 mg po Anxiety 12415593 F41.9 Duloxetine 60 mg po daily. Abnormal weight 21741539 R63.4 CBC Lesion of skin of face 5671748150 06 L98.9 [id number] Dick Norton MD [facility] [place] [address] [place] [address] 08/16/2023 09:07:46 08/16/2023 10:31:10 Closed fracture of upper end of humerus 28524570 S42.201D Neck pain 61060547 M54.2 [id number] Dick Norton MD [facility] [place] [address] [place] [address] 09/13/2023 09:13:15 10/02/2023 09:58:08 Closed fracture of upper end of humerus 51050445 S42.201D Osteoarthr itis of left knee joint 4342116945 92544 M17.12 [id number] Cait Cabello NP [address] [address] 11/14/2023 09:58:56 11/14/2023 10:59:59 Type 2 diabetes mellitus 97325229 E11.9 Ozempic 1 mg inj sq weekly. Hypothyroidism 76898664 E03.9 Unithroid 112 mcg po daily. per endo. Obesity 934462374 E66.9 diet and exercise advised. Hyperlipidemia 56398401 E78.5 Rosuvastat in 20 mg po nightly. Essential hypertension 89810983 I10 Losartan 50 mg po daily.pt to call with home bp levels in 2-3 weeks. Goal 130/80. Seasonal allergy 9751454 04 J30.2 Insomnia 195322284 G47.0 0 Trazodone 100 mg po Anxiety 88925770 F41.9 Duloxetine 60 mg po daily. add [...] ID Guarantor Name 07/10/2023 2 [employer] (MEDICARE REPLACEMENT/ ADVANTAGE - PPO) [id number] Roopa S Netzer [id number] Armen Netzer 07/20/2023 2 [employer] (MEDICARE REPLACEMENT/ ADVANTAGE - PPO) [id number] Roopa S Netzer [id number] Armen Netzer 07/20/2023 2 [place] Roopa Gonzalez Netzer [id number] Armen Netzer 08/16/2023 2 [employer] (MEDICARE REPLACEMENT/ ADVANTAGE - PPO) [id number] Roopa S Netzer [id number] Armen Netzer 09/13/2023 2 [employer] (MEDICARE REPLACEMENT/ ADVANTAGE - PPO) [id number] Roopa S Netzer [id number] Armen Netzer 11/14/2023 2 [employer] (MEDICARE REPLACEMENT/ ADVANTAGE - PPO) [id number] Roopa S Netzer [id number] Armen Netzer 11/14/2023 1 [place] Roopa Gonzalez Netzer [id number] Armen Netzer Notes Date Note Type Note [...] in law and grandchild got apartment in [place].Weight- plans to go back to [employer].Vit d- Supplement routinely.thyroid- Unithroid 112 mcg po daily. Seeing Samuel Orr.lipid- Eating low fat. Rosuvastatin 20 mg nightly.htn- Stable Cait Cabello NP [address] [facility] [facility] [address], [place], [address], [facility] 07/20/2023 10:00:41 08/16/2023 text/html Patient returns. She [...] Norton MD [address], [place], [address], [facility] 08/16/2023 10:26:11 09/13/2023 text/html Patient returns. She [...] her left knee Dick Norton MD [address] [facility] [facility] [address], [place], [address], [facility] 10/01/2023 16:38:08 11/14/2023 text/html Here for check u p- wanting to discuss meds. anxiety/Depressed over situation with children, DIL, Judith. Tearful daily.Hasn't been in the mood for Gabo. DM- Seeing Samuel Orr. Ozempic 0.5 mg.Weight- Still struggling with weight loss.Vit d- Supplement routinely.thyroid- Unithroid 112 mcg po daily. Was seeing Samuel orr.lipid- Eating low fat. Rosuvastatin 20 mg nightly.htn- 150/90Still seeing PT for balance and broken arm. 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 Cait Cabello NP [address] [facility], [place], [address], [facility] 11/14/2023 10:58:47 OBGyn Episode No OBEpisode recorded.
[2025-05-07 09:58] LABS: Basophils Absolute Auto 0.1 K/mm3 (0.0-0.1); Basophils Percent Auto 1.2 % (0.2-1.2); Eosinophils Absolute Auto 0.3 K/mm3 (0-0.3); Eosinophils Percent Auto 3.7 % (0-4.4); Hematocrit 36.2 % (37.0-47.0); Hemoglobin 10.2 g/dL (12.0-15.0); Immature Granulocyte Absolute 0.02 K/mm3 (0.00-0.031); Immature Granulocyte Percent A 0.3 % (0-0.5); Lymphocytes Absolute Auto 1.44 K/mm3 (0.9-3.2); Lymphocytes Percent Auto 21.3 % (18.3-44.2); Mean Corpuscular HGB Conc 28.2 g/dl (32-36); Mean Corpuscular Hemoglobin 22.1 pg (26-34); Mean Corpuscular Volume 78.5 fl (80-100); Mean Platelet Volume 10.7 fl (7.4-10.4); Monocytes Absolute Auto 0.5 K/mm3 (0.1-0.6); Monocytes Percent Auto 6.8 % (2.6-8.5); Neutrophils Absolute Auto 4.5 K/mm3 (1.3-6.7); Neutrophils Percent Auto 66.7 % (45.5-73.1); Platelet Count Result 278 k/mm3 (150-375); Red Blood Count 4.61 M/mm3 (4.2-5.4); Red Cell Distribution Width 16.9 % (11.5-14.5); White Blood Count 6.8 K/mm3 (4.5-10.0)
[2025-05-07 10:19] LABS: Hypochromasia 1+; Platelet Estimate Adequate (Adequate); Schistocytes None Seen
[2025-05-07 10:31] LABS: Anion Gap 9 mmol/L (4-12); Blood Urea Nitrogen 17 mg/dL (7-17); Calcium 9.1 mg/dL (8.4-10.2); Carbon Dioxide 25 mmol/L (22-30); Chloride 106 mmol/L (98-107); Estimated Glomerular Filt Rate > 60; Glucose 101 mg/dL (65-110); Potassium 4.1 mmol/L (3.4-5.0); Sodium 140 mmol/L (137-145)
== END 2025-05-07 08:31 | disposition home or self-care (01) ==
LOC: ANHSURGERY 08:33
PROVIDERS: PCP Nurse Practitioner Family; Visit Provider Surgery
DX: K44.9 Diaphragmatic hernia without obstruction or gangrene (principal)
CPT/HCPCS: 36415; 71046; 80048; 85025; 86850; 86900; 86901; 93005

== ENCOUNTER 2025-05-14 01:48 | Day surgery (SDC) | payer MEDICARE, SELFPAY ==
[2025-05-05 09:34] VITALS: BMI 39.2
--- NOTE | 2025-05-05 10:07 | PC.NURSE ---
Report to the Outpatient Waiting Room, entrance under the green pavilion located off [facility], at time __8:00AM____ on date __05/14/25 . Planned Procedure Time: ___10:00AM____.? Time changes happen often and if your time is changed the preop area will call you the afternoon before. - You and your visitor will be asked to self-screen and do not enter if you have any COVID symptoms. Please call surgeon if you need to reschedule. - A mask is optional within the hospital at this time. Patients may have clear liquids (water, carbonated beverages, clear teas, apple juice) until 3 hours prior to surgery (7:00AM) with a maximum of 20 ounces. - No food from midnight until time of surgery and no smoking, or chewing tobacco (or any form of nicotine). No chewing gum, candy or mints. Take only the following medications with a SIP of water on the morning of surgery: ___DULOXETINE, LEVOTHYROXINE, METOPROLOL. MAY TAKE HYDRALAZINE NEEDED. DO NOT STOP ANY OF YOUR OTHER PRESCRIPTION MEDICATIONS PRIOR TO SURGERY EXCEPT THE FOLLOWING Hold all vitamins and supplements for 3 days per anesthesiologist. Medications to discontinue per physician ___HOLD MELOXICAM PER DR BILL Date to take last dose Please no make-up, nail faroese, hairspray, perfume, deodorant, or body powder the day of surgery.? No jewelry (including any body piercings) or valuables the day of surgery, leave them at home.? Please take a shower or bath the night before, or the morning of, surgery with an antibacterial soap.? Wear comfortable, loose fitting clothing.? - Jewelry must be removed prior to entering the operating room.? Rings and piercings that are not removed may be cut off. - The hospital will not accept responsibility for valuables.? - Please leave all valuables, including medications, at home the day of surgery. If you are going home after surgery, a licensed driver license reviewing officer must drive you home.? - NO public transportation without another adult if you receive anesthesia. - We recommend that an adult stay with you for 24 hours following discharge. - We also recommend that you do not drive, make important decision, drink alcoholic beverages, or take any drugs that were not prescribed by your health care provider for at least 24 hours after your discharge time. Follow any additional instructions given to you from your surgeon. Telephone instructions given to ___PATIENT and asked if any additional questions and then verbalized understanding. Patient advised to call surgeon office or pre surgery nurse liaison [phone] if any additional questions.
--- NOTE | 2025-05-13 13:16 | P.HP_ITS ---
H&P: HPI History of Present Illness Date/Time: 05/13/25 13:16 Chief Complaint: Dysphagia, regurgitation Narrative: Patient is a 69-year-old woman who has complaints of nausea vomiting and trouble swallowing. Food feels like it gets stuck in her upper chest, especially solid food. Sometime she will regurgitate. She had an EGD which showed a paraesophageal hiatal hernia. The EGD also showed Kannan ulcers. She has been found to be anemic but could not tolerate ferrous sulfate supplements. Most recent H&H was 10.2/36.2. Upper GI showed a large hiatal hernia with the body of the stomach more cephalad then the cardia. She has been taking omeprazole for heartburn and acid reduction. She is taken to surgery now for robotic laparoscopic repair large paraesophageal hiatal hernia. Review of Systems Review of Systems: All systems reviewed & are unremarkable except as noted in HPI and below (HPI) FOR[facility]LY [facility] Past Medical History Medical History (Updated 05/13/25 @ 13:28 by Samuel Baron MD) Headache Obese Nausea and vomiting [place] Hearing loss Arthritis Anxiety Hypothyroid Diabetes Hypertension Right-sided acoustic neuroma Surgical History Surgical History Hx of colonoscopy 08/12/13 11/11/19 @ [facility] Hx of cataract surgery H/O tubal ligation 1997 H/O brain surgery 2018 Hx of appendectomy History of tonsillectomy and adenoidectomy Family History Family History Father Anxiety and depression Heart disease Hypertension Mother Breast cancer Heart disease Sibling Carcinoma of colon Diabetes mellitus Anxiety and depression Heart disease Grandparent Carcinoma of colon Anxiety and depression Heart disease Social History Social History Social History: 08/20/24 very confident with medical forms. 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 Spiritual care concerns: No Agree to blood products: Yes Meds Home Medications and Allergies Home Medications ?Medication ?Instructions ?Recorded ?Confirmed ?Type meloxicam 7.5 mg tablet 7.5 mg PO DAILY #90 tabs 11/01/24 05/05/25 Rx trazodone 100 mg tablet 100 mg PO QHS #90 tabs 01/02/25 05/05/25 Rx levothyroxine 100 mcg tablet 100 mcg PO DAILY #90 tabs 02/28/25 05/05/25 Rx duloxetine 60 mg capsule,delayed 60 mg PO DAILY #90 caps 03/04/25 05/05/25 Rx release hydralazine 25 mg tablet 25 mg PO DAILY PRN SBP >160 03/06/25 05/05/25 History metoprolol succinate 50 mg 50 mg PO DAILY 03/06/25 05/05/25 History tablet,extended release 24 hr semaglutide 7 mg tablet (Rybelsus) 7 mg PO DAILY #90 tabs 03/18/25 05/05/25 Rx losartan 100 mg tablet 100 mg PO DAILY #90 tabs 03/25/25 05/05/25 Rx rosuvastatin 20 mg tablet 20 mg PO .COMPLEX #36 tabs 05/02/25 05/05/25 Rx aspirin 81 mg tablet,delayed 81 mg PO DAILY 05/05/25 05/05/25 History release (Adult Low Dose Aspirin) omeprazole 20 mg capsule,delayed 20 mg PO HS PRN indigestion 05/05/25 05/05/25 History release Allergies Allergy/AdvReac Type Severity Reaction Status Date / Time morphine Allergy Intermediate Hives Verified 05/05/25 09:28 Penicillins Allergy Mild HIVES Verified 05/05/25 09:28 semaglutide (From Ozempic) AdvReac NAUSEA/VOMI Verified 05/05/25 09:28 TING Exam Const: General: cooperative, comfortable, no acute distress, alert, awake, well groomed and overweight Orientation/consciousness: patient oriented x3 and No confusion HENMT: Head: normocephalic and atraumatic Mouth: Yes Normal oral and palatal mucosa present Eyes: Conjunctivae: conjunctivae normal Pupils: Equal, round and reactive pupils present EOM: EOMs intact bilaterally Neck: Neck: normal visual inspection, no lymphadenopathy and nontender Resp: Effort & Inspection: normal respiratory effort Auscultation: clear to auscultation bilaterally Cardio: Rate: regular rate Rhythm: regular rhythm Heart sounds: no gallops, no murmurs and no rubs GI: Inspection: non-distended and obesity GI Palp: Yes Soft to palpation, No Tenderness to palpation present (GI), No Hepatomegaly present and No Splenomegaly present Auscultation: normal bowel sounds Skin: Lesions: no lesions Rashes: no rashes Neuro: General: no focal motor deficits and CN's II-XI intact bilaterally Cranial nerves: Yes Equal, round and reactive pupils present, Yes Bilaterally intact EOM present, Yes facial symmetry and Yes Midline tongue present Speech: normal speech Motor exam (neuro): 5/5 motor strength present throughout and Motor abnormalities not present Extrem: General: no clubbing, cyanosis or edema and edema Psych: Affect: normal affect Thought process: Normal thought process present Insight: Good insight present (Psych) Assessment and Plan Assessment and plan (1) Paraesophageal hernia: Code(s): K44.9 - Diaphragmatic hernia without obstruction or gangrene Status: Chronic Assessment and Plan: Patient experiencing dysphagia sometimes regurgitation. She has Kannan ulcers in the hiatal hernia and anemia. After discussion, she is taken to surgery now for robotic laparoscopic repair paraesophageal hiatal hernia. Procedure, risks, benefits, alternatives, length of surgery, length of recovery, time in the hospital, have all been discussed. All questions were answered. She understands and agrees to go ahead. (2) GERD (gastroesophageal reflux disease): Qualifiers: Esophagitis presence: esophagitis presence not specified Qualified Code(s): K21.9 - Gastro-esophageal reflux disease without esophagitis Code(s): K21.9 - Gastro-esophageal reflux disease without esophagitis Status: Chronic Assessment and Plan: On omeprazole, (3) Kannan ulcer: Qualifiers: Gastric ulcer chronicity: unspecified ulcer chronicity Qualified Code(s): K25.9 - Gastric ulcer, unspecified as acute or chronic, without hemorrhage or perforation Code(s): K25.9 - Gastric ulcer, unspecified as acute or chronic, without hemorrhage or perforation Status: Chronic Assessment and Plan: With intermittent bleeding (4) Iron deficiency anemia: Qualifiers: Iron deficiency anemia type: unspecified iron deficiency Qualified Code(s): D50.9 - Iron deficiency anemia, unspecified Code(s): D50.9 - Iron deficiency anemia, unspecified Status: Chronic Assessment and Plan: Blood loss from Kannan ulcers (5) Right-sided acoustic neuroma: Code(s): D33.3 - Benign neoplasm of cranial nerves Status: Chronic Assessment and Plan: Resected years ago. (6) Aneurysm of ascending aorta: Qualifiers: Presence of rupture: without rupture Qualified Code(s): I71.21 - Aneurysm of the ascending aorta, without rupture Code(s): I71.21 - Aneurysm of the ascending aorta, without rupture Status: Chronic Assessment and Plan: Being monitored. (7) Essential hypertension: Code(s): I10 - Essential (primary) hypertension Status: Chronic (8) Diabetes: Qualifiers: Diabetes mellitus type: type 2 Diabetes mellitus extermination inspector insulin use: without extermination inspector use Diabetes mellitus complication status: without complication Qualified Code(s): E11.9 - Type 2 diabetes mellitus without complications Code(s): E11.9 - Type 2 diabetes mellitus without complications Status: Chronic (9) Obese: Qualifiers: Obesity type: due to excess calories Obesity classification: adult class 2 (BMI 35 - 39.9) Serious obesity comorbidity presence: unspecified whether serious comorbidity present Body mass index: BMI 39.0-39.9 Qualified Code(s): E66.812 - Obesity, class 2; E66.09 - Other obesity due to excess calories; Z68.39 - Body mass index [BMI] 39.0-39.9, adult Code(s): E66.9 - Obesity, unspecified Status: Chronic Assessment and Plan: Increases surgical risks
[2025-05-14] VITALS (15 sets, daily range): BP systolic 95–148; BP diastolic 48–86; PULSE 63–84; RESP 12–18; TEMP 35.6–37.1; O2SAT 92–100; BMI 39.6
--- OUTSIDE RECORDS SUMMARY | 2025-05-14 01:54 | XMS_ITS | Clinical Summary ---
Author Organization [facility] [place] Address [address] [place] [address] Phone Care Team Providers Care Lockstitch Sleeve Maker Name Role Phone Yvonne Morris MD Primary Care Provider [phone] Allergies Active Allergy Reactions Criticality Noted Date Comments Penicillins Hives High 03/29/2010 Medications MULTIVITAMINS WITH FLUORIDE (MULTI-VITAMIN ORAL) Take by mouth. Active duloxetine (CYMBALTA) 60 mg Oral CpDR Take 60 mg by mouth daily. Active levothyroxine 125 mcg Oral tablet Take 125 mcg by mouth daily mattress packer. Active furosemide (LASIX) 40 mg Oral tablet [...] MD Referring Provider: Yvonne Morris MD [address] [place] [address] [address] [place] [address] Other: Dr Mariah Gómez Problem Noted Date [...] on file Legal Sex Female 5:52 AM BED PLACEMENT COORDINATOR Gender Identity Not on file Sexual Orientation Not on file Occupation Industry Job Start Date Job End Date Not on file Not on file Not on file Not on file Not on file Not on file Not on file Not on file Last Filed Vital Signs Vital Sign Reading Time Taken Comments Blood Pressure 135/84 01/22/2015 10:18 AM BED PLACEMENT COORDINATOR Pulse 77 01/22/2015 10:18 AM BED PLACEMENT COORDINATOR Temperature - - Respiratory Rate - - Oxygen Saturation - - Inhaled Oxygen Concentration - - Weight 127.5 kg (281 lb) 01/22/2015 10:18 AM BED PLACEMENT COORDINATOR Height 180.3 cm (5' 11) 01/22/2015 10:18 AM BED PLACEMENT COORDINATOR Body Mass Index 39.19 01/22/2015 10:18 AM BED PLACEMENT COORDINATOR Plan of Treatment Health Maintenance Due Date [...] OR WO CAD Routine 01/22/2015 10:13 AM BED PLACEMENT COORDINATOR Diffuse cystic mastopathy Other screening mammogram Family history of malignant neoplasm of breast from Last 3 Months or Most Recently Relevant to Health Maintenance Results * MAMMO DIGITAL SCREEN BILAT (01/22/2015 10:13 AM BED PLACEMENT COORDINATOR) Anatomical Region Laterality Modality Breast Bilateral Mammography 01/22/2015 10:1 2 AM BED PLACEMENT COORDINATOR Narrative 01/23/2015 8:48 AM BED PLACEMENT COORDINATOR BILATERAL FULL FIELD DIGITAL SCREENING MAMMOGRAM WITH [...] BCBS BLUE ACCESS/TRUE BLUE PPO Care Teams Lockstitch Sleeve Maker Relationship Specialty Start Date End Date Yvonne Morris MD [address] [address] PCP - General 11/13/15
--- OUTSIDE RECORDS SUMMARY | 2025-05-14 01:54 | XMS_ITS | Referral Summary ---
Author Organization [facility] Medical Office Building Address [address] [place] [address] Care Team Providers Care Prenatal Genetic Counselor Name Role Phone Chitra Chen MD Primary Care Provider [phone] Chitra Chen MD Unavailable [phone] Mir Gonzales MD Unavailable Encounters Date Type Department Care Team Description 02/18/2025 3:30 PM CDT Procedure visit [facility] Otolaryngology [address], [address] [place] [address] Lilliam Faith Au.D. Asymmetrical sensorineural [...] 2 (two) times a day Active calcium [id number] ium brittanie 133 mg calcium -133 unit-67 mg capsule Take by mouth Activ e HYDROcodone-ac etaminophen ([place]) 5-325 mg per tabletIndicati ons:Pain Take 1 [...] on file Legal Sex Female 2:17 AM JAVA MANAGER Gender Identity Female 03/19/2020 9:59 AM CDT Sexual Orientation Straight 03/19/2020 9: 59 AM CDT Last Filed Vital Signs Vital Sign Reading Time Taken Comments Blood Pressure 122/80 10/14/2020 3:00 PM JAVA MANAGER Pulse 96 10/14/2020 3:00 PM JAVA MANAGER Temperature - - Respiratory Rate - - Oxygen Saturation 96% 10/14/2020 3:00 PM JAVA MANAGER Inhaled Oxygen Concentration - - Weight 127.4 kg (280 lb 14.4 oz) 10/14/2020 3:00 PM JAVA MANAGER Height 180.3 cm (5' 11) 10/14/2020 3:00 PM JAVA MANAGER Body Mass Index 39.18 10/14/2020 3:00 PM JAVA MANAGER Plan of Treatment Not on file Procedures Procedure Name Priority Date/Time Associated Diagnosis Comments POCT LIPID PANEL Routine 10/14/2020 5:34 PM JAVA MANAGER Dyslipidemia from Last 3 Months or Most Recently Relevant to Health Maintenance Results * POCT lipid panel (10/14/2020 5:34 PM JAVA MANAGER) Cholesterol, POC 169 mg/dL Comment:GLU = 124 HDL, POC 77 mg/dL Triglycerides, POC 185 mg/dL LDL Cholesterol POC 56 mg/dL Chol/HDL Ratio, POC 2.2 Non-HDL Cholesterol, POC 93 mg/dL Cholesterol Total, POC 169 mg/dL Capillary blood 10/14/2020 5 :34 PM JAVA MANAGER Seamus Landaverde MD POINT OF CARE TEST ORDERABLES Fi nal Result from Last 3 Months or Most Recently Relevant to Health Maintenance Insurance [facility] AETNA MEDICARE Care Teams Prenatal Genetic Counselor Relationship Specialty Start Date End Date Chitra Chen MD PCP - General Internal Medicine 09/04/20 Chitra Chen MD Internal Medicine 09/04/20 Mir Gonzales MD Referring Physician Otolaryngology 04/08/19
--- OUTSIDE RECORDS SUMMARY | 2025-05-14 01:54 | XMS_ITS | Clinical Summary ---
Author Organization [facility] Medical Office Building Address [address] [place] [id number] Care Team Providers Care Liquefier Name Role Phone Chitra Chen MD Primary Care Provider [phone] Chitra Chen MD Unavailable [phone] Mir Gonzales MD Unavailable [phone] Allergies Active Allergy Reactions Criticality Noted Date [...] 2 (two) times a day Active calcium [id number] ium brittanie 133 mg calcium -133 unit-67 mg capsule Take by mouth Activ e HYDROcodone-ac etaminophen (Surveyor) 5-325 mg per tabletIndicati ons:Pain Take 1 [...] Description 02/18/2025 3:30 PM CDT Procedure visit [facility] Otolaryngology [address], [address] [place] [address] Lilliam Faith Au.D. Asymmetrical sensorineural hearing loss (Primary Dx); Encounter for adjustment and management of cochlear device from Last 3 Months Surgical History Surgery Date Site/Laterality Comments [place] TONSILLECTOMY PRIMARY/SEC ONDARY <AGE 13 Tonsillectomy - [...] on file Legal Sex Female 2:17 AM DIRECTOR OF SAFETY AND SECURITY Gender Identity Female 03/19/2020 9:59 AM CDT Sexual Orientation Straight 03/19/2020 9: 59 AM CDT Obstetrics History Last Filed Vital Signs Vital Sign Reading Time Taken Comments Blood Pressure 122/80 10/14/2020 3:00 PM DIRECTOR OF SAFETY AND SECURITY Pulse 96 10/14/2020 3:00 PM DIRECTOR OF SAFETY AND SECURITY Temperature - - Respiratory Rate - - Oxygen Saturation 96% 10/14/2020 3:00 PM DIRECTOR OF SAFETY AND SECURITY Inhaled Oxygen Concentration - - Weight 127.4 kg (280 lb 14.4 oz) 10/14/2020 3:00 PM DIRECTOR OF SAFETY AND SECURITY Height 180.3 cm (5' 11) 10/14/2020 3:00 PM DIRECTOR OF SAFETY AND SECURITY Body Mass Index 39.18 10/14/2020 3:00 PM DIRECTOR OF SAFETY AND SECURITY Plan of Treatment Health Maintenance Due Date [...] POCT LIPID PANEL Routine 10/14/2020 5:34 PM DIRECTOR OF SAFETY AND SECURITY Dyslipidemia from Last 3 Months or Most Recently Relevant to Health Maintenance Results * POCT lipid panel (10/14/2020 5:34 PM DIRECTOR OF SAFETY AND SECURITY) Cholesterol, POC 169 mg/dL Comment:GLU = 124 HDL, POC 77 mg/dL Triglycerides, POC 185 mg/dL LDL Cholesterol POC 56 mg/dL Chol/HDL Ratio, POC 2.2 Non-HDL Cholesterol, POC 93 mg/dL Cholesterol Total, POC 169 mg/dL Capillary blood 10/14/2020 5 :34 PM DIRECTOR OF SAFETY AND SECURITY Seamus Landaverde MD POINT OF CARE TEST ORDERABLES Fi nal Result from Last 3 Months or Most Recently Relevant to Health Maintenance [place] [address] [facility] AETNA [facility]IC[facility] Care Teams Liquefier Relationship Specialty Start Date End Date Chitra Chen MD PCP - General Internal Medicine 09/04/20 Chitra Chen MD Internal Medicine 09/04/20 Mir Gonzales MD Referring Physician Otolaryngology 04/08/19
--- OUTSIDE RECORDS SUMMARY | 2025-05-14 01:54 | XMS_ITS | Data Portability ---
Author Organization [place] [facility], Main Office Address [address] [place] [address] Care Team Providers Care Research Scholar Name Role Phone CAIT CABELLO Primary Care Provider [phone] CAIT CABELLO Referring Provider [phone] Assessment Encounter Date Assessment Date Assessment LastModified [...] more than half the time spent in mkfd-io-ashq care. Not available 07/31/2023 14:10:57 08/16/2023 08/16/2023 [...] more than half the time spent in zoiu-ro-avqu care. Not available 08/16/2023 10:25:27 09/13/2023 09/13/2023 [...] more than half the time spent in nygy-kg-attg care. Not available 10/01/2023 16:37:52 Plan of Treatment Reminders Order Date Submit Date Provider Last Modified By Organization Details Last Modified Time Details Appointments None recorded. Lab BMP, serum or plasma 2022 023 [facility], [address] [place], [address], 12/19/202 3 19:56:33 HbA1c (hemoglobin A1c), blood [address], [address] [place], [place] [address], [place], [address], 3 08:39:33 TSH, serum, reflex free T4 [address], [address] [place] [address], [address], 3 08:39:33 lipid panel, serum 2022 023 [facility], [address] [place] [address], [address], 3 19:56:35 CBC w/ auto diff 2022 023 [facility], [address] [place] [address], [address], 3 14:09:54 HbA1c (hemoglobin A1c), blood [address], [address] [place] [address], [address], 3 08:20:12 CMP, serum or plasma 2022 023 [facility], [address] [place] [address], [address], 3 14:17:08 lipid panel, serum 2022 023 [facility], [address] [place] [address], [address], 3 14:17:01 T4, free, serum 2022 023 [facility], [address] [place] [address], [address], 3 14:33:58 TSH, serum or plasma 2022 023 [facility], [address], [place], [address], 14:49:[address] referral - lesion left face. eval and treat 2022 023 [place] [address] Kayli Boyle MD (Dermatology) , [address], [address], [place], [address], 09:18:36 endocrinolo gy referral - was seeing samuel orr, but she is leaving [address] - Endocrinology , [address], [address], [place], [address], 3 09:18:32 Procedures injection/a spiration joint/bursa (PROC) - in office procedure, administere d by provider 2022 023 [email or web address] In-Office Order, Internal Use Only DO Not Attach Compendium DO Not Attach Compendium, Do Not Delete/merge, [id number] 09:57:13 Surgeries None recorded. Imaging None recorded. Medication Orders Ozempic 1 mg/dose (4 mg/3 mL) subcutaneou s pen injector 2022 023 [facility] [address], [place], [id number], 3 10:51:19 duloxetine 30 mg capsule,del ayed release 2022 023 [facility]13902, [address], [place], [id number], 3 10:58:43 Kenalog 10 mg/mL suspension for injection 2022 023 [facility]13081, [address], [place], [id number], 3 10:09:24 ropivacaine (PF) 5 mg/mL (0.5 %) injection solution 2022 023 [facility] #74380, [address], [place], [id number], 3 10:09:44 Medrol (José) 4 mg tablets in a dose pack 2022 023 [facility]16138, [address], [place], [id number], 3 10:09:35 Patient TargetsNo targets recorded. Patient Instructions Encounter Date Encounter Id Patient Instructions Last Modified By Organization Details Last Modified Time 07/20/2023 [id number] FU in 4-6 mo. [email or web address] Not available 0 07/20/2023 09:59:34 11/14/2023 [id number] FU in 4 mo 11/14/23 pt aware of Omar departure. Monitor bp. [email or web address] Not available 11/14/2023 10:52:11 Reason for Referral Endocrinology Referral for T yplenin 2 diabetes mellitus was seeing samuel orr, but she is leaving Referring Physician: Cait Cabello, Family Medicine, Encounter Date: 07/20/2023 [employer] Referral for L esion of skin of face lesion left face. eval and treat Referring Physician: Cait Cabello, [facility] Medicine, Encounter Date: 07/20/2023 Results Created Date Observation Date Name Description Value Unit Range Abnormal Flag Note LastModifiedBy Organization Detail LastModifiedTime 07/20/2007/20/2023 CBC/C OMPLE TE BLD COUNT W/DIF F white blood cells 6.8 x10'3 /uL 4.2-10 .8 Not Available [facility] (Lab) [address] [place], [address], 07/20/2023 14:09:54 07/20/20 23 07/20/2023 CBC/C OMPLE TE BLD COUNT W/DIF F red blood cells 4.91 x10'6 /uL 3.80-5 .20 Not Available [facility] (Lab) [address] [place], [address], 07/20/2023 14:09:54 07/20/20 23 07/20/2023 CBC/C OMPLE TE BLD COUNT W/DIF F hemoglobin 13.9 g/dL 12.0-1 5.6 Not Available [facility] (Lab) [address] [place], [address], 07/20/2023 14:09:54 07/20/20 23 07/20/2023 CBC/C OMPLE TE BLD COUNT W/DIF F hematocrit 43.4 % 35.7-4 5.7 Not Available [facility] (Lab) [address] [place], [address], 07/20/2023 14:09:54 07/20/20 23 07/20/2023 CBC/C OMPLE TE BLD COUNT W/DIF F mean red cell volume 88.4 fL 82.0-9 9.0 Not Available [facility] (Lab) [address] [place], [address], 07/20/2023 14:09:54 07/20/20 23 07/20/2023 CBC/C OMPLE TE BLD COUNT W/DIF F mean red cell hemoglobin 28.3 pg 27.0-3 3.0 Not Available [facility] (Lab) [address] [place], [address], 07/20/2023 14:09:54 07/20/20 23 07/20/2023 CBC/C OMPLE TE BLD COUNT W/DIF F mean RBC HGB concentratio n 32.0 g/dL 31.0-3 6.0 Not Available [facility] (Lab) [address] [place], [address], 07/20/2023 14:09:54 07/20/20 23 07/20/2023 CBC/C OMPLE TE BLD COUNT W/DIF F red cell distribution width 13.5 % 11.8-1 5.5 Not Available [facility] (Lab) [address] [place], [address], 07/20/2023 14:09:54 07/20/20 23 07/20/2023 CBC/C OMPLE TE BLD COUNT W/DIF F platelets 237 x10'3 /uL 150-40 0 Not Available [facility] (Lab) [address] [place], [address], 07/20/2023 14:09:54 07/20/20 23 07/20/2023 CBC/C OMPLE TE BLD COUNT W/DIF F mean platelet volume 11.5 fL 9.0-12 .4 Not Available [facility] (Lab) [address] [place], [address], 07/20/2023 14:09:54 07/20/20 23 07/20/2023 CBC/C OMPLE TE BLD COUNT W/DIF F neutrophils 68.7 % 39.0-7 2.0 Not Available [facility] (Lab) [address] [place], [address], 07/20/2023 14:09:54 07/20/20 23 07/20/2023 CBC/C OMPLE TE BLD COUNT W/DIF F lymphocytes 21.1 % 16.0-4 7.0 Not Available [facility] (Lab) [address] [place], [address], 07/20/2023 14:09:54 07/20/20 23 07/20/2023 CBC/C OMPLE TE BLD COUNT W/DIF F monocytes 6.0 % 5.0-12 .0 Not Available [facility] (Lab) [address] [place], [address], 07/20/2023 14:09:54 07/20/20 23 07/20/2023 CBC/C OMPLE TE BLD COUNT W/DIF F eosinophils 3.2 % 1.0-7. 0 Not Available [facility] (Lab) [address] [place], [address], 07/20/2023 14:09:54 07/20/20 23 07/20/2023 CBC/C OMPLE TE BLD COUNT W/DIF F basophils 0.7 % 0.0-2. 0 Not Available [facility] (Lab) [address] [place], [address], 07/20/2023 14:09:54 07/20/20 23 07/20/2023 CBC/C OMPLE TE BLD COUNT W/DIF F immature granulocytes 0.3 % 0.00-0 .50 Not Available [facility] (Lab) [address] [place], [address], 07/20/2023 14:09:54 07/20/20 23 07/20/2023 CBC/C OMPLE TE BLD COUNT W/DIF F neutrophils, absolute count 4.67 x10'3 /uL 1.5-8. 0 Not Available [facility] (Lab) [address] [place], [address], 07/20/2023 14:09:54 07/20/20 23 07/20/2023 CBC/C OMPLE TE BLD COUNT W/DIF F lymphocytes, absolute count 1.44 x10'3 /uL 1.07-3 .43 Not Available [facility] (Lab) [address] [place], [address], 07/20/2023 14:09:54 07/20/20 23 07/20/2023 CBC/C OMPLE TE BLD COUNT W/DIF F monocytes, absolute count 0.41 x10'3 /uL 0.29-0 .99 Not Available [facility] (Lab) [address] [place], [address], 07/20/2023 14:09:54 07/20/20 23 07/20/2023 CBC/C OMPLE TE BLD COUNT W/DIF F eosinophils, absolute count 0.22 x10'3 /uL 0.02-0 .53 Not Available [facility] (Lab) [address] [place], [address], 07/20/2023 14:09:54 07/20/20 23 07/20/2023 CBC/C OMPLE TE BLD COUNT W/DIF F basophils, absolute count 0.05 x10'3 /uL 0.01-0 .08 Not Available [facility] (Lab) [address] [place], [address], 07/20/2023 14:09:54 07/20/20 23 07/20/2023 CBC/C OMPLE TE BLD COUNT W/DIF F immature granulocytes ,absolute 0.02 x10'3 /uL 0.00-0 .05 Not Available [facility] (Lab) [address] [place], [address], 07/20/2023 14:09:54 07/20/20 23 07/20/2023 CBC/C OMPLE TE BLD COUNT W/DIF F nucleated red blood cells 0.0 % -0 Not Available [facility] (Lab) [address] [place], [address], 07/20/2023 14:09:54 07/20/20 23 07/20/2023 CBC/C OMPLE TE BLD COUNT W/DIF F NRBC# 0.00 x10'3 /uL Not Available [facility] (Lab) [address] [place], [address], 07/20/2023 14:09:54 07/20/20 23 07/20/2023 LIPID PANEL cholesterol 171 mg/dL 140-19 9 [facility] NSUS RECOM MENDA TION FOR JAE STERO L: ADULT CHILD LOW RISK: <200 <170 BORDE RLINE : <200- 239 ----- HIGH RISK: >240 >200 Not Available [facility] (Lab) [address] [place], [address], 07/20/2023 14:17:01 07/20/20 23 07/20/2023 LIPID PANEL triglyceride s 84 mg/dL 0-150 [facility] NSUS REPOR T RECOM MENDA TION FOR TRIGL YCERI THERESE: ADULT CHILD LOW RISK: <150 ----- BODER LINE: 150-1 99 ----- HIGH RISK: >200 ----- Not Available [facility] (Lab) [address] [place], [address], 07/20/2023 14:17:01 07/20/20 23 07/20/2023 LIPID PANEL HDL cholesterol 70 mg/dL 40- Not Available [facility] (Lab) [address] [place], [address], 07/20/2023 14:17:01 07/20/20 23 07/20/2023 LIPID PANEL [...] WILL NOT BE REPOR SOUMYA. Not Available [facility] (Lab) [address] [place], [address], 07/20/2023 14:17:01 07/20/2007/20/2023 COMPR EHENS FRANSISCA METAB OLIC PANEL sodium 140 mmol/ L 137-14 5 Not Available [facility] (Lab) [address] [place], [address], 07/20/2023 14:17:07 07/20/20 23 07/20/2023 COMPR EHENS FRANSISCA METAB OLIC PANEL potassium 4.1 mmol/ L 3.5-5. 1 Not Available [facility] (Lab) [address] [place], [address], 07/20/2023 14:17:07 07/20/20 23 07/20/2023 COMPR EHENS FRANSISCA METAB OLIC PANEL chloride 107 mmol/ L 98-107 Not Available [facility] (Lab) [address] [place], [address], 07/20/2023 14:17:07 07/20/20 23 07/20/2023 COMPR EHENS FRANSISCA METAB OLIC PANEL carbon dioxide 26 mmol/ L 22-30 Not Available [facility] (Lab) [address] [place], [address], 07/20/2023 14:17:07 07/20/20 23 07/20/2023 COMPR EHENS FRANSISCA METAB OLIC PANEL anion gap 11.1 mmol/ L 14-22 low Not Available [facility] (Lab) [address] [place], [address], 07/20/2023 14:17:07 07/20/20 23 07/20/2023 COMPR EHENS FRANSISCA METAB OLIC PANEL glucose 125 mg/dL 70-99 high Not Available [facility] (Lab) [address] [place], [address], 07/20/2023 14:17:07 07/20/20 23 07/20/2023 COMPR EHENS FRANSISCA METAB OLIC PANEL BUN 14 mg/dL 8-19 Not Available [facility] (Lab) [address] [place], [address], 07/20/2023 14:17:07 07/20/20 23 07/20/2023 COMPR EHENS FRANSISCA METAB OLIC PANEL creatinine 0.57 mg/dL 0.66-1 .25 low Not Available [facility] (Lab) [address] [place], [address], 07/20/2023 14:17:07 07/20/2007/20/2023 COMPR EHENS FRANSISCA METAB OLIC PANEL GFR >60 Refer ence Range : Shasta ge GFR Healt hy Adult : >60 [...] calcu lator is avail able on the [facility] websi te: [email or web address] :[email or web address] [email or web address] [email or web address] rg/pr ofess ional s/kdo qi/gf r_cal culat or Not Available [facility] (Lab) [address] [place], [address], 07/20/2023 14:17:07 07/20/2007/20/2023 COMPR EHENS FRANSISCA METAB OLIC PANEL alkaline phosphatase 87 U/L 38-126 Not Available [facility] (Lab) [address] [place], [address], 07/20/2023 14:17:07 07/20/2007/2007/20/2023 COMPR EHENS FRANSISCA METAB OLIC PANEL alanine aminotransfe rase 19 U/L 0-35 Not Available [facility] (Lab) [address] [place], [address], 07/20/2023 14:17:07 07/20/20 23 07/20/2023 COMPR EHENS FRANSISCA METAB OLIC PANEL aspartate aminotransfe rase 21 U/L 15-37 Not Available [facility] (Lab) [address] [place], [address], 07/20/2023 14:17:07 07/20/20 23 07/20/2023 COMPR EHENS FRANSISCA METAB OLIC PANEL bilirubin, total 0.40 mg/dL 0.20-1 .30 Not Available [facility] (Lab) [address] [place], [address], 07/20/2023 14:17:07 07/20/20 23 07/20/2023 COMPR EHENS FRANSISCA METAB OLIC PANEL calcium 8.7 mg/dL 8.4-10 .2 Not Available [facility] (Lab) [address] [place], [address], 07/20/2023 14:17:07 07/20/20 23 07/20/2023 COMPR EHENS FRANSISCA METAB OLIC PANEL total protein 6.7 g/dL 6.3-8. 2 Not Available [facility] (Lab) [address] [place], [address], 07/20/2023 14:17:07 07/20/20 23 07/20/2023 COMPR EHENS FRANSISCA METAB OLIC PANEL albumin 4.0 g/dL 3.0-4. 4 Not Available [facility] (Lab) [address] [place], [address], 07/20/2023 14:17:07 07/20/20 23 07/20/2023 COMPR EHENS FRANSISCA METAB OLIC PANEL globulin 2.7 g/dL 2.6-4. 2 Not Available [facility] (Lab) [address] [place], [address], 07/20/2023 14:17:07 07/20/20 23 07/20/2023 COMPR EHENS FRANSISCA METAB OLIC PANEL A/G ratio 1.5 ratio 1.0-2. 0 Not Available [facility] (Lab) [address] [place], [address], 07/20/2023 14:17:07 07/20/20 23 07/20/2023 T4 FREE free T4 1.25 NG/dL 0.78-2 .19 Not Available [facility] (Lab) [address] [place], [address], 07/20/2023 14:33:57 07/20/20 23 07/20/2023 TSH thyroid-stim ulating hormone 0.237 uIU/m L 0.465- 4.680 low Not Available [facility] (Lab) [address] [place], [address], 07/20/2023 14:49:13 07/20/20 23 07/20/2023 HEMOG LOBIN A1C HA1C 6.2 % 4.0-6. 0 high Diabe lisandro Scree pedro Crite rob: <5.7% Consi stent with absen ce of diabe lisandro 5.7-6 .4% Consi stent with incre ased risk for diabe lisandro (pred iabet es) >OR=6 .5% Consi stent with diabe lisanrdo REFER ENCE: Diabe lisandro Care 2016, 39(Branham ppl.1 ):s13 -s22 Not Available [facility] (Lab) [address] [place], [address], 07/20/2023 20:25:02 11/14/20 23 11/14/2023 BASIC METAB OLIC PANEL sodium 140 mmol/ L 137-14 5 Not Available [facility] (Lab) [address] [place], [address], 11/14/2023 19:56:32 11/14/20 23 11/14/2023 BASIC METAB OLIC PANEL potassium 4.5 mmol/ L 3.5-5. 1 Not Available [facility] (Lab) [address] [place], [address], 11/14/2023 19:56:32 11/14/20 23 11/14/2023 BASIC METAB OLIC PANEL chloride 106 mmol/ L 98-107 Not Available [facility] (Lab) [address] [place], [address], 11/14/2023 19:56:32 11/14/20 23 11/14/2023 BASIC METAB OLIC PANEL carbon dioxide 28 mmol/ L 22-30 Not Available [facility] (Lab) [address] [place], [address], 11/14/2023 19:56:32 11/14/20 23 11/14/2023 BASIC METAB OLIC PANEL anion gap 10.5 mmol/ L 14-22 low Not Available [facility] (Lab) [address] [place], [address], 11/14/2023 19:56:32 11/14/20 23 11/14/2023 BASIC METAB OLIC PANEL glucose 139 mg/dL 70-99 high Not Available [facility] (Lab) [address] [place], [address], 11/14/2023 19:56:32 11/14/20 23 11/14/2023 BASIC METAB OLIC PANEL BUN 14 mg/dL 8-19 Not Available [facility] (Lab) [address] [place], [address], 11/14/2023 19:56:32 11/14/20 23 11/14/2023 BASIC METAB OLIC PANEL creatinine 0.67 mg/dL 0.66-1 .25 Not Available [facility] (Lab) [address] [place], [address], 11/14/2023 19:56:32 11/14/20 23 11/14/2023 BASIC METAB OLIC PANEL GFR >60 Refer ence Range : Shasta ge GFR Healt hy Adult : >60 [...] calcu lator is avail able on the [facility] websi te: https :[email or web address] magana.luiz rg/pr ofess ional s/kdo qi/gf r_cal culat or Not Available [facility] (Lab) [address] [place], [address], 11/14/2023 19:56:32 11/14/20 23 11/14/2023 BASIC METAB OLIC PANEL calcium 9.0 mg/dL 8.4-10 .2 Not Available [facility] (Lab) [address] [place], [address], 11/14/2023 19:56:32 11/14/20 23 11/14/2023 LIPID PANEL cholesterol 167 mg/dL 140-19 9 [facility] NSUS RECOM MENDA TION FOR JAE STERO L: ADULT CHILD LOW RISK: <200 <170 BORDE RLINE : <200- 239 ----- HIGH RISK: >240 >200 Not Available [facility] (Lab) [address] [place], [address], 11/14/2023 19:56:35 11/14/20 23 11/14/2023 LIPID PANEL triglyceride s 90 mg/dL 0-150 [facility] NSUS REPOR T RECOM MENDA TION FOR TRIGL YCERI THERESE: ADULT CHILD LOW RISK: <150 ----- BODER LINE: 150-1 99 ----- HIGH RISK: >200 ----- Not Available [facility] (Lab) [address] [place], [address], 11/14/2023 19:56:35 11/14/20 23 11/14/2023 LIPID PANEL HDL cholesterol 74 mg/dL 40- Not Available [facility] (Lab) [address] [place], [address], 11/14/2023 19:56:35 11/14/20 23 11/14/2023 LIPID PANEL [...] WILL NOT BE REPOR SOUMYA. Not Available [facility] (Lab) [address] [place], [address], 11/14/2023 19:56:35 11/14/20 23 11/14/2023 TSH W/REF OCTAVIANO FT4 TSH with reflex free T4 0.929 uIU/m L 0.465- 4.680 Not Available [facility] (Lab) [address] [place], [address], 11/14/2023 20:29:55 11/14/20 23 11/14/2023 HEMOG LOBIN A1C HA1C 6.1 % 4.0-6. 0 high Diabe lisandro Suzan vasquez Crite rob: <5.7% Consi stent with absen ce of diabe lisandro 5.7-6 .4% Consi stent with incre ased risk for diabe lisandro (pred iabet es) >OR=6 .5% Consi stent with diabe lisandro REFER ENCE: Diabe lisandro Care 2016, 39(Branham ppl.1 ):s13 -s22 Not Available [facility] ([facility]) [address] [place], [address], 11/14/2023 21:34:36 06/12/20 23 XR, shoul angella No observ ation record ed. [email or web address] [email or web address] [place] [address], [place], [address], 06/12/2023 16:21:54 Result Notes None recorded. Problems Name Problem SNOMED Code Status Onset Date Resolution Date Notes Provider Name and Address Organization Details Recorded Time Pain in throat 936853134 Completed Not Available [facility] 3 04:54:40 Edema 971044179 Completed Not Available [facility] 3 04:54:40 Anemia 421161867 Completed Not Available [facility] 3 04:54:40 Weight loss advised 048076845 Active 2017 [facility] Available [facility] 3 04:54:40 Pain in pelvis 22701967 Completed Not Available [facility] 3 04:54:41 Type 2 diabetes mellitus without complicat ion 972664357 Active 2017 Not Available [facility] 3 04:54:41 Vitamin D deficienc y 13201698 Active Not Available [facility] 3 04:54:41 Depressiv e disorder 43631271 Completed Not Available [facility] 3 04:54:41 Polyarthr opathy 81374566 Active 2021 Not Available [facility] 3 04:54:41 Sinusitis 15254292 Completed Not Available [facility] 3 04:54:41 Melanocyt ic nevus 890353295 Active 2016 Not Available [facility] 3 04:54:41 Hypothyro idism 50719234 Active Not Available [facility] 3 04:54:41 Obese 779898604 Active 2016 Not Available [facility] 3 04:54:41 Obesity 830551982 Active Not Available [facility] 3 04:54:41 Type 2 diabetes mellitus 19328221 Active Not Available [facility] 3 04:54:41 Seasonal allergy 608328158 Active Not Available [facility] 3 04:54:42 Pain of left knee joint 18345878504 4107 Active 2021 Not Available [facility] 3 04:54:42 Hearing loss of right ear 560113838 Active 2016 Not Available [facility] 3 04:54:42 Foot pain 06315676 Completed Not Available [facility] 3 04:54:42 Bilateral tinnitus 95887254642 02 Active 2016 Not Available [facility] 3 04:54:42 Pain of hip region 56155818 Active 2016 Not Available [facility] 3 04:54:42 Cough 21343202 Completed Not Available [facility] 3 04:54:42 Hyperlipi demia 66879837 Active Not Available [facility] 3 04:54:42 Essential hypertens ion 06589248 Active 2020 Not Available [facility] 3 04:54:43 Diabetes mellitus 38151201 Active 2016 Not Available [facility] 3 04:54:43 Posterior rhinorrhe a 53739911 Completed Not Available [facility] 3 04:54:43 Hyperglyc emia 25755437 Completed Not Available [facility] 3 04:54:43 Injury of head 89334235 Completed Not Available [facility] 3 04:54:43 Perniciou s anemia 99934034 Active Not Available [facility] 3 04:54:43 Fatigue 67661118 Completed Not Available [facility] 3 04:54:43 Fracture of humerus 41734412 Active 2022 Cait Cabello NP [address], [place], [address] , [facility] 3 21:39:20 Pain of left shoulder joint 79505685470 841185 Active 2022 Roxanna Abraham RMA null, [facility] 3 10:43:17 Pain of right shoulder joint 58115442072 912553 Active 2022 Roxanna Abraham RMA null, [facility] 3 10:43:42 Osteoporo sis 04689792 Active 2022 Nadia Sunshine TRACTOR SWEEPER OPERATOR null, [facility] 3 15:44:52 Fracture of shoulder 00968350131 943599 Active 2022 Roxanna Abraham RMA null, [facility] 3 16:48:10 Closed fracture of upper end of humerus 67647315 Active 2022 Roxanna Abraham RMA null, [facility] 3 10:04:23 Insomnia 727344967 Active 2022 Cait Cabello NP [address], [place], [address] , [facility] 3 11:44:09 Anxiety 29461989 Active 2022 Cait Cabello NP [address], [place], [address] , [facility] 3 13:55:32 Hyperpara thyroidis m 47920044 Active 2022 Sheryl Kingston TRACTOR SWEEPER OPERATOR null, [place] [facility] 3 11:28:47 Pain of right wrist 10149979607 9100 Active 2022 Nadia Sunshine CMA null, [facility] 3 10:46:10 Abnormal weight 33710963 Active 2022 Liz Izaguirre MA null, [facility] 3 09:04:17 Lesion of skin of face 61119569877 6 Active 2022 Cait Cabello NP [address] [facility], [facility] [address], [place], [address] , [facility] 3 09:31:45 Neck pain 35940805 Active 2022 Nadia Sunshine CMA null, [facility] 3 10:20:10 Osteoarth ritis of left knee joint 47756022787 9109 Active 2022 Nadia Sunshine CMA null, [facility] 3 09:41:38 Problem Notes None recorded. Procedures Surgical History Date Name Laterality Status Provider Name and Address Organization Details Recorded Time 3 Most Recent Bone Density completed Cait Cabello NP [address] [facility], [facility] [address], [place], [address], [facility] 05/03/2023 14:12:58 2 Most Recent Mammogram completed Cait Dodson RN [facility] 04/12/2023 11:04:32 tonsilectomy/a denoids completed Not Available [facility] 01/25/2023 04:44:18 acoustic neurotomy completed Not Available [facility] 01/25/2023 04:44:18 Tubal Ligation completed Not Available [facility] 01/25/2023 04:44:18 Imaging Results None recorded. Procedure Notes None recorded. Medical Equipment None Reported. Allergies Allergen ID Allergen Name Allergen Category Reaction Reaction Severity Criticality Documentation Date Start Date Code Code System Note Provider Name and Address Organization Details Recorded Time 9099 Product containin g penicilli n (product) medicatio n rash Not available Not available 01/25/2023 21443 [id number] SNOMED Not Available [facility] 3 05:07:49 Medications Name Sig Start Date [...] mg/mL suspensio n for injection 12/17 completed [facility]# [id number] 93-28 Not Available Not Available Not Available [...] e, administ ered by provider 11/14 completed [facility]: [id number] 4-20 Not Available Not Available Not [...] e, administ ered by provider 11/14 completed [facility] [id number] 02-25 Not Available Not Available Not Available [...] Updated DateTime 07/10/2023 175.26 cm Roxanna Green, [facility] 07/10/2023 16:37:00 Date Recorded Body height Body mass index (BMI) Body weight Body temperature Heart rate Oxygen saturation Oxygen saturation in Arterial blood by Pulse oximetry Systolic blood pressure Diastolic blood pressure Provider Name and Address Organization Details Last Updated DateTime 3 175.26 cm 40.2 kg/m2 624599. 22 g 97 [degF] 83 /min 95 % 95 % 145 mm[Hg] 94 mm[Hg] Liz Izaguirre MA [facility] [employer] [facility] 3 09:09:23 Date Recorded Body height Provider Name an d Address Organization Details Last Updated DateTime 08/16/2023 175.26 cm Roxanna Abraham [facility] 08/16/2023 09:10:02 Date Recorded Body height Provider Name an d Address Organization Details Last Updated DateTime 09/13/2023 175.26 cm Roxanna Abraham [facility] 09/13/2023 09:29:51 Date Recorded Body height Body mass index (BMI) Body weight Body temperature Heart rate Respiratory rate Oxygen saturation Oxygen saturation in Arterial blood by Pulse oximetry Systolic blood pressure Diastolic blood pressure Provider Name and Address Organization Details Last Updated DateTime 3 175.26 cm 42.7 kg/m2 364775. 54 g 96.5 [degF] 76 /min 20 /min 95 % 95 % 150 mm[Hg] 96 mm[Hg] Cait Dodson RN [facility] 3 10:13:49 Social History Question Answer Notes LastModified by Organization Details LastModified Time Tobacco Smoking Status Never Smoker Not Available [facility] 01/25/2023 04:41:37 Do You Have An Advance Directive? No Information not available 04/12/2023 Are You Blind Or Do You Have Difficulty Seeing? No MIGRATION.[id number] [id number] Information not available 01/25/2023 Is Blood Transfusion Acceptable In An Emergency? Yes Information not available 04/12/2023 What Is Your Level Of Caffeine Consumption? Moderate [id number] Information not available 01/25/2023 How Much Tobacco Do You Chew? None MIGRATION.0301 [id number] Information not available 01/25/2023 What Is Your Code Status? Full Code Information not available 04/12/2023 In The 14 Days Before Symptom Onset, Have You Had Close Contact With A Laboratory-confi rmed COVID-19 While That Case Was Ill? No MIGRATION.0301 [id number] Information not available 01/25/2023 In The 14 Days Before Symptom Onset, Have You Had Close Contact With A Person Who Is Under Investigation For COVID-19 While That Person Was Ill? No MIGRATION.0301 [id number] Information not available 01/25/2023 Are You Deaf Or Do You Have Serious Difficulty Hearing? 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 REGULAR MIGRATION.030 [id number] Information not available 01/25/2023 What Is The Highest Grade Or Level Of School You Have Completed Or The Highest Degree You Have Received? [id number] Information not available 04/12/2023 Have There Been Any Changes To Your Family Or Social Situation? Yes Information not available 04/12/2023 Do You Use Insect Repellent Routinely? Yes Information not available 04/12/2023 Where Do You Live? SingleLevelHouse Information not available 04/12/2023 Do You Have A Medical Power Of Deer Farmer? No Information not available 04/12/2023 How Many [...] Difficulty Walking Or Climbing Stairs? No MIGRATION.0301 [id number] Information not available 01/25/2023 Sex: Unknown Functional Status Question Answer Note LastModified by Organizat ion Details LastModified Time What is your level of alcohol consumption? None MIGRATION.03618 [id number] Information not available 01/25/2023 Do you or have you ever used smokeless tobacco? Never used smokeless tobacco MIGRATION.33439 00885 Information not available 01/25/2023 Are you currently employed? No Information not available 04/12/2023 Do you have transportation difficulties? No MIGRATION.47361 05510 Information not available 01/25/2023 Are you able to walk? [place]OREST MIGRATION.81348 53875 Information not available 01/25/2023 Do you have difficulty doing errands alone? No MIGRATION.01487 37526 Information not available 01/25/2023 Are you able to care for yourself? 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 No MIGRATION.06156 69944 Information not available 01/25/2023 Do you or have you ever used e-cigarettes or vape? Never used electronic cigarettes MIGRATION.21274 01909 Information not available 01/25/2023 What is your exercise level? Occasional MIGRATION.87196 31903 Information not available 01/25/2023 Mental Status Question Answer Note LastModified by Organizat ion Details LastModified Time Do you feel stressed (tense, restless, nervous, or anxious, or unable to sleep at night)? [id number] Information not available 11/14/2023 Do you have difficulty concentrating, remembering or making decisions? No [id number] Information not available 01/25/2023 Family History Relationship Description Onset Age of this Age Resolved Age Notes LastModified by Organization Details LastModified Time Mother Family history of malignant neoplasm MIGRATION.325 [id number] Not available 01/25/2023 04:44:24 Sister Diabetes mellitus MIGRATION.114 [id number] Not available 01/25/2023 04:44:24 Notes:4/9/18 retinal eye [...] 50 mcg/0.25mL dose 1 completed Not Available [facility] 01/25/2023 05:07:29 SARS-COV-2 (COVID-19) vaccine, UNSPECIFIED 1 completed Not Available [facility] 01/25/2023 05:07:29 SARS-COV-2 (COVID-19) vaccine, UNSPECIFIED 1 completed Not Available [facility] 01/25/2023 05:07:29 Influenza, high-dose, quadrivalent, PF 2 completed Not Available [facility] 01/25/2023 05:07:30 Influenza, split virus, quadrivalent, preservative 1 completed Not Available [facility] 01/25/2023 05:07:30 Influenza, split virus, quadrivalent, preservative 9 completed Not Available [facility] 01/25/2023 05:07:30 Influenza, split virus, quadrivalent, preservative 8 completed Not Available [facility] 01/25/2023 05:07:30 Influenza, split virus, trivalent, preservative 2 completed Not Available [facility] 01/25/2023 05:07:30 Tdap 8 completed Not Available [facility] 01/25/2023 05:07:30 Influenza, split virus, quadrivalent, PF 9 completed Not Available [facility] 01/25/2023 05:07:30 Past Encounters Encounter ID Performer Location Encounter Start Date Encounter Closed Date Diagnosis/Indication Diagnosis SNOMED-CT Code Diagnosis ICD10 Code Diagnosis Note [id number] Maxwell Mcleod MD [facility] [place] [address] [facility] [place] [address] 03/17/2021 00:00:00 03/17/2021 10:49:34 [id number] Maxwell Mcleod MD [facility] [place] [address] [facility] [place] [place] [address] 09/15/2021 00:00:00 09/17/2021 17:32:19 [id number] Maxwell Mcleod MD [facility] [place] [address] [facility] [place] [address] 03/16/2022 00:00:00 03/16/2022 10:23:33 [id number] Maxwell Mcleod MD [facility] [place] [address] [facility] [place] [address] 05/26/2022 00:00:00 05/26/2022 11:55:41 [id number] Maxwell Mcleod MD [facility] [place] [address] [facility] [place] [address] 06/27/2022 00:00:00 06/27/2022 14:29:20 [id number] Cait Cabello NP [facility] [place] [address] [facility] [place] [address] 06/29/2022 00:00:00 06/29/2022 14:08:24 [id number] Samuel Orr MD [facility] [place] [address] [place] [address] 07/19/2022 00:00:00 07/19/2022 10:54:40 [id number] Maxwell Mcleod MD [facility] [place] [address] [place] [address] 09/28/2022 00:00:00 09/28/2022 15:48:24 [id number] Dick Norton MD [facility] [place] [address] [place] [address] 11/07/2022 00:00:00 11/13/2022 14:18:46 [id number] Dick Norton MD [facility] [place] [address] [place] [address] 02/06/2023 14:20:48 02/06/2023 15:16:38 Pain of left knee joint 4164363877 26480 M25.562 [id number] Dick Norton MD [facility] [place] [address] [place] [address] 02/24/2023 10:32:21 02/27/2023 09:57:42 Pain of right shoulder joint [id number] 9913460 M25.511 [id number] Dick Norton MD [facility] [place] [address] [place] [address] 03/10/2023 09:52:31 03/10/2023 10:58:55 Closed fracture of upper end of humerus 33658975 S42.201D [id number] Cait Cabello NP [address] [address] 03/17/2023 14:50:52 03/17/2023 15:22:36 [id number] MD [facility] [place] [address] [place] [address] 03/20/2023 13:53:05 03/20/2023 14:41:20 Closed fracture of upper end of humerus 65251838 S42.201D [id number] Dick Norton MD [facility] [place] [address] [place] [address] 04/03/2023 13:52:13 04/03/2023 14:49:32 Closed fracture of upper end of humerus 05666628 S42.201D [id number] Cait Cabello NP [address] [address] 04/12/2023 10:50:24 04/12/2023 13:51:39 Type 2 diabetes mellitus 21146219 E11.9 ozempic 2 mg inj sq weekly. Hypothyroidism 46131539 E03.9 Unithroid 112 mcg po daily. Obesity 228384460 E66.9 Hyperlipidemia 95924770 E78.5 Rosuvastat in 20 mg po nightly. Essential hypertension 87210626 I10 Losartan 50 mg po daily. Vitamin D deficiency 347 60249 E55.9 Seasonal allergy 7160913 04 J30.2 Insomnia 418337533 G47.0 0 Trazodone 100 mg po Family his tory of breast cancer 933392512 Z80.3 Anxiety 52707255 F41.9 Duloxetine 60 mg po daily. [id number] Dick Norton MD [facility] [place] [address] [place] [address] 04/26/2023 09:57:56 04/26/2023 12:05:49 Pain of right shoulder joint 7350484683 1080606 M25.511 Fracture of shoulder 184 7981489 1085552 S42.90XD Pain of right wrist 3169 940497 17607 M25.531 [id number] Dick Norton MD [facility] [place] [address] [place] [address] 05/15/2023 16:34:16 05/29/2023 09:33:30 Pain of right shoulder joint 0817295171 8638436 M25.511 [id number] Dick Norton MD [facility] [place] [address] [place] [address] 06/12/2023 15:51:08 06/12/2023 17:04:30 Pain of right shoulder joint 1704639137 2613076 M25.511 [id number] Dick Norton MD [facility] [place] [address] [place] [address] 07/10/2023 16:27:37 08/01/2023 10:16:22 Closed fracture of upper end of humerus 67826280 S42.201D [id number] Cait Cabello NP [facility] [address] [address] 07/20/2023 08:56:02 07/20/2023 09:55:12 Type 2 diabetes mellitus 37114091 E11.9 Ozempic 1 mg inj sq weekly. and then get back to 2 mg once no longer nauseated. Sample of 0.25 for 4 weeks, then 0.5 mg for 4 weeks given at appt. Hypothyroidism 06505302 E03.9 Unithroid 112 mcg po daily. per endo. New endo referral made. Obesity 698060282 E66.9 diet and exercise advised. Hyperlipidemia 18620453 E78.5 Rosuvastat in 20 mg po nightly. Essential hypertension 13625377 I10 Losartan 50 mg po daily. Vitamin D deficiency 347 80697 E55.9 Seasonal allergy 5996737 04 J30.2 Insomnia 274965710 G47.0 0 Trazodone 100 mg po Anxiety 15620805 F41.9 Duloxetine 60 mg po daily. Abnormal weight 11505969 R63.4 CBC Lesion of skin of face 8858338949 06 L98.9 [id number] Dick Norton MD [facility] [place] [address] [place] [address] 08/16/2023 09:07:46 08/16/2023 10:31:10 Closed fracture of upper end of humerus 90895162 S42.201D Neck pain 92180114 M54.2 [id number] Dick Norton MD [facility] [place] [address] [place] [address] 09/13/2023 09:13:15 10/02/2023 09:58:08 Closed fracture of upper end of humerus 83394057 S42.201D Osteoarthr itis of left knee joint 3104746254 87011 M17.12 [id number] Cait Cabello NP [address] [address] 11/14/2023 09:58:56 11/14/2023 10:59:59 Type 2 diabetes mellitus 86564645 E11.9 Ozempic 1 mg inj sq weekly. Hypothyroidism 61819661 E03.9 Unithroid 112 mcg po daily. per endo. Obesity 359924815 E66.9 diet and exercise advised. Hyperlipidemia 10221337 E78.5 Rosuvastat in 20 mg po nightly. Essential hypertension 12480641 I10 Losartan 50 mg po daily.pt to call with home bp levels in 2-3 weeks. Goal 130/80. Seasonal allergy 6140226 04 J30.2 Insomnia 885999347 G47.0 0 Trazodone 100 mg po Anxiety 94205175 F41.9 Duloxetine 60 mg po daily. add on 30 mg for total of 90 mg. Health Concerns Section Related Observation LastModified by Organization Detai ls LastModified Time None Recorded Concern Status LastModified by Organization Details LastModified Time None Recorded Advance Directives Directive N: Payers Insurance Date Sequence Insurance Name Policy Number Policy Ram Covered Member ID Ram Member ID Guarantor Name 11/14/2023 1 [place] Roopa Gonzalez Netzer [id number] Armen Netzer 02/07/2023 2 [place] Roopa Gonzalez Netzer [id number] Armen Netzer 08/16/2023 2 [place] Roopa Gonzalez Netzer [id number] Armen Netzer 11/14/2023 2 [employer] (MEDICARE REPLACEMENT/ ADVANTAGE - PPO) [id number] Roopa Sullivanzer [id number] Armen Sergio Notes Date Note Type Note Provider Name [...] in law and grandchild got apartment in [place].Weight- plans to go back to [employer].Vit d- Supplement routinely.thyroid- Unithroid 112 mcg po daily. Seeing Samuel Orr.lipid- Eating low fat. Rosuvastatin 20 mg nightly.htn- Stable Cait Cabello NP [address], [facility] [address], [place], [address], [employer] [facility] 07/20/2023 10:00:41 08/16/2023 text/html Patient returns. She [...] had no trauma. Dick Norton MD [address] [facility], [facility] [address], [place], [address], [place] 08/16/2023 10:26:11 09/13/2023 text/html Patient returns. She [...] left knee Dick Norton MD [address], [address], [place], [address], [employer] 10/01/2023 16:38:08 11/14/2023 text/html Here for check u p- wanting to discuss meds. anxiety/Depressed over situation with children, DIL, Judith. Tearful daily.Hasn't been in the mood for [place]. DM- Seeing Samuel Orr. Ozempic 0.5 mg.Weight- Still struggling with weight loss.Vit d- Supplement routinely.thyroid- Unithroid 112 mcg po daily. Was seeing Samuel orr.lipid- Eating low fat. Rosuvastatin 20 mg nightly.htn- 150/90Still seeing PT for balance and broken arm. 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 Cait Cabello NP [address], [address], [place], [address], [place] 11/14/2023 10:58:47 OBGyn Episode No OBEpisode recorded.
--- OUTSIDE RECORDS SUMMARY | 2025-05-14 01:54 | XMS_ITS | Clinical Summary ---
Author Organization [facility] Address [address] [place] [address] Phone Care Team Providers Care Odd Bundle Worker Name Role Phone Unavailable Primary Care Provider Unavailabl e Social History Tobacco Use Types Packs/Day Years Used Date Smoking Tobacco: Never Assessed Comments Unknown Sex and Gender Information Value Date Recorded Sex Assigned at Not on file Legal Sex Female 3:14 PM [employer] Gender Identity Not on file Sexual Orientation [...]
--- NOTE | 2025-05-14 07:08 | WPDHPUPDATE1 ---
History and Physical Update Update Date/Time: 05/14/25 07:08 History and Physical has been reviewed, including an updated exam of the patient. There are NO changes in the patient's condition. Risks, benefits, and alternatives have been discussed and questions answered. Patient agrees to proceed with procedure.
[2025-05-14] MEDS: ACETAMINOPHEN 500 MG TABLET 1000 MG PO (08:50)
[2025-05-14 09:00] LABS: Glucose Point of Care 101 mg/dl (65-105)
--- NOTE | 2025-05-14 09:06 | WPDANESEPPF ---
Anes - Initial Pre Proc Eval Procedure: Operation Date: 05/14/25 10:00 Proposed Procedures p Robotic Assisted Laparoscopic Paraesophageal Hiatal Hernia Fundoplication - Samuel Baron MD Date/Time: 05/14/25 09:06 Surgeon: Samuel Baron MD Pre Op Diagnosis: paraesophageal hiatal hernia Patient Data Age: 69 Gender: F Height: 1.78 m Weight: 124 kg Allergies Allergy/AdvReac Type Severity Reaction Status Date / Time morphine Allergy Intermediate Hives Verified 05/14/25 09:05 Penicillins Allergy Mild HIVES Verified 05/14/25 09:05 semaglutide (From Ozempic) AdvReac NAUSEA/VOMI Verified 05/14/25 09:05 TING Home Medications ?Medication ?Instructions ?Recorded ?Confirmed ?Type meloxicam 7.5 mg tablet 7.5 mg PO DAILY #90 tabs 11/01/24 05/05/25 Rx trazodone 100 mg tablet 100 mg PO QHS #90 tabs 01/02/25 05/05/25 Rx levothyroxine 100 mcg tablet 100 mcg PO DAILY #90 tabs 02/28/25 05/14/25 Rx duloxetine 60 mg capsule,delayed 60 mg PO DAILY #90 caps 03/04/25 05/14/25 Rx release hydralazine 25 mg tablet 25 mg PO DAILY PRN SBP >160 03/06/25 05/05/25 History metoprolol succinate 50 mg 50 mg PO DAILY 03/06/25 05/14/25 History tablet,extended release 24 hr semaglutide 7 mg tablet (Rybelsus) 7 mg PO DAILY #90 tabs 03/18/25 05/05/25 Rx losartan 100 mg tablet 100 mg PO DAILY #90 tabs 03/25/25 05/05/25 Rx rosuvastatin 20 mg tablet 20 mg PO .COMPLEX #36 tabs 05/02/25 05/05/25 Rx aspirin 81 mg tablet,delayed 81 mg PO DAILY 05/05/25 05/05/25 History release (Adult Low Dose Aspirin) omeprazole 20 mg capsule,delayed 20 mg PO HS PRN indigestion 05/05/25 05/05/25 History release Laboratory Tests 05/14/25 08:53 POC Capillary Glucose 101 mg/dl (65-105) Patient hx anesthesia problems: none Family hx anesthesia problems: none Results Review: All pre-operative results and documents have been reviewed as part of the pre-operative evaluation. [facility] Past Medical History Medical History Headache Obese Nausea and vomiting Burping Hearing loss Arthritis Anxiety Hypothyroid Diabetes Hypertension Right-sided acoustic neuroma Surgical History Surgical History Hx of colonoscopy 08/12/13 11/11/19 @ [facility] Hx of cataract surgery H/O tubal ligation 1997 H/O brain surgery 2017 Hx of appendectomy History of tonsillectomy and adenoidectomy Family History Family History Father Anxiety and depression Heart disease Hypertension Mother Breast cancer Heart disease Sibling Carcinoma of colon Diabetes mellitus Anxiety and depression Heart disease Grandparent Carcinoma of colon Anxiety and depression Heart disease Social History Social History Social History: 08/20/24 very confident with medical forms. 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 Informed Consent: The patient's anesthetic plan and its attendant risks and benefits were discussed with the patient/family/POA. Questions were solicited and answers provided to the satisfaction of the patient/family/POA.
[2025-05-14] MEDS: LACTATED RINGERS 1,000 ML 30 ML IV CONT ×2 (09:11→13:50)
[2025-05-14] MEDS: KETOROLAC 15 MG/ML VIAL (*BKC) IV PUSH (09:11)
[2025-05-14] MEDS: ceFAZolin 3 GM/D5W 100 ML 100 ML IVPB (09:20)
[2025-05-14] MEDS: BUPIVACAINE/EPINEPHRINE 0.5% 50 ML VIAL 30 ML INFILTRATE (10:21)
[2025-05-14] MEDS: fentaNYL CITRATE INJ (*CRX) 100 MCG/2 ML VIAL 25 MCG IV PUSH ×2 (14:05→14:38)
[2025-05-14 14:10] LABS: Glucose Point of Care 260 mg/dl (65-105)
--- NOTE | 2025-05-14 14:13 | SUR.PHASEI ---
1413- Notified Dr. Ward patient's BG 260 upon check in PACU. MD aware and no further orders at this time.
--- NOTE | 2025-05-14 14:28 | P.OP_ITS ---
Procedure Note - Detailed Date of Procedure 05/14/25 Pre-op Diagnosis paraesophageal hiatal hernia Post-op Diagnosis Same Procedure Performed Robotic laparoscopic repair paraesophageal hiatal hernia with partial fundoplication Surgeon Samuel Baron MD Television Cameraman Amber Mane Anesthesia General and Local Indications patient has had a large hiatal hernia for quite some time. She has had a lot of problems with dysphagia and regurgitation. She also gets reflux symptoms. She is taken to surgery now for repair of her hiatal hernia and fundoplication. Findings Patient had a very large hiatal hernia. High mediastinal dissection was required to gain esophageal length adequate for the stomach to lie in the abdomen without tension. Description of Procedure Patient was taken to surgery and induced into general anesthesia. The abdomen is prepped and draped. Trocars were placed in the usual fashion starting with a left subcostal optical trocar. We then placed ports for all the robotic arms and camera and then switched this port out for robotic trocar. An floor covering printer assistant port just above the umbilicus was placed. Patient was in 30 degree reverse Trendelenburg. We then brought in the robotic arms and the camera and instruments were docked and targeted. The surgeon then went to the robotic console. The short grasping retractor was used to elevate the lateral segment of the left lobe of the liver. The lateral segment had some overhang and would get bumped or be in the way for visualization off and on during the surgery. The lateral segment was also exhibiting some fatty change and easily bled with minimal instrument trauma. This was the cause of literally all the bleeding associated with the surgery. Once the instruments were in place and the liver was retracted, I started by taking down the hepato gastric ligament. This allowed visualization of most of the left alessandra. We started by dividing the hernia sac at the medial edge of the left alessandra and proceeding from posterior to anterior. Quite a bit of the stomach was chronically herniated. Once I was able to divide the hernia sac at the apex, the floor covering printer assistant port was used and some traction was placed on the hernia sac. I then continued to dissect just outside the hernia sac in the mediastinum mobilizing it from surrounding structures and starting the process of reduction of the hernia. The left alessandra was covered by stomach and difficult to expose. None the less about half of the left alessandra was divided from the hernia sac. I then elevated the greater curvature of the stomach and began dividing short gastrics with the vessel sealer. We proceeded from the mid to upper stomach towards the hiatus. Division of these vessels was bloodless using the vessel sealer. Eventually I was able to expose the hernia sac for the posterior half of the left alessandra. I used the vessel sealer to divide the sac from the left alessandra. I then went back to the right alessandra and dissected the junction of the 2 crura such that I could elevate the upper stomach and esophagus. I then continued dividing the hernia sac from the mediastinal structures taking care not to injure either of the vagus nerves or the esophagus. Also care was taken to avoid the pleura. I dissected the hernia sac circumferentially and this nearly reduced the entire stomach into the abdominal cavity. I then removed the hernia sac taking care to avoid the anterior vagus nerve. The fat pad on the cardia the stomach was also removed. This was all done with the vessel sealer. I then proceeded to expose the mediastinum using the short grasping forceps and some traction from the floor covering printer assistant port on the upper stomach. Anteriorly the esophagus was carefully dissected free from surrounding structures. I then went to the left and posterior side of the esophagus and, using the vessel sealer again, mobilized the esophagus very high in the mediastinum. Finally the right side of the esophagus and the aorto esophageal ligament were divided. This gave adequate mobilization so that at least 3 if not 4 cm of esophagus was intra-abdominal. I then used [id number] mattress sutures of 0 Ethibond to approximate the hiatus. Two of these sutures were used. The upper aspect of the fundus of the stomach was then passed under the esophagus and steadied in place there for the fundoplication. 0 Ethibond was used for this as well. Two stitches were placed suturing the esophagus to the hiatus and to the fundus of the stomach. The last suture was the fundus to the hiatus. On the patient's left side, the same 3 sutures were placed. When this was concluded, all looked good. We then suctioned away any old blood or other fluid. We then removed all the instruments. We evacuated CO2 and then removed the trocars. All skin wounds w ere closed with subcuticular 4-0 Monocryl skin suture. The wounds were dressed with Exofin surgical adhesive. The patient was then awakened and taken to recovery in good condition. Sponge and needle counts were correct x2. Estimated Blood Loss -150 Drains No Packing No Pathology None sent Complications None Condition Stable Disposition PACU [facility] Billing Surgery - Charge Forward: Surgery Billing ( Robotic laparoscopic repair paraesophageal hiatal hernia with partial fundoplication.)
--- NOTE | 2025-05-14 15:47 | ADMGEN ---
This patient, Roopa Hill, was admitted to [facility] Surg Room 319-01. Patient/family oriented to hospital policies and general routines including ID bracelet, bed and alarms, visiting hours, pain management, procedures, bathroom and other care routines, personal items, smoking policy, room service/diet, and visiting hours. Information on how to activate the Rapid Response Team has been discussed. Patient/Family are encouraged to report perceived risks to care and to ask questions if they do not understand what they are told or what they should do.
[2025-05-14] MEDS: LACTATED RINGERS 1,000 ML 100 ML IV CONT (16:03)
[2025-05-14 16:36] LABS: Glucose Point of Care 133 mg/dl (65-105)
[2025-05-14] MEDS: oxyCODONE (*CRX) 5 MG/5 ML ORAL SOLN IR PO ×2 (17:12→20:57)
[2025-05-14 20:45] LABS: Glucose Point of Care 89 mg/dl (65-105)
[2025-05-14] MEDS: SENNA/DOCUSATE SODIUM TABLET 2 TAB PO (20:58)
[2025-05-14] MEDS: traZODone HCL 50 MG TABLET 100 MG PO (20:59)
[2025-05-15] VITALS (7 sets, daily range): BP systolic 119–149; BP diastolic 71–88; PULSE 70–85; RESP 16–18; TEMP 35.3–37; O2SAT 93–97
[2025-05-15] MEDS: LACTATED RINGERS 1,000 ML 100 ML IV CONT ×2 (02:23→13:58)
[2025-05-15] MEDS: ACETAMINOPHEN ELIXIR 325 MG/10.15 ML UDC 650 MG PO ×2 (05:27→16:48)
[2025-05-15] MEDS: LEVOTHYROXINE SODIUM 100 MCG TABLET PO (05:28)
[2025-05-15 06:17] LABS: Hematocrit 33.1 % (37.0-47.0); Hemoglobin 9.4 g/dL (12.0-15.0); Mean Corpuscular HGB Conc 28.4 g/dl (32-36); Mean Corpuscular Hemoglobin 22.2 pg (26-34); Mean Corpuscular Volume 78.3 fl (80-100); Mean Platelet Volume 10.7 fl (7.4-10.4); Platelet Count Result 225 k/mm3 (150-375); Red Blood Count 4.23 M/mm3 (4.2-5.4); Red Cell Distribution Width 16.6 % (11.5-14.5); White Blood Count 12.4 K/mm3 (4.5-10.0)
[2025-05-15 06:25] LABS: Anion Gap 5 mmol/L (4-12); Blood Urea Nitrogen 17 mg/dL (7-17); Calcium 8.9 mg/dL (8.4-10.2); Carbon Dioxide 28 mmol/L (22-30); Chloride 106 mmol/L (98-107); Estimated CRCL calculation 81 ml/min; Estimated Glomerular Filt Rate > 60; Glucose 98 mg/dL (65-110); Potassium 4.5 mmol/L (3.4-5.0); Sodium 139 mmol/L (137-145)
[2025-05-15 08:23] LABS: Glucose Point of Care 97 mg/dl (65-105)
--- NOTE | 2025-05-15 09:54 | P.PNGS_ITS ---
Progress Note: A&P Assessment and Plan (1) Paraesophageal hernia: Code(s): K44.9 - Diaphragmatic hernia without obstruction or gangrene Status: Chronic Assessment and Plan: POD1 after robotic laparoscopic repair paraesophageal hiatal hernia with partial fundoplication. No adverse events overnight. Patient is tolerating clear liquids without any issues. Consider advancing diet to full liquids later today. Subjective Subjective Date/Time Seen: 05/15/25 09:54 Interval history: Patient is doing well today. Tolerating clear liquid diet without any dysphagia, regurgitation, nausea, or vomiting. She ahs not passed a bowel movement or passed flatus yet. Vital signs stable overnight. WBC 12.4, but as expected after surgery. Exam Const: General: comfortable and no acute distress Neck: Neck: supple GI: Inspection: non-distended GI Palp: Yes Soft to palpation and Yes Tenderness to palpation present (GI) (mild tenderness to epigastric region) Auscultation: abnormal bowel sounds (hypoactive) Other: Incision sites are clean and dry with no signs of infection, necrosis, or dehiscence. : General: Yes bladder normal to palpation Skin: General skin exam: normal color and no rashes or lesions noted Objective Data Vital Signs Vital Signs: Vital Signs - 24 hr 05/14/25 13:50 05/14/25 14:05 05/14/25 14:20 Temperature 98.8 F Pulse Rate 79 73 71 Respiratory Rate 18 12 14 Blood Pressure 98/53 L 97/48 L 98/58 L Pulse Oximetry 93 98 98 Oxygen Delivery Simple Face Mask Simple Face Mask Simple Face Mask Oxygen Flow Rate 8 8 8 05/14/25 14:35 05/14/25 14:50 05/14/25 15:05 Temperature 98.0 F Pulse Rate 72 69 68 Respiratory Rate 14 12 12 Blood Pressure 95/56 L 103/57 L 105/70 Pulse Oximetry 98 98 94 Oxygen Delivery Simple Face Mask Simple Face Mask Nasal Cannula Oxygen Flow Rate 8 8 2 05/14/25 15:15 05/14/25 15:30 05/14/25 15:35 Temperature 98.2 F 96.2 F L Pulse Rate 70 72 63 Respiratory Rate 14 12 18 Blood Pressure 101/64 110/69 108/55 L Pulse Oximetry 93 93 92 Oxygen Delivery Nasal Cannula Nasal Cannula Oxygen Flow Rate 2 2 05/14/25 15:50 05/14/25 16:20 05/14/25 17:20 Temperature 96.0 F L 96.4 F L 96.3 F L Pulse Rate 66 64 70 Respiratory Rate 18 18 18 Blood Pressure 100/55 L 123/67 126/60 Pulse Oximetry 99 92 95 Oxygen Delivery Oxygen Flow Rate 05/14/25 20:42 05/14/25 21:20 05/15/25 01:09 Temperature 97.1 F L 97.1 F L Pulse Rate 64 70 Respiratory Rate 13 16 Blood Pressure 148/86 H 148/77 H Pulse Oximetry 96 98 96 Oxygen Delivery Nasal Cannula Oxygen Flow Rate 2 05/15/25 05:20 05/15/25 08:00 05/15/25 09:18 Temperature 97.5 F L 95.6 F L Pulse Rate 71 77 Respiratory Rate 16 16 Blood Pressure 146/79 H 149/81 H Pulse Oximetry 96 97 Oxygen Delivery Room Air Oxygen Flow Rate Intake/Output Intake/Output: Intake & Output 05/12/25 05/13/25 05/14/25 05/15/25 23:59 23:59 23:59 23:59 Intake Total 400 1500 Balance 400 1500 Meds/Results Medications: Active Medications Generic Name Dose Route Start Last Admin Trade Name Freq PRN Reason Stop Dose Admin Acetaminophen 650 mg 05/14/25 15:35 05/15/25 05:27 Acetaminophen Elixir 325 Mg/10.15 Ml Udc PO 650 mg Q4H PRN Administration Mild Pain (1-3) or Fever Dextrose 12.5 gm 05/14/25 16:49 Dextrose 50% 25 Gm/50 Ml Syringe IV PUSH PRN PRN Hypoglycemia Protocol Duloxetine HCl 60 mg 05/15/25 09:00 Duloxetine Hcl 60 Mg Capsule.Dr PO DAILY [facility] Enoxaparin Sodium 40 mg 05/15/25 09:00 Enoxaparin 40 Mg/0.4 Ml Syringe SUB-Q DAILY [facility] Fentanyl Citrate 25 mcg 05/14/25 15:35 Fentanyl Citrate Inj (*Crx) 100 Mcg/2 Ml Vial IV PUSH Q2H PRN Breakthrough Pain Rated 4-6 or NPO Fentanyl Citrate 50 mcg 05/14/25 15:35 Fentanyl Citrate Inj (*Crx) 100 Mcg/2 Ml Vial IV PUSH Q2H PRN Breakthrough Pain Rated 7-10 or NPO Glucagon 1 mg 05/14/25 16:49 Glucagon For Inj 1 Mg Vial IM PRN PRN Hypoglycemia Protocol Glucose 15 gm 05/14/25 16:49 Glucose Oral Gel 15 Gm Of Glucse In 37.5 Gm Tube PO PRN PRN Hypoglycemia Protocol Hydralazine HCl 25 mg 05/14/25 15:35 Hydralazine Hcl 25 Mg Tablet PO DAILY PRN SBP >160 Lactated Ringer's 1,000 mls @ 100 mls/hr 05/14/25 15:35 05/15/25 02:23 Lr - Lactated Ringers Iv IV CONT 100 mls/hr .Q10H RONNI Administration Ibuprofen 800 mg in 200 mls @ 400 mls/hr 05/14/25 15:35 Caldolor 800 Mg/200 Ml IVPB Q6H PRN Breakthrough Pain Rated 1-3 or NPO Dextrose 1,000 mls @ 100 mls/hr 05/14/25 16:49 Dextrose 5% 1,000 Ml IVPB PRN PRN Hypoglycemia Protocol Insulin Aspart 2 - 5 units 05/14/25 17:00 05/15/25 08:33 Insulin Aspart (*Bkc) 100 Units/Ml SUB-Q Not Given TIDWM [facility] Protocol Insulin Aspart 1 - 2 units 05/14/25 21:00 05/14/25 20:49 Insulin Aspart (*Bkc) 100 Units/Ml SUB-Q Not Given HS [facility] Protocol Levothyroxine Sodium 100 mcg 05/15/25 06:30 05/15/25 05:28 Levothyroxine Sodium 100 Mcg Tablet PO 100 mcg DAILY@0630 RONNI Administration Losartan Potassium 100 mg 05/15/25 09:00 Losartan Potassium 100 Mg Tablet PO DAILY [facility] Metoprolol Succinate 50 mg 05/15/25 09:00 Metoprolol Succinate Ext Rel 50 Mg Tabcr PO DAILY [facility] Naloxone HCl 0.1 mg 05/14/25 15:35 Naloxone Hcl 0.4 Mg/Ml Vial IV PUSH Q2M PRN Opiate Reversal Ondansetron HCl 4 mg 05/14/25 15:35 Ondansetron Inj 4 Mg/2 Ml Vial IV PUSH Q4H PRN Nausea And Vomiting Oxycodone HCl 5 mg 05/14/25 15:35 05/14/25 20:57 Oxycodone (*Crx) 5 Mg/5 Ml Oral Soln Ir PO 5 mg Q4H PRN Administration Pain Rated 4-6 Polyethylene Glycol 17 gm 05/15/25 09:00 Polyethylene Glycol 3350 17 Gm Powd.Pack PO QAM RONNI Senna/Docusate Sodium 2 tab 05/14/25 21:00 05/14/25 20:58 Senna/Docusate Sodium Tablet PO 2 tab HS RONNI Administration Trazodone HCl 100 mg 05/14/25 21:00 05/14/25 20:59 Trazodone Hcl 50 Mg Tablet PO 100 mg QHS RONNI Administration Labs Labs: Laboratory Results - last 24 hr 05/14/25 05/14/25 05/14/25 14:07 16:10 20:42 WBC RBC Hgb Hct MCV MCH MCHC RDW Plt Count MPV Sodium Potassium Chloride Carbon Dioxide Anion Gap BUN Creatinine Estim Creat Clear Calc Estimated GFR Glucose POC Capillary Glucose 260 H 133 H 89 Calcium 05/15/25 05/15/25 05:55 07:49 WBC 12.4 H RBC 4.23 Hgb 9.4 L Hct 33.1 L MCV 78.3 L MCH 22.2 L MCHC 28.4 L RDW 16.6 H Plt Count 225 MPV 10.7 H Sodium 139 Potassium 4.5 Chloride 106 Carbon Dioxide 28 Anion Gap 5 BUN 17 Creatinine 0.84 Estim Creat Clear Calc 81 Estimated GFR > 60 Glucose 98 POC Capillary Glucose 97 Calcium 8.9
[2025-05-15] MEDS: METOPROLOL SUCCINATE EXT REL 50 MG TABCR PO (10:05)
[2025-05-15] MEDS: polyethylene glycoL 3350 17 GM POWD.PACK PO (10:05)
[2025-05-15] MEDS: LOSARTAN POTASSIUM 100 MG TABLET PO (10:05)
[2025-05-15] MEDS: DULoxetine HCL 60 MG CAPSULE.DR PO (10:05)
[2025-05-15] MEDS: ENOXAPARIN 40 MG/0.4 ML SYRINGE SUB-Q (10:06)
[2025-05-15 12:55] LABS: Glucose Point of Care 107 mg/dl (65-105)
[2025-05-15] MEDS: oxyCODONE (*CRX) 5 MG/5 ML ORAL SOLN IR PO (16:49)
[2025-05-15 16:50] LABS: Glucose Point of Care 115 mg/dl (65-105)
[2025-05-15 22:07] LABS: Glucose Point of Care 118 mg/dl (65-105)
[2025-05-15] MEDS: SENNA/DOCUSATE SODIUM TABLET 2 TAB PO (22:08)
[2025-05-15] MEDS: traZODone HCL 50 MG TABLET 100 MG PO (22:08)
[2025-05-16] MEDS: ACETAMINOPHEN ELIXIR 325 MG/10.15 ML UDC 650 MG PO (05:11)
[2025-05-16] MEDS: oxyCODONE (*CRX) 5 MG/5 ML ORAL SOLN IR PO ×3 (05:13→20:10)
[2025-05-16] MEDS: LEVOTHYROXINE SODIUM 100 MCG TABLET PO (05:16)
[2025-05-16 06:00] VITALS: BP 166/83; PULSE 82; RESP 16; O2SAT 90
[2025-05-16 06:47] LABS: Hematocrit 30.5 % (37.0-47.0); Hemoglobin 8.8 g/dL (12.0-15.0); Mean Corpuscular HGB Conc 28.9 g/dl (32-36); Mean Corpuscular Hemoglobin 22.2 pg (26-34); Mean Corpuscular Volume 76.8 fl (80-100); Mean Platelet Volume 10.9 fl (7.4-10.4); Platelet Count Result 176 k/mm3 (150-375); Red Blood Count 3.97 M/mm3 (4.2-5.4); Red Cell Distribution Width 16.6 % (11.5-14.5); White Blood Count 9.9 K/mm3 (4.5-10.0)
[2025-05-16 07:13] LABS: Anion Gap 5 mmol/L (4-12); Blood Urea Nitrogen 7 mg/dL (7-17); Calcium 8.5 mg/dL (8.4-10.2); Carbon Dioxide 29 mmol/L (22-30); Chloride 104 mmol/L (98-107); Estimated CRCL calculation 102 ml/min; Estimated Glomerular Filt Rate > 60; Glucose 110 mg/dL (65-110); Potassium 4.1 mmol/L (3.4-5.0); Sodium 138 mmol/L (137-145)
[2025-05-16 07:55] LABS: Glucose Point of Care 118 mg/dl (65-105)
[2025-05-16 09:41] VITALS: PULSE 74
[2025-05-16] MEDS: METOPROLOL SUCCINATE EXT REL 50 MG TABCR PO (09:41)
[2025-05-16] MEDS: DULoxetine HCL 60 MG CAPSULE.DR PO (09:42)
[2025-05-16] MEDS: ENOXAPARIN 40 MG/0.4 ML SYRINGE SUB-Q (09:42)
[2025-05-16] MEDS: LOSARTAN POTASSIUM 100 MG TABLET PO (09:42)
[2025-05-16] MEDS: polyethylene glycoL 3350 17 GM POWD.PACK PO (09:42)
[2025-05-16 12:09] LABS: Glucose Point of Care 101 mg/dl (65-105)
[2025-05-16 14:58] VITALS: BP 169/96; PULSE 77; RESP 16; TEMP 35.8; O2SAT 97
[2025-05-16 17:04] LABS: Glucose Point of Care 110 mg/dl (65-105)
--- NOTE | 2025-05-16 17:53 | P.PNGS_ITS ---
Progress Note: A&P Assessment and Plan (1) Paraesophageal hernia: Code(s): K44.9 - Diaphragmatic hernia without obstruction or gangrene Status: Chronic (2) GERD (gastroesophageal reflux disease): Qualifiers: Esophagitis presence: esophagitis presence not specified Qualified Code(s): K21.9 - Gastro-esophageal reflux disease without esophagitis Code(s): K21.9 - Gastro-esophageal reflux disease without esophagitis Status: Chronic (3) History of repair of hiatal hernia: Code(s): Z98.890 - Other specified postprocedural states; Z87.19 - Personal history of other diseases of the digestive system Status: Acute Assessment and Plan: Doing well postop day 2. I encouraged patient to give the oral pain meds an hour and if her pain is not better, ask for the IV pain medication. Also it is fine to ask specifically just for the IV pain medication, she does not always have to take oral pain medication 1st. She does feel better today and hopefully will have a better night tonight. She does have quite a bit of belching but no regurgitation or heartburn. Increase ambulation today. Hopefully feeling better and possibly home tomorrow or Monday. Subjective Subjective Date/Time Seen: 05/16/25 17:53 Post Op day: 2 Patient reports: still having pain (Had a lot of left shoulder, epigastric and substernal discomfort while trying to sleep last night.), tolerating liquids well (No heartburn or reflux but is belching), voiding w/o difficulty, bowel movement and afebrile Exam Const: General: cooperative, comfortable, alert, awake and tired appearing Orientation/consciousness: patient oriented x3 GI: Inspection: no abdominal wall ecchymosis, non-distended and incision (All incisions healing very well) GI Palp: Yes Soft to palpation, Yes Tenderness to palpation present (GI) and No Guarding due to palpation present (GI) Objective Data Vital Signs Vital Signs: Vital Signs - 24 hr 05/15/25 20:00 05/15/25 21:01 05/16/25 06:00 Temperature 37.0 C Pulse Rate 85 85 82 Respiratory Rate 16 16 16 Blood Pressure 119/71 166/83 H Pulse Oximetry 93 93 90 Oxygen Delivery Room Air 05/16/25 09:30 05/16/25 09:41 05/16/25 14:58 Temperature 35.8 C L Pulse Rate 74 77 Respiratory Rate 16 Blood Pressure 169/96 H Pulse Oximetry 97 Oxygen Delivery Room Air Intake/Output Intake/Output: Intake & Output 05/13/25 05/14/25 05/15/25 05/16/25 23:59 23:59 23:59 23:59 Intake Total 400 3743.3 1366.7 Balance 400 3743.3 1366.7 Meds/Results Medications: Active Medications Generic Name Dose Route Start Last Admin Trade Name Freq PRN Reason Stop Dose Admin Acetaminophen 650 mg 05/14/25 15:35 05/16/25 05:11 Acetaminophen Elixir 325 Mg/10.15 Ml Udc PO 650 mg Q4H PRN Administration Mild Pain (1-3) or Fever Dextrose 12.5 gm 05/14/25 16:49 Dextrose 50% 25 Gm/50 Ml Syringe IV PUSH PRN PRN Hypoglycemia Protocol Duloxetine HCl 60 mg 05/15/25 09:00 05/16/25 09:42 Duloxetine Hcl 60 Mg Capsule.Dr PO 60 mg DAILY RONNI Administration Enoxaparin Sodium 40 mg 05/15/25 09:00 05/16/25 09:42 Enoxaparin 40 Mg/0.4 Ml Syringe SUB-Q 40 mg DAILY RONNI Administration Fentanyl Citrate 25 mcg 05/14/25 15:35 Fentanyl Citrate Inj (*Crx) 100 Mcg/2 Ml Vial IV PUSH Q2H PRN Breakthrough Pain Rated 4-6 or NPO Fentanyl Citrate 50 mcg 05/14/25 15:35 Fentanyl Citrate Inj (*Crx) 100 Mcg/2 Ml Vial IV PUSH Q2H PRN Breakthrough Pain Rated 7-10 or NPO Glucagon 1 mg 05/14/25 16:49 Glucagon For Inj 1 Mg Vial IM PRN PRN Hypoglycemia Protocol Glucose 15 gm 05/14/25 16:49 Glucose Oral Gel 15 Gm Of Glucse In 37.5 Gm Tube PO PRN PRN Hypoglycemia Protocol Hydralazine HCl 25 mg 05/14/25 15:35 Hydralazine Hcl 25 Mg Tablet PO DAILY PRN SBP >160 Ibuprofen 800 mg in 200 mls @ 400 mls/hr 05/14/25 15:35 Caldolor 800 Mg/200 Ml IVPB Q6H PRN Breakthrough Pain Rated 1-3 or NPO Dextrose 1,000 mls @ 100 mls/hr 05/14/25 16:49 Dextrose 5% 1,000 Ml IVPB PRN PRN Hypoglycemia Protocol Insulin Aspart 2 - 5 units 05/14/25 17:00 05/16/25 17:40 Insulin Aspart (*Bkc) 100 Units/Ml SUB-Q Not Given [facility] Protocol Insulin Aspart 1 - 2 units 05/14/25 21:00 05/15/25 22:06 Insulin Aspart (*Bkc) 100 Units/Ml SUB-Q Not Given HS [facility] Protocol Levothyroxine Sodium 100 mcg 05/15/25 06:30 05/16/25 05:16 Levothyroxine Sodium 100 Mcg Tablet PO 100 mcg DAILY@0630 [facility] Administration Losartan Potassium 100 mg 05/15/25 09:00 05/16/25 09:42 Losartan Potassium 100 Mg Tablet PO 100 mg DAILY RONNI Administration Metoprolol Succinate 50 mg 05/15/25 09:00 05/16/25 09:41 Metoprolol Succinate Ext Rel 50 Mg Tabcr PO 50 mg DAILY [facility] Administration Naloxone HCl 0.1 mg 05/14/25 15:35 Naloxone Hcl 0.4 Mg/Ml Vial IV PUSH Q2M PRN Opiate Reversal Ondansetron HCl 4 mg 05/14/25 15:35 Ondansetron Inj 4 Mg/2 Ml Vial IV PUSH Q4H PRN Nausea And Vomiting Oxycodone HCl 5 mg 05/14/25 15:35 05/16/25 16:37 Oxycodone (*Crx) 5 Mg/5 Ml Oral Soln Ir PO 5 mg Q4H PRN Administration Pain Rated 4-6 Polyethylene Glycol 17 gm 05/15/25 09:00 05/16/25 09:42 Polyethylene Glycol 3350 17 Gm Powd.Pack PO 17 gm QAM [facility] Administration Senna/Docusate Sodium 2 tab 05/14/25 21:00 05/15/25 22:08 Senna/Docusate Sodium Tablet PO 2 tab HS [facility] Administration Trazodone HCl 100 mg 05/14/25 21:00 05/15/25 22:08 Trazodone Hcl 50 Mg Tablet PO 100 mg QHS RONIN Administration Labs Labs: Laboratory Results - last 24 hr 05/15/25 05/16/25 05/16/25 21:04 06:14 07:49 WBC 9.9 RBC 3.97 L Hgb 8.8 L Hct 30.5 L MCV 76.8 L MCH 22.2 L MCHC 28.9 L RDW 16.6 H Plt Count 176 MPV 10.9 H Sodium 138 Potassium 4.1 Chloride 104 Carbon Dioxide 29 Anion Gap 5 BUN 7 D Creatinine 0.65 L Estim Creat Clear Calc 102 Estimated GFR > 60 Glucose 110 POC Capillary Glucose 118 H 118 H Calcium 8.5 05/16/25 05/16/25 12:06 16:56 WBC RBC Hgb Hct MCV MCH MCHC RDW Plt Count MPV Sodium Potassium Chloride Carbon Dioxide Anion Gap BUN Creatinine Estim Creat Clear Calc Estimated GFR Glucose POC Capillary Glucose 101 110 H Calcium
[2025-05-16] MEDS: SENNA/DOCUSATE SODIUM TABLET 2 TAB PO (20:10)
[2025-05-16] MEDS: traZODone HCL 50 MG TABLET 100 MG PO (20:10)
[2025-05-16 20:56] LABS: Glucose Point of Care 168 mg/dl (65-105)
[2025-05-16 22:00] VITALS: BP 141/70; PULSE 90; RESP 18; TEMP 36.8; O2SAT 93
[2025-05-17] MEDS: LEVOTHYROXINE SODIUM 100 MCG TABLET PO (05:25)
[2025-05-17] MEDS: oxyCODONE (*CRX) 5 MG/5 ML ORAL SOLN IR PO (05:33)
[2025-05-17 06:00] VITALS: BP 137/68; PULSE 72; RESP 18; TEMP 36.6; O2SAT 92
[2025-05-17 07:07] LABS: Hematocrit 29.8 % (37.0-47.0); Hemoglobin 8.7 g/dL (12.0-15.0); Mean Corpuscular HGB Conc 29.2 g/dl (32-36); Mean Corpuscular Hemoglobin 22.4 pg (26-34); Mean Corpuscular Volume 76.6 fl (80-100); Mean Platelet Volume 9.8 fl (7.4-10.4); Platelet Count Result 164 k/mm3 (150-375); Red Blood Count 3.89 M/mm3 (4.2-5.4); Red Cell Distribution Width 16.5 % (11.5-14.5); White Blood Count 8.8 K/mm3 (4.5-10.0)
[2025-05-17 07:34] LABS: Anion Gap 8 mmol/L (4-12); Blood Urea Nitrogen 8 mg/dL (7-17); Calcium 8.6 mg/dL (8.4-10.2); Carbon Dioxide 28 mmol/L (22-30); Chloride 105 mmol/L (98-107); Estimated CRCL calculation 105 ml/min; Estimated Glomerular Filt Rate > 60; Glucose 103 mg/dL (65-110); Potassium 4.5 mmol/L (3.4-5.0); Sodium 141 mmol/L (137-145)
[2025-05-17 08:37] LABS: Glucose Point of Care 95 mg/dl (65-105)
[2025-05-17] MEDS: METOPROLOL SUCCINATE EXT REL 50 MG TABCR PO (09:10)
[2025-05-17] MEDS: DULoxetine HCL 60 MG CAPSULE.DR PO (09:10)
[2025-05-17] MEDS: LOSARTAN POTASSIUM 100 MG TABLET PO (09:10)
[2025-05-17] MEDS: ENOXAPARIN 40 MG/0.4 ML SYRINGE SUB-Q (09:11)
--- NOTE | 2025-05-17 11:16 | P.DS_ITS ---
DS: Admitting Diagnosis Discharge Date May 17, 2025 Admitting Diagnosis Status post robotic repair of large paraesophageal hiatal hernia with partial fundoplication DS: Discharge Diagnosis Discharge Diagnosis (1) Paraesophageal hernia: Code(s): K44.9 - Diaphragmatic hernia without obstruction or gangrene Status: Chronic (2) GERD (gastroesophageal reflux disease): Qualifiers: Esophagitis presence: esophagitis presence not specified Qualified Code(s): K21.9 - Gastro-esophageal reflux disease without esophagitis Code(s): K21.9 - Gastro-esophageal reflux disease without esophagitis Status: Chronic DS: Summary Hospital Course Hospital Course: Patient came to [facility] as an outpatient and underwent an elective robotic assisted laparoscopic paraesophageal hiatal hernia repair with partial fundoplication done on May 14, [address] Baron. The patient had symptomatic dysphagia and on EGD was found to have Kannan ulcers. Due to her symptoms and can ulcer she underwent surgical management. Postoperatively after her surgery she did well in the recovery room then was transferred to the surgical floor. On the surgical floor she seemed to do pretty well but was having quite a bit of pain in her right shoulder from the retained CO2. She initially was started only on some clear liquids which she eventually was able to tolerate. She was able to get up on ambulate out of bed with a walker but then advanced to not using the walker by the time of discharge. On postop day 3. She had tolerated full liquids and was not having any dysphagia. Her pain was much improved and not needing any significant pain medications for her postoperative pain. Her incisions were inspected and they were healing appropriately redness or drainage. She was afebrile and all vital signs were stable and appropriate. She felt like she was doing well enough to be discharged home on postop day 3. Status at Discharge Overall status at discharge: patient is progressing back to baseline Time Spent with Patient Time attestation: Total time spent providing and/or coordinating discharge services: Time spent: Less than 30 minutes Exam GI: Other: Abdomen is soft and nondistended. Laparoscopic port site incisions are healing well without any redness or drainage. Skin glue was then placed. Expected minimal tenderness around the port site incisions. No peritoneal signs. No port site hernias. DS: Data Data Completed and Pending Labs on day of discharge: Labs from last 24 hours 05/17/25 05/17/25 05/16/25 08:13 07:01 20:43 WBC 8.8 RBC 3.89 L Hgb 8.7 L Hct 29.8 L MCV 76.6 L MCH 22.4 L MCHC 29.2 L RDW 16.5 H Plt Count 164 MPV 9.8 Sodium 141 Potassium 4.5 Chloride 105 Carbon Dioxide 28 Anion Gap 8 BUN 8 Creatinine 0.63 L Estim Creat Clear Calc 105 Estimated GFR > 60 Glucose 103 POC Capillary Glucose 95 168 H Calcium 8.6 05/16/25 05/16/25 16:56 12:06 WBC RBC Hgb Hct MCV MCH MCHC RDW Plt Count MPV Sodium Potassium Chloride Carbon Dioxide Anion Gap BUN Creatinine Estim Creat Clear Calc Estimated GFR Glucose POC Capillary Glucose 110 H 101 Calcium Discharge Plan Discharge Patient Disposition: Home Discharge Instructions: * Ambulate 3-4 x per day and as tolerated. * No lifting over 15-20lbs. * May bathe or shower. * Stairs are OK. * May drive a car in 3 days. * Stay on full liquid diet for 2 weeks. Drinks slowly taking time between drinks. Try to get 40 mg of protein by supplement each day. * After 2 weeks, can proceed to soft diet-foods that can be cut with a fork. Again, eat slowly, chewing food well, taking time between bites and drinks. * See Dr. Baron in 2 weeks Patient Language: Dominican Stand Alone Forms: General Discharge Instructions Follow-up/Referrals: Samuel Baron MD [Physician] - 2 Weeks Discharge Medications: New acetaminophen [Nortemp] 160 mg/5 mL Suspension 650 mg PO Q4H PRN (Reason: Mild Pain (1-3) Or Fever) Qty: 150 0RF polyethylene glycol 3350 [Miralax] 17 gram Powder In Packet 17 g PO QAM Qty: 10 0RF sennosides-docusate sodium [Senokot-S] 8.6-50 mg Tablet 2 tab PO HS Qty: 10 0RF oxycodone 5 mg/5 mL Solution 5 mg PO Q4H PRN (Reason: Postop pain) Qty: 150 0RF Continued metoprolol succinate 50 mg tablet extended release 24 hr 50 mg PO DAILY Patient Comments: QAM hydralazine 25 mg tablet 25 mg PO DAILY PRN (Reason: SBP >160) aspirin [Adult Low Dose Aspirin] 81 mg tablet,delayed release (/EC) 81 mg PO DAILY omeprazole 20 mg capsule,delayed release(DR/EC) 20 mg PO HS PRN (Reason: indigestion) meloxicam 7.5 mg tablet 7.5 mg PO DAILY Qty: 90 3RF trazodone 100 mg tablet 100 mg PO QHS Qty: 90 1RF levothyroxine 100 mcg tablet 100 mcg PO DAILY Qty: 90 1RF Patient Comments: QAM duloxetine 60 mg capsule,delayed release(DR/EC) 60 mg PO DAILY Qty: 90 1RF Patient Comments: QAM Rybelsus 7 mg tablet 7 mg PO DAILY Qty: 90 0RF losartan 100 mg tablet 100 mg PO DAILY Qty: 90 3RF Patient Comments: QAM rosuvastatin 20 mg tablet 20 mg PO .COMPLEX Qty: 36 3RF Rx Instructions: 20 mg orally monday, monday, and monday;
[2025-05-17 11:57] LABS: Glucose Point of Care 98 mg/dl (65-105)
== END 2025-05-17 13:05 | disposition home or self-care (01) ==
LOC: ANHSURGERY 08:11 → ANH3MEDSUR 15:37
PROVIDERS: PCP Nurse Practitioner Family; Visit Provider Surgery
PROC: 0DV44ZZ Restriction of Esophagogastric Junction, Percutaneous Endoscopic Approach (ICD-10-PCS; CPT 43280; principal; 2025-05-14 10:00)
DX: K44.9 Diaphragmatic hernia without obstruction or gangrene (principal); K21.9 Gastro-esophageal reflux disease without esophagitis; M19.90 Unspecified osteoarthritis, unspecified site; F41.9 Anxiety disorder, unspecified; E03.9 Hypothyroidism, unspecified; E11.8 Type 2 diabetes mellitus with unspecified complications; I10 Essential (primary) hypertension; Z98.890 Other specified postprocedural states; Z98.51 Tubal ligation status; Z80.3 Family history of malignant neoplasm of breast; Z80.0 Family history of malignant neoplasm of digestive organs; Z82.49 Family history of ischemic heart disease and other diseases of the circulatory system; Z79.82 Long term (current) use of aspirin; E66.9 Obesity, unspecified; Z68.39 Body mass index [BMI] 39.0-39.9, adult
CPT/HCPCS: 43281; S2900; 36415; 80048; 82948; 85027; A9270; J0171; J0690; J1100; J1650; J1885; J2250; J2371; J2405; J2704; J3010; J7030; J7120